=== PATIENT | female | born 1945 | race Caucasian/White ===

== ENCOUNTER 2016-02-21 06:54 | Outpatient (CLI) | payer MEDICARE, MEDICAID ==
[~2016-02-21] VITALS: Ht 170.2 cm; Wt 92.1 kg
--- OUTSIDE RECORDS SUMMARY | 2016-02-21 06:58 | XMS REPORT | Continuity of Care Document ---
Author Author [facility] Organization [facility] Address Unknown Phone Unavailable Care Team Providers Care Solutions Consultant Name Role Phone JANAK OSMAN MD PCP Insurance Providers Payer Name Policy Number Subscriber Name Relationship Wps Medicare [id number] Theodora Victoria 18 Self / Same As Patient [facility] Amerigrp [id number] Theodora Victoria 18 Self / Same As Patient Advance Directives Directive Response Recorded Date/Time Advance Directives Yes 01/17/16 11:01am Health Care Power of Loans Officer Yes 01/17/16 11:01am Organ Donor Yes 01/17/16 11:01am Resuscitation Status Full Code 01/17/16 11:01am Problems Active Problems Medical Problem Onset Date Status CHRONIC RENAL FAILURE Unknown Acute Chest pain Unknown Acute Epigastric abdominal pain Unknown Acute Fever Unknown Acute HYPERTENSION Unknown Acute Hypertensive heart disease Unknown Acute Hypotension due to medication Unknown Acute IDDM Unknown Acute UTI Unknown Acute Medications Current Home Medications Medication Dose Units Route Directions Days/Qty Instructions Start Date Insulin Detemir 100 U/Ml 0-80 Units Sub-Q Three Times A Day Before Meals USES SLIDING SCALE 04/21/11 Pantoprazole Sodium 40 Mg 40 Mg Oral Daily@159906/03/11 Clonidine Hcl 0.2 Mg 1 Each Transderm Q 7 Days change on wednesday Estradiol 1 Mg 1 Mg Oral Daily@159902/29/12 Loratadine 10 Mg 10 Mg Oral Daily@159902/29/12 Acetaminophen/Hydrocodone Bitart 1 Ea 2 Tab Oral Q6hr Prn no more than 8 in 24hr 03/01/12 Nitroglycerin 0.4 Mg 0.4 Mg Sublingual As Needed 10/06/12 Atorvastatin Calcium 10 Mg 10 Mg Oral Bedtime 10/22/12 Aspirin 81 Mg 81 Mg Oral Daily @159903/28/15 Duloxetine Hcl 60 Mg 60 Mg Oral Daily@159903/28/15 Lisinopril 40 Mg 40 Mg Oral Daily@159903/28/15 Spironolactone 25 Mg 25 Mg Oral Daily@159903/28/15 Oxybutynin Chloride 15 Mg 15 Mg Oral Daily@159903/28/15 Metoprolol Succinate 100 Mg 100 Mg Oral Daily@159903/28/15 [id number]/Sod Sul/Nacl/Asb/C/Kcl 1 Each 2 Each Oral As Directed 2 Days 04/01/15 Past Home Medications Medication Directions Ordered Status Clopidogrel Bisulfate 75 Mg Tablet, 75 Mg Oral Daily 04/18/07 Discontinued Loratadine 10 Mg Box, 10 Mg Oral Daily 04/18/07 Discontinued Montelukast Sodium 10 Mg Tablet, 10 Mg Oral Daily 04/18/07 Discontinued Pioglitazone Hcl 30 Mg Tablet, 04/18/07 Discontinued Fluoxetine Hcl 20 Mg Capsule, 04/18/07 Discontinued Metoprolol Tartrate (Lopressor) 50 Mg Tablet, 04/18/07 Discontinued Benazepril Hcl 40 Mg Tablet, 04/18/07 Discontinued Fenofibrate 145 Mg Tablet, 145 Mg Oral Daily 04/18/07 Discontinued Estrogens Conjugated 0.625 Mg Tablet, 0.625 Mg Oral Daily 04/18/07 Discontinued Esomeprazole Magnesium 40 Mg Capsule., 04/18/07 Discontinued Glyburide 5 Mg Tablet, 10 Mg Oral Twice A Day 04/18/07 Discontinued Aspirin 81 Mg Tablet, 81 Mg Oral Daily 04/18/07 Discontinued Potassium Chloride 10 Meq Capcr, 02/26/09 Discontinued Furosemide 40 Mg Tab, 02/26/09 Discontinued Pioglitazone Hcl 45 Mg Tablet, 45 Mg Oral Daily 02/26/09 Discontinued Hydrochlorothiazide 25 Mg Tab, 25 Mg Oral Daily 02/26/09 Discontinued Diltiazem Hcl (Cardizem Cd) 240 Mg Cap.sr.24h, 02/26/09 Discontinued Amlodipine/Benazepril Hcl 1 Each Capsule, 1 Tab Oral Daily 02/26/09 Discontinued Darifenacin 15 Mg Tab.sr.24h, 15 Mg Oral Bedtime 02/26/09 Discontinued Gabapentin 300 Mg Cap, 02/26/09 Discontinued Gabapentin 600 Mg Tablet, 02/26/09 Discontinued Gabapentin (Neurontin) 300 Mg Tablet, 02/26/09 Discontinued Gabapentin 600 Mg Tablet, 02/26/09 Discontinued Folic Acid 1 Mg Tab, 1 Mg Oral Twice A Day 08/23/09 Discontinued [Insulin] , 40 Units Daily 09/28/09 Discontinued Sitagliptin Phosphate 100 Mg Tablet, 100 Mg Oral Daily 09/28/09 Discontinued Diltiazem Hcl 240 Mg Cap.sr.24h, 240 Mg Oral Daily 09/28/09 Discontinued Metoprolol Succinate 100 Mg Tab, 100 Mg Oral Twice A Day 09/28/09 Discontinued Docusate Sodium 100 Mg Tablet, 100 Mg Oral Daily 09/28/09 Discontinued Gabapentin 600 Mg Tab, 600 Mg Oral Qam Et Qafternoon 09/29/09 Discontinued Gabapentin 600 Mg Tab, 1200 Mg Oral Bedtime 09/29/09 Discontinued Famotidine (Pepcid) 20 Mg Tablet, 20 Mg Oral Twice A Day 09/29/09 Discontinued Levofloxacin 250 Mg Tab, 1 Each Oral Daily 09/30/09 Discontinued Fexofenadine Hcl 180 Mg Tablet, 180 Mg Oral Daily 03/07/10 Discontinued Hydrocodone Bit/Acetaminophen 1 Each Tablet, 1.5 Tab Oral Every 4HRS Discontinued Multivitamins 1 Tab Tablet, 1 Tab Oral Daily 03/07/10 Discontinued [Iron And Zinc Supp] , 1 Tab Oral Daily 03/07/10 Discontinued [Procrit] , Subcutaneously Weekly 03/07/10 Discontinued Nitroglycerin 0.4 Mg Subl, 0.4 Mg Sublingual As Needed 03/07/10 Discontinued Oxycodone Hcl/Acetaminophen 1 Each Tablet, 1 - 2 Each Oral Q4-6HRS 03/19/10 Discontinued Cefadroxil Hydrate (Duricef) 500 Mg Capsule, 1 Each Oral Twice A Day Discontinued Furosemide (Lasix) 80 Mg Tablet, 1 Each Oral Every Other Day 04/21/11 Discontinued Oxybutynin Chloride (Ditropan) 5 Mg Tablet, 1 Each Oral Twice A Day 04/21/11 Discontinued Hydrochlorothiazide 25 Mg Tablet, 1 Each Oral Daily 04/21/11 Discontinued Loratadine 10 Mg Tablet, 10 Mg Oral Daily 04/21/11 Discontinued Estradiol 0.5 Mg Tablet, 0.5 Mg Oral Daily 04/21/11 Discontinued Metoprolol Succinate (Toprol Xl) 25 Mg Tab.sr.24h, 1 Each Oral Daily Discontinued Insulin Detemir 100 U/Ml Insuln.pen, 60 Units Sub-Q Bedtime 04/21/11 Discontinued Duloxetine Hcl 30 Mg Capsule.dr, 1 Each Oral Daily 04/24/11 Discontinued Fentanyl 1 Ea Patch, 1 Each Transderm Every 72 Hours 04/24/11 Discontinued Gabapentin 600 Mg Tab, 1200 Mg Oral Bedtime 04/24/11 Discontinued Gabapentin 300 Mg Cap, 600 Mg Oral 0900, 1300 04/24/11 Discontinued Metoprolol Succinate (Toprol Xl) 100 Mg Tab.sr.24h, 1 Each Oral Daily Discontinued Levofloxacin 500 Mg Tab, 1 Each Oral Daily 04/24/11 Discontinued Amoxicillin 500 Mg Capsule, 1 Each Oral Three Times A Day 04/24/11 Discontinued Ondansetron Hcl 4 Mg Tab, 4 Mg Oral Every 4HRS 04/26/11 Discontinued Duloxetine Hcl 60 Mg Capsule.dr, 1 Each Oral Daily 05/26/11 Discontinued Linagliptin 5 Mg Tablet, 5 Mg Oral Daily 05/26/11 Discontinued Loratadine 10 Mg Tablet, 10 Mg Oral Daily 05/26/11 Discontinued Ciprofloxacin 500 Mg Tbmp.24hr, 1 Tab Oral Daily 05/26/11 Discontinued Oxybutynin Chloride (Ditropan) 5 Mg Tablet, 1 Each Oral Twice A Day 05/26/11 Discontinued Famotidine (Pepcid) 20 Mg Tablet, 1 Each Oral Twice A Day 05/26/11 Discontinued [Tri Cor] , 145 Mg Oral Daily 05/26/11 Discontinued Linagliptin 5 Mg Tablet, 5 Mg Oral 05/26/11 Discontinued Hydroxyzine Hcl 25 Mg Tablet, 25 Mg Oral Three Times A Day as needed Discontinued Ciprofloxacin Hcl 250 Mg Tablet, 2 Tab Oral Twice A Day 05/27/11 Discontinued Metoprolol Succinate (Toprol Xl) 25 Mg Tab.sr.24h, 2 Each Oral Daily Discontinued Aspirin 81 Mg Tabec, 81 Mg Oral Daily 05/27/11 Discontinued Calcium Carbonate 500 Mg Tab.chew, 500 Mg Oral As Needed 05/27/11 Discontinued Zinc Oxide 56.7 Gm Oint..gm., 56.7 Gm Topical As Needed 04/18/12 Discontinued [Roxanol] , 0.25 - 0.5 Ml Oral Every 2 Hours as needed 05/28/11 Discontinued Metoprolol Succinate 100 Mg Tab, 50 Mg Oral Daily 06/03/11 Discontinued Potassium Chloride 10 Meq Capsule.sa, 10 Meq Oral Daily 06/03/11 Discontinued Duloxetine Hcl 30 Mg Capsule.dr, 30 Mg Oral Daily 06/03/11 Discontinued Acetaminophen/Hydrocodone Bitart ([place]) 1 Each Tablet, 1 Each Oral Every 4HRS as needed 06/03/11 Discontinued Acetaminophen 325 Mg Tablet, 325 Mg Oral Every 6 Hours as needed 06/03/11 Discontinued Amlodipine Besylate (Norvasc 10 Mg) 10 Mg Tablet, 10 Mg Oral Daily 06/03/11 Discontinued Diltiazem Hcl 120 Mg Tablet, 240 Mg Oral Daily 06/03/11 Discontinued Doxazosin Mesylate 1 Mg Tablet, 1 Mg Oral Bedtime as needed 06/03/11 Discontinued Furosemide (Lasix) 40 Mg Tablet, 20 Mg Oral Daily 06/03/11 Discontinued Cyclobenzaprine Hcl (Flexeril) 10 Mg Tablet, 10 Mg Oral Twice A Day 02/29/12 Discontinued Cimetidine 400 Mg Tablet, 800 Mg Oral Daily 02/29/12 Discontinued Montelukast Sodium 10 Mg Tablet, 1 Tab Oral Daily 02/29/12 Discontinued Loratadine 10 Mg Tablet, 10 Mg Oral Daily 03/01/12 Discontinued Aripiprazole 10 Mg Tab, 5 Mg Oral Daily 03/01/12 Discontinued Levofloxacin 250 Mg Tab, 1 Each Oral Daily 03/01/12 Discontinued Oseltamivir Phosphate 75 Mg Capsule, 1 Cap Oral Twice A Day 03/01/12 Discontinued Iron &Iron Asp Gly/Fa/Mv,Min38 1 Each Tablet, 1 Each Oral Daily 10/06/12 Discontinued Biotin 5 Mg Capsule, 0 Oral As Directed 10/06/12 Discontinued Vitamin B Complex 1 Cap Capsule, 1 Cap Oral Daily 10/06/12 Discontinued Ibuprofen 200 Mg Capsule, 200 Mg Oral 10/06/12 Discontinued Metoprolol Succinate (Toprol Xl) 25 Mg Tab.sr.24h, 25 Mg Oral Daily 10/19/12 Discontinued [Biotin 1000 Mcg] , 1000 Mcg Oral Daily 10/19/12 Discontinued Diphenoxylate/Atropine 1 Ea Tab, 2 Tab Oral Four Times Daily as needed Discontinued Clopidogrel Bisulfate 75 Mg Tablet, 75 Mg Oral Daily 10/22/12 Discontinued Aspirin 325 Mg Tab, 325 Mg Oral Daily 10/22/12 Discontinued Lisinopril 5 Mg Tablet, 5 Mg Oral Daily 10/22/12 Discontinued Duloxetine Hcl 30 Mg Capsule.dr, 60 Mg Oral Daily 12/27/12 Discontinued Lisinopril 5 Mg Tablet, 40 Mg Oral Daily 12/27/12 Discontinued Cefuroxime Axetil (Ceftin) 250 Mg Tablet, 250 Mg Oral Twice A Day 12/29/12 Discontinued Glyburide 2.5 Mg Tablet, 2.5 Mg Oral Daily@1600 03/28/15 Discontinued Social History Social History Problem Response Recorded Date/Time Alcohol Use Denies Use 02/10/2015 11:19pm Recreational Drug Use No 02/10/2015 11:19pm Recent Foreign Travel No 01/17/2016 11:01am Recent Infectious Disease Exposure No 01/17/2016 11:01am Sexually Transmitted Disease No 11/04/2015 3:26pm Do you dip or chew tobacco? No 04/03/2015 7:42am Recent Hopitalizations No 11/04/2015 3:26pm Sexually Transmitted Disease No 11/04/2015 3:26pm Hx Sexually Transmitted Disorders No 05/26/2011 11:01pm Hospital Discharge Instructions No hospital discharge instructions. Plan of Care Discharge Date 01/17/16 11:35am Instructions/Education Provided DR. MEZA-[facility] EPIDURAL INST Prescriptions See Medication Section Functional Status No functional status results. Allergies, Adverse Reactions, Alerts Allergen Type Severity Reaction Status Last Updated Codeine Allergy Unknown Active 02/10/15 simvastatin ([id number]) Allergy Unknown Active 02/10/15 Losartan Allergy Unknown Active 02/10/15 Immunizations No immunization records. Vital Signs Acute Vital Signs Vital Response Date/Time Temperature (Fahrenheit) 96.0 degrees F (97.6 - 99.5) 01/17/2016 11:07am Temperature (Calculated Celsius) 35.27916 degrees C (36.4 - 37.5) 01/17/2016 11:07am Temperature Source Tympanic 01/17/2016 11:07am Pulse Rate (adult) 72 bpm (60 - 90) 01/17/2016 11:33am O2 Sat by Pulse Oximetry 98 % (88 - 100) 01/17/2016 11:33am Blood Pressure 169/91 mm Hg 01/17/2016 11:33am Blood Pressure Mean 85 mm Hg 01/17/2016 11:07am Pain Numeric Pain Scale 10-Worst Possible Pain 01/17/2016 11:33am Height (Feet) 5 feet 01/17/2016 11:01am Height (Inches) 7.00 inches 01/17/2016 11:01am Height (Calculated Centimeters) 170.175014 cm 01/17/2016 11:01am Weight (Pounds) 200 pounds 01/17/2016 11:01am Weight (Ounces) 0.0 oz 01/17/2016 11:01am Weight (Calculated Grams) 37329.48 gm 01/17/2016 11:01am Weight (Calculated Kilograms) 90.158682 kilograms 01/17/2016 11:01am Calculated BMI 31.3 01/17/2016 11:01am Results Laboratory Results Test Name Result Units Flags Reference Collection Date/Time Result Date/ Time Comments White Blood Count 7.5 10^3/uL 4.3-11.0 01/14/2016 1:03pm 01/14/2016 1: 12pm Red Blood Count 3.49 10^6/uL L 4.35-5.85 01/14/2016 1:03pm 01/14/2016 1: 12pm Hemoglobin 11.6 G/DL 11.5-16.0 01/14/2016 1:03pm 01/14/2016 1:12pm Hematocrit 35 % 35-52 01/14/2016 1:03pm 01/14/2016 1:12pm Mean Corpuscular Volume 101 FL H 80-99 01/14/2016 1:03pm 01/14/2016 1: 12pm Mean Corpuscular Hemoglobin 33 PG 25-34 01/14/2016 1:03pm 01/14/2016 1: 12pm Mean Corpuscular Hemoglobin Concent 33 G/DL 32-36 01/14/2016 1:03pm 07/2015 1:12pm Red Cell Distribution Width 16.3 % H 10.0-14.5 01/14/2016 1:03pm 2015 1:12pm Platelet Count 177 10^3/uL 130-400 01/14/2016 1:03pm 01/14/2016 1:12pm Mean Platelet Volume 9.7 FL 7.4-10.4 01/14/2016 1:03pm 01/14/2016 1: 12pm Neutrophils (%) (Auto) 71 % 42-75 01/14/2016 1:03pm 01/14/2016 1:12pm Lymphocytes (%) (Auto) 16 % 12-44 01/14/2016 1:03pm 01/14/2016 1:12pm Monocytes (%) (Auto) 8 % 0-12 01/14/2016 1:03pm 01/14/2016 1:12pm Eosinophils (%) (Auto) 5 % 0-10 01/14/2016 1:03pm 01/14/2016 1:12pm Basophils (%) (Auto) 1 % 0-10 01/14/2016 1:03pm 01/14/2016 1:12pm Neutrophils # (Auto) 5.3 X 10^3 1.8-7.8 01/14/2016 1:03pm 01/14/2016 1: 12pm Lymphocytes # (Auto) 1.2 X 10^3 1.0-4.0 01/14/2016 1:0301/14/2016 1: 12pm Monocytes # (Auto) 0.6 X 10^3 0.0-1.0 01/14/2016 1:03pm 01/14/2016 1: 12pm Eosinophils # (Auto) 0.4 10^3/uL H 0.0-0.3 01/14/2016 1:03pm 01/14/2016 1 :12pm Basophils # (Auto) 0.0 10^3/uL 0.0-0.1 01/14/2016 1:03pm 01/14/2016 1: 12pm Sodium Level 138 MMOL/L 135-145 01/14/2016 1:03pm 01/14/2016 2:27pm Potassium Level 3.7 MMOL/L 3.6-5.0 01/14/2016 1:03pm 01/14/2016 2:27pm Chloride Level 94 MMOL/L L 98-107 01/14/2016 1:03pm 01/14/2016 2:27pm Carbon Dioxide Level 33 MMOL/L H 21-32 01/14/2016 1:03pm 01/14/2016 2: 27pm Anion Gap 11 MMOL/L 5-14 01/14/2016 1:03pm 01/14/2016 2:27pm Blood Urea Nitrogen 23 MG/DL H 7-18 01/14/2016 1:03pm 01/14/2016 2:27pm Creatinine 3.85 MG/DL H 0.60-1.30 01/14/2016 1:03pm 01/14/2016 2:27pm BUN/Creatinine Ratio 6 01/14/2016 1:03pm 01/14/2016 2:27pm Estimat Glomerular Filtration Rate 12 01/14/2016 1:03pm 01/14/2016 2:27pm GFR INTERPRETIVE DATA UNITS FOR ESTIMATED GFR (eGFR): mL/min/1.73 M2 REFERENCE RANGE FOR ESTIMATED GFR (eGFR) eGFR NORMAL eGFR >60 MODERATELY DECREASED eGFR 30-59 SEVERLY DECREASED eGFR 15-29 KIDNEY FAILURE <15 (OR DIALYSIS) Glucose Level 125 MG/DL H 70-105 01/14/2016 1:03pm 01/14/2016 2:27pm Calcium Level 9.6 MG/DL 8.5-10.1 01/14/2016 1:03pm 01/14/2016 2:27pm Total Bilirubin 0.6 MG/DL 0.1-1.0 01/14/2016 1:03pm 01/14/2016 2:27pm Alkaline Phosphatase 268 U/L H 40-136 01/14/2016 1:03pm 01/14/2016 2: 27pm Aspartate Amino Transf (AST/SGOT) 49 U/L H 5-34 01/14/2016 1:03pm 2015 2:27pm Alanine Aminotransferase (ALT/SGPT) 43 U/L 0-55 01/14/2016 1:03pm 01/13 2:27pm Total Protein 7.1 G/DL 6.4-8.2 01/14/2016 1:03pm 01/14/2016 2:27pm Albumin 3.8 G/DL 3.2-4.5 01/14/2016 1:03pm 01/14/2016 2:27pm Thyroid Stimulating Hormone (TSH) 3.59 UIU/ML 0.35-4.94 01/14/2016 1: 03pm 01/14/2016 3:14pm Procedures No known history of procedures. Encounters Encounter Location Arrival/Admit Date Discharge/Depart Date Attending Provider Departed Clinic [facility] 01/17/16 10:49am 01/17/16 11: 35MIHAI Brewer MD Registered Clinic [facility] 01/14/16 2:03pm KHRIS BLANCO Registered Recurring [facility] 01/14/16 12:42pm LILIBETH PUGH
[2016-02-21] MEDS ORDERED: LIDOCAINE 1% INJ 20 ML (XYLOCAINE) VIAL ONE (07:00)
[2016-02-21] MEDS ORDERED: BUPIVACAINE 0.25% 30 ML (SENSORCAINE) VIAL ONE (07:00)
[2016-02-21] MEDS ORDERED: TRIAMCINOLONE ACET (KENALOG-40) 40 MG/ML 1 ML VIAL ONE (07:00)
[2016-02-21 07:10] VITALS: BP 103/74
[2016-02-21 07:48] VITALS: BP 141/79
--- NOTE | 2016-02-21 11:38 | Pain Medicine-Procedure ---
Procedure Pre-Op/Post-Op Diagnosis Diagnosis: Hip osteoarthritis Indications for Operation Hip pain Attending Surgeon Blanca Procedure Date of Service: Feb 21, 2016 PROCEDURE: Left hip injection under flouroscopic guidance PROCEDURE IN DETAIL: After obtaining informed consent from the patient, the patient's chart was reviewed. The patient was brought to the procedure room and placed in the supine position. The left hip was prepped with antiseptic solution. Then, the joint was identified under fluoroscopic guidance. 2 ml's of 1% Lidocaine was used to anesthetize the skin. A 22 gauge 3.5 inch spinal needle was inserted through the skin under fluoroscopic guidance until the needle touched the femur at the neck on the left side. Then, after negative aspiration, 2 ml of Omnipaque 300 dye was injected under fluoroscopic guidance which showed good spread of the dye inside the joint. Then, after negative aspiration, 80 mg of kenalog was injected mixed with 4 ml of 0.25% Marcaine. The needle was then flushed with 1% lidocaine and removed. The patient tolerated the procedure well and a band-Aid was applied and the patient was taken to the recovery room in stable condition. Complications None MIHAI MEZA MD Feb 21, 2016 11:38 am
== END 2016-02-21 07:50 | disposition home or self-care (01) ==
LOC: CARD 06:54
PROVIDERS: ATTEND Pain Medicine Pain Medicine
DX: M16.12 Unilateral primary osteoarthritis, left hip (principal); Z79.899 Other long term (current) drug therapy
CPT/HCPCS: 20610; 76700; 77002

== ENCOUNTER → 2016-02-21 | Outpatient (CLI) | payer MEDICARE, MEDICAID ==
[~2016-02-21] MED LIST: AC325T PO; AMLO10TA82 PO; AMLO1CAP PO; AMOX500C2 PO; ARPZ10T PO; ASP325T PO; ASP81CT PO; ASP81TEC PO; ASPI-586 PO; ATRV10T PO; BIOT5CAP10 PO; BIOTIN 1000 MCG PO; BNZ40T; CEFA-4 PO; CEFU250T11 PO; CIME-48 PO; CIPR-17 PO; CLC500CT PO; CLON1PAT15 TD; CLOP75TA PO; CLPD75T PO; CPR250T PO; CYCL10TA9 PO; DARI15TA4 PO; DILT120T11 PO; DILT240C; DILT240C54 PO; DOCU100T7 PO; DOXA1TAB PO; DULO30CA PO; DULO60CA58 PO; DULO60CA6 PO; EST.625T PO; ESTR0.5T PO; ESTR1TAB24 PO; FAMO20TA5 PO; FENO145T PO; FEXO-104 PO; FLC1T PO; FLX20C; FNT75TD TD; FRSM40T; FURO40TA4 PO; FURO80TA3 PO; GABA300T; GABA600T2; GBPN300C; GBPN300C PO; GBPN600T PO; GLBR5T PO; GLYB2.5T4 PO; HCT25T PO; HYDR-2856 PO; HYDR-2890 PO; HYDR-34; HYDR-34 PO; HYDR-3720 PO; IBUP200C92 PO; INSULIN; IRON1TAB94 PO; KCL10CCR; LEVE1U SQ; LEVO250T7 PO; LEVO500T69 PO; LINA5TAB PO; LISI40TA PO; LISI5TAB PO; LMTL2.5TRX PO; LORA10TA7 PO; LRT10T PO; LSNP20T PO; METO-274 PO; METO100T5 PO; METO25TA PO; MNTL10T PO; MORP100S3 PO; MTP100TCR PO; MTP50T; MULT-608 PO; NF-ESOM40C; NTR.4SL SL; ONDAN4ODT PO; OSLT75C PO; OXYB15TA PO; OXYB5TAB9 PO; OXYC-12 PO; PEG31POW2 PO; PGLT30T; PIOG45TA PO; PNT40TEC PO; POTA10CA43 PO; PROCRIT SC; ROXANOL PO; SITA100T PO; SPIR25TA3 PO; TRI COR PO; VITA1CAP59 PO; VLS80C PO; ZINC56.7 TP; [UNRECOGNIZED DRUG - OTHER] PO
--- OUTSIDE RECORDS SUMMARY | 2016-02-21 08:07 | XMS REPORT | Continuity of Care Document ---
Author Author [facility] Organization [facility] Address Unknown Phone Unavailable Care Team Providers Care Mold Capper Helper Name Role Phone JANAK OSMAN MD PCP Insurance Providers Payer Name Policy Number Subscriber Name Relationship Wps Medicare [id number] Theodora Victoria 19 Self / Same As Patient [facility] Amerigrp [id number] Theodora Victoria 19 Self / Same As Patient Advance Directives Directive Response Recorded Date/Time Advance Directives Yes 01/17/16 11:01am Health Care Power of Perinatal Breastfeeding Assistant Yes 01/17/16 11:01am Organ Donor Yes 01/17/16 [...] Succinate 100 Mg 100 Mg Oral Daily@159903/28/15 Fat9671/Sod Sul/Nacl/Asb/C/Kcl 1 Each 2 Each Oral As [...] Mg Oral Daily 06/03/11 Discontinued Acetaminophen/Hydrocodone Bitart ([place]) 1 Each Tablet, 1 Each Oral Every [...] Updated Codeine Allergy Unknown Active 02/10/15 simvastatin ([id number]) Allergy Unknown Active 02/10/15 Losartan Allergy Unknown Active 02/10/15 Immunizations No immunization records. Vital Signs Acute Vital Signs Vital Response Date/Time Temperature (Fahrenheit) 96.0 degrees F (97.6 - 99.5) 01/17/2016 11:07am Temperature (Calculated Celsius) 35.81398 degrees C (36.4 - 37.5) 01/17/2016 11:07am [...] 7.00 inches 01/17/2016 11:01am Height (Calculated Centimeters) 170.432867 cm 01/17/2016 11:01am Weight (Pounds) 200 pounds 01/17/2016 11:01am Weight (Ounces) 0.0 oz 01/17/2016 11:01am Weight (Calculated Grams) 80415.48 gm 01/17/2016 11:01am Weight (Calculated Kilograms) 90.229373 kilograms 01/17/2016 11:01am Calculated BMI 31.3 01/17/2016 [...] Discharge/Depart Date Attending Provider Departed Clinic [facility] 01/17/16 10:49am 01/17/16 11: 35MIHAI Brewer MD Registered Clinic [facility] 01/14/16 2:03pm KHRIS BLANCO Registered Recurring [facility] 01/14/16 12:42pm LILIBETH PUGH
--- NOTE | 2016-02-21 16:20 | Diagnostic Imaging Report ---
PROCEDURE: US abdomen complete. TECHNIQUE: Multiple real-time grayscale images were obtained over the abdomen in various projections. INDICATION: Right upper quadrant pain. FINDINGS: The pancreas is largely obscured by bowel gas. The liver is fairly homogeneous with no focal lesion seen. The gallbladder has been surgically removed. The portal vein demonstrates hepatopetal flow. The CBD is 1.8 cm in caliber. No intrahepatic biliary dilatation is identified. When correlated with 07/31/2014 CT scan, CBD dilatation was also seen and this appears to be chronic. The spleen is 11.9 cm in length. There is a 2.3 cm simple-appearing cyst in the spleen. The aorta is obscured by bowel gas. The visualized portions of the IVC appear unremarkable. The right kidney is 9.2 cm and the left kidney is 9.3 cm in length. Both kidneys demonstrate cortical atrophy. No hydronephrosis. No fluid collection or ascites seen. IMPRESSION: Chronic dilatation of the CBD without significant intrahepatic biliary dilatation demonstrated. Dictated by: Dictated on workstation # [id number]
== END ==
LOC: RAD 08:03
PROVIDERS: ATTEND Nurse Practitioner Family
DX: R10.827 Generalized rebound abdominal tenderness (principal)
CPT/HCPCS: 76700

== ENCOUNTER → 2016-02-28 | Outpatient (CLI) | payer MEDICARE, MEDICAID ==
--- OUTSIDE RECORDS SUMMARY | 2016-02-28 08:43 | XMS REPORT | Continuity of Care Document ---
Author Author [facility] Organization [facility] Address Unknown Phone Unavailable Care Team Providers Care Card Feeder Name Role Phone JANAK OSMAN MD PCP Insurance Providers Payer Name Policy Number Subscriber Name Relationship Wps Medicare [id number] Theodora Victoria 19 Self / Same As Patient [facility] [id number] Theodora Victoria 19 Self / Same As Patient Advance Directives Directive Response Recorded Date/Time Advance Directives Yes 01/17/16 11:01am Health Care Power of Corporate Relations Manager Yes 01/17/16 11:01am Organ Donor Yes 01/17/16 [...] Succinate 100 Mg 100 Mg Oral Daily@159903/28/15 [id number]/Sod Sul/Nacl/Asb/C/Kcl 1 Each 2 Each Oral As [...] Mg Oral Daily 06/03/11 Discontinued Acetaminophen/Hydrocodone Bitart ([place]) 1 Each Tablet, 1 Each Oral Every [...] Updated Codeine Allergy Unknown Active 02/10/15 simvastatin ([id number]) Allergy Unknown Active 02/10/15 Losartan Allergy Unknown Active 02/10/15 Immunizations No immunization records. Vital Signs Acute Vital Signs Vital Response Date/Time Temperature (Fahrenheit) 96.0 degrees F (97.6 - 99.5) 01/17/2016 11:07am Temperature (Calculated Celsius) 35.56705 degrees C (36.4 - 37.5) 01/17/2016 11:07am [...] 7.00 inches 01/17/2016 11:01am Height (Calculated Centimeters) 170.310671 cm 01/17/2016 11:01am Weight (Pounds) 200 pounds 01/17/2016 11:01am Weight (Ounces) 0.0 oz 01/17/2016 11:01am Weight (Calculated Grams) 52967.48 gm 01/17/2016 11:01am Weight (Calculated Kilograms) 90.765006 kilograms 01/17/2016 11:01am Calculated BMI 31.3 01/17/2016 [...] Discharge/Depart Date Attending Provider Departed Clinic [facility] 01/17/16 10:49am 01/17/16 11: 35MIHAI Brewer MD Registered Clinic [facility] 01/14/16 2:03pm KHRIS BLANCO Registered Recurring [facility] 01/14/16 12:42pm LILIBETH PUGH
--- NOTE | 2016-02-28 12:47 | Diagnostic Imaging Report ---
PROCEDURE: CT head without contrast. TECHNIQUE: Multiple contiguous axial images were obtained through the brain without the use of intravenous contrast. INDICATION: Intermittent confusion. FINDINGS: There is no intracranial hemorrhage, edema or mass effect. There are periventricular and deep white matter hypodensities compatible with chronic microvascular ischemic changes. An 8 mm hypodensity in the left basal ganglia could be related to an old lacunar infarct. No hydrocephalus. No extra-axial fluid collection is seen. The calvarium, the paranasal sinuses and orbits visualized portions appear grossly unremarkable. IMPRESSION: No acute process. Dictated by: Dictated on workstation # [id number]
== END ==
LOC: RAD 08:38
PROVIDERS: ATTEND Nurse Practitioner Family
DX: G47.51 Confusional arousals (principal)
CPT/HCPCS: 70450

== ENCOUNTER 2016-04-08 11:00 | Outpatient (RCR) | payer MEDICARE, MEDICAID ==
[2016-01-14 13:07] LABS: BASOPHILS % (AUTO) 1 % (0-10); EOSINOPHILS # (AUTO) 0.4 10^3/uL (0.0-0.3); EOSINOPHILS % (AUTO) 5 % (0-10); LYMPHOCYTES # (AUTO) 1.2 X 10^3 (1.0-4.0); LYMPHOCYTES % (AUTO) 16 % (12-44); MEAN CORPUSCULAR HEMOGLOBIN 33 PG (25-34); MEAN CORPUSCULAR HGB CONC 33 G/DL (32-36); MEAN CORPUSCULAR VOLUME 101 FL (80-99); MEAN PLATELET VOLUME 9.7 FL (7.4-10.4); MONOCYTES # (AUTO) 0.6 X 10^3 (0.0-1.0); MONOCYTES % (AUTO) 8 % (0-12); NEUTROPHILS # (AUTO) 5.3 X 10^3 (1.8-7.8); NEUTROPHILS % (AUTO) 71 % (42-75); PLATELET COUNT 177 10^3/uL (130-400); RED BLOOD COUNT 3.49 10^6/uL (4.35-5.85); RED CELL DISTRIBUTION WIDTH 16.3 % (10.0-14.5); WHITE BLOOD COUNT 7.5 10^3/uL (4.3-11.0)
[2016-01-14 14:22] LABS: ALBUMIN 3.8 G/DL (3.2-4.5); BILIRUBIN,TOTAL 0.6 MG/DL (0.1-1.0); CALCIUM 9.6 MG/DL (8.5-10.1); CREATININE SERUM 3.85 MG/DL (0.60-1.30); POTASSIUM 3.7 MMOL/L (3.6-5.0); TOTAL PROTEIN 7.1 G/DL (6.4-8.2)
[2016-01-14 15:13] LABS: THYROID STIMULATING HORMONE 3.59 UIU/ML (0.35-4.94)
[2016-04-08 11:29] LABS: BASOPHILS % (AUTO) 1 % (0-10); EOSINOPHILS # (AUTO) 0.4 10^3/uL (0.0-0.3); EOSINOPHILS % (AUTO) 5 % (0-10); LYMPHOCYTES # (AUTO) 1.6 X 10^3 (1.0-4.0); LYMPHOCYTES % (AUTO) 18 % (12-44); MEAN CORPUSCULAR HEMOGLOBIN 32 PG (25-34); MEAN CORPUSCULAR HGB CONC 32 G/DL (32-36); MEAN CORPUSCULAR VOLUME 101 FL (80-99); MEAN PLATELET VOLUME 10.2 FL (7.4-10.4); MONOCYTES # (AUTO) 0.7 X 10^3 (0.0-1.0); MONOCYTES % (AUTO) 8 % (0-12); NEUTROPHILS # (AUTO) 5.8 X 10^3 (1.8-7.8); NEUTROPHILS % (AUTO) 69 % (42-75); PLATELET COUNT 200 10^3/uL (130-400); RED BLOOD COUNT 3.37 10^6/uL (4.35-5.85); RED CELL DISTRIBUTION WIDTH 15.9 % (10.0-14.5); WHITE BLOOD COUNT 8.5 10^3/uL (4.3-11.0)
[2016-04-08 11:53] LABS: ALBUMIN 3.7 G/DL (3.2-4.5); BILIRUBIN,TOTAL 0.4 MG/DL (0.1-1.0); CALCIUM 8.9 MG/DL (8.5-10.1); CREATININE SERUM 1.68 MG/DL (0.60-1.30); POTASSIUM 3.5 MMOL/L (3.6-5.0)
== END 2016-04-13 | disposition home or self-care (01) ==
LOC: ONC 11:00
PROVIDERS: ATTEND Internal Medicine Hematology & Oncology
DX: Z08 Encounter for follow-up examination after completed treatment for malignant neoplasm (principal); Z85.038 Personal history of other malignant neoplasm of large intestine; D63.1 Anemia in chronic kidney disease; N18.4 Chronic kidney disease, stage 4 (severe); E53.8 Deficiency of other specified B group vitamins; Z79.899 Other long term (current) drug therapy
CPT/HCPCS: 36415; 80053; 82378; 84443; 85025; 99213

== ENCOUNTER → 2016-04-14 | Outpatient (CLI) | payer MEDICARE, MEDICAID ==
--- OUTSIDE RECORDS SUMMARY | 2016-04-14 14:35 | XMS REPORT | Continuity of Care Document ---
Author Author [facility] Organization [facility] Address Unknown Phone Unavailable Care Team Providers Care Counter Maker Name Role Phone JANAK OSMAN MD PCP Insurance Providers Payer Name Policy Number Subscriber Name Relationship Wps Medicare [id number] Theodora Victoria 18 Self / Same As Patient [facility] [employer] [id number] Theodora Victoria 18 Self / Same As Patient Advance Directives Directive Response Recorded Date/Time Advance Directives Yes 01/17/16 11:01am Health Care Power of Lens Molder Yes 01/17/16 11:01am Organ Donor Yes 01/17/16 [...] Succinate 100 Mg 100 Mg Oral Daily@159903/28/15 [id number]/Sod Sul/Nacl/Asb/C/Kcl 1 Each 2 Each Oral As [...] Mg Oral Daily 06/03/11 Discontinued Acetaminophen/Hydrocodone Bitart ([place]) 1 Each Tablet, 1 Each Oral Every [...] Updated Codeine Allergy Unknown Active 02/10/15 simvastatin ([id number]) Allergy Unknown Active 02/10/15 Losartan Allergy Unknown Active 02/10/15 Immunizations No immunization records. Vital Signs Acute Vital Signs Vital Response Date/Time Temperature (Fahrenheit) 96.0 degrees F (97.6 - 99.5) 01/17/2016 11:07am Temperature (Calculated Celsius) 35.94590 degrees C (36.4 - 37.5) 01/17/2016 11:07am [...] 7.00 inches 01/17/2016 11:01am Height (Calculated Centimeters) 170.772290 cm 01/17/2016 11:01am Weight (Pounds) 200 pounds 01/17/2016 11:01am Weight (Ounces) 0.0 oz 01/17/2016 11:01am Weight (Calculated Grams) 17215.48 gm 01/17/2016 11:01am Weight (Calculated Kilograms) 90.496503 kilograms 01/17/2016 11:01am Calculated BMI 31.3 01/17/2016 [...] Discharge/Depart Date Attending Provider Departed Clinic [facility] 01/17/16 10:49am 01/17/16 11: 35MIHAI Brewer MD Registered Clinic [facility] 01/14/16 2:03pm KHRIS BLANCO Registered Recurring [facility] 01/14/16 12:42pm LILIBETH PUGH
--- NOTE | 2016-04-14 19:06 | Diagnostic Imaging Report ---
INDICATION: Jaw pain since getting teeth pulled 3 weeks prior. TECHNIQUE: Four views of mandible at 3:18 PM. CORRELATION STUDY: None FINDINGS: Patient is with absence of teeth along the maxilla with bony resorption. There is absence of large number of the particularly molars of the mandibular teeth. There is some lucency of the residual incisors suggestive of underlying dental caries. There is lucency about the body of the mandible on the left. Additionally, there is more focal probable dental caries of a right premolar tooth with some erosion of the bone in and around this region. Generalized bony demineralization. Visualized portions of the temporomandibular joints are relatively unremarkable. IMPRESSION: 1. Probable dental caries of some of the residual mandibular teeth. 2. More focal prominent lucency with likely dental caries about the right mandibular premolar tooth. Periapical infectious process not excluded. 3. Lucencies of the body of the mandible on the left likely owing to recent tooth extraction. Possibility of infectious etiology is not completely excluded. 4. If further imaging assessment desired, CT imaging would be recommended. Dictated by: Dictated on workstation # [id number]
== END ==
LOC: RAD 14:29
DX: M26.622 Arthralgia of left temporomandibular joint (principal)
CPT/HCPCS: 70110

== ENCOUNTER → 2016-04-16 | Outpatient (CLI) | payer MEDICARE, MEDICAID ==
--- OUTSIDE RECORDS SUMMARY | 2016-04-16 15:07 | XMS REPORT | Continuity of Care Document ---
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] Mg Oral Daily 06/03/11 Discontinued Acetaminophen/Hydrocodone Bitart ([place]) 1 Each Tablet, 1 Each Oral Every [...] Updated Codeine Allergy Unknown Active 02/10/15 simvastatin ([id number]) Allergy Unknown Active 02/10/15 Losartan Allergy Unknown Active 02/10/15 Immunizations No immunization records. Vital Signs Acute Vital Signs Vital Response Date/Time Temperature (Fahrenheit) 96.0 degrees F (97.6 - 99.5) 01/17/2016 11:07am Temperature (Calculated Celsius) 35.64278 degrees C (36.4 - 37.5) 01/17/2016 11:07am [...] 7.00 inches 01/17/2016 11:01am Height (Calculated Centimeters) 170.274685 cm 01/17/2016 11:01am Weight (Pounds) 200 pounds 01/17/2016 11:01am Weight (Ounces) 0.0 oz 01/17/2016 11:01am Weight (Calculated Grams) 13527.48 gm 01/17/2016 11:01am Weight (Calculated Kilograms) 90.247405 kilograms 01/17/2016 11:01am Calculated BMI 31.3 01/17/2016 [...]
--- NOTE | 2016-04-16 15:58 | Diagnostic Imaging Report ---
CLINICAL INDICATION: Patient's grandson states patient has been having possible mini strokes which causes episodes of memory loss. EXAM: MRI of the brain performed without IV contrast. Sequences include axial DWI, ADC map, axial T2, axial FLAIR, axial T1, axial gradient echo, and sagittal T1. COMPARISON: Very limited MRI of the brain performed without IV contrast dated 05/28/2011 which only has very grainy and limited diffusion images. Head CT without IV contrast dated 02/28/2016. FINDINGS: There is no evidence of acute cerebral infarct, intracranial hemorrhage, brain herniation, or hydrocephalus. There are patchy, focal, and confluent areas of high T2 signal white matter changes seen throughout both cerebral hemispheres and periventricular regions; likely representing chronic small vessel ischemic disease and leukoaraiosis. There is a small prominent perivascular space versus chronic lacunar infarct involving the posterior left basal ganglia region. The brain parenchymal volume appears appropriate for patient's age. The visualized [place] vascular structures show no gross significant abnormality. Suspected small-caliber intradural left vertebral artery. Empty sella turcica is noted. The extracranial soft tissue, skull, and orbits are unremarkable. There is minimal fluid in the right mastoid air cells. Paranasal sinuses and temporal bone structures are otherwise unremarkable. IMPRESSION: 1: There is no evidence of acute intracranial process. 2: Chronic small vessel ischemic disease and leukoaraiosis. 3: Mildly prominent perivascular space versus chronic lacunar infarct involving the left basal ganglia. Dictated by: Dictated on workstation # [id number]
== END ==
LOC: RAD 15:03
DX: R41.3 Other amnesia (principal)
CPT/HCPCS: 70551

== ENCOUNTER 2016-06-19 15:03 | Emergency (ER) | payer MEDICARE, MEDICAID ==
[~2016-06-19] VITALS: Ht 165.1 cm; Wt 124.7 kg
[2016-06-19 15:56] LABS: BASOPHILS % (AUTO) 0 % (0-10); EOSINOPHILS # (AUTO) 0.3 10^3/uL (0.0-0.3); EOSINOPHILS % (AUTO) 4 % (0-10); LYMPHOCYTES # (AUTO) 0.7 X 10^3 (1.0-4.0); LYMPHOCYTES % (AUTO) 8 % (12-44); MEAN CORPUSCULAR HEMOGLOBIN 32 PG (25-34); MEAN CORPUSCULAR HGB CONC 33 G/DL (32-36); MEAN CORPUSCULAR VOLUME 96 FL (80-99); MEAN PLATELET VOLUME 10.3 FL (7.4-10.4); MONOCYTES # (AUTO) 0.5 X 10^3 (0.0-1.0); MONOCYTES % (AUTO) 5 % (0-12); NEUTROPHILS % (AUTO) 84 % (42-75); PLATELET COUNT 188 10^3/uL (130-400); RED BLOOD COUNT 3.15 10^6/uL (4.35-5.85); WHITE BLOOD COUNT 9.6 10^3/uL (4.3-11.0)
--- NOTE | 2016-06-19 16:08 | ED Back Pain ---
General Chief Complaint: Back Problems Stated Complaint: BACK/ABD PAIN Source of Information: Patient History of Present Illness Time Seen by Provider: 16:02 Initial Comments This 70-year-old white female presents complaining of thoracic back pain that began following the completion of her dialysis today the patient stated the pain is sharp in nature located in the mid thoracic spine and is made worse with palpation or movement. Patient denies associated shortness of breath, diaphoresis, nausea or vomiting. Patient has had previous myocardial infarction but denies similarity to her current pain. The patient's pain is essentially nonradiating over the mid thoracic area. There is no associated paresthesias or weakness. Patient's dialysis apparently was unremarkable. She lost approximately 3 pounds of fluid during her exchange. Allergies and Home Medications Allergies Coded Allergies: codeine (Verified Allergy, Unknown, 02/10/15) losartan (Verified Allergy, Unknown, 02/10/15) simvastatin (Verified Allergy, Unknown, 02/10/15) Home Medications Aspirin 81 Mg Tablet.dr, 81 MG PO DAILY @1600, (Reported) Atorvastatin Calcium 10 Mg Tablet, 10 MG PO HS, (Reported) Clonidine Hcl 0.2 Mg Tdsy, 1 EACH TD Q 7 DAYS, (Reported) change on wednesday Duloxetine HCl 60 Mg Capsule.dr, 60 MG PO DAILY@1600, (Reported) Estradiol 1 Mg Tablet, 1 MG PO DAILY@1600, (Reported) Hydrocodone Bit/Acetaminophen 1 Ea Tab, 2 TAB PO Q6HR PRN, (Reported) no more than 8 in 24hr Insulin Determir 100 U/Ml Insuln.pen, 0-80 UNITS SQ TIDAC, (Reported) USES SLIDING SCALE Lisinopril 40 Mg Tablet, 40 MG PO DAILY@1600, (Reported) Loratadine 10 Mg Tablet, 10 MG PO DAILY@1600, (Reported) Metoprolol Succinate 100 Mg Tab.er.24h, 100 MG PO DAILY@1600, (Reported) Nitroglycerin 0.4 Mg Subl, 0.4 MG SL NEEDED, (Reported) Oxybutynin Chloride 15 Mg Tab.er.24, 15 MG PO DAILY@1600, (Reported) Pantoprazole Sodium 40 Mg Tablet.dr, 40 MG PO DAILY@1600, (Reported) [id number]/Sod Sul/NaCl/Asb/C/KCl 1 Each Powd.pack, 2 EACH PO UD for 2 Days Prescribed by: ELLIOTT WALDRON on 04/01/15 0856 Spironolactone 25 Mg Tablet, 25 MG PO DAILY@1600, (Reported) Constitutional: No chills, No fever EENTM: No blurred vision, No eye pain Respiratory: No cough, No short of breath Cardiovascular: No chest pain Gastrointestinal: No abdominal pain, No diarrhea, No nausea, No vomiting Genitourinary: no symptoms reported : No Musculoskeletal: see HPI, back pain Skin: No change in color, No rash Psychiatric/Neurological: Depressed Past Uodhcul-Uspmip-Elfcnq Hx Patient Social History Former Smoker/When Quit: Dec 09, 1997 Recent Hopitalizations: No Immunizations Up To Date Tetanus Booster (TDap): Unknown PED Vaccines UTD: No Date of Pneumonia Vaccine: Dec 27, 2014 Seasonal Allergies Seasonal Allergies: Yes Surgeries HX Surgeries: Yes (TEETH EXTRACTED;COLON RESECTION/PARTIAL COLECTOMY;HERNIA REPAIR X2;CATHS ) Surgeries: Abdominal, Appendectomy, Arteriovenous Shunt, Bowel Surgery, Cardiac , Dialysis, Gallbladder, Hysterectomy, Oophorectomy, Orthopedic, Vascular Surgery Respiratory Hx Respiratory Disorders: Yes (CHRONIC DYSPNEA, SLEEP APNEA--CPAP AT NIGHT) Respiratory Disorders: Sleep Apnea, COPD Cardiovascular Hx Cardiac Disorders: Yes (CHRONIC CHEST PAIN. RBBB/LAFB. 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 Genitourinary Hx Genitourinary Disorders: Yes (HD MWF) Genitourinary Disorders: Renal Failure Gastrointestinal Hx Gastrointestinal Disorders: Yes (COLON CANCER) Gastrointestinal Disorders: Chronic Constipation Musculoskeletal Hx Musculoskeletal Disorders: Yes (CHRONIC GENERALIZED PAIN -- ELECTRIC WHEELCHAIR-BOUND DUE TO MORBID OBESITY) Musculoskeletal Disorders: Arthritis, Chronic Back Pain Endocrine Hx Endocrine Disorders: Yes (MORBID OBESITY--NON-AMBULATORY, USES ELECTRIC WHEELCHAIR) Endocrine Disorders: Diabetes, Insulin dep, Hypothyroidsim HEENT HX ENT Disorders: Yes (TEETH REMOVED) Cancer Hx Cancer: Yes Cancer: Colon Psychosocial Hx Psychiatric Problems: Yes Behavioral Health Disorders: Anxiety, Depression Integumentary HX Skin/Integumentary Disorder: Yes (MRSA. CHRONIC CELLULITIS OF LEGS) Blood Transfusions Hx Blood Disorders: Yes (ANEMIA) Reviewed Nursing Assessment Reviewed/Agree w Nursing PMH: Yes Family Medical History Significant Family History: No Pertinent Family Hx Family Medial History: Chest pain 03 FATHER, 03 MOTHER, 09 BROTHER, 09 BROTHER, 09 BROTHER, 09 BROTHER Congenital heart disease 03 FATHER, 03 MOTHER, 09 BROTHER Congestive heart failure 03 FATHER, Family history: Arthritis 09 BROTHER, Family history: Asthma 09 BROTHER Family history: Cardiovascular disease 03 FATHER, 03 MOTHER, 09 BROTHER, 09 BROTHER, 09 BROTHER, 09 BROTHER Family history: Diabetes mellitus 03 FATHER, 03 MOTHER, 09 BROTHER, Family history: Hypertension 03 FATHER, 03 MOTHER, 09 BROTHER, 09 BROTHER, 09 BROTHER, Headache 03 FATHER, 03 MOTHER, 09 BROTHER, 09 BROTHER, 09 BROTHER, 09 BROTHER Heart disease 03 FATHER, 03 MOTHER, 09 BROTHER, 09 BROTHER, 09 BROTHER, Hypercholesterolemia 09 BROTHER Myocardial infarction 03 FATHER, 03 MOTHER, 09 BROTHER, 09 BROTHER, 09 BROTHER, No Family History of: Abdominal aortic aneurysm Abhilash's disease Alcoholism Aphasia Cancer Cancer of colon Cataract Cystic fibrosis Dementia Dysphagia Family history: Allergy Family history: Alzheimer's disease Family history: Breast disease Family history: Coronary thrombosis Family history: Gastrointestinal disease Family history: Glaucoma Family history: Osteoporosis Family history: Thyroid disorder Hearing loss Hereditary disease History of - anemia History of - disorder History of - respiratory disease History of drug abuse Human immunodeficiency virus (HIV) seropositivity Infertile Kidney disease Malignant neoplasm of lung Parkinson's disease Prostate cancer Psychotic disorder Seizure disorder Stroke Tuberculosis Visual impairment Physical Exam Vital Signs Vital Sign - Last 12Hours 06/19/16 15:03 Temp 97.5 Pulse 100 Resp 18 B/P (MAP) 102/75 Pulse Ox 95 O2 Delivery Room Air Capillary Refill : General Appearance: Chronically ill, Cachetic Neck: Normal Inspection Cardiovascular: Regular Rate, Rhythm Respiratory: Chest Non Tender, Lungs Clear Gastrointestinal: Normal Bowel Sounds Back: No Vertebral Tenderness (over approximately T6. The patient has marked kyphosis.) Neurologic/Psychiatric: Alert, Oriented x3, No Motor/Sensory Deficits, Normal Mood/Affect, welder experimental II-XII Norm as Tested Skin: Normal Color, Warm/Dry Progress/Results/Core Measures Results/Orders Lab Results Laboratory Tests Test 06/19/16 15:45 Range/Units White Blood Count 9.6 4.3-11.0 10^3/uL Red Blood Count 3.15 L 4.35-5.85 10^6/uL Hemoglobin 10.0 L 11.5-16.0 G/DL Hematocrit 30 L 35-52 % Mean Corpuscular Volume 96 80-99 FL Mean Corpuscular Hemoglobin 32 25-34 PG Mean Corpuscular Hemoglobin Concent 33 32-36 G/DL Red Cell Distribution Width 15.0 H 10.0-14.5 % Platelet Count 188 130-400 10^3/uL Mean Platelet Volume 10.3 7.4-10.4 FL Neutrophils (%) (Auto) 84 H 42-75 % Lymphocytes (%) (Auto) 8 L 12-44 % Monocytes (%) (Auto) 5 0-12 % Eosinophils (%) (Auto) 4 0-10 % Basophils (%) (Auto) 0 0-10 % Neutrophils # (Auto) 8.0 H 1.8-7.8 X 10^3 Lymphocytes # (Auto) 0.7 L 1.0-4.0 X 10^3 Monocytes # (Auto) 0.5 0.0-1.0 X 10^3 Eosinophils # (Auto) 0.3 0.0-0.3 10^3/uL Basophils # (Auto) 0.0 0.0-0.1 10^3/uL Neutrophils % (Manual) 79 % Lymphocytes % (Manual) 9 % Monocytes % (Manual) 2 % Eosinophils % (Manual) 1 % Basophils % (Manual) 0 % Band Neutrophils 9 % Blood Morphology Comment NORMAL Sodium Level 136 135-145 MMOL/L Potassium Level 3.5 L 3.6-5.0 MMOL/L Chloride Level 91 L 98-107 MMOL/L Carbon Dioxide Level 30 21-32 MMOL/L Anion Gap 15 H 5-14 MMOL/L Blood Urea Nitrogen 18 7-18 MG/DL Creatinine 2.39 H 0.60-1.30 MG/DL Estimat Glomerular Filtration Rate 20 BUN/Creatinine Ratio 8 Glucose Level 180 H 70-105 MG/DL Calcium Level 9.3 8.5-10.1 MG/DL Total Bilirubin 0.6 0.1-1.0 MG/DL Aspartate Amino Transf (AST/SGOT) 12 5-34 U/L Alanine Aminotransferase (ALT/SGPT) 7 0-55 U/L Alkaline Phosphatase 126 40-136 U/L Troponin I < 0.30 <0.30 NG/ML Total Protein 8.3 H 6.4-8.2 G/DL Albumin 4.0 3.2-4.5 G/DL My Orders Orders - LILIANA ISAACS MD Troponin I (06/19/16 15:41) Ekg Tracing (06/19/16 15:41) Cbc With Automated Diff (06/19/16 15:41) Comprehensive Metabolic Panel (06/19/16 15:41) Ua Culture If Indicated (06/19/16 15:41) Manual Differential (06/19/16 15:45) Ct Chest Wo (06/19/16 16:00) Fentanyl Injection (Sublimaze Injection (06/19/16 16:15) Medications Given in ED Current Medications Medications Dose Ordered Sig/Wade Route Start Time Stop Time Status Last Admin Dose Admin Fentanyl Citrate 50 mcg ONCE ONCE IVP 06/19/16 16:15 06/19/16 16:16 DC 06/19/16 16:35 50 MCG Vital Signs/I&O Vital Sign - Last 12Hours 06/19/16 06/19/16 15:03 16:35 Temp 97.5 97.5 Pulse 100 Resp 18 B/P (MAP) 102/75 Pulse Ox 95 O2 Delivery Room Air Progress Note : Time: 16:54 Progress Note The patient's pain was markedly improved with 50 g fentanyl. The patient's CT of the chest failed to demonstrate any evidence of acute pathology. Patient's troponin and EKG were within normal limits and demonstrated a sinus rhythm with a rate of approximately 100. No acute current of injury was noted. There was no change from the patient's previous EKG. Discussed findings with patient and family. Patient will employ hydrocodone which she hasn't home for her discomfort. She promises to return the emergency Department she had any further problems or questions. Departure Impression Impression: Primary Impression: Back pain Qualified Codes: M54.6 - Pain in thoracic spine Disposition: 01 HOME, SELF-CARE Condition: Improved Departure-Patient Inst. Decision time for Depature: 16:58 Referrals: JANAK OSMAN MD (PCP/Family) Primary Care Physician Patient Instructions: Upper Back Pain (DC) Add. Discharge Instructions: Rest at home this weekend. Hydrocodone for pain as needed. Return if any problems. All discharge instructions reviewed with patient and/or family. Voiced understanding. LILIANA ISAACS MD June 19, 2016 16:08
[2016-06-19 16:12] LABS: BAND NEUTROPHILS 9 %; BASOPHILS % (MANUAL) 0 %; EOSINOPHILS % (MANUAL) 1 %; LYMPHOCYTES % (MANUAL) 9 %; NEUTROPHILS % (MANUAL) 79 %
[2016-06-19] MEDS ORDERED: fentaNYL INJECTION 100 MCG/2 ML AMP IVP ONE (16:15)
[2016-06-19 16:17] LABS: ALANINE AMINOTRANSFERASE 7 U/L (0-55); ANION GAP 15 MMOL/L (5-14); ASPARTATE AMINO TRANSFERASE 12 U/L (5-34); BILIRUBIN,TOTAL 0.6 MG/DL (0.1-1.0); BLOOD UREA NITROGEN 18 MG/DL (7-18); BUN/CREATININE RATIO 8; CALCIUM 9.3 MG/DL (8.5-10.1); CARBON DIOXIDE 30 MMOL/L (21-32); CHLORIDE 91 MMOL/L (98-107); CREATININE SERUM 2.39 MG/DL (0.60-1.30); GFR ESTIMATED 20; GLUCOSE 180 MG/DL (70-105); POTASSIUM 3.5 MMOL/L (3.6-5.0); SODIUM 136 MMOL/L (135-145); TOTAL PROTEIN 8.3 G/DL (6.4-8.2)
[2016-06-19 16:23] LABS: TROPONIN I < 0.30 NG/ML (<0.30)
--- NOTE | 2016-06-19 16:43 | Diagnostic Imaging Report ---
PROCEDURE: CT chest without contrast. TECHNIQUE: Multiple contiguous axial images were obtained through the chest without the use of intravenous contrast. INDICATION: Left arm and back pain. FINDINGS: The lungs are clear. There are no effusions or pneumothoraces. There is no hilar or mediastinal lymphadenopathy. There is coronary atherosclerosis. There is aortic atherosclerosis but no aneurysm. IMPRESSION: Atherosclerosis. CT chest is otherwise unremarkable. Dictated by: Dictated on workstation # [id number]
[2016-06-19 17:11] VITALS: BP 118/70
== END 2016-06-19 17:11 | disposition home or self-care (01) ==
LOC: EDUNIT# 15:03 → ER 15:04
DX: M54.6 Pain in thoracic spine (principal); I12.0 Hypertensive chronic kidney disease with stage 5 chronic kidney disease or end stage renal disease; Z99.2 Dependence on renal dialysis; I25.10 Atherosclerotic heart disease of native coronary artery without angina pectoris; E11.9 Type 2 diabetes mellitus without complications; J44.9 Chronic obstructive pulmonary disease, unspecified; E66.01 Morbid (severe) obesity due to excess calories; I25.2 Old myocardial infarction; I70.91 Generalized atherosclerosis; Z79.82 Long term (current) use of aspirin; Z79.4 Long term (current) use of insulin; Z79.899 Other long term (current) drug therapy
CPT/HCPCS: 36415; 71250; 80053; 84484; 85007; 85025; 85027; 93005

== ENCOUNTER → 2016-12-25 | Outpatient (CLI) | payer MEDICARE, MEDICAID ==
[~2016-12-25] MED LIST changes: -METO-274 PO; +METO-395 PO
[2016-12-25 09:30] LABS: BASOPHILS # (AUTO) 0.1 10^3/uL (0.0-0.1); BASOPHILS % (AUTO) 0 % (0-10); EOSINOPHILS # (AUTO) 0.1 10^3/uL (0.0-0.3); EOSINOPHILS % (AUTO) 1 % (0-10); LYMPHOCYTES # (AUTO) 2.1 X 10^3 (1.0-4.0); LYMPHOCYTES % (AUTO) 18 % (12-44); MEAN CORPUSCULAR HEMOGLOBIN 33 PG (25-34); MEAN CORPUSCULAR HGB CONC 33 G/DL (32-36); MEAN CORPUSCULAR VOLUME 102 FL (80-99); MEAN PLATELET VOLUME 9.6 FL (7.4-10.4); MONOCYTES # (AUTO) 0.7 X 10^3 (0.0-1.0); MONOCYTES % (AUTO) 6 % (0-12); NEUTROPHILS % (AUTO) 75 % (42-75); PLATELET COUNT 244 10^3/uL (130-400); RED BLOOD COUNT 2.73 10^6/uL (4.35-5.85); RED CELL DISTRIBUTION WIDTH 13.8 % (10.0-14.5); WHITE BLOOD COUNT 11.9 10^3/uL (4.3-11.0)
[2016-12-25 09:54] LABS: ALBUMIN 3.2 GM/DL (3.2-4.5); BILIRUBIN,TOTAL 0.4 MG/DL (0.1-1.0); CALCIUM 9.7 MG/DL (8.5-10.1); CREATININE SERUM 4.31 MG/DL (0.60-1.30); POTASSIUM 3.5 MMOL/L (3.6-5.0); TOTAL PROTEIN 6.8 GM/DL (6.4-8.2); URIC ACID 6.1 MG/DL (2.6-7.2)
== END ==
LOC: LAB 09:10
DX: R53.83 Other fatigue (principal); D64.9 Anemia, unspecified; N18.9 Chronic kidney disease, unspecified; M79.643 Pain in unspecified hand; M79.89 Other specified soft tissue disorders
CPT/HCPCS: 36415; 80053; 84550; 85025

== ENCOUNTER → 2017-02-04 | Outpatient (CLI) | payer MEDICARE, MEDICAID ==
--- NOTE | 2017-02-04 17:12 | Diagnostic Imaging Report ---
INDICATION: Left knee pain, swelling. COMPARISON: None. FINDINGS: Three views of the left knee demonstrate moderate tricompartment degenerative joint disease. There is no fracture or dislocation. Atherosclerosis is present. There is a mild to moderate-sized suprapatellar joint effusion. IMPRESSION: Degenerative joint disease with joint effusion. No fracture. Dictated by: Dictated on workstation # [id number]
--- NOTE | 2017-02-04 17:15 | Diagnostic Imaging Report ---
INDICATION: Left hand pain, redness, and swelling. COMPARISON: None. FINDINGS: Three views of the left hand demonstrate diffuse osteopenia. Degenerative joint disease is present most pronounced involving the first carpal metacarpophalangeal joint, third and fifth DIPs. There is no fracture, dislocation, foreign body, or osteomyelitis. There is no soft tissue gas. IMPRESSION: Degenerative joint disease without underlying fracture, dislocation, or osteomyelitis. Dictated by: Dictated on workstation # [id number]
== END ==
LOC: RAD 16:39
PROVIDERS: ATTEND Nurse Practitioner Family
DX: M17.12 Unilateral primary osteoarthritis, left knee (principal); M19.042 Primary osteoarthritis, left hand
CPT/HCPCS: 73130; 73562

== ENCOUNTER 2017-03-16 18:22 | Emergency (ER) | payer MEDICARE, MEDICAID ==
[~2017-03-16] VITALS: Ht 162.6 cm; Wt 108.9 kg
[2017-03-16] VITALS (7 sets, daily range): BP systolic 114–149; BP diastolic 55–81
[2017-03-16] MEDS ORDERED: fentaNYL INJECTION 100 MCG/2 ML AMP INJ ONE (18:25)
[2017-03-16] MEDS ORDERED: ETOMIDATE IV SOLN 20 MG/10 ML VIAL IV ONE (18:25)
[2017-03-16] MEDS ORDERED: MIDAZOLAM 5 MG/5 ML (VERSED) VIAL INJ ONE (18:25)
[2017-03-16] MEDS ORDERED: ROCURONIUM 50 MG/5 ML (ZEMURON) VIAL IV ONE (18:25)
[2017-03-16] MEDS ORDERED: DEXTROSE 50% 50 ML (IMS) SYR ONE (18:28)
[2017-03-16] MEDS ORDERED: PIPERACILLIN SODIUM IV ONE (18:45)
[2017-03-16] MEDS ORDERED: TAZOBACTAM IV ONE (18:45)
[2017-03-16] MEDS ORDERED: D5W IV ONE (18:45)
--- NOTE | 2017-03-16 19:09 | ED General ---
General Chief Complaint: Unresponsive Stated Complaint: SOA Nursing Triage Note: BROUGHT IN BY EMS. FAMILY FOUND PT UNRESPONSIVE ET UNKNOWN LAST WELL TIME. PT HAS NOT HAD DIALYISIS IN 2 WEEKS. EMS REPORTS THEY GAVE NARCAN 2MG AND D50 X2 AMPS AND REPORT BLOOD SUGAR SITLL IN THE 50'S. Nursing Sepsis Screen: No Definite Risk Source of Information: EMS Exam Limitations: Physical Impairments History of Present Illness Date Seen by Provider: Mar 16, 2017 Time Seen by Provider: 18:22 Initial Comments Here by EMS after apparently being found by family unresponsive. Last known well time at 1030 this morning She is reportedly on dialysis and has not had dialysis for the last 2 scheduled dialysis last Wednesday and this Wednesday. Initial blood sugar was low and they did give D50 2 A which did increase her blood sugar. The 50s. Pupils were blown bilaterally per EMS. They did give Narcan and she seemed to move a little bit after the Narcan sugar but was otherwise unresponsive. At no time has she answered questions or responded meaningfully. Does appear to occasionally twitch both feet. Timing/Duration: Other (less than well time at 1030 this morning.) Severity: Severe Associated Systoms: Shortness of Air, Weakness Allergies and Home Medications Allergies Coded Allergies: codeine (Verified Allergy, Unknown, 02/10/15) losartan (Verified Allergy, Unknown, 02/10/15) simvastatin (Verified Allergy, Unknown, 02/10/15) Home Medications Aspirin 81 Mg Tablet.dr, 81 MG PO DAILY @1600, (Reported) Atorvastatin Calcium 10 Mg Tablet, 10 MG PO HS, (Reported) Clonidine Hcl 0.2 Mg Tdsy, 1 EACH TD Q 7 DAYS, (Reported) change on wednesday Duloxetine HCl 60 Mg Capsule.dr, 60 MG PO DAILY@1600, (Reported) Estradiol 1 Mg Tablet, 1 MG PO DAILY@1600, (Reported) Hydrocodone Bit/Acetaminophen 1 Ea Tab, 2 TAB PO Q6HR PRN, (Reported) no more than 8 in 24hr Insulin Determir 100 U/Ml Insuln.pen, 0-80 UNITS SQ TIDAC, (Reported) USES SLIDING SCALE Lisinopril 40 Mg Tablet, 40 MG PO DAILY@1600, (Reported) Loratadine 10 Mg Tablet, 10 MG PO DAILY@1600, (Reported) Metoprolol Succinate 100 Mg Tab.er.24h, 100 MG PO DAILY@1600, (Reported) Nitroglycerin 0.4 Mg Subl, 0.4 MG SL NEEDED, (Reported) Oxybutynin Chloride 15 Mg Tab.er.24, 15 MG PO DAILY@1600, (Reported) Pantoprazole Sodium 40 Mg Tablet.dr, 40 MG PO DAILY@1600, (Reported) [id number]/Sod Sul/NaCl/Asb/C/KCl 1 Each Powd.pack, 2 EACH PO UD for 2 Days Prescribed by: ELLIOTT WALDRON on 04/01/15 0856 Spironolactone 25 Mg Tablet, 25 MG PO DAILY@1600, (Reported) Constitutional: see HPI Other Unable to complete review of systems due to altered mental status and unresponsiveness. Past [id number]-[id number] Hx Patient Social History Alcohol Use: Denies Use Recreational Drug Use: No (UNKNOWN) Smoking Status: Unknown if Ever Smoked Recent Foreign Travel: No Contact w/Someone Who Travel: No Recent Infectious Disease Expo: No Recent Hopitalizations: No Immunizations Up To Date Tetanus Booster (TDap): Unknown PED Vaccines UTD: No Date of Pneumonia Vaccine: Dec 27, 2014 Date of Influenza Vaccine: Dec 10, 2014 Seasonal Allergies Seasonal Allergies: Yes Surgeries History of Surgeries: Yes (TEETH EXTRACTED;COLON RESECTION/PARTIAL COLECTOMY; HERNIA REPAIR X2;CATHS ) Surgeries: Abdominal, Appendectomy, Arteriovenous Shunt, Bowel Surgery, Cardiac , Dialysis, Gallbladder, Hysterectomy, Oophorectomy, Orthopedic, Vascular Surgery Respiratory History of Respiratory Disorde: Yes (CHRONIC DYSPNEA, SLEEP APNEA--CPAP AT NIGHT) Respiratory Disorders: Sleep Apnea, COPD Cardiovascular History of Cardiac Disorders: Yes (CHRONIC CHEST PAIN. RBBB/LAFB. 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 Genitourinary Genitourinary Disorders: Renal Failure Gastrointestinal History of Gastrointestinal Di: Yes (COLON CANCER) Gastrointestinal Disorders: Chronic Constipation Musculoskeletal History of Musculoskeletal Dis: Yes (CHRONIC GENERALIZED PAIN -- ELECTRIC WHEELCHAIR-BOUND DUE TO MORBID OBESITY) Musculoskeletal Disorders: Arthritis, Chronic Back Pain Endocrine History of Endocrine Disorders: Yes (MORBID OBESITY--NON-AMBULATORY, USES ELECTRIC WHEELCHAIR) Endocrine Disorders: Diabetes, Insulin dep, Hypothyroidsim Cancer History of Cancer: Yes Cancer: Colon Psychosocial History of Psychiatric Problem: Yes Behavioral Health Disorders: Anxiety, Depression Integumentary History of Skin or Integumenta: Yes (MRSA. CHRONIC CELLULITIS OF LEGS) Blood Transfusions History of Blood Disorders: Yes (ANEMIA) Family Medical History Significant Family History: No Pertinent Family Hx Other History per records as patient unable to answer questions due to unresponsiveness Family Medial History: Chest pain 03 FATHER, 03 MOTHER, 09 BROTHER, 09 BROTHER, 09 BROTHER, 09 BROTHER Congenital heart disease 03 FATHER, 03 MOTHER, 09 BROTHER Congestive heart failure 03 FATHER, Family history: Arthritis 09 BROTHER, Family history: Asthma 09 BROTHER Family history: Cardiovascular disease 03 FATHER, 03 MOTHER, 09 BROTHER, 09 BROTHER, 09 BROTHER, 09 BROTHER Family history: Diabetes mellitus 03 FATHER, 03 MOTHER, 09 BROTHER, Family history: Hypertension 03 FATHER, 03 MOTHER, 09 BROTHER, 09 BROTHER, 09 BROTHER, Headache 03 FATHER, 03 MOTHER, 09 BROTHER, 09 BROTHER, 09 BROTHER, 09 BROTHER Heart disease 03 FATHER, 03 MOTHER, 09 BROTHER, 09 BROTHER, 09 BROTHER, Hypercholesterolemia 09 BROTHER Myocardial infarction 03 FATHER, 03 MOTHER, 09 BROTHER, 09 BROTHER, 09 BROTHER, Physical Exam-Suspected Sepsis Physical Exam Vital Signs Vital Signs - First Documented 03/16/17 03/16/17 18:22 20:02 Temp 98.6 Pulse 91 Resp 14 B/P (MAP) 150/79 (102) O2 Delivery Ambu-Bag Capillary Refill : Greater Than 3 Seconds Blood Pressure Mean: 102 General Appearance: Obese, Severe Distress (respiratory) HEENT: PERRL/EOMI, Pharynx Normal, Other (pupils 8 mm bilaterally and sluggish but responsive) Neck: Non Tender, Supple Respiratory: Decreased Breath Sounds, No Wheezing (with bagging) Cardiovascular: Regular Rate, Rhythm, No Murmur Back: Normal Inspection Extremity: Pedal Edema (1+ edema to the knees bilateral), Pelvis Stable, Other ( occasionally moves both feet) Neurologic/Psychiatric: Other (unresponsive but appears to withdraw from painful stimuli) Skin: warm/dry, other (has used infection at the pannus bilateral.) Focused Exam Evaluation Lactate Level Laboratory Tests 03/16/17 18:45: Lactic Acid Level 1.44 Lactic Acid Level Lumen: triple Position: internal jugular (R) Complications: none Post Position: sutured, good blood return, position confirmed w/ CXR Progress Please via ultrasound guidance 1 stick without complications. Covered with dressing. Date of ETT Placement: Mar 16, 2017 Time of ETT Placement: 1831 Tube Size: 7.50 Medications: Etomidate, Rocuronium Positive End Tide CO2: Yes Breath Sounds after Intubation: bilateral-equal Intubation Complications: no complications Post Intubation Xray: Yes Progress/Xray Impression: tube in good position. Progress/Results/Core Measures Suspected Sepsis Recent Fever Within 48 Hours: No Infection Criteria Present: Suspected New Infection New/Unexplained Altered Menta: Yes Sepsis Screen: No Definite Risk Sepsis Diagnosis: SIRS Temperature: Pulse: 91 Respiratory Rate: 14 Laboratory Tests 03/16/17 19:06: White Blood Count 10.0 Blood Pressure 150 /79 Mean: 102 Laboratory Tests 03/16/17 18:45: Lactic Acid Level 1.44 Laboratory Tests 03/16/17 19:06: Creatinine 3.60H, INR Comment 1.2, Platelet Count 311, Total Bilirubin 0.5 Results/Orders Lab Results Laboratory Tests Test 03/16/17 18:31 03/16/17 18:45 03/16/17 19:04 03/16/17 19:06 Range/Units Glucometer 66 L 100 70-110 MG/DL Lactic Acid Level 1.44 0.50-2.00 MMOL/L White Blood Count 10.0 4.3-11.0 10^3/uL Red Blood Count 2.01 L 4.35-5.85 10^6/uL Hemoglobin 6.0 *L 11.5-16.0 G/DL Hematocrit 19 *L 35-52 % Mean Corpuscular Volume 96 80-99 FL Mean Corpuscular Hemoglobin 30 25-34 PG Mean Corpuscular Hemoglobin Concent 31 L 32-36 G/DL Red Cell Distribution Width 15.0 H 10.0-14.5 % Platelet Count 311 130-400 10^3/uL Mean Platelet Volume 10.2 7.4-10.4 FL Neutrophils (%) (Auto) 92 H 42-75 % Lymphocytes (%) (Auto) 5 L 12-44 % Monocytes (%) (Auto) 3 0-12 % Eosinophils (%) (Auto) 0 0-10 % Basophils (%) (Auto) 0 0-10 % Neutrophils # (Auto) 9.2 H 1.8-7.8 X 10^3 Lymphocytes # (Auto) 0.5 L 1.0-4.0 X 10^3 Monocytes # (Auto) 0.3 0.0-1.0 X 10^3 Eosinophils # (Auto) 0.0 0.0-0.3 10^3/uL Basophils # (Auto) 0.0 0.0-0.1 10^3/uL Neutrophils % (Manual) 93 % Lymphocytes % (Manual) 4 % Monocytes % (Manual) 3 % Eosinophils % (Manual) 0 % Basophils % (Manual) 0 % Band Neutrophils 0 % Anisocytosis MODERATE Spherocytes MODERATE Prothrombin Time 15.0 H 12.2-14.7 SEC INR Comment 1.2 0.8-1.4 Activated Partial Thromboplast Time 44 H 24-35 SEC Sodium Level 132 L 135-145 MMOL/L Potassium Level 4.6 3.6-5.0 MMOL/L Chloride Level 103 98-107 MMOL/L Carbon Dioxide Level 19 L 21-32 MMOL/L Anion Gap 10 5-14 MMOL/L Blood Urea Nitrogen 40 H 7-18 MG/DL Creatinine 3.60 H 0.60-1.30 MG/DL Estimat Glomerular Filtration Rate 13 BUN/Creatinine Ratio 11 Glucose Level 280 H 70-105 MG/DL Calcium Level 9.0 8.5-10.1 MG/DL Magnesium Level 1.4 L 1.8-2.4 MG/DL Total Bilirubin 0.5 0.1-1.0 MG/DL Aspartate Amino Transf (AST/SGOT) 17 5-34 U/L Alanine Aminotransferase (ALT/SGPT) 8 0-55 U/L Alkaline Phosphatase 94 40-136 U/L Troponin I < 0.30 <0.30 NG/ML Total Protein 6.5 6.4-8.2 GM/DL Albumin 2.8 L 3.2-4.5 GM/DL TSH [place] Testing 1.00 0.35-4.94 UIU/ML Salicylates Level < 5.0 L 5.0-20.0 MG/DL Acetaminophen Level < 10 L 10-30 UG/ML Serum Alcohol < 10 <10 MG/DL Test 03/16/17 19:17 03/16/17 21:00 Range/Units Urine Color YELLOW Urine Clarity CLEAR Urine pH 8 5-9 Urine Specific [place] 1.010 L 1.016-1.022 Urine Protein 3+ H NEGATIVE Urine Glucose (UA) NEGATIVE NEGATIVE Urine Ketones NEGATIVE NEGATIVE Urine Nitrite NEGATIVE NEGATIVE Urine Bilirubin NEGATIVE NEGATIVE Urine Urobilinogen NORMAL NORMAL MG/DL Urine Leukocyte Esterase NEGATIVE NEGATIVE Urine RBC (Auto) NEGATIVE NEGATIVE Urine RBC NONE /HPF Urine WBC NONE /HPF Urine Squamous Epithelial Cells 0-2 /HPF Urine Crystals NONE /LPF Urine Bacteria NONE /HPF Urine Casts NONE /LPF Urine Mucus NEGATIVE /LPF Urine Culture Indicated NO Urine Opiates Screen NEGATIVE NEGATIVE Urine Oxycodone Screen POSITIVE H NEGATIVE Urine Methadone Screen NEGATIVE NEGATIVE Urine Propoxyphene Screen NEGATIVE NEGATIVE Urine Barbiturates Screen NEGATIVE NEGATIVE Ur Tricyclic Antidepressants Screen NEGATIVE NEGATIVE Urine Phencyclidine Screen NEGATIVE NEGATIVE Urine Amphetamines Screen NEGATIVE NEGATIVE Urine Methamphetamines Screen NEGATIVE NEGATIVE Urine Benzodiazepines Screen NEGATIVE NEGATIVE Urine Cocaine Screen NEGATIVE NEGATIVE Urine Cannabinoids Screen NEGATIVE NEGATIVE Blood Gas Puncture Site LEFT BRACHIAL Blood Gas Patient Temperature 97.6 Arterial Blood pH 7.43 7.37-7.43 Arterial Blood Partial Pressure CO2 33 L 35-45 MMHG Arterial Blood Partial Pressure O2 397 H 79-93 MMHG Arterial Blood HCO3 22 L 23-27 MMOL/L Arterial Blood Total CO2 22.9 21.0-31.0 MMOL/L Arterial Blood Oxygen Saturation 100 94-100 % Arterial Blood Base Excess -1.9 -2.5-2.5 MMOL/L Arnoldo Test NA Blood Gas Ventilator Setting YES Blood Gas Inspired Oxygen UNKNOWN Micro Results Microbiology 03/16/17 Influenza Types A,B Antigen (SAE) - Final, Complete My Orders Orders - KALLIE HERRERA MD D50w (Emergency) Syringe (Dextrose 50% 5 (03/16/17 18:28) Ct Head Wo (03/16/17 19:02) Midazolam Injection (Versed Injection) (03/16/17 19:30) Fentanyl Injection (Sublimaze Injection (03/16/17 19:27) Midazolam Injection (Versed Injection) (03/16/17 19:26) Fentanyl Injection (Sublimaze Injection (03/16/17 19:27) Propofol Drip (Icu) (Diprivan Drip (Icu) (03/16/17 20:00) Propofol Drip (Icu) (Diprivan Drip (Icu) (03/16/17 19:50) Red Cells Leukocytes Reduced (03/16/17 20:17) Type And Screen (03/16/17 20:17) Acetaminophen (03/16/17 20:37) Arterial Blood Gas (03/16/17 20:37) Salicylate (03/16/17 20:37) Ns Iv 500 Ml (Sodium Chloride 0.9%) (03/16/17 21:17) Medications Given in ED Current Medications Medications Dose Ordered Sig/Wade Route Start Time Stop Time Status Last Admin Dose Admin Dextrose 50 ml STK-MED ONCE .ROUTE 03/16/17 18:28 03/16/17 18:31 DC 03/16/17 18:30 50 ML Midazolam HCl 5 mg ONCE ONCE IVP 03/16/17 19:30 03/16/17 19:31 DC 03/16/17 19:30 5 MG Piperacillin Sod/ Tazobactam Sod 2.25 gm/Dextrose 100 ml @ 200 mls/hr ONCE ONCE IV 03/16/17 18:45 03/16/17 19:14 DC 03/16/17 19:47 200 MLS/HR Sodium Chloride 500 ml @ ud STK-MED ONCE .ROUTE 03/16/17 21:17 03/16/17 21:20 DC 03/16/17 21:20 100 MLS/HR Vital Signs/I&O Vital Sign - Last 12Hours 03/16/17 03/16/17 03/16/17 03/16/17 18:22 19:00 19:00 19:42 Pulse 91 64 61 Resp 14 19 27 B/P (MAP) 150/79 (102) Pulse Ox 100 O2 Delivery Ambu-Bag Mechanical Ventilator FiO2 100 100 100 03/16/17 03/16/17 03/16/17 03/16/17 20:02 21:15 21:33 22:14 Temp 98.6 97.6 97.9 Pulse 91 53 91 83 Resp 20 12 20 20 B/P (MAP) 117/88 149/71 148/69 Pulse Ox 100 100 100 FiO2 90 03/16/17 22:38 Temp 97.9 Pulse 83 Resp 20 Pulse Ox 100 O2 Delivery Mechanical Ventilator Intake and Output 03/17/17 00:00 Intake Total 920 ml Balance 920 ml Capillary Refill : Greater Than 3 Seconds Blood Pressure Mean: 102 Point of Care Testing Finger Stick Blood Glucose: 66 Blood Glucose Action Taken: ORDER FOR D50 GIVEN. Progress Note : Progress Note Seen and evaluated on arrival by EMS. Patient has 4 mg IV in the right foot. Patient is still in extremis and is being bagged. No improvement of significance after Narcan or sugar. Patient will require intubation for airway support given her current status. This was done by me. Patient has poor IV access and central line placed. Septic workup worse ordered as well as CT of the head. Given patient's condition and concerns we will initiate antibiotics after blood cultures with renal dose adjusted Zosyn at 2.25 mg IV. NG and Jeffery catheter ordered and placed. I did have a long discussion with the family regarding patient's current condition. She currently is full code per family understands that this will need to be readdressed potentially patient's condition does not improve. Due to patient's history of dialysis she will require transfer to dialysis center. She has missed her last 2 episodes of dialysis (last Wednesday and last Wednesday) not 2 weeks of dialysis. Family does report that she has increasing level of dementia over the last 6 months but also has some periods of being relatively clear. Last known well time was 1030 a.m. this morning per the daughter. 2024: I have discussed the case with Dr. Adams at [facility] in [place], [place]. He has graciously accepted the patient in transfer to their ICU. Patient does have hemoglobin of 6 and we have typed and crossed her for one unit and will initiate that prior to transfer. We did add propofol drip for sedation and patient tolerating well. Current heart rate 62 with O2 sat 100 percent on vent with blood pressure 128/ 66. Vent settings currently are rate of 12, tidal volume of 550 and PEEP of 5 with FiO2 of 50 percent. Family informed of transfer and agree. ECG Initial ECG Impression Date: Mar 16, 2017 Initial ECG Impression Time: 19:45 Initial ECG Rate: 64 Initial ECG Rhythm: Normal Sinus Comment Sinus rhythm with left axis deviation. Right bundle branch block and left anterior fascicular block. Left ventricular hypertrophy noted. No evidence of ST elevation DE. Unchanged compared to 19 Jun 2016. Interpreted by me. Diagnostic Imaging Diagonstic Imaging: CT Plain Films/CT/US/NM/MRI: head Comments VIA [facility]. [place], [place] NAME: [facility] REC#: [id number] PT STATUS: REG ER : 1945 PHYSICIAN: KALLIE HERRERA MD ADMIT DATE: 03/16/17/ER Draft Date of Exam:03/16/17 CT HEAD WO PROCEDURE: CT head without contrast. TECHNIQUE: Multiple contiguous axial images were obtained through the brain without the use of intravenous contrast. INDICATION: Found down with hypotension. FINDINGS: Ventricles and sulci are diffusely prominent. No hemorrhage is identified. There is no abnormal mass effect or shift of midline structures. Calvarium is intact and the visualized paranasal sinuses are clear. IMPRESSION: Senescent findings in the brain without CT evidence of acute intracranial abnormality. Dictated on workstation # [id number] Dict: 03/16/171942 Trans: 03/16/171945 [id number] Interpreted by: MATEUSZ DOVE MD Electronically signed by: Diagonstic Imaging: Xray Plain Films/CT/US/NM/MRI: chest Comments VIA [facility]. [place] [place] NAME: [facility] REC#: [id number] PT STATUS: REG ER : 1945 PHYSICIAN: AMY LYON DO ADMIT DATE: 03/16/17/ER Draft Date of Exam:03/16/17 CHEST 1 VIEW, AP/PA ONLY INDICATION: Hypotension, found down. 1859 hours FINDINGS: There is mild cardiomegaly. Pulmonary vascularity is within normal limits. There is air trapping bilaterally with prominent interstitial markings in both lungs. There is also fullness of the right hilum which could be due to adenopathy. Endotracheal tube is in place with tip just below the thoracic inlet. Right jugular central venous catheter reaches the mid superior vena cava. There is no pneumothorax or definite pleural fluid. Left coronary artery stent is noted. IMPRESSION: Findings are compatible with emphysema. There is enlargement of the right hilum which could be due to adenopathy. Clinical correlation is recommended. If indicated, consideration could be given to CT imaging of the chest. Dictated on workstation # [id number] Dict: 03/16/171932 Trans: 03/16/171939 [facility] [id number] Interpreted by: MATEUSZ DOVE MD Electronically signed by: Departure Impression Impression: Primary Impression: Respiratory failure Qualified Codes: J96.01 - Acute respiratory failure with hypoxia Additional Impression: End stage renal disease on dialysis Disposition: XFER SHT-TRM HOSP Condition: Stable Transfer Time Spoke to Accepting Phy: 20:25 Transfer Time: 20:25 Transfer Facility: [place], [place], Dr. Adams accepting Method of Transfer: EMS Departure-Patient Inst. Referrals: JANAK OSMAN MD (PCP) Primary Care Physician SANJU SALCEDO APRN (Family) Primary Care Physician KALLIE HERRERA MD Mar 16, 2017 19:09
[2017-03-16] MEDS ORDERED: MIDAZOLAM 5 MG/5 ML (VERSED) VIAL ONE (19:26)
[2017-03-16] MEDS ORDERED: fentaNYL INJECTION 100 MCG/2 ML AMP IVP STA (19:27)
[2017-03-16] MEDS ORDERED: fentaNYL INJECTION 100 MCG/2 ML AMP ONE (19:27)
[2017-03-16 19:29] LABS: BASOPHILS % (AUTO) 0 % (0-10); EOSINOPHILS % (AUTO) 0 % (0-10); LYMPHOCYTES # (AUTO) 0.5 X 10^3 (1.0-4.0); LYMPHOCYTES % (AUTO) 5 % (12-44); MEAN CORPUSCULAR HEMOGLOBIN 30 PG (25-34); MEAN CORPUSCULAR HGB CONC 31 G/DL (32-36); MEAN CORPUSCULAR VOLUME 96 FL (80-99); MEAN PLATELET VOLUME 10.2 FL (7.4-10.4); MONOCYTES # (AUTO) 0.3 X 10^3 (0.0-1.0); MONOCYTES % (AUTO) 3 % (0-12); NEUTROPHILS # (AUTO) 9.2 X 10^3 (1.8-7.8); NEUTROPHILS % (AUTO) 92 % (42-75); PLATELET COUNT 311 10^3/uL (130-400); RED BLOOD COUNT 2.01 10^6/uL (4.35-5.85)
[2017-03-16] MEDS ORDERED: MIDAZOLAM 5 MG/5 ML (VERSED) VIAL IVP ONE (19:30)
[2017-03-16 19:31] LABS: BILIRUBIN,URINE NEGATIVE (NEGATIVE); CLARITY,URINE CLEAR; COLOR,URINE YELLOW; GLUCOSE, URINE (UA) NEGATIVE (NEGATIVE); KETONES,URINE NEGATIVE (NEGATIVE); LEUKOCYTE ESTERASE ,URINE NEGATIVE (NEGATIVE); NITRITE,URINE NEGATIVE (NEGATIVE); PH,URINE 8 (5-9); PROTEIN,URINE 3+ (NEGATIVE); UROBILINOGEN,URINE NORMAL (NORMAL)
[2017-03-16 19:32] LABS: HEMATOCRIT 19 % (35-52)
[2017-03-16 19:37] LABS: SQUAMOUS EPITHELIAL CELL,UR 0-2 /HPF
[2017-03-16 19:41] LABS: INR 1.2 (0.8-1.4)
--- NOTE | 2017-03-16 19:41 | Diagnostic Imaging Report ---
INDICATION: Hypotension, found down. 1859 hours FINDINGS: There is mild cardiomegaly. Pulmonary vascularity is within normal limits. There is air trapping bilaterally with prominent interstitial markings in both lungs. There is also fullness of the right hilum which could be due to adenopathy. Endotracheal tube is in place with tip just below the thoracic inlet. Right jugular central venous catheter reaches the mid superior vena cava. There is no pneumothorax or definite pleural fluid. Left coronary artery stent is noted. IMPRESSION: Findings are compatible with emphysema. There is enlargement of the right hilum which could be due to adenopathy. Clinical correlation is recommended. If indicated, consideration could be given to CT imaging of the chest. Dictated by: Dictated on workstation # [id number]
[2017-03-16 19:43] LABS: AMPHETAMINE SCREEN, URINE NEGATIVE (NEGATIVE); BARBITURATE SCREEN URINE NEGATIVE (NEGATIVE); BENZODIAZEPINES SCREEN URINE NEGATIVE (NEGATIVE); CANNABINOID SCREEN, URINE NEGATIVE (NEGATIVE); COCAINE SCREEN URINE NEGATIVE (NEGATIVE); METHADONE STAT NEGATIVE (NEGATIVE); METHAMPHETAMINE SCREEN URINE S NEGATIVE (NEGATIVE); OPIATE SCREEN URINE NEGATIVE (NEGATIVE); OXYCODONE STAT POSITIVE (NEGATIVE); PROPOXYPHENE STAT NEGATIVE (NEGATIVE); TRICYCLIC ANTIDEPRESSANTS SCRE NEGATIVE (NEGATIVE)
--- NOTE | 2017-03-16 19:46 | Diagnostic Imaging Report ---
PROCEDURE: CT head without contrast. TECHNIQUE: Multiple contiguous axial images were obtained through the brain without the use of intravenous contrast. INDICATION: Found down with hypotension. FINDINGS: Ventricles and sulci are diffusely prominent. No hemorrhage is identified. There is no abnormal mass effect or shift of midline structures. Calvarium is intact and the visualized paranasal sinuses are clear. IMPRESSION: Senescent findings in the brain without CT evidence of acute intracranial abnormality. Dictated by: Dictated on workstation # [id number]
[2017-03-16 19:50] LABS: ALANINE AMINOTRANSFERASE 8 U/L (0-55); ALBUMIN 2.8 GM/DL (3.2-4.5); ALKALINE PHOSPHATASE 94 U/L (40-136); BILIRUBIN,TOTAL 0.5 MG/DL (0.1-1.0); BUN/CREATININE RATIO 11; CARBON DIOXIDE 19 MMOL/L (21-32); CHLORIDE 103 MMOL/L (98-107); GFR ESTIMATED 13; GLUCOSE 280 MG/DL (70-105); MAGNESIUM 1.4 MG/DL (1.8-2.4); POTASSIUM 4.6 MMOL/L (3.6-5.0); SODIUM 132 MMOL/L (135-145); TOTAL PROTEIN 6.5 GM/DL (6.4-8.2)
[2017-03-16] MEDS ORDERED: PROPOFOL DRIP (ICU) 100 ML IV ONE (19:50)
[2017-03-16] MEDS ORDERED: PROPOFOL DRIP (ICU) 100 ML IV SCH (20:00)
[2017-03-16 20:40] LABS: ANISOCYTOSIS MODERATE; BAND NEUTROPHILS 0 %; BASOPHILS % (MANUAL) 0 %; EOSINOPHILS % (MANUAL) 0 %; LYMPHOCYTES % (MANUAL) 4 %; MONOCYTES % (MANUAL) 3 %; NEUTROPHILS % (MANUAL) 93 %; SPHEROCYTES MODERATE
[2017-03-16 20:57] LABS: SALICYLATE < 5.0 MG/DL (5.0-20.0)
[2017-03-16 20:59] LABS: ACETAMINOPHEN < 10 UG/ML (10-30)
[2017-03-16] MEDS ORDERED: NS IV 500 ML 500 ML ONE (21:17)
[2017-03-16 21:28] LABS: ABG BASE EXCESS -1.9 MMOL/L (-2.5-2.5); ABG PCO2 33 MMHG (35-45); ABG PH 7.43 (7.37-7.43); ABG PO2 397 MMHG (79-93); ABG TCO2 22.9 MMOL/L (21.0-31.0)
[2017-03-16 21:30] LABS: ABG OXYGEN SATURATION 100 % (94-100)
[2017-03-16 21:31] LABS: PATIENT TEMP 97.6; VENTILATOR YES
--- OUTSIDE RECORDS SUMMARY | 2017-03-17 09:49 | XMS REPORT | Continuity of Care Document ---
Author Author [facility] Organization [facility] Address Unknown Phone Unavailable Allergies Active Description Code Type Severity Reaction Onset Reported/Identified Relationship to Patient Clinical Status Yes codeine [id number] Drug Allergy Unknown N/A 02/10/2015 Yes Losartan [id number] Drug Allergy Unknown N/A 02/10/2015 Yes simvastatin [id number] Drug Allergy Unknown N/A 02/10/2015 Medications There is no data. Problems Date Dx Coded Attending Type Code Diagnosis Diagnosed By 01/07/1325 LILIBETH PUGH Ot D63.1 ANEMIA IN CHRONIC KIDNEY DISEASE 01/07/1325 LILIBETH PUGH Ot E53.8 DEFICIENCY OF OTHER SPECIFIED B GROUP 01/07/1325 LILIBETH PUGH Ot N18.4 CHRONIC KIDNEY DISEASE, STAGE 4 (SEVERE) 01/07/1325 LILIBETH PUGH Ot Z08 ENCNTR FOR FOLLOW-UP EXAM AFTER TRTMT FO 01/07/1325 LILIBETH PUGH Ot Z79.899 OTHER RESEARCH AND DEVELOPMENT DIRECTOR (CURRENT) DRUG THERAPY 01/07/1325 LILIBETH PUGH Ot Z85.038 PERSONAL HISTORY OF MALIGNANT NEOPLASM O 11/07/2008 Ot 250.00 11/07/2008 Ot 284.1 11/07/2008 Ot 285.9 11/07/2008 Ot 585.4 11/07/2008 Ot 791.0 11/07/2008 Ot V10.05 02/06/2009 Ot 250.00 02/06/2009 Ot 272.0 02/06/2009 Ot 284.1 02/06/2009 Ot 285.9 02/06/2009 Ot 414.00 02/06/2009 Ot 585.4 02/06/2009 Ot 715.90 02/06/2009 Ot V10.05 02/06/2009 Ot V45.82 02/06/2009 Ot V58.63 02/06/2009 Ot V58.69 04/19/2009 Ot 724.4 05/08/2009 Ot 250.00 05/08/2009 Ot 285.9 05/08/2009 Ot 414.00 05/08/2009 Ot 585.4 05/08/2009 Ot 715.90 05/08/2009 Ot V10.05 05/08/2009 Ot V45.82 05/08/2009 Ot V58.69 08/07/2009 Ot 266.2 08/07/2009 Ot 285.21 08/07/2009 Ot 585.4 08/07/2009 Ot V58.69 08/28/2009 Ot 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 08/28/2009 Ot 250.00 DIAB JILLIAN WO COMPL, TYPE II OR UNSPEC TY 08/28/2009 Ot 285.9 ANEMIA NOS 08/28/2009 Ot 564.09 OTHER CONSTIPATION 08/28/2009 Ot 585.9 CHRONIC KIDNEY DISEASE, UNSPECIFIED 08/28/2009 Ot E937.9 ADV EFF SEDAT/HYPNOT NOS 08/28/2009 Ot V45.3 INTESTINAL BYPASS STATUS 08/28/2009 Ot V45.72 ACQRD ABSENCE INTESTINE - LARGE/SMALL 08/28/2009 Ot V58.69 OTH MED,LT, CURRENT USE 08/28/2009 Ot V64.3 NO PROC FOR REASONS NEC 09/30/2009 Ot 041.4 09/30/2009 Ot 250.00 09/30/2009 Ot 278.00 09/30/2009 Ot 285.9 09/30/2009 Ot 585.4 09/30/2009 Ot 599.0 09/30/2009 Ot 790.7 09/30/2009 Ot V10.05 09/30/2009 Ot V85.4 11/06/2009 Ot 266.2 11/06/2009 Ot 285.21 11/06/2009 Ot 414.00 11/06/2009 Ot 585.4 11/06/2009 Ot V10.05 11/06/2009 Ot V45.82 11/06/2009 Ot V58.69 02/05/2010 Ot 266.2 02/05/2010 Ot 285.21 02/05/2010 Ot 414.00 02/05/2010 Ot 585.4 02/05/2010 Ot V10.05 02/05/2010 Ot V45.82 02/05/2010 Ot V58.69 03/19/2010 Ot 250.00 03/19/2010 Ot 726.10 03/19/2010 Ot 727.61 03/19/2010 Ot V58.69 05/06/2010 Ot 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 05/06/2010 Ot 285.21 ANEMIA IN CHRONIC KIDNEY DISEASE 05/06/2010 Ot 414.00 CORON ATHEROSCLER NOS TYPE VESSEL, NATIV 05/06/2010 Ot 585.4 CHRONIC KIDNEY DISEASE, STAGE IV (SEVERE 05/06/2010 Ot V10.05 HX OF COLONIC MALIGNANCY 05/06/2010 Ot V45.82 PERCUTANEOUS TRANSLUM CORON ANGIOPLASTY 05/06/2010 Ot V58.69 OTH MED,LT, CURRENT USE 06/18/2010 Ot 244.9 HYPOTHYROIDISM NOS 06/18/2010 Ot 250.00 DIAB JILLIAN WO COMPL, TYPE II OR UNSPEC TY 06/18/2010 Ot 311 DEPRESSIVE DISORDER NEC 06/18/2010 Ot 401.9 HYPERTENSION NOS 06/18/2010 Ot 714.0 RHEUMATOID ARTHRITIS 06/18/2010 Ot 719.41 JOINT PAIN- SHLDER 06/18/2010 Ot 733.00 OSTEOPOROSIS NOS 06/18/2010 Ot V57.1 PHYSICAL THERAPY NEC 06/18/2010 Ot V58.49 OTHER SPECIFIED AFTERCARE FOLLOWING SURG 08/06/2010 Ot 250.00 DIAB JILLIAN WO COMPL, TYPE II OR UNSPEC TY 08/06/2010 Ot 272.0 PURE HYPERCHOLESTEROLEM 08/06/2010 Ot 285.21 ANEMIA IN CHRONIC KIDNEY DISEASE 08/06/2010 Ot 414.00 CORON ATHEROSCLER NOS TYPE VESSEL, NATIV 08/06/2010 Ot 585.4 CHRONIC KIDNEY DISEASE, STAGE IV (SEVERE 08/06/2010 Ot V58.69 OTH MED,LT, CURRENT USE 08/26/2010 Ot 250.00 DIAB JILLIAN WO COMPL, TYPE II OR UNSPEC TY 08/26/2010 Ot 278.01 MORBID OBESITY 08/26/2010 Ot 285.29 ANEMIA OF OTHER CHRONIC DISEASE 08/26/2010 Ot 403.90 HYPTNSV CHR KID DIS, UNSPEC, W CHR KD ST 08/26/2010 Ot 414.00 CORON ATHEROSCLER NOS TYPE VESSEL, NATIV 08/26/2010 Ot 426.53 BILAT BB BLOCK NEC 08/26/2010 Ot 585.9 CHRONIC KIDNEY DISEASE, UNSPECIFIED 08/26/2010 Ot 780.57 UNSPECIFIED SLEEP APNEA 08/26/2010 Ot 786.59 CHEST PAIN NEC 08/26/2010 Ot 791.9 ABN URINE FINDINGS NEC 08/26/2010 Ot V58.66 LONG-TERM ( CURRENT) USE OF ASPIRIN 08/26/2010 Ot V58.69 OTH MED,LT, CURRENT USE 08/26/2010 Ot V85.42 BODY MASS INDEX 45.0-49.9, ADULT 11/04/2010 Ot 285.21 ANEMIA IN CHRONIC KIDNEY DISEASE 11/04/2010 Ot 585.4 CHRONIC KIDNEY DISEASE, STAGE IV (SEVERE 11/04/2010 Ot V58.69 OTH MED,LT, CURRENT USE 02/03/2011 Ot 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 02/03/2011 Ot 285.21 ANEMIA IN CHRONIC KIDNEY DISEASE 02/03/2011 Ot 414.00 CORON ATHEROSCLER NOS TYPE VESSEL, NATIV 02/03/2011 Ot 585.4 CHRONIC KIDNEY DISEASE, STAGE IV (SEVERE 02/03/2011 Ot 881.10 OPEN WOUND FOREARM-COMPL 02/03/2011 Ot E000.8 OTHER EXTERNAL CAUSE STATUS 02/03/2011 Ot E906.8 INJ NEC CAUSED BY ANIMAL 02/03/2011 Ot V10.05 HX OF COLONIC MALIGNANCY 02/03/2011 Ot V45.82 PERCUTANEOUS TRANSLUM CORON ANGIOPLASTY 02/03/2011 Ot V58.69 OTH MED,LT, CURRENT USE 02/09/2011 Ot 787.91 DIARRHEA 04/24/2011 Ot 244.9 HYPOTHYROIDISM NOS 04/24/2011 Ot 250.00 DIAB JILLIAN WO COMPL, TYPE II OR UNSPEC TY 04/24/2011 Ot 278.01 MORBID OBESITY 04/24/2011 Ot 403.90 HYPTNSV CHR KID DIS, UNSPEC, W CHR KD ST 04/24/2011 Ot 428.0 CONGESTIVE HEART FAILURE NOS 04/24/2011 Ot 585.9 CHRONIC KIDNEY DISEASE, UNSPECIFIED 04/24/2011 Ot 682.6 CELLULITIS OF LEG 04/24/2011 Ot 715.35 LOC OSTEOARTH NOS-PELVIS 04/24/2011 Ot 715.36 LOC OSTEOARTH NOS-L/LEG 04/24/2011 Ot 721.3 LUMBOSACRAL SPONDYLOSIS 04/24/2011 Ot V15.82 HISTORY OF TOBACCO USE 04/24/2011 Ot V58.67 LONG-TERM ( CURRENT) USE OF INSULIN 04/26/2011 Ot 300.00 ANXIETY STATE NOS 04/26/2011 Ot 558.9 NONINF GASTROENTERIT NEC 04/26/2011 Ot 787.91 DIARRHEA 05/04/2011 Ot 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 05/04/2011 Ot 285.21 ANEMIA IN CHRONIC KIDNEY DISEASE 05/04/2011 Ot 414.00 CORON ATHEROSCLER NOS TYPE VESSEL, NATIV 05/04/2011 Ot 585.4 CHRONIC KIDNEY DISEASE, STAGE IV (SEVERE 05/04/2011 Ot 789.09 ABDOMINAL PAIN, OTHER SPECIFIED SITE 05/04/2011 Ot V10.05 HX OF COLONIC MALIGNANCY 05/04/2011 Ot V45.82 PERCUTANEOUS TRANSLUM CORON ANGIOPLASTY 05/04/2011 Ot V58.69 OTH MED,LT, CURRENT USE 06/03/2011 Ot 041.12 METHICILLIN RESISTANT STAPHYLOCOCCUS AUR 06/03/2011 Ot 244.9 HYPOTHYROIDISM NOS 06/03/2011 Ot 250.40 DIAB W RENAL MANIFEST, TYPE II OR UNSPEC 06/03/2011 Ot 272.4 HYPERLIPIDEMIA NEC/NOS 06/03/2011 Ot 276.8 HYPOPOTASSEMIA 06/03/2011 Ot 278.00 OBESITY, NOS 06/03/2011 Ot 278.03 OBESITY HYPOVENTILATION SYNDROME 06/03/2011 Ot 285.21 ANEMIA IN CHRONIC KIDNEY DISEASE 06/03/2011 Ot 333.5 CHOREA NEC 06/03/2011 Ot 403.90 HYPTNSV CHR KID DIS, UNSPEC, W CHR KD ST 06/03/2011 Ot 414.00 CORON ATHEROSCLER NOS TYPE VESSEL, NATIV 06/03/2011 Ot 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 06/03/2011 Ot 496 CHR AIRWAY OBSTRUCT NEC 06/03/2011 Ot 530.81 ESOPHAGEAL REFLUX 06/03/2011 Ot 583.81 NEPHRITIS NOS IN OTH DIS 06/03/2011 Ot 584.9 ACUTE RENAL FAILURE, UNSPECIFIED 06/03/2011 Ot 585.9 CHRONIC KIDNEY DISEASE, UNSPECIFIED 06/03/2011 Ot 780.57 UNSPECIFIED SLEEP APNEA 06/03/2011 Ot 784.3 APHASIA 06/03/2011 Ot V10.05 HX OF COLONIC MALIGNANCY 06/03/2011 Ot V58.67 LONG-TERM ( CURRENT) USE OF INSULIN 06/03/2011 Ot V85.42 BODY MASS INDEX 45.0-49.9, ADULT 07/01/2011 Ot 787.91 DIARRHEA 08/05/2011 Ot 281.1 B12 DEFIC ANEMIA NEC 08/05/2011 Ot 285.21 ANEMIA IN CHRONIC KIDNEY DISEASE 08/05/2011 Ot 403.90 HYPTNSV CHR KID DIS, UNSPEC, W CHR KD ST 08/05/2011 Ot 414.00 CORON ATHEROSCLER NOS TYPE VESSEL, NATIV 08/05/2011 Ot 585.4 CHRONIC KIDNEY DISEASE, STAGE IV (SEVERE 08/05/2011 Ot V10.05 HX OF COLONIC MALIGNANCY 08/05/2011 Ot V45.82 PERCUTANEOUS TRANSLUM CORON ANGIOPLASTY 08/05/2011 Ot V58.69 OTH MED,LT, CURRENT USE 11/04/2011 Ot 285.21 ANEMIA IN CHRONIC KIDNEY DISEASE 11/04/2011 Ot 585.4 CHRONIC KIDNEY DISEASE, STAGE IV (SEVERE 11/04/2011 Ot V58.69 OTH MED,LT, CURRENT USE 02/03/2012 Ot 281.1 B12 DEFIC ANEMIA NEC 02/03/2012 Ot 285.21 ANEMIA IN CHRONIC KIDNEY DISEASE 02/03/2012 Ot 403.90 HYPTNSV CHR KID DIS, UNSPEC, W CHR KD ST 02/03/2012 Ot 414.00 CORON ATHEROSCLER NOS TYPE VESSEL, NATIV 02/03/2012 Ot 585.4 CHRONIC KIDNEY DISEASE, STAGE IV (SEVERE 02/03/2012 Ot V03.82 PROPHYLACTIC VACC AGAINST STREPTOCOCCUS 02/03/2012 Ot V10.05 HX OF COLONIC MALIGNANCY 02/03/2012 Ot V45.82 PERCUTANEOUS TRANSLUM CORON ANGIOPLASTY 02/03/2012 Ot V58.69 OTH MED,LT, CURRENT USE 02/10/2012 Ot 281.1 B12 DEFIC ANEMIA NEC 02/10/2012 Ot 285.21 ANEMIA IN CHRONIC KIDNEY DISEASE 02/10/2012 Ot 403.90 HYPTNSV CHR KID DIS, UNSPEC, W CHR KD ST 02/10/2012 Ot 414.00 CORON ATHEROSCLER NOS TYPE VESSEL, NATIV 02/10/2012 Ot 585.4 CHRONIC KIDNEY DISEASE, STAGE IV (SEVERE 02/10/2012 Ot V03.82 PROPHYLACTIC VACC AGAINST STREPTOCOCCUS 02/10/2012 Ot V10.05 HX OF COLONIC MALIGNANCY 02/10/2012 Ot V45.82 PERCUTANEOUS TRANSLUM CORON ANGIOPLASTY 02/10/2012 Ot V58.69 OTH MED,LT, CURRENT USE 03/01/2012 Ot 250.00 DIAB JILLIAN WO COMPL, TYPE II OR UNSPEC TY 03/01/2012 Ot 300.00 ANXIETY STATE NOS 03/01/2012 Ot 311 DEPRESSIVE DISORDER NEC 03/01/2012 Ot 414.00 CORON ATHEROSCLER NOS TYPE VESSEL, NATIV 03/01/2012 Ot 487.1 FLU W RESP MANIFEST NEC 03/01/2012 Ot 496 CHR AIRWAY OBSTRUCT NEC 03/01/2012 Ot 530.81 ESOPHAGEAL REFLUX 03/01/2012 Ot 627.2 SYMPT MENOPAUSE OR FEMALE CLIMACTERIC ST 03/01/2012 Ot 682.4 CELLULITIS OF HAND 05/11/2012 Ot 281.1 B12 DEFIC ANEMIA NEC 05/11/2012 Ot 285.21 ANEMIA IN CHRONIC KIDNEY DISEASE 05/11/2012 Ot 403.90 HYPTNSV CHR KID DIS, UNSPEC, W CHR KD ST 05/11/2012 Ot 414.00 CORON ATHEROSCLER NOS TYPE VESSEL, NATIV 05/11/2012 Ot 585.4 CHRONIC KIDNEY DISEASE, STAGE IV (SEVERE 05/11/2012 Ot V10.05 HX OF COLONIC MALIGNANCY 05/11/2012 Ot V45.82 PERCUTANEOUS TRANSLUM CORON ANGIOPLASTY 05/11/2012 Ot V58.69 OTH MED,LT, CURRENT USE 2012 KEATONLILIBETH COX N Ot 281.1 B12 DEFIC ANEMIA NEC 2012 KEATONLILIBETH N Ot 285.21 ANEMIA IN CHRONIC KIDNEY DISEASE 2012 KEATONLILIBETH N Ot 403.90 HYPTNSV CHR KID DIS, UNSPEC, W CHR KD ST 2012 KEATONLILIBETH N Ot 414.00 CORON ATHEROSCLER NOS TYPE VESSEL, NATIV 2012 KEATONLILIBETH N Ot 585.4 CHRONIC KIDNEY DISEASE, STAGE IV (SEVERE 2012 KEATONLILIBETH N Ot V10.05 HX OF COLONIC MALIGNANCY 2012 KEATONLILIBETH COX N Ot V45.82 PERCUTANEOUS TRANSLUM CORON ANGIOPLASTY 2012 KEATONRAJANAN N Ot V58.69 OTH MED,LT,CURRENT USE 10/22/2012 SHEILA PASTRANA MD Ot 250.40 DIAB W RENAL MANIFEST, TYPE II OR UNSPEC 10/22/2012 SHEILA PASTRANA MD Ot 250.60 DIAB W NEURO MANIFEST, TYPE II OR UNSPEC 10/22/2012 SHEILA PASTRANA MD Ot 272.4 HYPERLIPIDEMIA NEC/NOS 10/22/2012 SHEILA PASTRANA MD Ot 278.01 MORBID OBESITY 10/22/2012 SHEILA PASTRANA MD Ot 285.29 ANEMIA OF OTHER CHRONIC DISEASE 10/22/2012 SHEILA PASTRANA MD Ot 300.00 ANXIETY STATE NOS 10/22/2012 SHEILA PASTRANA MD Ot 311 DEPRESSIVE DISORDER NEC 10/22/2012 SHEILA PASTRANA MD Ot 327.23 OBSTRUCTIVE SLEEP APNEA (ADULT) (PEDIATR 10/22/2012 SHEILA PASTRANA MD Ot 357.2 NEUROPATHY IN DIABETES 10/22/2012 SHEILA PASTRANA MD Ot 403.90 HYPTNSV CHR KID DIS, UNSPEC, W CHR KD ST 10/22/2012 SHEILA PASTRANA MD Ot 413.9 ANGINA PECTORIS NEC/NOS 10/22/2012 SHEILA PASTRANA MD Ot 414.01 CORONARY ATHEROSCLEROSIS OF [place] CORON 10/22/2012 SHEILA PASTRANA MD Ot 426.2 LEFT BB HEMIBLOCK 10/22/2012 SHEILA PASTRANA MD Ot 444.21 UPPER EXTREMITY EMBOLISM 10/22/2012 SHEILA PASTRANA MD Ot 496 CHR AIRWAY OBSTRUCT NEC 10/22/2012 SHEILA PASTRANA MD Ot 530.81 ESOPHAGEAL REFLUX 10/22/2012 SHEILA PASTRANA MD Ot 583.81 NEPHRITIS NOS IN OTH DIS 10/22/2012 SHEILA PASTRANA MD Ot 585.9 CHRONIC KIDNEY DISEASE, UNSPECIFIED 10/22/2012 SHEILA PASTRANA MD Ot 593.9 RENAL URETERAL DIS NOS 10/22/2012 SHEILA PASTRANA MD Ot V15.82 HISTORY OF TOBACCO USE 10/22/2012 SHEILA PASTRANA MD Ot V46.3 WHEELCHAIR DEPENDENCE 10/22/2012 SHEILA PASTRANA MD Ot V58.66 LONG-TERM (CURRENT) USE OF ASPIRIN 10/22/2012 SHEILA PASTRANA MD Ot V58.69 OT MED,LT,CURRENT USE 10/22/2012 SHEILA PASTRANA MD Ot V85.41 BODY MASS INDEX 40.0-44.9, ADULT 11/16/2012 LILIBETH PUGH Ot 281.1 B12 DEFIC ANEMIA NEC 11/16/2012 LILIBETH PUGH Ot 285.21 ANEMIA IN CHRONIC KIDNEY DISEASE 11/16/2012 LILIBETH PUGH Ot 403.90 HYPTNSV CHR KID DIS, UNSPEC, W CHR KD ST 11/16/2012 LILIBETH PUGH Ot 414.00 CORON ATHEROSCLER NOS TYPE VESSEL, NATIV 11/16/2012 LILIBETH PUGH Ot 585.4 CHRONIC KIDNEY DISEASE, STAGE IV (SEVERE 11/16/2012 LILIBETH PUGH Maria Dolores Ot V10.05 HX OF COLONIC MALIGNANCY 11/16/2012 LILIBETH PUGH Ot V45.82 PERCUTANEOUS TRANSLUM CORON ANGIOPLASTY 11/16/2012 LILIBETH PUGH Ot V58.69 OTH MED,LT,CURRENT USE 12/29/2012 JANAK OSMAN MD Ot 041.49 OTHER AND UNSPECIFIED ESCHERICHIA COLI [ 12/29/2012 JANAK OSMAN MD Ot 244.9 HYPOTHYROIDISM NOS 12/29/2012 JANAK OSMAN MD Ot 250.60 DIAB W NEURO MANIFEST, TYPE II OR UNSPEC 12/29/2012 JANAK OSMAN MD Ot 272.4 HYPERLIPIDEMIA NEC/NOS 12/29/2012 JANAK OSMAN MD Ot 278.01 MORBID OBESITY 12/29/2012 JANAK OSMAN MD Ot 300.00 ANXIETY STATE NOS 12/29/2012 JANAK OSMAN MD Ot 311 DEPRESSIVE DISORDER NEC 12/29/2012 JANAK OSMAN MD Ot 327.23 OBSTRUCTIVE SLEEP APNEA (ADULT) (PEDIATR 12/29/2012 JANAK OSMAN MD Ot 357.2 NEUROPATHY IN DIABETES 12/29/2012 JANAK OSMAN MD Ot 403.90 HYPTNSV CHR KID DIS, UNSPEC, W CHR KD ST 12/29/2012 JANAK OSMAN MD Ot 411.1 INTERMED CORONARY SYND 12/29/2012 JANAK OSMAN MD Ot 414.01 CORONARY ATHEROSCLEROSIS OF [place] CORON 12/29/2012 JANAK OSMAN MD Ot 426.2 LEFT BB HEMIBLOCK 12/29/2012 JANAK OSMAN MD Ot 426.4 RT BUNDLE BRANCH BLOCK 12/29/2012 JANAK OSMAN MD Ot 427.89 CARDIAC DYSRHYTHMIAS NEC 12/29/2012 JANAK OSMAN MD Ot 428.0 CONGESTIVE HEART FAILURE NOS 12/29/2012 JANAK OSMAN MD Ot 496 CHR AIRWAY OBSTRUCT NEC 12/29/2012 JANAK OSMAN MD Ot 530.81 ESOPHAGEAL REFLUX 12/29/2012 JANAK OSMAN MD Ot 564.1 IRRITABLE BOWEL SYNDROME 12/29/2012 JANAK OSMAN MD Ot 585.9 CHRONIC KIDNEY DISEASE, UNSPECIFIED 12/29/2012 JANAK OSMAN MD Ot 593.9 RENAL URETERAL DIS NOS 12/29/2012 JANAK OSMAN MD Ot 599.0 URIN TRACT INFECTION NOS 12/29/2012 JANAK OSMAN MD Ot 790.99 BLOOD EXAM - OT NONSPECIFIC FINDINGS 12/29/2012 JANAK OSMAN MD Ot V10.05 HX OF COLONIC MALIGNANCY 12/29/2012 JANAK OSMAN MD Ot V12.54 PERSONAL HX OF TIA, CEREBRAL INFARCTION 12/29/2012 JANAK OSMAN MD Ot V15.82 HISTORY OF TOBACCO USE 12/29/2012 JANAK OSMAN MD Ot V45.82 PERCUTANEOUS TRANSLUM CORON ANGIOPLASTY 12/29/2012 JANAK OSMAN MD Ot V58.67 LONG-TERM (CURRENT) USE OF INSULIN 12/29/2012 JANAK OSMAN MD Ot V85.42 BODY MASS INDEX 45.0-49.9, ADULT 01/12/2013 SHELBI MACARIO MD Ot 401.9 HYPERTENSION NOS 01/12/2013 SHELBI MACARIO MD Ot 402.90 HYPERTENSIVE HRT DIS W/O HRT FAILURE NOS 01/12/2013 SHELBI MACARIO MD Ot V58.69 OTH MED,LT,CURRENT USE 02/15/2013 LILIBETH PUGH Ot 285.21 ANEMIA IN CHRONIC KIDNEY DISEASE 02/15/2013 LILIBETH PUGH Ot 585.4 CHRONIC KIDNEY DISEASE, STAGE IV (SEVERE 02/15/2013 LILIBETH PUGH Ot V58.69 OTH MED,LT,CURRENT USE 05/18/2013 LILIBETH PUGH Ot 285.21 ANEMIA IN CHRONIC KIDNEY DISEASE 05/18/2013 LILIBETH PUGH Ot 585.4 CHRONIC KIDNEY DISEASE, STAGE IV (SEVERE 05/18/2013 LILIBETH PUGH Ot V58.69 OTH MED,LT,CURRENT USE 07/14/2013 JANAK OSMAN MD Ot 250.00 DIAB JILLIAN WO COMPL, TYPE II OR UNSPEC TY 07/14/2013 JANAK OSMAN MD Ot 327.23 OBSTRUCTIVE SLEEP APNEA (ADULT) (PEDIATR 07/14/2013 JANAK OSMAN MD Ot 401.9 HYPERTENSION NOS 07/14/2013 DAWSON BLISS, JANAK Roman Ot 414.01 CORONARY ATHEROSCLEROSIS OF [place] CORON 07/14/2013 DAWSON BLISS, JANAK Roman Ot V12.54 PERSONAL HX OF TIA, CEREBRAL INFARCTION 08/23/2013 KEATON, BOBAN N Ot 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 08/23/2013 KEATON, BOBAN N Ot 285.21 ANEMIA IN CHRONIC KIDNEY DISEASE 08/23/2013 KEATON, BOBAN N Ot 585.4 CHRONIC KIDNEY DISEASE, STAGE IV (SEVERE 08/23/2013 KEATON, BOBAN N Ot V58.69 OTH MED,LT,CURRENT USE 11/22/2013 KEATON, BOBAN N Ot 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 11/22/2013 KEATON, BOBAN N Ot 285.21 ANEMIA IN CHRONIC KIDNEY DISEASE 11/22/2013 KEATON, BOBAN N Ot 585.4 CHRONIC KIDNEY DISEASE, STAGE IV (SEVERE 11/22/2013 KEATON, BOBAN N Ot V58.69 OTH MED,LT,CURRENT USE 12/21/2013 KEATON, BOBAN N Ot 266.2 12/21/2013 KEATON, BOBAN N Ot 285.21 12/21/2013 KEATON, BOBAN N Ot 585.4 12/21/2013 KEATON, BOBAN N Ot V58.69 01/16/2014 SANJU SALCEDO N REGULATORY AFFAIRS DIRECTOR Ot 250.00 01/16/2014 SANJU SALCEDO REGULATORY AFFAIRS DIRECTOR Ot 272.4 01/16/2014 SANJU SALCEDO N REGULATORY AFFAIRS DIRECTOR Ot 780.79 01/30/2014 KEATON, BOBAN N Ot 266.2 01/30/2014 KEATON, BOBAN N Ot 285.21 01/30/2014 KEATON, BOBAN N Ot 585.4 01/30/2014 KEATON, BOBAN N Ot V58.69 02/20/2014 KEATON, BOBAN N Ot 266.2 02/20/2014 KEATON, BOBAN N Ot 285.21 02/20/2014 KEATON, BOBAN N Ot 585.4 02/20/2014 KEATON, BOBAN N Ot V58.69 02/21/2014 KEATON, BOBAN N Ot 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 02/21/2014 KEATON, BOBAN N Ot 285.21 ANEMIA IN CHRONIC KIDNEY DISEASE 02/21/2014 LILIBETH PUGH N Ot 585.4 CHRONIC KIDNEY DISEASE, STAGE IV (SEVERE 02/21/2014 LILIBETH PUGH Ot V58.69 OTH MED,LT,CURRENT USE 02/22/2014 LILIBETH PUGH N Ot 266.2 02/22/2014 LILIBETH PUGH N Ot 285.21 02/22/2014 LILIBETH UPGH N Ot 585.4 02/22/2014 LILIBETH PUGH N Ot V58.69 02/22/2014 LILIBETH PUGH N Ot 266.2 02/22/2014 LILIBETH PUGH N Ot 285.21 02/22/2014 LILIBETH PUGH N Ot 585.4 02/22/2014 LILIBETH PUGH Ot V58.69 02/23/2014 LILIBETH PUGH N Ot 266.2 02/23/2014 LILIBETH PUGH Ot 285.21 02/23/2014 LILIBETH PUGH Ot 585.4 02/23/2014 LILIBETH PUGH Ot V58.69 02/23/2014 Ot 414.01 02/23/2014 Ot 429.3 02/23/2014 Ot 250.40 02/23/2014 Ot 401.9 02/23/2014 Ot 413.9 02/23/2014 Ot 414.01 02/23/2014 Ot 583.81 02/23/2014 Ot 593.9 02/23/2014 Ot 786.05 02/23/2014 Ot V58.63 02/23/2014 Ot V58.66 02/23/2014 Ot V58.69 02/23/2014 Ot V72.63 02/23/2014 Ot V74.8 02/23/2014 Ot 719.42 02/23/2014 Ot 153.9 02/23/2014 Ot 250.00 02/23/2014 Ot 250.00 02/23/2014 Ot 272.0 02/23/2014 Ot 785.6 02/23/2014 Ot 038.9 02/23/2014 Ot 041.4 02/23/2014 Ot 995.91 02/23/2014 Ot 719.41 02/23/2014 Ot 429.3 02/23/2014 Ot 786.50 02/23/2014 Ot 727.61 02/23/2014 Ot V72.81 02/23/2014 Ot V74.8 02/23/2014 Ot V76.12 02/23/2014 Ot 250.00 02/23/2014 Ot 272.0 02/23/2014 Ot 414.00 02/23/2014 Ot 719.41 02/23/2014 Ot 250.00 02/23/2014 Ot 414.01 02/23/2014 Ot 783.1 02/23/2014 Ot 244.9 02/23/2014 Ot 250.01 02/23/2014 Ot 250.40 02/23/2014 Ot 272.4 02/23/2014 Ot 585.4 02/23/2014 Ot 789.00 02/23/2014 Ot 729.5 02/23/2014 Ot 782.3 02/23/2014 Ot 250.40 02/23/2014 Ot 272.4 02/23/2014 Ot 585.4 02/23/2014 Ot 610.4 02/23/2014 Ot 719.43 02/23/2014 Ot 250.40 02/23/2014 Ot 585.4 02/23/2014 DAWSON BLISS, JANAK D Ot 729.81 02/23/2014 DAWSON BLISS, JANAK D Ot 250.00 02/23/2014 DAWSON BLISS, JANAK D Ot 272.4 02/23/2014 DWASON BLISS, JANAK D Ot 780.79 02/23/2014 KHRIS BLANCO VIDEO PRODUCTION SPECIALIST Ot 266.2 02/23/2014 KHRIS BLANCO VIDEO PRODUCTION SPECIALIST Ot 278.01 02/23/2014 KHRIS BLANCO VIDEO PRODUCTION SPECIALIST Ot 285.21 02/23/2014 KHRIS BLANCO VIDEO PRODUCTION SPECIALIST Ot 403.90 02/23/2014 KHRIS BLANCO VIDEO PRODUCTION SPECIALIST Ot 414.00 02/23/2014 KHRIS BLANCO VIDEO PRODUCTION SPECIALIST Ot 585.4 02/23/2014 KHRIS BLANCO VIDEO PRODUCTION SPECIALIST Ot 715.90 02/23/2014 KHRIS BLANCO VIDEO PRODUCTION SPECIALIST Ot V10.05 02/23/2014 KHRIS BLANCO VIDEO PRODUCTION SPECIALIST Ot V45.72 02/23/2014 KHRIS BLANCO VIDEO PRODUCTION SPECIALIST Ot V45.82 02/23/2014 KHRIS BLANCO VIDEO PRODUCTION SPECIALIST Ot V58.66 02/23/2014 BLANCO, HILAH S VIDEO PRODUCTION SPECIALIST Ot V58.69 02/23/2014 FABIENNE BLISS, VERONICAMED S Ot 250.40 02/23/2014 FABIENNE BLISS, VERONICAMED S Ot 278.02 02/23/2014 FABIENNE BLISS, VERONICAMED S Ot 585.3 02/23/2014 KHRIS BLANCO S VIDEO PRODUCTION SPECIALIST Ot 270.4 02/23/2014 KHRIS BLANCO S VIDEO PRODUCTION SPECIALIST Ot 278.01 02/23/2014 KHRIS BLANCO S VIDEO PRODUCTION SPECIALIST Ot 281.1 02/23/2014 KHRIS BLANCO S VIDEO PRODUCTION SPECIALIST Ot 285.21 02/23/2014 KHRIS BLANCO S VIDEO PRODUCTION SPECIALIST Ot 403.90 02/23/2014 KHRIS BLANCO S VIDEO PRODUCTION SPECIALIST Ot 414.00 02/23/2014 KHRIS BLANCO S VIDEO PRODUCTION SPECIALIST Ot 585.4 02/23/2014 KHRIS BLANCO S VIDEO PRODUCTION SPECIALIST Ot 715.90 02/23/2014 BLANCOKHRIS Berry S VIDEO PRODUCTION SPECIALIST Ot V10.05 02/23/2014 KHRIS BLANCO S VIDEO PRODUCTION SPECIALIST Ot V45.72 02/23/2014 KHRIS BLANCO S VIDEO PRODUCTION SPECIALIST Ot V45.82 02/23/2014 KHRIS BLANCO S VIDEO PRODUCTION SPECIALIST Ot V58.66 02/23/2014 KHRIS BLANCO S VIDEO PRODUCTION SPECIALIST Ot V58.69 02/23/2014 ZEINA BLISS, SHEILA [place] Ot 414.00 02/23/2014 ZEINA BLISS, SHEILA [facility] Ot 786.50 02/23/2014 ZEINA BLISS, SHEILA [facility] Ot 397.0 02/23/2014 ZEINA BLISS, SHEILA [facility] Ot 414.00 02/23/2014 ZEINA BLISS, SHEILA [facility] Ot 424.0 02/23/2014 ZEINA BLISS, SHEILA [facility] Ot 429.3 02/23/2014 ZEINA BLISS, SHEILA [facility] Ot 786.50 02/23/2014 ZEINA BLISS, SHEILA [facility] Ot 272.4 02/23/2014 ZEINA BLISS, SHEILA [facility] Ot 414.01 02/23/2014 BLANCOKHRIS Berry S VIDEO PRODUCTION SPECIALIST Ot 284.19 02/23/2014 LBANCOKHRIS Berry S VIDEO PRODUCTION SPECIALIST Ot 285.9 02/23/2014 FRANCIS KHRIS S VIDEO PRODUCTION SPECIALIST Ot V10.05 02/23/2014 FRANCIS KHRIS S VIDEO PRODUCTION SPECIALIST Ot 266.2 02/23/2014 KHRIS BLANCO S VIDEO PRODUCTION SPECIALIST Ot 270.4 02/23/2014 BLANCOKHRIS Berry S VIDEO PRODUCTION SPECIALIST Ot 278.01 02/23/2014 BLANCO [facility] S VIDEO PRODUCTION SPECIALIST Ot 285.21 02/23/2014 FRANCIS [facility] S VIDEO PRODUCTION SPECIALIST Ot 403.90 02/23/2014 BLANCO, [facility] S VIDEO PRODUCTION SPECIALIST Ot 414.00 02/23/2014 BLANCO [facility] S VIDEO PRODUCTION SPECIALIST Ot 585.4 02/23/2014 BLANCO [facility] S VIDEO PRODUCTION SPECIALIST Ot 715.90 02/23/2014 BLANCO, [facility] S VIDEO PRODUCTION SPECIALIST Ot V10.05 02/23/2014 FRANCIS [facility] S VIDEO PRODUCTION SPECIALIST Ot V58.69 02/23/2014 BLANCO, [facility] S VIDEO PRODUCTION SPECIALIST Ot V85.42 02/23/2014 BLANCO, [facility] S VIDEO PRODUCTION SPECIALIST Ot 266.2 02/23/2014 BLANCO, [facility] S VIDEO PRODUCTION SPECIALIST Ot 270.4 02/23/2014 BLANCO, [facility] S VIDEO PRODUCTION SPECIALIST Ot 278.01 02/23/2014 BLANCO, [facility] S VIDEO PRODUCTION SPECIALIST Ot 285.21 02/23/2014 BLANCO, [facility] S VIDEO PRODUCTION SPECIALIST Ot 403.90 02/23/2014 BLANCO, [facility] S VIDEO PRODUCTION SPECIALIST Ot 414.00 02/23/2014 BLANCO, [facility] S VIDEO PRODUCTION SPECIALIST Ot 585.4 02/23/2014 BLANCO, [facility] S VIDEO PRODUCTION SPECIALIST Ot 715.90 02/23/2014 BLANCO, [facility] S VIDEO PRODUCTION SPECIALIST Ot V10.05 02/23/2014 BLANCO, [facility] S VIDEO PRODUCTION SPECIALIST Ot V58.69 02/23/2014 BLANCO, [facility] S VIDEO PRODUCTION SPECIALIST Ot V85.42 02/23/2014 BLANCO, [facility] S VIDEO PRODUCTION SPECIALIST Ot V76.12 02/23/2014 BLANCO, [facility] S VIDEO PRODUCTION SPECIALIST Ot 266.2 02/23/2014 BLANCO [facility] S VIDEO PRODUCTION SPECIALIST Ot 270.4 02/23/2014 BLANCO [facility] S VIDEO PRODUCTION SPECIALIST Ot 278.01 02/23/2014 BLANCO [facility] S VIDEO PRODUCTION SPECIALIST Ot 285.21 02/23/2014 BLANCO [facility] S VIDEO PRODUCTION SPECIALIST Ot 403.90 02/23/2014 BLANCO [facility] S VIDEO PRODUCTION SPECIALIST Ot 414.00 02/23/2014 BLANCOKHRIS Berry S VIDEO PRODUCTION SPECIALIST Ot 585.4 02/23/2014 KHRIS BLANCO S VIDEO PRODUCTION SPECIALIST Ot 715.90 02/23/2014 KHRIS BLANCO S VIDEO PRODUCTION SPECIALIST Ot V10.05 02/23/2014 KHRIS BLANCO S VIDEO PRODUCTION SPECIALIST Ot V58.69 02/23/2014 KHRIS BLANCO S VIDEO PRODUCTION SPECIALIST Ot V85.42 02/23/2014 DAWSON BLISS, JANAK Roman Ot 782.3 02/23/2014 KHRIS BLANCO S VIDEO PRODUCTION SPECIALIST Ot 266.2 02/23/2014 KHRIS BLANCO S VIDEO PRODUCTION SPECIALIST Ot 270.4 02/23/2014 BLANCOKHRIS Berry S VIDEO PRODUCTION SPECIALIST Ot 278.01 02/23/2014 KHRIS BLANCO S VIDEO PRODUCTION SPECIALIST Ot 285.21 02/23/2014 KHRIS BLANCO S VIDEO PRODUCTION SPECIALIST Ot 403.90 02/23/2014 KHRIS BLANCO S VIDEO PRODUCTION SPECIALIST Ot 414.00 02/23/2014 KHRIS BLANCO S VIDEO PRODUCTION SPECIALIST Ot 585.4 02/23/2014 KHRIS BLANCO S VIDEO PRODUCTION SPECIALIST Ot 715.90 02/23/2014 KHRIS BLANCO S VIDEO PRODUCTION SPECIALIST Ot V10.05 02/23/2014 KHRIS BLANCO S VIDEO PRODUCTION SPECIALIST Ot V58.69 02/23/2014 KHRIS BLANCO S VIDEO PRODUCTION SPECIALIST Ot V85.42 02/23/2014 KHRIS BLANCO S VIDEO PRODUCTION SPECIALIST Ot 266.2 02/23/2014 KHRIS BLANCO S VIDEO PRODUCTION SPECIALIST Ot 285.21 02/23/2014 KHRIS BLANCO S VIDEO PRODUCTION SPECIALIST Ot 585.4 02/23/2014 KHRIS BLANCO S VIDEO PRODUCTION SPECIALIST Ot V58.69 02/23/2014 DAWSON BLISS, JANAK Roman Ot 250.00 02/23/2014 DAWSON BLISS, JANAK Roman Ot 272.4 02/23/2014 BLANCOKHRIS Berry S VIDEO PRODUCTION SPECIALIST Ot 266.2 02/23/2014 BLANCOKHRIS Berry S VIDEO PRODUCTION SPECIALIST Ot 285.21 02/23/2014 BLANCOKHRIS Berry S VIDEO PRODUCTION SPECIALIST Ot 585.4 02/23/2014 BLANCOKHRIS Berry S VIDEO PRODUCTION SPECIALIST Ot V58.69 02/23/2014 ZEINA BLISS, SHEILA Parish Ot 272.4 02/23/2014 ZEINA BLISS, SHEILA Parish Ot 285.9 02/23/2014 ZEINA BLISS, SHEILA Parish Ot 403.90 02/23/2014 ZEINA BLISS, SHEILA Parish Ot 414.00 02/23/2014 ZEINA BLISS, SHEILA Parish Ot 585.4 02/23/2014 ZEINA BLISS, SHEILA Parish Ot 272.4 02/23/2014 ZEINA BLISS, SHEILA Parish Ot 285.9 02/23/2014 ZEINA BLISS, SHEILA Parish Ot 403.90 02/23/2014 ZEINA BLISS, SHEILA Parish Ot 414.00 02/23/2014 ZEINA LBISS, SHEILA Parish Ot 585.9 02/23/2014 SANJU SALCEDO REGULATORY AFFAIRS DIRECTOR Ot 250.00 02/23/2014 SANJU SALCEDO REGULATORY AFFAIRS DIRECTOR Ot 272.4 02/23/2014 SANJU SALCEDO REGULATORY AFFAIRS DIRECTOR Ot 780.79 02/23/2014 KHRIS BLANCO VIDEO PRODUCTION SPECIALIST Ot 266.2 02/23/2014 KHRIS BLANCO VIDEO PRODUCTION SPECIALIST Ot 278.00 02/23/2014 KHRIS BLANCO VIDEO PRODUCTION SPECIALIST Ot 285.21 02/23/2014 KHRIS BLANCO VIDEO PRODUCTION SPECIALIST Ot 564.00 02/23/2014 KHRIS BLANCO VIDEO PRODUCTION SPECIALIST Ot 585.4 02/23/2014 KHRIS BLANCO VIDEO PRODUCTION SPECIALIST Ot V58.69 02/23/2014 LILIBETH PUGH Ot 266.2 02/23/2014 LILIBETH PUGH Ot 285.21 02/23/2014 KEATONLILIBETH Ot 585.4 02/23/2014 KEATONLILIBETH Ot V58.69 02/26/2014 Ot 414.01 02/26/2014 Ot 429.3 02/26/2014 Ot 250.40 02/26/2014 Ot 401.9 02/26/2014 Ot 413.9 02/26/2014 Ot 414.01 02/26/2014 Ot 583.81 02/26/2014 Ot 593.9 02/26/2014 Ot 786.05 02/26/2014 Ot V58.63 02/26/2014 Ot V58.66 02/26/2014 Ot V58.69 02/26/2014 Ot V72.63 02/26/2014 Ot V74.8 02/26/2014 Ot 719.42 02/26/2014 Ot 153.9 02/26/2014 Ot 250.00 02/26/2014 Ot 250.00 02/26/2014 Ot 272.0 02/26/2014 Ot 785.6 02/26/2014 Ot 038.9 02/26/2014 Ot 041.4 02/26/2014 Ot 995.91 02/26/2014 Ot 719.41 02/26/2014 Ot 429.3 02/26/2014 Ot 786.50 02/26/2014 Ot 727.61 02/26/2014 Ot V72.81 02/26/2014 Ot V74.8 02/26/2014 Ot V76.12 02/26/2014 Ot 250.00 02/26/2014 Ot 272.0 02/26/2014 Ot 414.00 02/26/2014 Ot 719.41 02/26/2014 Ot 250.00 02/26/2014 Ot 414.01 02/26/2014 Ot 783.1 02/26/2014 Ot 244.9 02/26/2014 Ot 250.01 02/26/2014 Ot 250.40 02/26/2014 Ot 272.4 02/26/2014 Ot 585.4 02/26/2014 Ot 789.00 02/26/2014 Ot 729.5 02/26/2014 Ot 782.3 02/26/2014 Ot 250.40 02/26/2014 Ot 272.4 02/26/2014 Ot 585.4 02/26/2014 Ot 610.4 02/26/2014 Ot 719.43 02/26/2014 Ot 250.40 02/26/2014 Ot 585.4 02/26/2014 DAWSON BLISS, JANAK D Ot 729.81 02/26/2014 DAWSON BLISS, JANAK D Ot 250.00 02/26/2014 DAWSON BLISS, JANAK D Ot 272.4 02/26/2014 DAWSON BLISS, JANAK D Ot 780.79 02/26/2014 KHRIS BLANCO VIDEO PRODUCTION SPECIALIST Ot 266.2 02/26/2014 KHRIS BLANCO VIDEO PRODUCTION SPECIALIST Ot 278.01 02/26/2014 KHRIS BLANCO VIDEO PRODUCTION SPECIALIST Ot 285.21 02/26/2014 KHRIS BLANCO VIDEO PRODUCTION SPECIALIST Ot 403.90 02/26/2014 KHRIS BLANCO VIDEO PRODUCTION SPECIALIST Ot 414.00 02/26/2014 KHRIS BLANCO VIDEO PRODUCTION SPECIALIST Ot 585.4 02/26/2014 KHRIS BLANCO VIDEO PRODUCTION SPECIALIST Ot 715.90 02/26/2014 KHRIS BLANCO S VIDEO PRODUCTION SPECIALIST Ot V10.05 02/26/2014 KHRIS BLANCO S VIDEO PRODUCTION SPECIALIST Ot V45.72 02/26/2014 KHRIS BLANCO S VIDEO PRODUCTION SPECIALIST Ot V45.82 02/26/2014 KHRIS BLANCO S VIDEO PRODUCTION SPECIALIST Ot V58.66 02/26/2014 KHRIS BLANCO S VIDEO PRODUCTION SPECIALIST Ot V58.69 02/26/2014 FABIENNE BLISS, MED S Ot 250.40 02/26/2014 FABIENNE BLISS, AHMED S Ot 278.02 02/26/2014 FABIENNE BLISS, HESHAM S Ot 585.3 02/26/2014 KHRIS BLANCO S VIDEO PRODUCTION SPECIALIST Ot 270.4 02/26/2014 KHRIS BLANCO S VIDEO PRODUCTION SPECIALIST Ot 278.01 02/26/2014 KHRIS BLANCO S VIDEO PRODUCTION SPECIALIST Ot 281.1 02/26/2014 KHRIS BLANCO S VIDEO PRODUCTION SPECIALIST Ot 285.21 02/26/2014 KHRIS BLANCO S VIDEO PRODUCTION SPECIALIST Ot 403.90 02/26/2014 KHRIS BLANCO S VIDEO PRODUCTION SPECIALIST Ot 414.00 02/26/2014 KHRIS BLANCO S VIDEO PRODUCTION SPECIALIST Ot 585.4 02/26/2014 KHRIS BLANCO S VIDEO PRODUCTION SPECIALIST Ot 715.90 02/26/2014 KHRIS BLANCO S VIDEO PRODUCTION SPECIALIST Ot V10.05 02/26/2014 KHRIS BLANCO S VIDEO PRODUCTION SPECIALIST Ot V45.72 02/26/2014 KHRIS BLANCO S VIDEO PRODUCTION SPECIALIST Ot V45.82 02/26/2014 KHRIS BLANCO S VIDEO PRODUCTION SPECIALIST Ot V58.66 02/26/2014 KHRIS BLANCO S VIDEO PRODUCTION SPECIALIST Ot V58.69 02/26/2014 ZEINA BLISS, SHEILA Parish Ot 414.00 02/26/2014 ZEINA BLISS, SHEILA Parish Ot 786.50 02/26/2014 ZEINA BLISS, SHEILA Parish Ot 397.0 02/26/2014 ZEINA BLISS, SHEILA Parish Ot 414.00 02/26/2014 ZEINA BLISS, SHEILA Parish Ot 424.0 02/26/2014 ZEINA BLISS, SHEILA Parish Ot 429.3 02/26/2014 ZEINA BLISS, BASHAR J Ot 786.50 02/26/2014 ZEINA BLISS, SHEILA J Ot 272.4 02/26/2014 ZEINA BLISS, SHEILA Parish Ot 414.01 02/26/2014 BLANCOKHRIS Berry S VIDEO PRODUCTION SPECIALIST Ot 284.19 02/26/2014 KHRIS BLANCO S VIDEO PRODUCTION SPECIALIST Ot 285.9 02/26/2014 BLANCOKHRIS Berry S VIDEO PRODUCTION SPECIALIST Ot V10.05 02/26/2014 FRANCIS KHRIS S VIDEO PRODUCTION SPECIALIST Ot 266.2 02/26/2014 BLANCOKHRIS Berry S VIDEO PRODUCTION SPECIALIST Ot 270.4 02/26/2014 BLANCOKHRIS Berry S VIDEO PRODUCTION SPECIALIST Ot 278.01 02/26/2014 BLANCOKHRIS S VIDEO PRODUCTION SPECIALIST Ot 285.21 02/26/2014 FRANCIS KHRIS S VIDEO PRODUCTION SPECIALIST Ot 403.90 02/26/2014 BLANCOKHRIS Berry S VIDEO PRODUCTION SPECIALIST Ot 414.00 02/26/2014 FRANCIS KHRIS S VIDEO PRODUCTION SPECIALIST Ot 585.4 02/26/2014 FRANCIS KHRIS S VIDEO PRODUCTION SPECIALIST Ot 715.90 02/26/2014 FRANCIS KHRIS S VIDEO PRODUCTION SPECIALIST Ot V10.05 02/26/2014 FRANCIS KHRIS S VIDEO PRODUCTION SPECIALIST Ot V58.69 02/26/2014 FRANCIS KHRIS S VIDEO PRODUCTION SPECIALIST Ot V85.42 02/26/2014 FRANCIS KHRIS S VIDEO PRODUCTION SPECIALIST Ot 266.2 02/26/2014 BLANCOKHRIS Berry S VIDEO PRODUCTION SPECIALIST Ot 270.4 02/26/2014 BLANCO KHRIS S VIDEO PRODUCTION SPECIALIST Ot 278.01 02/26/2014 FRANCIS KHRIS S VIDEO PRODUCTION SPECIALIST Ot 285.21 02/26/2014 FRANCIS KHRIS S VIDEO PRODUCTION SPECIALIST Ot 403.90 02/26/2014 BLANCOKHRIS Berry S VIDEO PRODUCTION SPECIALIST Ot 414.00 02/26/2014 FRANCIS KHRIS S VIDEO PRODUCTION SPECIALIST Ot 585.4 02/26/2014 FRANCIS KHRIS S VIDEO PRODUCTION SPECIALIST Ot 715.90 02/26/2014 FRANCIS KHRIS S VIDEO PRODUCTION SPECIALIST Ot V10.05 02/26/2014 BLANCOKHRIS S VIDEO PRODUCTION SPECIALIST Ot V58.69 02/26/2014 FRANCIS KHRIS S VIDEO PRODUCTION SPECIALIST Ot V85.42 02/26/2014 FRANCIS KHRIS S VIDEO PRODUCTION SPECIALIST Ot V76.12 02/26/2014 BLANCOKHRIS Berry S VIDEO PRODUCTION SPECIALIST Ot 266.2 02/26/2014 KHRIS BLANCO S VIDEO PRODUCTION SPECIALIST Ot 270.4 02/26/2014 KHRIS BLANCO S VIDEO PRODUCTION SPECIALIST Ot 278.01 02/26/2014 KHRIS BLANCO S VIDEO PRODUCTION SPECIALIST Ot 285.21 02/26/2014 KHRIS BLANCO S VIDEO PRODUCTION SPECIALIST Ot 403.90 02/26/2014 KHRIS BLANCO S VIDEO PRODUCTION SPECIALIST Ot 414.00 02/26/2014 KHRIS BLANCO S VIDEO PRODUCTION SPECIALIST Ot 585.4 02/26/2014 KHRIS BLANCO S VIDEO PRODUCTION SPECIALIST Ot 715.90 02/26/2014 KHRIS BLANCO S VIDEO PRODUCTION SPECIALIST Ot V10.05 02/26/2014 KHRIS BLANCO S VIDEO PRODUCTION SPECIALIST Ot V58.69 02/26/2014 KHRIS BLANCO S VIDEO PRODUCTION SPECIALIST Ot V85.42 02/26/2014 DAWSON BLISS, JANAK Roman Ot 782.3 02/26/2014 KHRIS BLANCO S VIDEO PRODUCTION SPECIALIST Ot 266.2 02/26/2014 KHRIS BLANCO S VIDEO PRODUCTION SPECIALIST Ot 270.4 02/26/2014 KHRIS BLANCO S VIDEO PRODUCTION SPECIALIST Ot 278.01 02/26/2014 KHRIS BLANCO S VIDEO PRODUCTION SPECIALIST Ot 285.21 02/26/2014 KHRIS BLANCO S VIDEO PRODUCTION SPECIALIST Ot 403.90 02/26/2014 KHRIS BLANCO S VIDEO PRODUCTION SPECIALIST Ot 414.00 02/26/2014 KHRIS BLANCO S VIDEO PRODUCTION SPECIALIST Ot 585.4 02/26/2014 KHRIS BLANCO S VIDEO PRODUCTION SPECIALIST Ot 715.90 02/26/2014 KHRIS BLANCO S VIDEO PRODUCTION SPECIALIST Ot V10.05 02/26/2014 BLANCOKHRIS Berry S VIDEO PRODUCTION SPECIALIST Ot V58.69 02/26/2014 BLANCOKHRIS Berry S VIDEO PRODUCTION SPECIALIST Ot V85.42 02/26/2014 BLANCOKHRIS Berry S VIDEO PRODUCTION SPECIALIST Ot 266.2 02/26/2014 BLANCOKHRIS Berry S VIDEO PRODUCTION SPECIALIST Ot 285.21 02/26/2014 BLANCOKHRIS Berry S VIDEO PRODUCTION SPECIALIST Ot 585.4 02/26/2014 BLANCOKHRIS Berry S VIDEO PRODUCTION SPECIALIST Ot V58.69 02/26/2014 DAWSON BLISS, JANAK Roman Ot 250.00 02/26/2014 DAWSON BLISS, JANAK Roman Ot 272.4 02/26/2014 BLANCOKHRIS S VIDEO PRODUCTION SPECIALIST Ot 266.2 02/26/2014 BLANCO KHRIS S VIDEO PRODUCTION SPECIALIST Ot 285.21 02/26/2014 BLANCO KHRIS S VIDEO PRODUCTION SPECIALIST Ot 585.4 02/26/2014 FRANCIS KHRIS S VIDEO PRODUCTION SPECIALIST Ot V58.69 02/26/2014 ZEINA BLISS, SHEILA J Ot 272.4 02/26/2014 ZEINA BLISS, SHEILA J Ot 285.9 02/26/2014 ZEINA BLISS, BASHAR J Ot 403.90 02/26/2014 ZEINA BLISS, BASHAR J Ot 414.00 02/26/2014 ZEINA BLISS, SHEILA J Ot 585.4 02/26/2014 ZEINA BLISS, SHEILA J Ot 272.4 02/26/2014 ZEINA BLISS, SHEILA J Ot 285.9 02/26/2014 ZEINA BLISS, SHEILA J Ot 403.90 02/26/2014 ZEINA BLISS, SHEILA J Ot 414.00 02/26/2014 ZEINA BLISS, SHEILA Parish Ot 585.9 02/26/2014 SANJU SALCEDO REGULATORY AFFAIRS DIRECTOR Ot 250.00 02/26/2014 SANJU SALCEDO REGULATORY AFFAIRS DIRECTOR Ot 272.4 02/26/2014 SANJU SALCEDO REGULATORY AFFAIRS DIRECTOR Ot 780.79 02/26/2014 PEDRO LUIS BLANCOVERONICA Jamal VIDEO PRODUCTION SPECIALIST Ot 266.2 02/26/2014 PEDRO LUIS BLANCOVERONICA Jamal VIDEO PRODUCTION SPECIALIST Ot 278.00 02/26/2014 FRANCIS KHRIS S VIDEO PRODUCTION SPECIALIST Ot 285.21 02/26/2014 PEDRO LUIS BLANCOVERONICA S VIDEO PRODUCTION SPECIALIST Ot 564.00 02/26/2014 FRANCIS KHRIS S VIDEO PRODUCTION SPECIALIST Ot 585.4 02/26/2014 FRANCIS KHRIS S VIDEO PRODUCTION SPECIALIST Ot V58.69 02/26/2014 RAJAN PUGHAN N Ot 266.2 02/26/2014 KEATON BOBAN N Ot 285.21 02/26/2014 KEATON BOBAN N Ot 585.4 02/26/2014 KEATON BOBAN N Ot V58.69 03/09/2014 ZEINA BLISS, SHEILA J Ot 272.4 03/09/2014 ZEINA BLISS, SHEILA J Ot 285.9 03/09/2014 ZEINA BLISS, SHEILA J Ot 403.90 03/09/2014 ZEINA BLISS, BASHAR J Ot 414.00 03/09/2014 ZEINA BLISS, SHEILA Parish Ot 585.4 03/09/2014 ZEINA BLISS, SHEILA Parish Ot 272.4 03/09/2014 ZEINA BLISS, SHEILA Parish Ot 285.9 03/09/2014 ZEINA BLISS, SHEILA Parish Ot 403.90 03/09/2014 ZEINA BLISS, SHEILA Parish Ot 414.00 03/09/2014 ZEINA BLISS, SHEILA Parish Ot 585.9 03/19/2014 KHRIS BLANCO VIDEO PRODUCTION SPECIALIST Ot 266.2 03/19/2014 KHRIS BLANCO S VIDEO PRODUCTION SPECIALIST Ot 278.00 03/19/2014 FRANCIS KHRIS S VIDEO PRODUCTION SPECIALIST Ot 285.21 03/19/2014 KHRIS BLANCO S VIDEO PRODUCTION SPECIALIST Ot 564.00 03/19/2014 KHRIS BLANCO S VIDEO PRODUCTION SPECIALIST Ot 585.4 03/19/2014 KHRIS BLANCO S VIDEO PRODUCTION SPECIALIST Ot V58.69 03/20/2014 CASIMIRO VALENZUELA DO Ot 327.23 03/20/2014 CASIMIRO VALENZUELA DO Ot 496 03/20/2014 CASIMIRO VALENZUELA DO Ot 786.09 03/21/2014 KHRIS BLANCO S VIDEO PRODUCTION SPECIALIST Ot 266.2 03/21/2014 KHRIS BLANCO S VIDEO PRODUCTION SPECIALIST Ot 278.00 03/21/2014 KHRIS BLANCO S VIDEO PRODUCTION SPECIALIST Ot 285.21 03/21/2014 FRANCIS PEDRO LUISVERONICA S VIDEO PRODUCTION SPECIALIST Ot 564.00 03/21/2014 FRANCIS KHRIS S VIDEO PRODUCTION SPECIALIST Ot 585.4 03/21/2014 KHRIS BLANCO S VIDEO PRODUCTION SPECIALIST Ot V58.69 04/03/2014 DAWSON BLISS, JANAK Roman Ot 250.00 04/03/2014 DAWSON BLISS, JANAK Roman Ot 272.0 04/03/2014 DAWSON BLISS, JANAK Roman Ot 403.90 04/03/2014 DAWSON BLISS, JANAK Roman Ot 585.9 05/07/2014 Ot 250.00 05/07/2014 Ot 272.0 05/07/2014 Ot 250.00 05/07/2014 Ot 272.0 05/08/2014 Ot 250.00 05/08/2014 Ot 272.0 05/10/2014 Ot 266.2 05/10/2014 Ot 278.00 05/10/2014 Ot 285.21 05/10/2014 Ot 585.4 05/10/2014 Ot V10.05 05/10/2014 Ot V58.69 05/17/2014 Ot 266.2 05/17/2014 Ot 278.00 05/17/2014 Ot 285.21 05/17/2014 Ot 585.4 05/17/2014 Ot V10.05 05/17/2014 Ot V58.69 05/23/2014 KEATON, RAJANAN N Ot 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 05/23/2014 KEATON, BOBAN N Ot 285.21 ANEMIA IN CHRONIC KIDNEY DISEASE 05/23/2014 KEATON, BOBAN N Ot 585.4 CHRONIC KIDNEY DISEASE, STAGE IV (SEVERE 05/23/2014 KEATON, RAJANAN N Ot V58.69 OTH MED,LT,CURRENT USE 05/24/2014 KEATON, BOBAN N Ot 266.2 05/24/2014 KEATON, BOBAN N Ot 285.21 05/24/2014 KEATON, BOBAN N Ot 585.4 05/24/2014 KEATON, BOBAN N Ot V58.69 05/24/2014 KAETON, BOBAN N Ot 266.2 05/24/2014 KEATON, BOBAN N Ot 285.21 05/24/2014 KEATON, BOBAN N Ot 585.4 05/24/2014 KEATON, BOBAN N Ot V58.69 05/24/2014 KEATON, BOBAN N Ot 266.2 05/24/2014 KEATON, BOBAN N Ot 285.21 05/24/2014 KEATON, BOBAN N Ot 585.4 05/24/2014 KEATON, BOBAN N Ot V58.69 05/24/2014 KEATON, BOBAN N Ot 266.2 05/24/2014 KEATON, BOBAN N Ot 285.21 05/24/2014 KEATON, BOBAN N Ot 585.4 05/24/2014 KEATON, BOBAN N Ot V58.69 05/25/2014 KEATON, BOBAN N Ot 266.2 05/25/2014 KEATON, BOBAN N Ot 285.21 05/25/2014 KEATON, BOBAN N Ot 585.4 05/25/2014 KEATON, BOBAN N Ot V58.69 06/21/2014 Ot 250.40 06/21/2014 Ot 401.9 06/21/2014 Ot 413.9 06/21/2014 Ot 414.01 06/21/2014 Ot 583.81 06/21/2014 Ot 593.9 06/21/2014 Ot 786.05 06/21/2014 Ot V58.63 06/21/2014 Ot V58.66 06/21/2014 Ot V58.69 06/21/2014 Ot V72.63 06/21/2014 Ot V74.8 06/21/2014 Ot 719.42 06/21/2014 Ot 153.9 06/21/2014 Ot 250.00 06/21/2014 Ot 250.00 06/21/2014 Ot 272.0 06/21/2014 Ot 785.6 06/21/2014 Ot 038.9 06/21/2014 Ot 041.4 06/21/2014 Ot 995.91 06/21/2014 Ot 719.41 06/21/2014 Ot 429.3 06/21/2014 Ot 786.50 06/21/2014 Ot 727.61 06/21/2014 Ot V72.81 06/21/2014 Ot V74.8 06/21/2014 Ot V76.12 06/21/2014 Ot 250.00 06/21/2014 Ot 272.0 06/21/2014 Ot 414.00 06/21/2014 Ot 719.41 06/21/2014 Ot 250.00 06/21/2014 Ot 414.01 06/21/2014 Ot 783.1 06/21/2014 Ot 244.9 06/21/2014 Ot 250.01 06/21/2014 Ot 250.40 06/21/2014 Ot 272.4 06/21/2014 Ot 585.4 06/21/2014 Ot 789.00 06/21/2014 Ot 729.5 06/21/2014 Ot 782.3 06/21/2014 Ot 250.40 06/21/2014 Ot 272.4 06/21/2014 Ot 585.4 06/21/2014 Ot 610.4 06/21/2014 Ot 719.43 06/21/2014 Ot 250.40 06/21/2014 Ot 585.4 06/21/2014 DAWSON BLISS, JANAK Roman Ot 729.81 06/21/2014 DAWSON BLISS, JANAK Roman Ot 250.00 06/21/2014 DAWSON BLISS, JANAK D Ot 272.4 06/21/2014 DAWSON BLISS, JANAK D Ot 780.79 06/21/2014 BLANCOKHRIS Berry S VIDEO PRODUCTION SPECIALIST Ot 266.2 06/21/2014 BLANCOKHRIS Berry S VIDEO PRODUCTION SPECIALIST Ot 278.01 06/21/2014 BLANCOKHRIS Berry S VIDEO PRODUCTION SPECIALIST Ot 285.21 06/21/2014 BLANCOKHRIS S VIDEO PRODUCTION SPECIALIST Ot 403.90 06/21/2014 BLANCOKHRIS S VIDEO PRODUCTION SPECIALIST Ot 414.00 06/21/2014 BLANCOKHRIS S VIDEO PRODUCTION SPECIALIST Ot 585.4 06/21/2014 BLANCOKHRIS S VIDEO PRODUCTION SPECIALIST Ot 715.90 06/21/2014 BLANCOKHRIS S VIDEO PRODUCTION SPECIALIST Ot V10.05 06/21/2014 BLANCOKHRIS S VIDEO PRODUCTION SPECIALIST Ot V45.72 06/21/2014 BLANCOKHRIS S VIDEO PRODUCTION SPECIALIST Ot V45.82 06/21/2014 BLANCOKHRIS Berry S VIDEO PRODUCTION SPECIALIST Ot V58.66 06/21/2014 BLANCOKHRIS Berry S VIDEO PRODUCTION SPECIALIST Ot V58.69 06/21/2014 FABIENNE BLISS, MED S Ot 250.40 06/21/2014 FABIENNE BLISS, AHMED S Ot 278.02 06/21/2014 FABIENNE BLISS, AHMED S Ot 585.3 06/21/2014 BLANCOKHRIS Berry S VIDEO PRODUCTION SPECIALIST Ot 270.4 06/21/2014 BLANCOKHRIS Berry S VIDEO PRODUCTION SPECIALIST Ot 278.01 06/21/2014 BLANCOKHRIS Berry S VIDEO PRODUCTION SPECIALIST Ot 281.1 06/21/2014 BLANCOKHRIS Berry S VIDEO PRODUCTION SPECIALIST Ot 285.21 06/21/2014 BLANOCKHRIS S VIDEO PRODUCTION SPECIALIST Ot 403.90 06/21/2014 BLANCOKHRIS S VIDEO PRODUCTION SPECIALIST Ot 414.00 06/21/2014 BLANCOKHRIS S VIDEO PRODUCTION SPECIALIST Ot 585.4 06/21/2014 BLANCOKHRIS S VIDEO PRODUCTION SPECIALIST Ot 715.90 06/21/2014 BLANCOKHRIS S VIDEO PRODUCTION SPECIALIST Ot V10.05 06/21/2014 BLANCO KHRIS S VIDEO PRODUCTION SPECIALIST Ot V45.72 06/21/2014 BLANCO KHRIS S VIDEO PRODUCTION SPECIALIST Ot V45.82 06/21/2014 BLANCOKHRIS Berry S VIDEO PRODUCTION SPECIALIST Ot V58.66 06/21/2014 KHRIS BLANCO S VIDEO PRODUCTION SPECIALIST Ot V58.69 06/21/2014 ZEINA BLISS, SHEILA Parish Ot 414.00 06/21/2014 ZEINA BLISS, SHEILA Parish Ot 786.50 06/21/2014 ZEINA BLISS, SHEILA J Ot 397.0 06/21/2014 ZEINA BLISS, SHEILA Parish Ot 414.00 06/21/2014 ZEINA BLISS, SHEILA Parish Ot 424.0 06/21/2014 ZEINA BLISS, SHEILA Parish Ot 429.3 06/21/2014 ZEINA BLISS, SHEILA Parish Ot 786.50 06/21/2014 ZEINA BLISS, SHEILA Parish Ot 272.4 06/21/2014 ZEINA BLISS, SHEILA Parish Ot 414.01 06/21/2014 BLANCOKHRIS Berry S VIDEO PRODUCTION SPECIALIST Ot 284.19 06/21/2014 BLANCOKHRIS Berry S VIDEO PRODUCTION SPECIALIST Ot 285.9 06/21/2014 BLANCOKHRIS Berry S VIDEO PRODUCTION SPECIALIST Ot V10.05 06/21/2014 BLANCOKHRIS Berry S VIDEO PRODUCTION SPECIALIST Ot 266.2 06/21/2014 BLANCOKHRIS Berry S VIDEO PRODUCTION SPECIALIST Ot 270.4 06/21/2014 BLANCOKHRIS Berry S VIDEO PRODUCTION SPECIALIST Ot 278.01 06/21/2014 BLANCOKHRIS Berry S VIDEO PRODUCTION SPECIALIST Ot 285.21 06/21/2014 BLANCOKHRIS Berry S VIDEO PRODUCTION SPECIALIST Ot 403.90 06/21/2014 BLANCOKHRIS Berry S VIDEO PRODUCTION SPECIALIST Ot 414.00 06/21/2014 BLANCOKHRIS Berry S VIDEO PRODUCTION SPECIALIST Ot 585.4 06/21/2014 BLANCOKHRIS Berry S VIDEO PRODUCTION SPECIALIST Ot 715.90 06/21/2014 BLANCOKHRIS Berry S VIDEO PRODUCTION SPECIALIST Ot V10.05 06/21/2014 BLANCOKHRIS Berry S VIDEO PRODUCTION SPECIALIST Ot V58.69 06/21/2014 BLANCOKHRIS Berry S VIDEO PRODUCTION SPECIALIST Ot V85.42 06/21/2014 BLANCOKHRIS Berry S VIDEO PRODUCTION SPECIALIST Ot 266.2 06/21/2014 BLANCOKHRIS Berry S VIDEO PRODUCTION SPECIALIST Ot 270.4 06/21/2014 BLANCOKHRIS Berry S VIDEO PRODUCTION SPECIALIST Ot 278.01 06/21/2014 BLANCO, KHRIS S VIDEO PRODUCTION SPECIALIST Ot 285.21 06/21/2014 FRANCIS KHRIS S VIDEO PRODUCTION SPECIALIST Ot 403.90 06/21/2014 BLANCOKHRIS Berry S VIDEO PRODUCTION SPECIALIST Ot 414.00 06/21/2014 BLANCOKHRIS S VIDEO PRODUCTION SPECIALIST Ot 585.4 06/21/2014 BLANCOKHRIS S VIDEO PRODUCTION SPECIALIST Ot 715.90 06/21/2014 BLANCOKHRIS Berry S VIDEO PRODUCTION SPECIALIST Ot V10.05 06/21/2014 BLANCOKHRIS S VIDEO PRODUCTION SPECIALIST Ot V58.69 06/21/2014 BLANCOKHRIS S VIDEO PRODUCTION SPECIALIST Ot V85.42 06/21/2014 BLANCOKHRIS S VIDEO PRODUCTION SPECIALIST Ot V76.12 06/21/2014 BLANCOKHRIS S VIDEO PRODUCTION SPECIALIST Ot 266.2 06/21/2014 BLANCOKHRIS S VIDEO PRODUCTION SPECIALIST Ot 270.4 06/21/2014 BLANCOKHRIS S VIDEO PRODUCTION SPECIALIST Ot 278.01 06/21/2014 BLANCOKHRIS S VIDEO PRODUCTION SPECIALIST Ot 285.21 06/21/2014 BLANCOKHRIS S VIDEO PRODUCTION SPECIALIST Ot 403.90 06/21/2014 BLANCOKHRIS Berry S VIDEO PRODUCTION SPECIALIST Ot 414.00 06/21/2014 BLANCOKHRIS Berry S VIDEO PRODUCTION SPECIALIST Ot 585.4 06/21/2014 BLANCOKHRIS Berry S VIDEO PRODUCTION SPECIALIST Ot 715.90 06/21/2014 BLANCOKHRIS Berry S VIDEO PRODUCTION SPECIALIST Ot V10.05 06/21/2014 BLANCOKHRIS Berry S VIDEO PRODUCTION SPECIALIST Ot V58.69 06/21/2014 BLANCOKHRIS Berry S VIDEO PRODUCTION SPECIALIST Ot V85.42 06/21/2014 DAWSON BLISS, JANAK D Ot 782.3 06/21/2014 BLANCOKHRIS Berry S VIDEO PRODUCTION SPECIALIST Ot 266.2 06/21/2014 BLANCOKHRIS S VIDEO PRODUCTION SPECIALIST Ot 270.4 06/21/2014 BLANCOKHRIS S VIDEO PRODUCTION SPECIALIST Ot 278.01 06/21/2014 BLANCOKHRIS S VIDEO PRODUCTION SPECIALIST Ot 285.21 06/21/2014 BLANCOKHRIS S VIDEO PRODUCTION SPECIALIST Ot 403.90 06/21/2014 BLANCOKHRIS S VIDEO PRODUCTION SPECIALIST Ot 414.00 06/21/2014 BLANCOKHRIS S VIDEO PRODUCTION SPECIALIST Ot 585.4 06/21/2014 BLANCOKHRIS S VIDEO PRODUCTION SPECIALIST Ot 715.90 06/21/2014 BLANCOKHRIS S VIDEO PRODUCTION SPECIALIST Ot V10.05 06/21/2014 BLANCOKHRIS S VIDEO PRODUCTION SPECIALIST Ot V58.69 06/21/2014 KHRIS BLANCO S VIDEO PRODUCTION SPECIALIST Ot V85.42 06/21/2014 KHRIS BLANCO S VIDEO PRODUCTION SPECIALIST Ot 266.2 06/21/2014 BLANCOKHRIS Berry S VIDEO PRODUCTION SPECIALIST Ot 285.21 06/21/2014 KHRIS BLANCO S VIDEO PRODUCTION SPECIALIST Ot 585.4 06/21/2014 BLANCOKHRIS Berry S VIDEO PRODUCTION SPECIALIST Ot V58.69 06/21/2014 DAWSON BLISS, JANAK Roman Ot 250.00 06/21/2014 DAWSON BLISS, JANAK Roman Ot 272.4 06/21/2014 KHRIS BLANCO S VIDEO PRODUCTION SPECIALIST Ot 266.2 06/21/2014 KHRIS BLANCO S VIDEO PRODUCTION SPECIALIST Ot 285.21 06/21/2014 KHRIS BLANCO S VIDEO PRODUCTION SPECIALIST Ot 585.4 06/21/2014 KHRIS BLANCO S VIDEO PRODUCTION SPECIALIST Ot V58.69 06/21/2014 ZEINA BLISS, SHEILA Parish Ot 272.4 06/21/2014 ZEINA BLISS, SHEILA J Ot 285.9 06/21/2014 ZEINA BLISS, SHEILA J Ot 403.90 06/21/2014 ZEINA BLISS, SHEILA J Ot 414.00 06/21/2014 ZEINA BLISS, LEXIHAR J Ot 585.4 06/21/2014 ZEINA BLISS, SHEILA J Ot 272.4 06/21/2014 ZEINA BLISS, BASBARBARA J Ot 285.9 06/21/2014 ZEINA BLISS, SHEILA J Ot 403.90 06/21/2014 ZEINA BLISS, BASHAR J Ot 414.00 06/21/2014 ZEINA BLISS, BASHAR J Ot 585.9 06/21/2014 SANJU SALCEDO REGULATORY AFFAIRS DIRECTOR Ot 250.00 06/21/2014 SANJU SALCEDO REGULATORY AFFAIRS DIRECTOR Ot 272.4 06/21/2014 SANJU SALCEDO N REGULATORY AFFAIRS DIRECTOR Ot 780.79 06/21/2014 BLANCO KHRIS S VIDEO PRODUCTION SPECIALIST Ot 266.2 06/21/2014 BLANCO KHRIS S VIDEO PRODUCTION SPECIALIST Ot 278.00 06/21/2014 BLANCO KHRIS S VIDEO PRODUCTION SPECIALIST Ot 285.21 06/21/2014 BLANCO KHRIS S VIDEO PRODUCTION SPECIALIST Ot 564.00 06/21/2014 FRANCIS KHRIS S VIDEO PRODUCTION SPECIALIST Ot 585.4 06/21/2014 FRANCIS KHRIS S VIDEO PRODUCTION SPECIALIST Ot V58.69 06/21/2014 CASIMIRO VALENZUELA DO Ot 327.23 06/21/2014 CASIMIRO VALENZUELA DO Ot 496 06/21/2014 BIANCACASIMIRO SOLIZ DO Ot 786.09 06/21/2014 DAWSON BLISS, JANAK D Ot 250.00 06/21/2014 DAWSON BLISS, JANAK D Ot 272.0 06/21/2014 DAWSON BLISS, JANAK D Ot 403.90 06/21/2014 DAWSON BLISS, JANAK D Ot 585.9 06/21/2014 Ot 266.2 06/21/2014 Ot 278.00 06/21/2014 Ot 285.21 06/21/2014 Ot 585.4 06/21/2014 Ot V10.05 06/21/2014 Ot V58.69 06/21/2014 Ot 250.00 06/21/2014 Ot 272.0 06/21/2014 LILIBETH PUGH Ot 266.2 06/21/2014 LILBIETH PUGH Ot 285.21 06/21/2014 LILIBETH PUGH Ot 585.4 06/21/2014 LILIBETH PUGH Ot V58.69 07/20/2014 BLANCOKHRIS S VIDEO PRODUCTION SPECIALIST Ot 266.2 07/20/2014 BLANCO HILAH S VIDEO PRODUCTION SPECIALIST Ot 285.21 07/20/2014 BLANCO HILAH S VIDEO PRODUCTION SPECIALIST Ot 528.9 07/20/2014 BLANCO PEDRO LUISAH S VIDEO PRODUCTION SPECIALIST Ot 585.4 07/20/2014 BLANCOPEDRO LUISAH S VIDEO PRODUCTION SPECIALIST Ot V10.05 07/20/2014 BLANCO HILAH S VIDEO PRODUCTION SPECIALIST Ot V58.69 07/23/2014 BLANCO, HILAH S VIDEO PRODUCTION SPECIALIST Ot 266.2 07/23/2014 BLANCO, HILAH S VIDEO PRODUCTION SPECIALIST Ot 285.21 07/23/2014 BLANCO, HILAH S VIDEO PRODUCTION SPECIALIST Ot 528.9 07/23/2014 BLANCO HILAH S VIDEO PRODUCTION SPECIALIST Ot 585.4 07/23/2014 BLANCO, HILAH S VIDEO PRODUCTION SPECIALIST Ot V10.05 07/23/2014 BLANCO HILAH S VIDEO PRODUCTION SPECIALIST Ot V58.69 08/22/2014 LILIBETH PUGH Ot 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 08/22/2014 KEATON, BOBAN N Ot 285.21 ANEMIA IN CHRONIC KIDNEY DISEASE 08/22/2014 LILIBETH PUGH N Ot 585.4 CHRONIC KIDNEY DISEASE, STAGE IV (SEVERE 08/22/2014 LILIBETH PUGH Ot V58.69 OTH MED,LT,CURRENT USE 08/23/2014 SANJU SALCEDO REGULATORY AFFAIRS DIRECTOR Ot 789.00 08/23/2014 SANJU SALCEDO REGULATORY AFFAIRS DIRECTOR Ot 789.09 08/23/2014 KEATONLILIBETH COX N Ot 266.2 08/23/2014 KEATONLILIBETH COX N Ot 285.21 08/23/2014 KEATONLILIBETH COX N Ot 585.4 08/23/2014 KEATONLILIBETH COX N Ot V58.69 08/24/2014 KEATONLILIBETH COX N Ot 266.2 08/24/2014 KEATONLILIBETH COX N Ot 285.21 08/24/2014 KEATONLILIBETH COX N Ot 585.4 08/24/2014 KEATONLILIBETH COX N Ot V58.69 08/24/2014 KEATONLILIBETH COX N Ot 266.2 08/24/2014 KEATONLILIBETH COX N Ot 285.21 08/24/2014 KEATONLILIBETH COX N Ot 585.4 08/24/2014 LILIBETH PUGH N Ot V58.69 08/29/2014 SANJU SALCEDO Maria Dolores REGULATORY AFFAIRS DIRECTOR Ot 789.00 08/29/2014 SANJU SALCEDO REGULATORY AFFAIRS DIRECTOR Ot 789.09 09/07/2014 Ot 719.42 09/07/2014 Ot 153.9 09/07/2014 Ot 250.00 09/07/2014 Ot 250.00 09/07/2014 Ot 272.0 09/07/2014 Ot 785.6 09/07/2014 Ot 038.9 09/07/2014 Ot 041.4 09/07/2014 Ot 995.91 09/07/2014 Ot 719.41 09/07/2014 Ot 429.3 09/07/2014 Ot 786.50 09/07/2014 Ot 727.61 09/07/2014 Ot V72.81 09/07/2014 Ot V74.8 09/07/2014 Ot V76.12 09/07/2014 Ot 250.00 09/07/2014 Ot 272.0 09/07/2014 Ot 414.00 09/07/2014 Ot 719.41 09/07/2014 Ot 250.00 09/07/2014 Ot 414.01 09/07/2014 Ot 783.1 09/07/2014 Ot 244.9 09/07/2014 Ot 250.01 09/07/2014 Ot 250.40 09/07/2014 Ot 272.4 09/07/2014 Ot 585.4 09/07/2014 Ot 789.00 09/07/2014 Ot 729.5 09/07/2014 Ot 782.3 09/07/2014 Ot 250.40 09/07/2014 Ot 272.4 09/07/2014 Ot 585.4 09/07/2014 Ot 610.4 09/07/2014 Ot 719.43 09/07/2014 Ot 250.40 09/07/2014 Ot 585.4 09/07/2014 DAWSON BLISS, JANAK D Ot 729.81 09/07/2014 DAWSON BLISS, JANAK D Ot 250.00 09/07/2014 DAWSON BLISS, JANAK D Ot 272.4 09/07/2014 DAWSON BLISS, JANAK D Ot 780.79 09/07/2014 KHRIS BLANCO VIDEO PRODUCTION SPECIALIST Ot 266.2 09/07/2014 KHRIS BLANCO VIDEO PRODUCTION SPECIALIST Ot 278.01 09/07/2014 KHRIS BLANCO VIDEO PRODUCTION SPECIALIST Ot 285.21 09/07/2014 PEDRO LUIS BLANCOVERONICA Jamal VIDEO PRODUCTION SPECIALIST Ot 403.90 09/07/2014 PEDRO LUIS BLANCOVERONICA S VIDEO PRODUCTION SPECIALIST Ot 414.00 09/07/2014 PEDRO LUIS BLANCOVERONICA S VIDEO PRODUCTION SPECIALIST Ot 585.4 09/07/2014 PEDRO LUIS BLANCOVERONICA S VIDEO PRODUCTION SPECIALIST Ot 715.90 09/07/2014 PEDRO LUIS BLANCOVERONICA S VIDEO PRODUCTION SPECIALIST Ot V10.05 09/07/2014 PEDRO LUIS BLANCOVERONICA S VIDEO PRODUCTION SPECIALIST Ot V45.72 09/07/2014 KHRIS BLANCO S VIDEO PRODUCTION SPECIALIST Ot V45.82 09/07/2014 PEDRO LUIS BLANCOVERONICA S VIDEO PRODUCTION SPECIALIST Ot V58.66 09/07/2014 PEDRO LUIS BLANCOVERONICA S VIDEO PRODUCTION SPECIALIST Ot V58.69 09/07/2014 FABIENNE BLISS, HESHAM Berry Ot 250.40 09/07/2014 FABIENNE BLISS, HESHAM Berry Ot 278.02 09/07/2014 FABIENNE BLISS, AHMED S Ot 585.3 09/07/2014 KHRIS BLANCO S VIDEO PRODUCTION SPECIALIST Ot 270.4 09/07/2014 KHRIS BLANCO S VIDEO PRODUCTION SPECIALIST Ot 278.01 09/07/2014 KHRIS BLANCO S VIDEO PRODUCTION SPECIALIST Ot 281.1 09/07/2014 KHRIS BLANCO S VIDEO PRODUCTION SPECIALIST Ot 285.21 09/07/2014 KHRIS BLANCO S VIDEO PRODUCTION SPECIALIST Ot 403.90 09/07/2014 KHRIS BLANCO S VIDEO PRODUCTION SPECIALIST Ot 414.00 09/07/2014 KHRIS BLANCO S VIDEO PRODUCTION SPECIALIST Ot 585.4 09/07/2014 KHRIS BLANCO S VIDEO PRODUCTION SPECIALIST Ot 715.90 09/07/2014 KHRIS BLANCO S VIDEO PRODUCTION SPECIALIST Ot V10.05 09/07/2014 KHRIS BLANCO S VIDEO PRODUCTION SPECIALIST Ot V45.72 09/07/2014 KHRIS BLANCO S VIDEO PRODUCTION SPECIALIST Ot V45.82 09/07/2014 KHRIS BLANCO S VIDEO PRODUCTION SPECIALIST Ot V58.66 09/07/2014 KHRIS BLANCO S VIDEO PRODUCTION SPECIALIST Ot V58.69 09/07/2014 ZEINA BLISS, SHEILA Parish Ot 414.00 09/07/2014 ZEINA BLISS, SHEILA Parish Ot 786.50 09/07/2014 ZEINA BLISS, SHEILA Parish Ot 397.0 09/07/2014 ZEINA BLISS, SHEILA Parish Ot 414.00 09/07/2014 ZEINA BLISS, SHEILA Parish Ot 424.0 09/07/2014 ZEINA BLISS, SHEILA Parish Ot 429.3 09/07/2014 ZEINA BLISS, SHEILA Parish Ot 786.50 09/07/2014 ZEINA BLISS, SHEILA J Ot 272.4 09/07/2014 ZEINA BLISS, SHEILA J Ot 414.01 09/07/2014 BLANCOKHRIS Berry S VIDEO PRODUCTION SPECIALIST Ot 284.19 09/07/2014 BLANCOKHRIS Berry S VIDEO PRODUCTION SPECIALIST Ot 285.9 09/07/2014 BLANCOKHRIS Berry S VIDEO PRODUCTION SPECIALIST Ot V10.05 09/07/2014 BLANCOKHRIS Berry S VIDEO PRODUCTION SPECIALIST Ot 266.2 09/07/2014 BLANCOKHRIS Berry S VIDEO PRODUCTION SPECIALIST Ot 270.4 09/07/2014 BLANCOKHRIS Berry S VIDEO PRODUCTION SPECIALIST Ot 278.01 09/07/2014 BLANCOKHRIS Berry S VIDEO PRODUCTION SPECIALIST Ot 285.21 09/07/2014 BLANCOKHRIS Berry S VIDEO PRODUCTION SPECIALIST Ot 403.90 09/07/2014 BLANCOKHRIS S VIDEO PRODUCTION SPECIALIST Ot 414.00 09/07/2014 BLANCOKHRIS S VIDEO PRODUCTION SPECIALIST Ot 585.4 09/07/2014 BLANCOKHRIS S VIDEO PRODUCTION SPECIALIST Ot 715.90 09/07/2014 BLANCOKHRIS S VIDEO PRODUCTION SPECIALIST Ot V10.05 09/07/2014 FRANCISKHRIS S VIDEO PRODUCTION SPECIALIST Ot V58.69 09/07/2014 BLANCOKHRIS S VIDEO PRODUCTION SPECIALIST Ot V85.42 09/07/2014 BLANCOKHRIS S VIDEO PRODUCTION SPECIALIST Ot 266.2 09/07/2014 BLANCOPEDRO LUIS S VIDEO PRODUCTION SPECIALIST Ot 270.4 09/07/2014 BLANCOKHRIS S VIDEO PRODUCTION SPECIALIST Ot 278.01 09/07/2014 BLANCOKHRIS S VIDEO PRODUCTION SPECIALIST Ot 285.21 09/07/2014 FRANCISKHRIS S VIDEO PRODUCTION SPECIALIST Ot 403.90 09/07/2014 FRANCISKHRIS S VIDEO PRODUCTION SPECIALIST Ot 414.00 09/07/2014 BLANCOKHRIS Berry S VIDEO PRODUCTION SPECIALIST Ot 585.4 09/07/2014 BLANCOKHRIS Berry S VIDEO PRODUCTION SPECIALIST Ot 715.90 09/07/2014 BLANCOKHRIS Berry S VIDEO PRODUCTION SPECIALIST Ot V10.05 09/07/2014 FRANCISKHRIS S VIDEO PRODUCTION SPECIALIST Ot V58.69 09/07/2014 BLANCOKHRIS S VIDEO PRODUCTION SPECIALIST Ot V85.42 09/07/2014 BLANCOKHRIS Berry S VIDEO PRODUCTION SPECIALIST Ot V76.12 09/07/2014 FRANCISKHRIS S VIDEO PRODUCTION SPECIALIST Ot 266.2 09/07/2014 BLANCOKHRIS S VIDEO PRODUCTION SPECIALIST Ot 270.4 09/07/2014 BLANCOKHRIS S VIDEO PRODUCTION SPECIALIST Ot 278.01 09/07/2014 BLANCOPEDRO LUIS S VIDEO PRODUCTION SPECIALIST Ot 285.21 09/07/2014 BLANCOKHRIS S VIDEO PRODUCTION SPECIALIST Ot 403.90 09/07/2014 BLANCOKHRIS S VIDEO PRODUCTION SPECIALIST Ot 414.00 09/07/2014 BLANCOKHRIS S VIDEO PRODUCTION SPECIALIST Ot 585.4 09/07/2014 FRANCIS KHRIS S VIDEO PRODUCTION SPECIALIST Ot 715.90 09/07/2014 FRANCIS KHRIS S VIDEO PRODUCTION SPECIALIST Ot V10.05 09/07/2014 BLANCOKHRIS Berry S VIDEO PRODUCTION SPECIALIST Ot V58.69 09/07/2014 KHRIS BLANCO S VIDEO PRODUCTION SPECIALIST Ot V85.42 09/07/2014 DAWSON BLISS, JANAK Roman Ot 782.3 09/07/2014 KHRIS BLANCO S VIDEO PRODUCTION SPECIALIST Ot 266.2 09/07/2014 KHRIS BLANCO S VIDEO PRODUCTION SPECIALIST Ot 270.4 09/07/2014 KHRIS BLANCO S VIDEO PRODUCTION SPECIALIST Ot 278.01 09/07/2014 KHRIS BLANCO S VIDEO PRODUCTION SPECIALIST Ot 285.21 09/07/2014 KHRIS BLANCO S VIDEO PRODUCTION SPECIALIST Ot 403.90 09/07/2014 KHRIS BLANCO S VIDEO PRODUCTION SPECIALIST Ot 414.00 09/07/2014 KHRIS BLANCO S VIDEO PRODUCTION SPECIALIST Ot 585.4 09/07/2014 KHRIS BLANCO S VIDEO PRODUCTION SPECIALIST Ot 715.90 09/07/2014 KHRIS BLANCO S VIDEO PRODUCTION SPECIALIST Ot V10.05 09/07/2014 KHRIS BLANCO S VIDEO PRODUCTION SPECIALIST Ot V58.69 09/07/2014 KHRIS BLANCO S VIDEO PRODUCTION SPECIALIST Ot V85.42 09/07/2014 KHRIS BLANCO S VIDEO PRODUCTION SPECIALIST Ot 266.2 09/07/2014 KHRIS BLANCO S VIDEO PRODUCTION SPECIALIST Ot 285.21 09/07/2014 KHRIS BLANCO S VIDEO PRODUCTION SPECIALIST Ot 585.4 09/07/2014 KHRIS BLANCO S VIDEO PRODUCTION SPECIALIST Ot V58.69 09/07/2014 DAWSON BLISS, JANAK Roman Ot 250.00 09/07/2014 DAWSON BLISS, JANAK Roman Ot 272.4 09/07/2014 KHRIS BLANCO S VIDEO PRODUCTION SPECIALIST Ot 266.2 09/07/2014 KHRIS BLANCO S VIDEO PRODUCTION SPECIALIST Ot 285.21 09/07/2014 KHRIS BLANCO S VIDEO PRODUCTION SPECIALIST Ot 585.4 09/07/2014 BLANCOKHRIS Berry S VIDEO PRODUCTION SPECIALIST Ot V58.69 09/07/2014 ZEINA BLISS, SHEILA Parish Ot 272.4 09/07/2014 ZEINA BLISS, SHEILA Parish Ot 285.9 09/07/2014 ZEINA BLISS, SHEILA Parish Ot 403.90 09/07/2014 ZEINA BLISS, SHEILA Parish Ot 414.00 09/07/2014 ZEINA BLISS, SHEILA Parish Ot 585.4 09/07/2014 ZEINA BLISS, BASHAR J Ot 272.4 09/07/2014 ZEINA BLISS, SHEILA J Ot 285.9 09/07/2014 ZEINA BLISS, SHEILA J Ot 403.90 09/07/2014 ZEINA BLISS, SHEILA J Ot 414.00 09/07/2014 ZEINA BLISS, SHEILA J Ot 585.9 09/07/2014 SANJU SALCEDO N REGULATORY AFFAIRS DIRECTOR Ot 250.00 09/07/2014 VARGHESE SALCEDOESSENCE N REGULATORY AFFAIRS DIRECTOR Ot 272.4 09/07/2014 VARGHESE SALCEDOESSENCE N REGULATORY AFFAIRS DIRECTOR Ot 780.79 09/07/2014 KHRIS BLANCO VIDEO PRODUCTION SPECIALIST Ot 266.2 09/07/2014 KHRIS BLANCO S VIDEO PRODUCTION SPECIALIST Ot 278.00 09/07/2014 KHRIS BLANCO S VIDEO PRODUCTION SPECIALIST Ot 285.21 09/07/2014 KHRIS BLANCO S VIDEO PRODUCTION SPECIALIST Ot 564.00 09/07/2014 KHRIS BLANCO S VIDEO PRODUCTION SPECIALIST Ot 585.4 09/07/2014 KHRIS BLANCO S VIDEO PRODUCTION SPECIALIST Ot V58.69 09/07/2014 CASIMIRO VALENZUELA DO Ot 327.23 09/07/2014 CASIMIRO VALENZUELA DO Ot 496 09/07/2014 CASIMIRO VALENZUELA DO Ot 786.09 09/07/2014 DAWSON BLISS, JANAK Roman Ot 250.00 09/07/2014 DAWSON BLISS, JANAK D Ot 272.0 09/07/2014 DAWSON BLISS, JANAK D Ot 403.90 09/07/2014 DAWSON BLISS, JANAK D Ot 585.9 09/07/2014 Ot 266.2 09/07/2014 Ot 278.00 09/07/2014 Ot 285.21 09/07/2014 Ot 585.4 09/07/2014 Ot V10.05 09/07/2014 Ot V58.69 09/07/2014 Ot 250.00 09/07/2014 Ot 272.0 09/07/2014 KHRIS BLANCO S VIDEO PRODUCTION SPECIALIST Ot 266.2 09/07/2014 KHRIS BLANCO S VIDEO PRODUCTION SPECIALIST Ot 285.21 09/07/2014 KHRIS BLANCO S VIDEO PRODUCTION SPECIALIST Ot 528.9 09/07/2014 KHRIS BLANCO S VIDEO PRODUCTION SPECIALIST Ot 585.4 09/07/2014 KHRIS BLANCO S VIDEO PRODUCTION SPECIALIST Ot V10.05 09/07/2014 KHRIS BLANCO Ot V58.69 09/07/2014 SANJU SALCEDO N REGULATORY AFFAIRS DIRECTOR Ot 789.00 09/07/2014 MATIAS VARGHESEESSENCE Whitten REGULATORY AFFAIRS DIRECTOR Ot 789.09 09/07/2014 LILIBETH PUGH Ot 266.2 09/07/2014 LILIBETH PUGH Ot 285.21 09/07/2014 LILIBETH PUGH Ot 585.4 09/07/2014 LILIBETH PUGH Ot V58.69 09/07/2014 DAWSON BLISS, JANAK Roman Ot 586 09/07/2014 FABIENNE BLISS, HESHAM S Ot 585.6 09/07/2014 FABIENNE BLISS, HESHAM S Ot V72.85 09/07/2014 RENALDO BLISS, SHELBI Mack Ot 244.9 HYPOTHYROIDISM NOS 09/07/2014 RENALDO BLISS, SHELBI Mack Ot 250.00 DIAB JILLIAN WO COMPL, TYPE II OR UNSPEC TY 09/07/2014 SHELBI MACARIO MD Ot 496 CHR AIRWAY OBSTRUCT NEC 09/07/2014 SHELBI MACARIO MD Ot 530.81 ESOPHAGEAL REFLUX 09/07/2014 SHELBI MACARIO MD Ot 585.9 CHRONIC KIDNEY DISEASE, UNSPECIFIED 09/07/2014 SHELBI MACARIO MD Ot 780.60 FEVER, UNSPECIFIED 09/07/2014 SHELBI MACARIO MD Ot V45.11 RENAL DIALYSIS STATUS 09/07/2014 SHELBI MACARIO MD Ot V58.67 LONG-TERM (CURRENT) USE OF INSULIN 09/21/2014 DAWSON BLISS, JANAK Roman Ot 586 09/26/2014 FABIENNE BLISS, HESHAM S Ot 585.6 09/26/2014 FABIENNE BLISS, HESHAM S Ot V72.85 11/07/2014 LILIBETH PUGH Ot 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 11/07/2014 LILIBETH PUGH Ot 285.21 ANEMIA IN CHRONIC KIDNEY DISEASE 11/07/2014 LILIBETH PUGH Ot 585.4 CHRONIC KIDNEY DISEASE, STAGE IV (SEVERE 11/07/2014 LILIBETH PUGH Ot V58.69 OTH MED,LT,CURRENT USE 02/10/2015 Ot 785.6 02/10/2015 Ot 038.9 02/10/2015 Ot 041.4 02/10/2015 Ot 995.91 02/10/2015 Ot 719.41 02/10/2015 Ot 429.3 02/10/2015 Ot 786.50 02/10/2015 Ot 727.61 02/10/2015 Ot V72.81 02/10/2015 Ot V74.8 02/10/2015 Ot V76.12 02/10/2015 Ot 250.00 02/10/2015 Ot 272.0 02/10/2015 Ot 414.00 02/10/2015 Ot 719.41 02/10/2015 Ot 250.00 02/10/2015 Ot 414.01 02/10/2015 Ot 783.1 02/10/2015 Ot 244.9 02/10/2015 Ot 250.01 02/10/2015 Ot 250.40 02/10/2015 Ot 272.4 02/10/2015 Ot 585.4 02/10/2015 Ot 789.00 02/10/2015 Ot 729.5 02/10/2015 Ot 782.3 02/10/2015 Ot 250.40 02/10/2015 Ot 272.4 02/10/2015 Ot 585.4 02/10/2015 Ot 610.4 02/10/2015 Ot 719.43 02/10/2015 Ot 250.40 02/10/2015 Ot 585.4 02/10/2015 DAWSON BLISS, JANAK D Ot 729.81 02/10/2015 DAWSON BLISS, JANAK D Ot 250.00 02/10/2015 DAWSON BLISS, JANAK D Ot 272.4 02/10/2015 DAWSON BLISS, JANAK D Ot 780.79 02/10/2015 KHRIS BLANCO VIDEO PRODUCTION SPECIALIST Ot 266.2 02/10/2015 KHRIS BLANCO VIDEO PRODUCTION SPECIALIST Ot 278.01 02/10/2015 KHRIS BLANCO VIDEO PRODUCTION SPECIALIST Ot 285.21 02/10/2015 KHRIS BLANCO VIDEO PRODUCTION SPECIALIST Ot 403.90 02/10/2015 KHRIS BLANCO VIDEO PRODUCTION SPECIALIST Ot 414.00 02/10/2015 KHRIS BLANCO VIDEO PRODUCTION SPECIALIST Ot 585.4 02/10/2015 KHRIS BLANCO VIDEO PRODUCTION SPECIALIST Ot 715.90 02/10/2015 KHRIS BLANCO VIDEO PRODUCTION SPECIALIST Ot V10.05 02/10/2015 KHRIS BLANCO S VIDEO PRODUCTION SPECIALIST Ot V45.72 02/10/2015 KHRIS BLANCO S VIDEO PRODUCTION SPECIALIST Ot V45.82 02/10/2015 KHRIS BLANCO S VIDEO PRODUCTION SPECIALIST Ot V58.66 02/10/2015 KHRIS BLANCO S VIDEO PRODUCTION SPECIALIST Ot V58.69 02/10/2015 FABIENNE BLISS, MED S Ot 250.40 02/10/2015 FABIENNE BLISS, AHMED S Ot 278.02 02/10/2015 FABIENNE BLISS, AHMED S Ot 585.3 02/10/2015 KHRIS BLANCO S VIDEO PRODUCTION SPECIALIST Ot 270.4 02/10/2015 KHRIS BLANCO S VIDEO PRODUCTION SPECIALIST Ot 278.01 02/10/2015 KHRIS BLANCO S VIDEO PRODUCTION SPECIALIST Ot 281.1 02/10/2015 KHRIS BLANCO S VIDEO PRODUCTION SPECIALIST Ot 285.21 02/10/2015 KHRIS BLANCO S VIDEO PRODUCTION SPECIALIST Ot 403.90 02/10/2015 KHRIS BLANCO S VIDEO PRODUCTION SPECIALIST Ot 414.00 02/10/2015 KHRIS BLANCO S VIDEO PRODUCTION SPECIALIST Ot 585.4 02/10/2015 KHRIS BLANCO S VIDEO PRODUCTION SPECIALIST Ot 715.90 02/10/2015 KHRIS BLANCO S VIDEO PRODUCTION SPECIALIST Ot V10.05 02/10/2015 KHRIS BLANCO S VIDEO PRODUCTION SPECIALIST Ot V45.72 02/10/2015 KHRIS BLANCO S VIDEO PRODUCTION SPECIALIST Ot V45.82 02/10/2015 KHRIS BLANCO S VIDEO PRODUCTION SPECIALIST Ot V58.66 02/10/2015 KHRIS BLANCO S VIDEO PRODUCTION SPECIALIST Ot V58.69 02/10/2015 ZEINA BLISS, SHEILA Parish Ot 414.00 02/10/2015 ZEINA BLISS, SHEILA Parish Ot 786.50 02/10/2015 ZEINA BLISS, SHEILA Parish Ot 397.0 02/10/2015 ZEINA BLISS, SHEILA Parish Ot 414.00 02/10/2015 ZEINA BLISS, SHEILA Parish Ot 424.0 02/10/2015 ZEINA BLISS, SHEILA Parish Ot 429.3 02/10/2015 ZEINA BLISS, SHEILA Parish Ot 786.50 02/10/2015 ZEINA BLISS, SHEILA Parish Ot 272.4 02/10/2015 ZEINA BLISS, SHEILA Parish Ot 414.01 02/10/2015 FRANCIS, [facility] S VIDEO PRODUCTION SPECIALIST Ot 284.19 02/10/2015 BLANCO, [facility] S VIDEO PRODUCTION SPECIALIST Ot 285.9 02/10/2015 BLANCO, [facility] S VIDEO PRODUCTION SPECIALIST Ot V10.05 02/10/2015 BLANCO [facility] S VIDEO PRODUCTION SPECIALIST Ot 266.2 02/10/2015 BLANCO, [facility] S VIDEO PRODUCTION SPECIALIST Ot 270.4 02/10/2015 BLANCO, [facility] S VIDEO PRODUCTION SPECIALIST Ot 278.01 02/10/2015 BLANCO, [facility] S VIDEO PRODUCTION SPECIALIST Ot 285.21 02/10/2015 BLANCO [facility] S VIDEO PRODUCTION SPECIALIST Ot 403.90 02/10/2015 BLANCO, [facility] S VIDEO PRODUCTION SPECIALIST Ot 414.00 02/10/2015 BLANCO [facility] S VIDEO PRODUCTION SPECIALIST Ot 585.4 02/10/2015 BLANCO [facility] S VIDEO PRODUCTION SPECIALIST Ot 715.90 02/10/2015 BLANCO, [facility] S VIDEO PRODUCTION SPECIALIST Ot V10.05 02/10/2015 BLANCO [facility] S VIDEO PRODUCTION SPECIALIST Ot V58.69 02/10/2015 BLANCO, [facility] S VIDEO PRODUCTION SPECIALIST Ot V85.42 02/10/2015 BLANCO, [facility] S VIDEO PRODUCTION SPECIALIST Ot 266.2 02/10/2015 BLANCO, [facility] S VIDEO PRODUCTION SPECIALIST Ot 270.4 02/10/2015 BLANCO, [facility] S VIDEO PRODUCTION SPECIALIST Ot 278.01 02/10/2015 BLANCO, [facility] S VIDEO PRODUCTION SPECIALIST Ot 285.21 02/10/2015 BLANCO, [facility] S VIDEO PRODUCTION SPECIALIST Ot 403.90 02/10/2015 BLANCO, [facility] S VIDEO PRODUCTION SPECIALIST Ot 414.00 02/10/2015 BLANCO [facility] S VIDEO PRODUCTION SPECIALIST Ot 585.4 02/10/2015 BLANCO [facility] S VIDEO PRODUCTION SPECIALIST Ot 715.90 02/10/2015 BLANCO [facility] S VIDEO PRODUCTION SPECIALIST Ot V10.05 02/10/2015 BLANCO, [facility] S VIDEO PRODUCTION SPECIALIST Ot V58.69 02/10/2015 BLANCO [facility] S VIDEO PRODUCTION SPECIALIST Ot V85.42 02/10/2015 BLANCO [facility] S VIDEO PRODUCTION SPECIALIST Ot V76.12 02/10/2015 BLANCO, [facility] S VIDEO PRODUCTION SPECIALIST Ot 266.2 02/10/2015 BLANCO, [facility] S VIDEO PRODUCTION SPECIALIST Ot 270.4 02/10/2015 BLANCO, [facility] S VIDEO PRODUCTION SPECIALIST Ot 278.01 02/10/2015 BLANCOKHRIS Berry S VIDEO PRODUCTION SPECIALIST Ot 285.21 02/10/2015 BLANCOKHRIS Berry S VIDEO PRODUCTION SPECIALIST Ot 403.90 02/10/2015 BLANCOKHRIS S VIDEO PRODUCTION SPECIALIST Ot 414.00 02/10/2015 BLANCOKHRIS Berry S VIDEO PRODUCTION SPECIALIST Ot 585.4 02/10/2015 BLANCOKHRIS S VIDEO PRODUCTION SPECIALIST Ot 715.90 02/10/2015 BLANCOKHRIS S VIDEO PRODUCTION SPECIALIST Ot V10.05 02/10/2015 BLANCOKHRIS S VIDEO PRODUCTION SPECIALIST Ot V58.69 02/10/2015 BLANCOKHRIS S VIDEO PRODUCTION SPECIALIST Ot V85.42 02/10/2015 DAWSON BLISS, JANAK Roman Ot 782.3 02/10/2015 BLANCOKHRIS S VIDEO PRODUCTION SPECIALIST Ot 266.2 02/10/2015 BLANCOKHRIS S VIDEO PRODUCTION SPECIALIST Ot 270.4 02/10/2015 BLANCOKHRIS S VIDEO PRODUCTION SPECIALIST Ot 278.01 02/10/2015 BLANCOKHRIS S VIDEO PRODUCTION SPECIALIST Ot 285.21 02/10/2015 BLANCOKHRIS Berry S VIDEO PRODUCTION SPECIALIST Ot 403.90 02/10/2015 BLANCOKHRIS Berry S VIDEO PRODUCTION SPECIALIST Ot 414.00 02/10/2015 BLANCOKHRIS Berry S VIDEO PRODUCTION SPECIALIST Ot 585.4 02/10/2015 BLANCOKHRIS Berry S VIDEO PRODUCTION SPECIALIST Ot 715.90 02/10/2015 BLANCOKHRIS S VIDEO PRODUCTION SPECIALIST Ot V10.05 02/10/2015 BLANCOKHRIS S VIDEO PRODUCTION SPECIALIST Ot V58.69 02/10/2015 BLANCOKHRIS Berry S VIDEO PRODUCTION SPECIALIST Ot V85.42 02/10/2015 BLANCOKHRIS S VIDEO PRODUCTION SPECIALIST Ot 266.2 02/10/2015 BLANCOKHRIS S VIDEO PRODUCTION SPECIALIST Ot 285.21 02/10/2015 BLANCOKHRIS S VIDEO PRODUCTION SPECIALIST Ot 585.4 02/10/2015 BLANCOKHRIS S VIDEO PRODUCTION SPECIALIST Ot V58.69 02/10/2015 DAWSON BLISS, JANAK Roman Ot 250.00 02/10/2015 DAWSON BLISS, JANAK Roman Ot 272.4 02/10/2015 BLANCOKHRIS S VIDEO PRODUCTION SPECIALIST Ot 266.2 02/10/2015 BLANCO, KHRIS S VIDEO PRODUCTION SPECIALIST Ot 285.21 02/10/2015 BLANCOKHRIS S VIDEO PRODUCTION SPECIALIST Ot 585.4 02/10/2015 KHRIS BLANCO VIDEO PRODUCTION SPECIALIST Ot V58.69 02/10/2015 ZEINA BLISS, SHEILA J Ot 272.4 02/10/2015 ZEINA BLISS, SHEILA J Ot 285.9 02/10/2015 ZEINA BLISS, BASBARBARA J Ot 403.90 02/10/2015 ZEINA BLISS, SHEILA J Ot 414.00 02/10/2015 ZEINA BLISS, SHEILA Parish Ot 585.4 02/10/2015 ZEINA BLISS, SHEILA Parish Ot 272.4 02/10/2015 ZEINA BLISS, SHEILA J Ot 285.9 02/10/2015 ZEINA BLISS, SHEILA Parish Ot 403.90 02/10/2015 ZEINA BLISS, SHEILA Parish Ot 414.00 02/10/2015 ZEINA BLISS, SHEILA Parish Ot 585.9 02/10/2015 SANJU SALCEDO REGULATORY AFFAIRS DIRECTOR Ot 250.00 02/10/2015 SANJU SALCEDO REGULATORY AFFAIRS DIRECTOR Ot 272.4 02/10/2015 SANJU SALCEDO REGULATORY AFFAIRS DIRECTOR Ot 780.79 02/10/2015 BLANCO KHRIS Jamal VIDEO PRODUCTION SPECIALIST Ot 266.2 02/10/2015 BLANCO KHRIS Jamal VIDEO PRODUCTION SPECIALIST Ot 278.00 02/10/2015 FRANCIS KHRIS Jamal VIDEO PRODUCTION SPECIALIST Ot 285.21 02/10/2015 FRANCIS KHRIS Jamal VIDEO PRODUCTION SPECIALIST Ot 564.00 02/10/2015 FRANCIS KHRIS S VIDEO PRODUCTION SPECIALIST Ot 585.4 02/10/2015 FRANCIS KHRIS S VIDEO PRODUCTION SPECIALIST Ot V58.69 02/10/2015 CASIMIRO VALENZUELA DO Ot 327.23 02/10/2015 CASIMIRO VALENZUELA DO Ot 496 02/10/2015 CASIMIRO VALENZUELA DO Ot 786.09 02/10/2015 DAWSON BLISS, JANAK Roman Ot 250.00 02/10/2015 DAWSON BLISS, JANAK Roman Ot 272.0 02/10/2015 DAWSON BLISS, JANAK Roman Ot 403.90 02/10/2015 DAWSON BLISS, JANAK Roman Ot 585.9 02/10/2015 Ot 266.2 02/10/2015 Ot 278.00 02/10/2015 Ot 285.21 02/10/2015 Ot 585.4 02/10/2015 Ot V10.05 02/10/2015 Ot V58.69 02/10/2015 Ot 250.00 02/10/2015 Ot 272.0 02/10/2015 KHRIS BLANCO VIDEO PRODUCTION SPECIALIST Ot 266.2 02/10/2015 KHRIS BLANCO VIDEO PRODUCTION SPECIALIST Ot 285.21 02/10/2015 KHRIS BLANCO VIDEO PRODUCTION SPECIALIST Ot 528.9 02/10/2015 KHRIS BLANCO VIDEO PRODUCTION SPECIALIST Ot 585.4 02/10/2015 KHRIS BLANCO VIDEO PRODUCTION SPECIALIST Ot V10.05 02/10/2015 KHRIS BLANCO VIDEO PRODUCTION SPECIALIST Ot V58.69 02/10/2015 SANJU SALCEDO N REGULATORY AFFAIRS DIRECTOR Ot 789.00 02/10/2015 SANJU SALCEDO N REGULATORY AFFAIRS DIRECTOR Ot 789.09 02/10/2015 DAWSON BLISS, JANAK Roman Ot 586 02/10/2015 FABIENNE BLISS, HESHAM Berry Ot 585.6 02/10/2015 FABIENNE BLISS, HESHAM S Ot V72.85 02/10/2015 GEORGI LYON DOA K Ot E11.9 TYPE 2 DIABETES MELLITUS WITHOUT COMPLIC 02/10/2015 CAMRON DO AMY K Ot E66.01 MORBID (SEVERE) OBESITY DUE TO EXCESS CA 02/10/2015 GEORGI LYON DOA K Ot F17.211 NICOTINE DEPENDENCE, CIGARETTES, IN FANG 02/10/2015 GEORGI LYON DOA K Ot 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 CHR KID 02/10/2015 CAMRON DO AMY K Ot I51.7 CARDIOMEGALY 02/10/2015 CAMRON DO AMY K Ot J44.9 CHRONIC OBSTRUCTIVE PULMONARY DISEASE, U 02/10/2015 CAMRON DO AMY K Ot N18.6 END STAGE RENAL DISEASE 02/10/2015 CAMRON DO AMY K Ot Z79.4 RESEARCH AND DEVELOPMENT DIRECTOR (CURRENT) USE OF INSULIN 02/10/2015 CAMRON DO AMY K Ot 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 ON RENAL DIALYSIS 02/10/2015 CAMRON WEST AMY K Ot 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 ON WHEELCHAIR 02/17/2015 CAMRON DO AMY K Ot E11.9 02/17/2015 CAMRON DO AMY K Ot E66.01 02/17/2015 CAMRON DO, AMY K Ot F17.211 02/17/2015 CAMRON DO, AMY K Ot I12.0 02/17/2015 CAMRON DO, AMY K Ot I51.7 02/17/2015 CAMRON DO, AMY K Ot J44.9 02/17/2015 CAMRON DO, AMY K Ot N18.6 02/17/2015 CAMRON DO, AMY K Ot Z79.4 02/17/2015 CAMRON DO, AMY K Ot Z99.2 02/17/2015 CAMRON DO, AMY K Ot Z99.3 03/18/2015 MATIAS VARGHESEESSENCE Whitten REGULATORY AFFAIRS DIRECTOR Ot M16.12 03/18/2015 SANJU SALCEDO N REGULATORY AFFAIRS DIRECTOR Ot M25.852 03/26/2015 SANJU SALCEDO N REGULATORY AFFAIRS DIRECTOR Ot M16.12 03/26/2015 SANJU SALCEDO REGULATORY AFFAIRS DIRECTOR Ot M25.852 04/03/2015 VANITA BLISS, ELLIOTT M Ot Z08 ENCNTR FOR FOLLOW-UP EXAM AFTER TRTMT FO 04/03/2015 VANITA BLISS, ELLIOTT M Ot Z85.038 PERSONAL HISTORY OF MALIGNANT NEOPLASM O 04/04/2015 VANITA BLISS, ELLIOTT M Ot Z08 04/04/2015 VANITA BLISS, ELLIOTT M Ot Z85.038 04/23/2015 VANITA BLISS, ELLIOTT M Ot Z08 04/23/2015 VANITA BLISS, ELLIOTT M Ot Z85.038 04/25/2015 VANITA BLISS, ELLIOTT M Ot Z08 04/25/2015 VANITA BLISS, ELLIOTT M Ot Z85.038 09/10/2015 CAMRON DO, AMY K Ot E03.9 HYPOTHYROIDISM, UNSPECIFIED 09/10/2015 CAMRON DO, AMY K Ot E11.9 TYPE 2 DIABETES MELLITUS WITHOUT COMPLIC 09/10/2015 CAMRON DO, AMY K Ot E66.01 MORBID (SEVERE) OBESITY DUE TO EXCESS CA 09/10/2015 CAMRON DO, AMY K Ot 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 CHR KID 09/10/2015 CAMRON DO, AMY K Ot K42.9 UMBILICAL HERNIA WITHOUT OBSTRUCTION OR 09/10/2015 CAMRON DO, AMY K Ot K59.00 CONSTIPATION, UNSPECIFIED 09/10/2015 CAMRON DO, AMY K Ot K59.09 OTHER CONSTIPATION 09/10/2015 CAMRON DO, AMY K Ot N18.6 END STAGE RENAL DISEASE 09/10/2015 CAMRON DO, AMY K Ot Z79.4 RESEARCH AND DEVELOPMENT DIRECTOR (CURRENT) USE OF INSULIN 09/10/2015 CAMRON DO, AMY K Ot Z79.891 RESEARCH AND DEVELOPMENT DIRECTOR (CURRENT) USE OF OPIATE ANALGE 09/25/2015 KHRIS BLANCO VIDEO PRODUCTION SPECIALIST Ot D63.1 ANEMIA IN CHRONIC KIDNEY DISEASE 09/25/2015 KHRIS BLANCO VIDEO PRODUCTION SPECIALIST Ot E53.8 DEFICIENCY OF OTHER SPECIFIED B GROUP 09/25/2015 KHRIS BLANCO VIDEO PRODUCTION SPECIALIST Ot N18.4 CHRONIC KIDNEY DISEASE, STAGE 4 (SEVERE) 09/25/2015 KHRIS BLANCO VIDEO PRODUCTION SPECIALIST Ot Z08 ENCNTR FOR FOLLOW-UP EXAM AFTER TRTMT FO 09/25/2015 KHRIS BLANCO VIDEO PRODUCTION SPECIALIST Ot Z79.899 OTHER RESEARCH AND DEVELOPMENT DIRECTOR (CURRENT) DRUG THERAPY 09/25/2015 KHRIS BLANCO VIDEO PRODUCTION SPECIALIST Ot Z85.038 PERSONAL HISTORY OF MALIGNANT NEOPLASM O 09/27/2015 JC AKINS MD Ot E66.01 MORBID (SEVERE) OBESITY DUE TO EXCESS CA 09/27/2015 JC AKINS MD A Ot 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 09/27/2015 JC AKINS MD Ot I95.2 HYPOTENSION DUE TO DRUGS 09/27/2015 JC AKINS MD A Ot I95.9 HYPOTENSION, UNSPECIFIED 09/27/2015 JC AKINS MD Ot N18.6 END STAGE RENAL DISEASE 09/27/2015 JC AKINS MD A Ot Z79.891 RESEARCH AND DEVELOPMENT DIRECTOR (CURRENT) USE OF OPIATE ANALGE 09/27/2015 JENARO AKINS MDNT A Ot Z79.899 OTHER [facility] (CURRENT) DRUG THERAPY 09/27/2015 JC AKINS MD A Ot Z85.038 PERSONAL HISTORY OF MALIGNANT NEOPLASM O 09/27/2015 JC AKINS MD A Ot Z98.0 INTESTINAL BYPASS AND ANASTOMOSIS STATUS 09/27/2015 JC AKINS MD A Ot 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 ON RENAL DIALYSIS 09/30/2015 JC AKINS MD A Ot E66.01 MORBID (SEVERE) OBESITY DUE TO EXCESS CA 09/30/2015 JC AKINS MD A Ot 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 CHR KID 09/30/2015 JC AKINS MD A Ot I95.2 HYPOTENSION DUE TO DRUGS 09/30/2015 JC AKINS MD A Ot I95.9 HYPOTENSION, UNSPECIFIED 09/30/2015 JC AKINS MD A Ot N18.6 END STAGE RENAL DISEASE 09/30/2015 JC AKINS MD A Ot Z79.891 [facility] (CURRENT) USE OF OPIATE ANALGE 09/30/2015 JC AKINS MD A Ot Z79.899 OTHER [facility] (CURRENT) DRUG THERAPY 09/30/2015 JENARO AKINS MDNT A Ot Z85.038 PERSONAL HISTORY OF MALIGNANT NEOPLASM O 09/30/2015 JC AKINS MD A Ot Z98.0 INTESTINAL BYPASS AND ANASTOMOSIS STATUS 09/30/2015 JC AKINS MD A Ot E66.01 MORBID (SEVERE) OBESITY DUE TO EXCESS CA 09/30/2015 JC AKINS MD A Ot 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 CHR KID 09/30/2015 JC AKINS MD Ot I95.2 HYPOTENSION DUE TO DRUGS 09/30/2015 JC AKINS MD A Ot I95.9 HYPOTENSION, UNSPECIFIED 09/30/2015 JC AKINS MD A Ot N18.6 END STAGE RENAL DISEASE 09/30/2015 JC AKINS MD A Ot Z79.891 [facility] (CURRENT) USE OF OPIATE ANALGE 09/30/2015 JENARO AKINS MDNT A Ot Z79.899 OTHER RESEARCH AND DEVELOPMENT DIRECTOR (CURRENT) DRUG THERAPY 09/30/2015 JENARO AKINS MDNT A Ot Z85.038 PERSONAL HISTORY OF MALIGNANT NEOPLASM O 09/30/2015 JENARO AKINS MDNT A Ot Z98.0 INTESTINAL BYPASS AND ANASTOMOSIS STATUS 09/30/2015 JENARO AKINS MDNT A Ot 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 ON RENAL DIALYSIS 10/02/2015 ELLIOTT WALDRON MD M Ot K21.9 GASTRO-ESOPHAGEAL REFLUX DISEASE WITHOUT 10/02/2015 ELLIOTT WALDRON MD M Ot Z01.818 ENCOUNTER FOR OTHER PREPROCEDURAL EXAMIN 10/02/2015 ELLIOTT WALDRON MD M Ot K21.9 GASTRO-ESOPHAGEAL REFLUX DISEASE WITHOUT 10/02/2015 ELLIOTT WALDRON MD M Ot Z01.818 ENCOUNTER FOR OTHER PREPROCEDURAL EXAMIN 10/02/2015 ELLIOTT WALDRON MD M Ot K21.9 GASTRO-ESOPHAGEAL REFLUX DISEASE WITHOUT 10/02/2015 VANITA BLISS, ELLIOTT Felder Ot Z01.818 ENCOUNTER FOR OTHER PREPROCEDURAL EXAMIN 10/08/2015 Ot V76.12 OTH SCREEN MAMMO-MALIGN NEOPLASM OF YAIR 10/08/2015 Ot 250.00 DIAB JILLIAN WO COMPL, TYPE II OR UNSPEC TY 10/08/2015 Ot 272.0 PURE HYPERCHOLESTEROLEM 10/08/2015 Ot 414.00 CORON ATHEROSCLER NOS TYPE VESSEL, NATIV 10/08/2015 Ot 719.41 JOINT PAIN- SHLDER 10/08/2015 Ot 250.00 DIAB JILLIAN WO COMPL, TYPE II OR UNSPEC TY 10/08/2015 Ot 414.01 CORONARY ATHEROSCLEROSIS OF [place] CORON 10/08/2015 Ot 783.1 ABNORMAL WEIGHT GAIN 10/08/2015 Ot 244.9 HYPOTHYROIDISM NOS 10/08/2015 Ot 250.01 DIAB JILLIAN WO COMPL, TYPE I [JUVENILE TYP 10/08/2015 Ot 250.40 DIAB W RENAL MANIFEST, TYPE II OR UNSPEC 10/08/2015 Ot 272.4 HYPERLIPIDEMIA NEC/NOS 10/08/2015 Ot 585.4 CHRONIC KIDNEY DISEASE, STAGE IV (SEVERE 10/08/2015 Ot 789.00 ABDOMINAL PAIN, UNSPECIFIED SITE 10/08/2015 Ot 729.5 PAIN IN LIMB 10/08/2015 Ot 782.3 EDEMA 10/08/2015 Ot 250.40 DIAB W RENAL MANIFEST, TYPE II OR UNSPEC 10/08/2015 Ot 272.4 HYPERLIPIDEMIA NEC/NOS 10/08/2015 Ot 585.4 CHRONIC KIDNEY DISEASE, STAGE IV (SEVERE 10/08/2015 Ot 610.4 MAMMARY DUCT ECTASIA 10/08/2015 Ot 719.43 JOINT PAIN- FOREARM 10/08/2015 Ot 250.40 DIAB W RENAL MANIFEST, TYPE II OR UNSPEC 10/08/2015 Ot 585.4 CHRONIC KIDNEY DISEASE, STAGE IV (SEVERE 10/08/2015 DAWSON BLISS, JANAK Roman Ot 729.81 SWELLING OF LIMB 10/08/2015 DAWSON BLISS, JANAK Roman Ot 250.00 DIAB JILLIAN WO COMPL, TYPE II OR UNSPEC TY 10/08/2015 JANAK OSMAN MD Ot 272.4 HYPERLIPIDEMIA NEC/NOS 10/08/2015 DAWSON BLISS, JANAK Roman Ot 780.79 OTH MALAISE FATIGUE 10/08/2015 KHRIS BLANCO VIDEO PRODUCTION SPECIALIST Ot 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 10/08/2015 KHRIS BLANCO VIDEO PRODUCTION SPECIALIST Ot 278.01 MORBID OBESITY 10/08/2015 KHRIS BLANCO VIDEO PRODUCTION SPECIALIST Ot 285.21 ANEMIA IN CHRONIC KIDNEY DISEASE 10/08/2015 KHRIS BLANCO VIDEO PRODUCTION SPECIALIST Ot 403.90 HYPTNSV CHR KID DIS, UNSPEC, W CHR KD ST 10/08/2015 KHRIS BLANCO VIDEO PRODUCTION SPECIALIST Ot 414.00 CORON ATHEROSCLER NOS TYPE VESSEL, NATIV 10/08/2015 KHRIS BLANCO VIDEO PRODUCTION SPECIALIST Ot 585.4 CHRONIC KIDNEY DISEASE, STAGE IV (SEVERE 10/08/2015 KHRIS BLANCO VIDEO PRODUCTION SPECIALIST Ot 715.90 OSTEOARTHROS NOS-UNSPEC 10/08/2015 KHRIS BLANCOP Ot V10.05 HX OF COLONIC MALIGNANCY 10/08/2015 KHRIS BLANCO VIDEO PRODUCTION SPECIALIST Ot V45.72 ACQRD ABSENCE INTESTINE - LARGE/SMALL 10/08/2015 KHRIS BLANCO VIDEO PRODUCTION SPECIALIST Ot V45.82 PERCUTANEOUS TRANSLUM CORON ANGIOPLASTY 10/08/2015 KHRIS BLANCO VIDEO PRODUCTION SPECIALIST Ot V58.66 LONG-TERM (CURRENT) USE OF ASPIRIN 10/08/2015 KHRIS BLANCO VIDEO PRODUCTION SPECIALIST Ot V58.69 OTH MED,LT,CURRENT USE 10/08/2015 FABIENNE BLISS, HESHAM S Ot 250.40 DIAB W RENAL MANIFEST, TYPE II OR UNSPEC 10/08/2015 FABIENNE BLISS, HESHAM Berry Ot 278.02 OVERWEIGHT 10/08/2015 FABIENNE BLISS, HESHAM S Ot 585.3 CHRONIC KIDNEY DISEASE, STAGE III (MODER 10/08/2015 KHRIS BLANCO VIDEO PRODUCTION SPECIALIST Ot 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 10/08/2015 KHRIS BLANCO VIDEO PRODUCTION SPECIALIST Ot 278.01 MORBID OBESITY 10/08/2015 KHRIS BLANCO VIDEO PRODUCTION SPECIALIST Ot 281.1 B12 DEFIC ANEMIA NEC 10/08/2015 KHRIS BLANCO VIDEO PRODUCTION SPECIALIST Ot 285.21 ANEMIA IN CHRONIC KIDNEY DISEASE 10/08/2015 KHRIS BLANCO VIDEO PRODUCTION SPECIALIST Ot 403.90 HYPTNSV CHR KID DIS, UNSPEC, W CHR KD ST 10/08/2015 KHRIS BLANCO VIDEO PRODUCTION SPECIALIST Ot 414.00 CORON ATHEROSCLER NOS TYPE VESSEL, NATIV 10/08/2015 BLANCO, HILAH S VIDEO PRODUCTION SPECIALIST Ot 585.4 CHRONIC KIDNEY DISEASE, STAGE IV (SEVERE 10/08/2015 KHRIS BLANCO VIDEO PRODUCTION SPECIALIST Ot 715.90 OSTEOARTHROS NOS-UNSPEC 10/08/2015 KHRIS BLANCO VIDEO PRODUCTION SPECIALIST Ot V10.05 HX OF COLONIC MALIGNANCY 10/08/2015 KHRIS BLANCO VIDEO PRODUCTION SPECIALIST Ot V45.72 ACQRD ABSENCE INTESTINE - LARGE/SMALL 10/08/2015 KHRIS BLANCO VIDEO PRODUCTION SPECIALIST Ot V45.82 PERCUTANEOUS TRANSLUM CORON ANGIOPLASTY 10/08/2015 KHRIS BLANCO VIDEO PRODUCTION SPECIALIST Ot V58.66 LONG-TERM (CURRENT) USE OF ASPIRIN 10/08/2015 KHRIS BLANCOP Ot V58.69 OT MED,LT,CURRENT USE 10/08/2015 ZEINA BLISS, SHEILA Parish Ot 414.00 CORON ATHEROSCLER NOS TYPE VESSEL, NATIV 10/08/2015 SHEILA PASTRANA MD Ot 786.50 CHEST PAIN NOS 10/08/2015 SHEILA PASTRANA MD Ot 397.0 TRICUSPID VALVE DISEASE 10/08/2015 ZEINA BLISS, SHEILA Parish Ot 414.00 CORON ATHEROSCLER NOS TYPE VESSEL, NATIV 10/08/2015 SHEILA PASTRANA MD Ot 424.0 MITRAL VALVE DISORDER 10/08/2015 ZEINA BLISS, SHEILA Parish Ot 429.3 CARDIOMEGALY 10/08/2015 SHEILA PASTRANA MD Ot 786.50 CHEST PAIN NOS 10/08/2015 SHEILA PASTRANA MD Ot 272.4 HYPERLIPIDEMIA NEC/NOS 10/08/2015 ZEINA BLISS, SHEILA Parish Ot 414.01 CORONARY ATHEROSCLEROSIS OF [place] CORON 10/08/2015 KHRIS BLANCO VIDEO PRODUCTION SPECIALIST Ot 284.19 OTHER PANCYTOPENIA 10/08/2015 KHRIS BLANCO VIDEO PRODUCTION SPECIALIST Ot 285.9 ANEMIA NOS 10/08/2015 KHRIS BLANCO VIDEO PRODUCTION SPECIALIST Ot V10.05 HX OF COLONIC MALIGNANCY 10/08/2015 KHRIS BLANCO VIDEO PRODUCTION SPECIALIST Ot 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 10/08/2015 KHRIS BLANCO VIDEO PRODUCTION SPECIALIST Ot 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 10/08/2015 KHRIS BLANCO VIDEO PRODUCTION SPECIALIST Ot 278.01 MORBID OBESITY 10/08/2015 KHRIS BLANCO VIDEO PRODUCTION SPECIALIST Ot 285.21 ANEMIA IN CHRONIC KIDNEY DISEASE 10/08/2015 KHRIS BLANCO VIDEO PRODUCTION SPECIALIST Ot 403.90 HYPTNSV CHR KID DIS, UNSPEC, W CHR KD ST 10/08/2015 KHRIS BLANCO S VIDEO PRODUCTION SPECIALIST Ot 414.00 CORON ATHEROSCLER NOS TYPE VESSEL, NATIV 10/08/2015 KHRIS BLANCO VIDEO PRODUCTION SPECIALIST Ot 585.4 CHRONIC KIDNEY DISEASE, STAGE IV (SEVERE 10/08/2015 KHRIS BLANCO S VIDEO PRODUCTION SPECIALIST Ot 715.90 OSTEOARTHROS NOS-UNSPEC 10/08/2015 KHRIS BLANCO S VIDEO PRODUCTION SPECIALIST Ot V10.05 HX OF COLONIC MALIGNANCY 10/08/2015 KHRIS BLANCO VIDEO PRODUCTION SPECIALIST Ot V58.69 OTH MED,LT,CURRENT USE 10/08/2015 KHRIS BLANCO S VIDEO PRODUCTION SPECIALIST Ot V85.42 BODY MASS INDEX 45.0-49.9, ADULT 10/08/2015 KHRIS BLANCO S VIDEO PRODUCTION SPECIALIST Ot 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 10/08/2015 KHRIS BLANCO VIDEO PRODUCTION SPECIALIST Ot 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 10/08/2015 KHRIS BLANCO S VIDEO PRODUCTION SPECIALIST Ot 278.01 MORBID OBESITY 10/08/2015 KHRIS BLANCO S VIDEO PRODUCTION SPECIALIST Ot 285.21 ANEMIA IN CHRONIC KIDNEY DISEASE 10/08/2015 KHRIS BLANCO VIDEO PRODUCTION SPECIALIST Ot 403.90 HYPTNSV CHR KID DIS, UNSPEC, W CHR KD ST 10/08/2015 KHRIS BLANCO VIDEO PRODUCTION SPECIALIST Ot 414.00 CORON ATHEROSCLER NOS TYPE VESSEL, NATIV 10/08/2015 KHRIS BLANCO VIDEO PRODUCTION SPECIALIST Ot 585.4 CHRONIC KIDNEY DISEASE, STAGE IV (SEVERE 10/08/2015 KHRIS BLANCO VIDEO PRODUCTION SPECIALIST Ot 715.90 OSTEOARTHROS NOS-UNSPEC 10/08/2015 KHRIS BLANCO VIDEO PRODUCTION SPECIALIST Ot V10.05 HX OF COLONIC MALIGNANCY 10/08/2015 KHRIS BLANCO VIDEO PRODUCTION SPECIALIST Ot V58.69 OTH MED,LT,CURRENT USE 10/08/2015 KHRIS BLANCO VIDEO PRODUCTION SPECIALIST Ot V85.42 BODY MASS INDEX 45.0-49.9, ADULT 10/08/2015 KHRIS BLANCO VIDEO PRODUCTION SPECIALIST Ot V76.12 OTH SCREEN MAMMO-MALIGN NEOPLASM OF YAIR 10/08/2015 KHRIS BLANCO S VIDEO PRODUCTION SPECIALIST Ot 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 10/08/2015 KHRIS BLANCO S VIDEO PRODUCTION SPECIALIST Ot 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 10/08/2015 KHRIS BLANCO S VIDEO PRODUCTION SPECIALIST Ot 278.01 MORBID OBESITY 10/08/2015 KHRIS BLANCO S VIDEO PRODUCTION SPECIALIST Ot 285.21 ANEMIA IN CHRONIC KIDNEY DISEASE 10/08/2015 KHRIS BLANCO S VIDEO PRODUCTION SPECIALIST Ot 403.90 HYPTNSV CHR KID DIS, UNSPEC, W CHR KD ST 10/08/2015 KHRIS BLANCO S VIDEO PRODUCTION SPECIALIST Ot 414.00 CORON ATHEROSCLER NOS TYPE VESSEL, NATIV 10/08/2015 KHRIS BLANCO S VIDEO PRODUCTION SPECIALIST Ot 585.4 CHRONIC KIDNEY DISEASE, STAGE IV (SEVERE 10/08/2015 KHRIS BLANCO S VIDEO PRODUCTION SPECIALIST Ot 715.90 OSTEOARTHROS NOS-UNSPEC 10/08/2015 KHRIS BLANCO S VIDEO PRODUCTION SPECIALIST Ot V10.05 HX OF COLONIC MALIGNANCY 10/08/2015 KHRIS BLANCO S VIDEO PRODUCTION SPECIALIST Ot V58.69 OT MED,LT,CURRENT USE 10/08/2015 KHRIS BLANCO S VIDEO PRODUCTION SPECIALIST Ot V85.42 BODY MASS INDEX 45.0-49.9, ADULT 10/08/2015 DAWSON BLISS, JANAK Roman Ot 782.3 EDEMA 10/08/2015 KHRIS BLANCO VIDEO PRODUCTION SPECIALIST Ot 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 10/08/2015 KHRIS BLANCO S VIDEO PRODUCTION SPECIALIST Ot 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 10/08/2015 KHRIS BLANCO S VIDEO PRODUCTION SPECIALIST Ot 278.01 MORBID OBESITY 10/08/2015 KHRIS BLANCO S VIDEO PRODUCTION SPECIALIST Ot 285.21 ANEMIA IN CHRONIC KIDNEY DISEASE 10/08/2015 KHRIS BLANCO S VIDEO PRODUCTION SPECIALIST Ot 403.90 HYPTNSV CHR KID DIS, UNSPEC, W CHR KD ST 10/08/2015 KHRIS BLANCO S VIDEO PRODUCTION SPECIALIST Ot 414.00 CORON ATHEROSCLER NOS TYPE VESSEL, NATIV 10/08/2015 KHRIS BLANCO S VIDEO PRODUCTION SPECIALIST Ot 585.4 CHRONIC KIDNEY DISEASE, STAGE IV (SEVERE 10/08/2015 KHRIS BLANCO S VIDEO PRODUCTION SPECIALIST Ot 715.90 OSTEOARTHROS NOS-UNSPEC 10/08/2015 KHRIS BLANCO S VIDEO PRODUCTION SPECIALIST Ot V10.05 HX OF COLONIC MALIGNANCY 10/08/2015 KHRIS BLANCO S VIDEO PRODUCTION SPECIALIST Ot V58.69 OTH MED,LT,CURRENT USE 10/08/2015 KHRIS BLANCO VIDEO PRODUCTION SPECIALIST Ot V85.42 BODY MASS INDEX 45.0-49.9, ADULT 10/08/2015 KHRIS BLANCO VIDEO PRODUCTION SPECIALIST Ot 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 10/08/2015 KHRIS BLANCO VIDEO PRODUCTION SPECIALIST Ot 285.21 ANEMIA IN CHRONIC KIDNEY DISEASE 10/08/2015 BLANOCKHRIS Berry VIDEO PRODUCTION SPECIALIST Ot 585.4 CHRONIC KIDNEY DISEASE, STAGE IV (SEVERE 10/08/2015 KHRIS BLANCO VIDEO PRODUCTION SPECIALIST Ot V58.69 OTH MED,LT,CURRENT USE 10/08/2015 JANAK OSMAN MD Ot 250.00 DIAB JILLIAN WO COMPL, TYPE II OR UNSPEC TY 10/08/2015 JANAK OSMAN MD Ot 272.4 HYPERLIPIDEMIA NEC/NOS 10/08/2015 KHRIS BLANCO VIDEO PRODUCTION SPECIALIST Ot 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 10/08/2015 KHRIS BLANCO VIDEO PRODUCTION SPECIALIST Ot 285.21 ANEMIA IN CHRONIC KIDNEY DISEASE 10/08/2015 BLANCOKHRIS Berry VIDEO PRODUCTION SPECIALIST Ot 585.4 CHRONIC KIDNEY DISEASE, STAGE IV (SEVERE 10/08/2015 KHRIS BLANCO VIDEO PRODUCTION SPECIALIST Ot V58.69 OTH MED,LT,CURRENT USE 10/08/2015 SHEILA PASTRANA MD Ot 272.4 HYPERLIPIDEMIA NEC/NOS 10/08/2015 SHEILA PASTRANA MD Ot 285.9 ANEMIA NOS 10/08/2015 SHEILA PASTRANA MD Ot 403.90 HYPTNSV CHR KID DIS, UNSPEC, W CHR KD ST 10/08/2015 SHEILA PASTRANA MD Ot 414.00 CORON ATHEROSCLER NOS TYPE VESSEL, NATIV 10/08/2015 SHEILA PASTRANA MD Ot 585.4 CHRONIC KIDNEY DISEASE, STAGE IV (SEVERE 10/08/2015 SHEILA PASTRANA MD Ot 272.4 HYPERLIPIDEMIA NEC/NOS 10/08/2015 SHEILA PASTRANA MD Ot 285.9 ANEMIA NOS 10/08/2015 SHEILA PASTRANA MD Ot 403.90 HYPTNSV CHR KID DIS, UNSPEC, W CHR KD ST 10/08/2015 SHEILA PASTRANA MD Ot 414.00 CORON ATHEROSCLER NOS TYPE VESSEL, NATIV 10/08/2015 SHEILA PASTRANA MD Ot 585.9 CHRONIC KIDNEY DISEASE, UNSPECIFIED 10/08/2015 SANJU SALCEDO REGULATORY AFFAIRS DIRECTOR Ot 250.00 DIAB JILLIAN WO COMPL, TYPE II OR UNSPEC TY 10/08/2015 SANJU SALCEDO REGULATORY AFFAIRS DIRECTOR Ot 272.4 HYPERLIPIDEMIA NEC/NOS 10/08/2015 MATIAS VARGHESEESSENCE Whitten REGULATORY AFFAIRS DIRECTOR Ot 780.79 OTH MALAISE FATIGUE 10/08/2015 BLANCOKHRIS Berry S VIDEO PRODUCTION SPECIALIST Ot 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 10/08/2015 BLANCOKHRIS Berry S VIDEO PRODUCTION SPECIALIST Ot 278.00 OBESITY, NOS 10/08/2015 BLANCOKHRIS Berry S VIDEO PRODUCTION SPECIALIST Ot 285.21 ANEMIA IN CHRONIC KIDNEY DISEASE 10/08/2015 KHRIS BLANCO VIDEO PRODUCTION SPECIALIST Ot 564.00 UNSPEC CONSTIPATION 10/08/2015 KHRIS BLANCO S VIDEO PRODUCTION SPECIALIST Ot 585.4 CHRONIC KIDNEY DISEASE, STAGE IV (SEVERE 10/08/2015 KHRIS BLANCO VIDEO PRODUCTION SPECIALIST Ot V58.69 OTH MED,LT,CURRENT USE 10/08/2015 CASIMIRO VALENZUELA DO Ot 327.23 OBSTRUCTIVE SLEEP APNEA (ADULT) (PEDIATR 10/08/2015 CASIMIRO VALENZUELA DO Ot 496 CHR AIRWAY OBSTRUCT NEC 10/08/2015 CASIMIRO VALENZUELA DO Ot 786.09 RESPIRATORY ABNORM NEC 10/08/2015 DAWSON BLISS, JANAK Roman Ot 250.00 DIAB JILLIAN WO COMPL, TYPE II OR UNSPEC TY 10/08/2015 DAWSON BLISS, JANAK Roman Ot 272.0 PURE HYPERCHOLESTEROLEM 10/08/2015 JANAK OSMAN MD Ot 403.90 HYPTNSV CHR KID DIS, UNSPEC, W CHR KD ST 10/08/2015 JANAK OSMAN MD Ot 585.9 CHRONIC KIDNEY DISEASE, UNSPECIFIED 10/08/2015 Ot 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 10/08/2015 Ot 278.00 OBESITY, NOS 10/08/2015 Ot 285.21 ANEMIA IN CHRONIC KIDNEY DISEASE 10/08/2015 Ot 585.4 CHRONIC KIDNEY DISEASE, STAGE IV (SEVERE 10/08/2015 Ot V10.05 HX OF COLONIC MALIGNANCY 10/08/2015 Ot V58.69 OTH MED,LT, CURRENT USE 10/08/2015 Ot 250.00 DIAB JILLIAN WO COMPL, TYPE II OR UNSPEC TY 10/08/2015 Ot 272.0 PURE HYPERCHOLESTEROLEM 10/08/2015 KHRIS BLANCO VIDEO PRODUCTION SPECIALIST Ot 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 10/08/2015 KHRIS BLANCO VIDEO PRODUCTION SPECIALIST Ot 285.21 ANEMIA IN CHRONIC KIDNEY DISEASE 10/08/2015 KHRIS BLANCO VIDEO PRODUCTION SPECIALIST Ot 528.9 ORAL SOFT TISSUE DIS NEC 10/08/2015 KHRIS BLANCO VIDEO PRODUCTION SPECIALIST Ot 585.4 CHRONIC KIDNEY DISEASE, STAGE IV (SEVERE 10/08/2015 KHRIS BLANCO VIDEO PRODUCTION SPECIALIST Ot V10.05 HX OF COLONIC MALIGNANCY 10/08/2015 KHRIS BLANCO VIDEO PRODUCTION SPECIALIST Ot V58.69 OTH MED,LT,CURRENT USE 10/08/2015 SANJU SALCEDO REGULATORY AFFAIRS DIRECTOR Ot 789.00 ABDOMINAL PAIN, UNSPECIFIED SITE 10/08/2015 SANJU SALCEDO REGULATORY AFFAIRS DIRECTOR Ot 789.09 ABDOMINAL PAIN, OTHER SPECIFIED SITE 10/08/2015 DAWSON BLISS, JANAK Roman Ot 586 RENAL FAILURE NOS 10/08/2015 FABIENNE BLISS, HESHAM Brery Ot 585.6 END STAGE RENAL DISEASE 10/08/2015 FABIENNE BLISS, HESHAM S Ot V72.85 EXAM NEC 10/08/2015 VANITA BLISS, ELLIOTT Felder Ot Z08 ENCNTR FOR FOLLOW-UP EXAM AFTER TRTMT FO 10/08/2015 VANITA BLISS, ELLIOTT eFlder Ot Z85.038 PERSONAL HISTORY OF MALIGNANT NEOPLASM O 10/08/2015 VANITA BLISS, ELLIOTT Felder Ot Z01.818 ENCOUNTER FOR OTHER PREPROCEDURAL EXAMIN 10/08/2015 VANITA BLISS, ELLIOTT Felder Ot Z85.038 PERSONAL HISTORY OF MALIGNANT NEOPLASM O 10/08/2015 SANJU SALCEDO REGULATORY AFFAIRS DIRECTOR Ot M16.12 UNILATERAL PRIMARY OSTEOARTHRITIS, LEFT 10/08/2015 SANJU SALCEDO REGULATORY AFFAIRS DIRECTOR Ot M25.852 OTHER SPECIFIED JOINT DISORDERS, LEFT HI 10/08/2015 VANITA BLISS, ELLIOTT Felder Ot Z01.818 ENCOUNTER FOR OTHER PREPROCEDURAL EXAMIN 10/08/2015 VANITA BLISS, ELLIOTT Felder Ot Z85.038 PERSONAL HISTORY OF MALIGNANT NEOPLASM O 10/08/2015 KHRIS BLANCO VIDEO PRODUCTION SPECIALIST Ot D63.1 ANEMIA IN CHRONIC KIDNEY DISEASE 10/08/2015 KHRIS BLANCO VIDEO PRODUCTION SPECIALIST Ot E53.8 DEFICIENCY OF OTHER SPECIFIED B GROUP 10/08/2015 KHRIS BLANCO VIDEO PRODUCTION SPECIALIST Ot N18.4 CHRONIC KIDNEY DISEASE, STAGE 4 (SEVERE) 10/08/2015 KHRIS BLANCO VIDEO PRODUCTION SPECIALIST Ot Z08 ENCNTR FOR FOLLOW-UP EXAM AFTER TRTMT FO 10/08/2015 KHRIS BLANCO VIDEO PRODUCTION SPECIALIST Ot Z79.899 OTHER [facility] (CURRENT) DRUG THERAPY 10/08/2015 KHRIS BLANCO VIDEO PRODUCTION SPECIALIST Ot Z85.038 PERSONAL HISTORY OF MALIGNANT NEOPLASM O 10/08/2015 VANITA BLISS, ELLIOTT Felder Ot K21.9 GASTRO-ESOPHAGEAL REFLUX DISEASE WITHOUT 10/08/2015 VANITA BLISS, ELLIOTT Felder Ot Z01.818 ENCOUNTER FOR OTHER PREPROCEDURAL EXAMIN 10/08/2015 KHRIS BLANCO VIDEO PRODUCTION SPECIALIST Ot Z12.31 ENCNTR SCREEN MAMMOGRAM FOR MALIGNANT NE 10/09/2015 KHRIS BLANCO VIDEO PRODUCTION SPECIALIST Ot M25.552 PAIN IN LEFT HIP 10/09/2015 KHRIS BLANCO VIDEO PRODUCTION SPECIALIST Ot Z12.31 ENCNTR SCREEN MAMMOGRAM FOR MALIGNANT NE 10/09/2015 KHRIS BLANCO VIDEO PRODUCTION SPECIALIST Ot Z85.038 PERSONAL HISTORY OF MALIGNANT NEOPLASM O 10/14/2015 KHRIS BLANCO VIDEO PRODUCTION SPECIALIST Ot M25.552 PAIN IN LEFT HIP 10/14/2015 KHRIS BLANCO VIDEO PRODUCTION SPECIALIST Ot Z12.31 ENCNTR SCREEN MAMMOGRAM FOR MALIGNANT NE 10/14/2015 KHRIS BLANCO VIDEO PRODUCTION SPECIALIST Ot Z85.038 PERSONAL HISTORY OF MALIGNANT NEOPLASM O 10/18/2015 KHRIS BLANCO VIDEO PRODUCTION SPECIALIST Ot D63.1 ANEMIA IN CHRONIC KIDNEY DISEASE 10/18/2015 KHRIS BLANCO VIDEO PRODUCTION SPECIALIST Ot E53.8 DEFICIENCY OF OTHER SPECIFIED B GROUP 10/18/2015 KHRIS BLANCO VIDEO PRODUCTION SPECIALIST Ot N18.4 CHRONIC KIDNEY DISEASE, STAGE 4 (SEVERE) 10/18/2015 KHRIS BLANCO VIDEO PRODUCTION SPECIALIST Ot Z08 ENCNTR FOR FOLLOW-UP EXAM AFTER TRTMT FO 10/18/2015 KHRIS BLANCO VIDEO PRODUCTION SPECIALIST Ot Z79.899 OTHER RESEARCH AND DEVELOPMENT DIRECTOR (CURRENT) DRUG THERAPY 10/18/2015 KHRIS BLANCO VIDEO PRODUCTION SPECIALIST Ot Z85.038 PERSONAL HISTORY OF MALIGNANT NEOPLASM O 10/23/2015 KHRIS BLANCO VIDEO PRODUCTION SPECIALIST Ot D63.1 ANEMIA IN CHRONIC KIDNEY DISEASE 10/23/2015 KHRIS BLANCO VIDEO PRODUCTION SPECIALIST Ot E53.8 DEFICIENCY OF OTHER SPECIFIED B GROUP 10/23/2015 KHRIS BLANCO VIDEO PRODUCTION SPECIALIST Ot N18.4 CHRONIC KIDNEY DISEASE, STAGE 4 (SEVERE) 10/23/2015 KHRIS BLANCO VIDEO PRODUCTION SPECIALIST Ot Z08 ENCNTR FOR FOLLOW-UP EXAM AFTER TRTMT FO 10/23/2015 KHRIS BLANCOP Ot Z79.899 OTHER RESEARCH AND DEVELOPMENT DIRECTOR (CURRENT) DRUG THERAPY 10/23/2015 KHRIS BLANCO VIDEO PRODUCTION SPECIALIST Ot Z85.038 PERSONAL HISTORY OF MALIGNANT NEOPLASM O 10/24/2015 Ot V76.12 OTH SCREEN MAMMO-MALIGN NEOPLASM OF YAIR 10/24/2015 Ot 250.00 DIAB JILLIAN WO COMPL, TYPE II OR UNSPEC TY 10/24/2015 Ot 272.0 PURE HYPERCHOLESTEROLEM 10/24/2015 Ot 414.00 CORON ATHEROSCLER NOS TYPE VESSEL, NATIV 10/24/2015 Ot 719.41 JOINT PAIN- SHLDER 10/24/2015 Ot 250.00 DIAB JILLIAN WO COMPL, TYPE II OR UNSPEC TY 10/24/2015 Ot 414.01 CORONARY ATHEROSCLEROSIS OF [place] CORON 10/24/2015 Ot 783.1 ABNORMAL WEIGHT GAIN 10/24/2015 Ot 244.9 HYPOTHYROIDISM NOS 10/24/2015 Ot 250.01 DIAB JILLIAN WO COMPL, TYPE I [JUVENILE TYP 10/24/2015 Ot 250.40 DIAB W RENAL MANIFEST, TYPE II OR UNSPEC 10/24/2015 Ot 272.4 HYPERLIPIDEMIA NEC/NOS 10/24/2015 Ot 585.4 CHRONIC KIDNEY DISEASE, STAGE IV (SEVERE 10/24/2015 Ot 789.00 ABDOMINAL PAIN, UNSPECIFIED SITE 10/24/2015 Ot 729.5 PAIN IN LIMB 10/24/2015 Ot 782.3 EDEMA 10/24/2015 Ot 250.40 DIAB W RENAL MANIFEST, TYPE II OR UNSPEC 10/24/2015 Ot 272.4 HYPERLIPIDEMIA NEC/NOS 10/24/2015 Ot 585.4 CHRONIC KIDNEY DISEASE, STAGE IV (SEVERE 10/24/2015 Ot 610.4 MAMMARY DUCT ECTASIA 10/24/2015 Ot 719.43 JOINT PAIN- FOREARM 10/24/2015 Ot 250.40 DIAB W RENAL MANIFEST, TYPE II OR UNSPEC 10/24/2015 Ot 585.4 CHRONIC KIDNEY DISEASE, STAGE IV (SEVERE 10/24/2015 DAWSON BLISS, JANAK Roman Ot 729.81 SWELLING OF LIMB 10/24/2015 DAWSON BLISS, JANAK Roman Ot 250.00 DIAB JILLIAN WO COMPL, TYPE II OR UNSPEC TY 10/24/2015 DAWSON BLISS, JANAK Roman Ot 272.4 HYPERLIPIDEMIA NEC/NOS 10/24/2015 DAWSON BLISS, JANAK Roman Ot 780.79 OTH MALAISE FATIGUE 10/24/2015 KHRIS BLANCO VIDEO PRODUCTION SPECIALIST Ot 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 10/24/2015 KHRIS BLANCO VIDEO PRODUCTION SPECIALIST Ot 278.01 MORBID OBESITY 10/24/2015 KHRIS BLANCO VIDEO PRODUCTION SPECIALIST Ot 285.21 ANEMIA IN CHRONIC KIDNEY DISEASE 10/24/2015 KHRIS BLANCOP Ot 403.90 HYPTNSV CHR KID DIS, UNSPEC, W CHR KD ST 10/24/2015 KHRIS BLANCOP Ot 414.00 CORON ATHEROSCLER NOS TYPE VESSEL, NATIV 10/24/2015 KHRIS BLANCOP Ot 585.4 CHRONIC KIDNEY DISEASE, STAGE IV (SEVERE 10/24/2015 KHRIS BLANCO VIDEO PRODUCTION SPECIALIST Ot 715.90 OSTEOARTHROS NOS-UNSPEC 10/24/2015 KHRIS BLANCO VIDEO PRODUCTION SPECIALIST Ot V10.05 HX OF COLONIC MALIGNANCY 10/24/2015 KHRIS BLANCO VIDEO PRODUCTION SPECIALIST Ot V45.72 ACQRD ABSENCE INTESTINE - LARGE/SMALL 10/24/2015 KHRIS BLANCO VIDEO PRODUCTION SPECIALIST Ot V45.82 PERCUTANEOUS TRANSLUM CORON ANGIOPLASTY 10/24/2015 KHRIS BLANCOP Ot V58.66 LONG-TERM (CURRENT) USE OF ASPIRIN 10/24/2015 KHRIS BLANCO VIDEO PRODUCTION SPECIALIST Ot V58.69 OTH MED,LT,CURRENT USE 10/24/2015 FABIENNE BLISS, HESHAM Berry Ot 250.40 DIAB W RENAL MANIFEST, TYPE II OR UNSPEC 10/24/2015 FABIENNE BLISS, HESHAM Berry Ot 278.02 OVERWEIGHT 10/24/2015 FABIENNE BLISS, HESHAM Berry Ot 585.3 CHRONIC KIDNEY DISEASE, STAGE III (MODER 10/24/2015 KHRIS BLANCO VIDEO PRODUCTION SPECIALIST Ot 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 10/24/2015 KHRIS BLANCO VIDEO PRODUCTION SPECIALIST Ot 278.01 MORBID OBESITY 10/24/2015 KHRIS BLANCO VIDEO PRODUCTION SPECIALIST Ot 281.1 B12 DEFIC ANEMIA NEC 10/24/2015 KHRIS BLANCO VIDEO PRODUCTION SPECIALIST Ot 285.21 ANEMIA IN CHRONIC KIDNEY DISEASE 10/24/2015 KHRIS BLANCO VIDEO PRODUCTION SPECIALIST Ot 403.90 HYPTNSV CHR KID DIS, UNSPEC, W CHR KD ST 10/24/2015 KHRIS BLANCO VIDEO PRODUCTION SPECIALIST Ot 414.00 CORON ATHEROSCLER NOS TYPE VESSEL, NATIV 10/24/2015 KHRIS BLANCO VIDEO PRODUCTION SPECIALIST Ot 585.4 CHRONIC KIDNEY DISEASE, STAGE IV (SEVERE 10/24/2015 KHRIS BLANCO VIDEO PRODUCTION SPECIALIST Ot 715.90 OSTEOARTHROS NOS-UNSPEC 10/24/2015 KHRIS BLANCOP Ot V10.05 HX OF COLONIC MALIGNANCY 10/24/2015 KHRIS BLANCO VIDEO PRODUCTION SPECIALIST Ot V45.72 ACQRD ABSENCE INTESTINE - LARGE/SMALL 10/24/2015 KHRIS BLANCO VIDEO PRODUCTION SPECIALIST Ot V45.82 PERCUTANEOUS TRANSLUM CORON ANGIOPLASTY 10/24/2015 KHRIS BLANCO VIDEO PRODUCTION SPECIALIST Ot V58.66 LONG-TERM (CURRENT) USE OF ASPIRIN 10/24/2015 KHRIS BLANCOP Ot V58.69 OT MED,LT,CURRENT USE 10/24/2015 SHEILA PASTRANA MD Ot 414.00 CORON ATHEROSCLER NOS TYPE VESSEL, NATIV 10/24/2015 SHEILA PASTRANA MD Ot 786.50 CHEST PAIN NOS 10/24/2015 SHEILA PASTRANA MD Ot 397.0 TRICUSPID VALVE DISEASE 10/24/2015 SHEILA PASTRANA MD Ot 414.00 CORON ATHEROSCLER NOS TYPE VESSEL, NATIV 10/24/2015 SHEILA PASTRANA MD Ot 424.0 MITRAL VALVE DISORDER 10/24/2015 SHEILA PASTRANA MD Ot 429.3 CARDIOMEGALY 10/24/2015 SHEILA PASTRANA MD Ot 786.50 CHEST PAIN NOS 10/24/2015 SHEILA PASTRANA MD Ot 272.4 HYPERLIPIDEMIA NEC/NOS 10/24/2015 SHEILA PASTRANA MD Ot 414.01 CORONARY ATHEROSCLEROSIS OF [place] CORON 10/24/2015 KHRIS BLANCO VIDEO PRODUCTION SPECIALIST Ot 284.19 OTHER PANCYTOPENIA 10/24/2015 KHRIS BLANCO VIDEO PRODUCTION SPECIALIST Ot 285.9 ANEMIA NOS 10/24/2015 KHRIS BLANCO VIDEO PRODUCTION SPECIALIST Ot V10.05 HX OF COLONIC MALIGNANCY 10/24/2015 KHRIS BLANCO VIDEO PRODUCTION SPECIALIST Ot 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 10/24/2015 KHRIS BLANCO S VIDEO PRODUCTION SPECIALIST Ot 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 10/24/2015 KHRIS BLANCO VIDEO PRODUCTION SPECIALIST Ot 278.01 MORBID OBESITY 10/24/2015 KHRIS BLANCO VIDEO PRODUCTION SPECIALIST Ot 285.21 ANEMIA IN CHRONIC KIDNEY DISEASE 10/24/2015 KHRIS BLANCO S VIDEO PRODUCTION SPECIALIST Ot 403.90 HYPTNSV CHR KID DIS, UNSPEC, W CHR KD ST 10/24/2015 KHRIS BLANCO S VIDEO PRODUCTION SPECIALIST Ot 414.00 CORON ATHEROSCLER NOS TYPE VESSEL, NATIV 10/24/2015 KHRIS BLANCO VIDEO PRODUCTION SPECIALIST Ot 585.4 CHRONIC KIDNEY DISEASE, STAGE IV (SEVERE 10/24/2015 KHRIS BLANCO VIDEO PRODUCTION SPECIALIST Ot 715.90 OSTEOARTHROS NOS-UNSPEC 10/24/2015 KHRIS BLANCO VIDEO PRODUCTION SPECIALIST Ot V10.05 HX OF COLONIC MALIGNANCY 10/24/2015 KHRIS BLANCO VIDEO PRODUCTION SPECIALIST Ot V58.69 OT MED,LT,CURRENT USE 10/24/2015 KHRIS BLANCO VIDEO PRODUCTION SPECIALIST Ot V85.42 BODY MASS INDEX 45.0-49.9, ADULT 10/24/2015 KHRIS BLANCO VIDEO PRODUCTION SPECIALIST Ot 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 10/24/2015 KHRIS BLANCO VIDEO PRODUCTION SPECIALIST Ot 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 10/24/2015 KHRIS BLANCO VIDEO PRODUCTION SPECIALIST Ot 278.01 MORBID OBESITY 10/24/2015 KHRIS BLANCO VIDEO PRODUCTION SPECIALIST Ot 285.21 ANEMIA IN CHRONIC KIDNEY DISEASE 10/24/2015 KHRIS BLANCO VIDEO PRODUCTION SPECIALIST Ot 403.90 HYPTNSV CHR KID DIS, UNSPEC, W CHR KD ST 10/24/2015 KHRIS BLANCO S VIDEO PRODUCTION SPECIALIST Ot 414.00 CORON ATHEROSCLER NOS TYPE VESSEL, NATIV 10/24/2015 KHRIS BLANCO S VIDEO PRODUCTION SPECIALIST Ot 585.4 CHRONIC KIDNEY DISEASE, STAGE IV (SEVERE 10/24/2015 KHRIS BLANCO S VIDEO PRODUCTION SPECIALIST Ot 715.90 OSTEOARTHROS NOS-UNSPEC 10/24/2015 KHRIS BLANCO S VIDEO PRODUCTION SPECIALIST Ot V10.05 HX OF COLONIC MALIGNANCY 10/24/2015 KHRIS BLANCO VIDEO PRODUCTION SPECIALIST Ot V58.69 OTH MED,LT,CURRENT USE 10/24/2015 PEDRO LUIS BLANCOVERONICA S VIDEO PRODUCTION SPECIALIST Ot V85.42 BODY MASS INDEX 45.0-49.9, ADULT 10/24/2015 KHRIS BLANCO Jamal VIDEO PRODUCTION SPECIALIST Ot V76.12 OTH SCREEN MAMMO-MALIGN NEOPLASM OF YAIR 10/24/2015 KHRIS BLANCO S VIDEO PRODUCTION SPECIALIST Ot 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 10/24/2015 KHRIS BLANCO S VIDEO PRODUCTION SPECIALIST Ot 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 10/24/2015 KHRIS BLANCO S VIDEO PRODUCTION SPECIALIST Ot 278.01 MORBID OBESITY 10/24/2015 KHRIS BLANCO S VIDEO PRODUCTION SPECIALIST Ot 285.21 ANEMIA IN CHRONIC KIDNEY DISEASE 10/24/2015 KHRIS BLANCO S VIDEO PRODUCTION SPECIALIST Ot 403.90 HYPTNSV CHR KID DIS, UNSPEC, W CHR KD ST 10/24/2015 KHRIS BLANCO VIDEO PRODUCTION SPECIALIST Ot 414.00 CORON ATHEROSCLER NOS TYPE VESSEL, NATIV 10/24/2015 KHRIS BLANCO S VIDEO PRODUCTION SPECIALIST Ot 585.4 CHRONIC KIDNEY DISEASE, STAGE IV (SEVERE 10/24/2015 PEDRO LUIS BLANCOVERONICA S VIDEO PRODUCTION SPECIALIST Ot 715.90 OSTEOARTHROS NOS-UNSPEC 10/24/2015 KHRIS BLANCO S VIDEO PRODUCTION SPECIALIST Ot V10.05 HX OF COLONIC MALIGNANCY 10/24/2015 KHRIS BLANCO VIDEO PRODUCTION SPECIALIST Ot V58.69 OTH MED,LT,CURRENT USE 10/24/2015 KHRIS BLANCO VIDEO PRODUCTION SPECIALIST Ot V85.42 BODY MASS INDEX 45.0-49.9, ADULT 10/24/2015 DAWSON BLISS, JANAK D Ot 782.3 EDEMA 10/24/2015 KHRIS BLANCO VIDEO PRODUCTION SPECIALIST Ot 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 10/24/2015 KHRIS BLANCO S VIDEO PRODUCTION SPECIALIST Ot 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 10/24/2015 KHRIS BLANCO S VIDEO PRODUCTION SPECIALIST Ot 278.01 MORBID OBESITY 10/24/2015 KHRIS BLANCO S VIDEO PRODUCTION SPECIALIST Ot 285.21 ANEMIA IN CHRONIC KIDNEY DISEASE 10/24/2015 KHRIS BLANCO S VIDEO PRODUCTION SPECIALIST Ot 403.90 HYPTNSV CHR KID DIS, UNSPEC, W CHR KD ST 10/24/2015 KHRIS BLANCO VIDEO PRODUCTION SPECIALIST Ot 414.00 CORON ATHEROSCLER NOS TYPE VESSEL, NATIV 10/24/2015 BLANCOKHRIS Berry VIDEO PRODUCTION SPECIALIST Ot 585.4 CHRONIC KIDNEY DISEASE, STAGE IV (SEVERE 10/24/2015 KHRIS BLANCO VIDEO PRODUCTION SPECIALIST Ot 715.90 OSTEOARTHROS NOS-UNSPEC 10/24/2015 KHRIS BLANCO VIDEO PRODUCTION SPECIALIST Ot V10.05 HX OF COLONIC MALIGNANCY 10/24/2015 KHRIS BLANCO VIDEO PRODUCTION SPECIALIST Ot V58.69 OTH MED,LT,CURRENT USE 10/24/2015 KHRIS BLANCO VIDEO PRODUCTION SPECIALIST Ot V85.42 BODY MASS INDEX 45.0-49.9, ADULT 10/24/2015 KHRIS BLANCO VIDEO PRODUCTION SPECIALIST Ot 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 10/24/2015 KHRIS BLANCO VIDEO PRODUCTION SPECIALIST Ot 285.21 ANEMIA IN CHRONIC KIDNEY DISEASE 10/24/2015 KHRIS BLANCO VIDEO PRODUCTION SPECIALIST Ot 585.4 CHRONIC KIDNEY DISEASE, STAGE IV (SEVERE 10/24/2015 KHRIS BLANCO VIDEO PRODUCTION SPECIALIST Ot V58.69 OTH MED,LT,CURRENT USE 10/24/2015 DAWSON BLISS, JANAK Roman Ot 250.00 DIAB JILLIAN WO COMPL, TYPE II OR UNSPEC TY 10/24/2015 JANAK OSMAN MD Ot 272.4 HYPERLIPIDEMIA NEC/NOS 10/24/2015 BLANCO KHRIS Berry VIDEO PRODUCTION SPECIALIST Ot 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 10/24/2015 LBANCOKHRIS Berry VIDEO PRODUCTION SPECIALIST Ot 285.21 ANEMIA IN CHRONIC KIDNEY DISEASE 10/24/2015 FRANCIS KHRIS Berry VIDEO PRODUCTION SPECIALIST Ot 585.4 CHRONIC KIDNEY DISEASE, STAGE IV (SEVERE 10/24/2015 BLANCOKHRIS Berry VIDEO PRODUCTION SPECIALIST Ot V58.69 OTH MED,LT,CURRENT USE 10/24/2015 SHEILA PASTRANA MD Ot 272.4 HYPERLIPIDEMIA NEC/NOS 10/24/2015 SHEILA PASTRANA MD Ot 285.9 ANEMIA NOS 10/24/2015 SHEILA PASTRANA MD Ot 403.90 HYPTNSV CHR KID DIS, UNSPEC, W CHR KD ST 10/24/2015 SHEILA PASTRANA MD Ot 414.00 CORON ATHEROSCLER NOS TYPE VESSEL, NATIV 10/24/2015 SHEILA PASTRANA MD Ot 585.4 CHRONIC KIDNEY DISEASE, STAGE IV (SEVERE 10/24/2015 SHEILA PASTRANA MD Ot 272.4 HYPERLIPIDEMIA NEC/NOS 10/24/2015 SHEILA PASTRANA MD Ot 285.9 ANEMIA NOS 10/24/2015 SHEILA PASTRANA MD Ot 403.90 HYPTNSV CHR KID DIS, UNSPEC, W CHR KD ST 10/24/2015 SHEILA PASTRANA MD Ot 414.00 CORON ATHEROSCLER NOS TYPE VESSEL, NATIV 10/24/2015 SHEILA PASTRANA MD Ot 585.9 CHRONIC KIDNEY DISEASE, UNSPECIFIED 10/24/2015 SANJU SALCEDO REGULATORY AFFAIRS DIRECTOR Ot 250.00 DIAB JILLIAN WO COMPL, TYPE II OR UNSPEC TY 10/24/2015 SANJU SALCEDO REGULATORY AFFAIRS DIRECTOR Ot 272.4 HYPERLIPIDEMIA NEC/NOS 10/24/2015 SANJU SALCEDO REGULATORY AFFAIRS DIRECTOR Ot 780.79 OTH MALAISE FATIGUE 10/24/2015 KHRIS BLANCO VIDEO PRODUCTION SPECIALIST Ot 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 10/24/2015 KHRIS BLANCO VIDEO PRODUCTION SPECIALIST Ot 278.00 OBESITY, NOS 10/24/2015 KHRIS BLANCO VIDEO PRODUCTION SPECIALIST Ot 285.21 ANEMIA IN CHRONIC KIDNEY DISEASE 10/24/2015 KHRIS BLANCO VIDEO PRODUCTION SPECIALIST Ot 564.00 UNSPEC CONSTIPATION 10/24/2015 KHRIS BLANCO VIDEO PRODUCTION SPECIALIST Ot 585.4 CHRONIC KIDNEY DISEASE, STAGE IV (SEVERE 10/24/2015 KHRIS BLANCO VIDEO PRODUCTION SPECIALIST Ot V58.69 OTH MED,LT,CURRENT USE 10/24/2015 CASIMIRO VALENZUELA DO Ot 327.23 OBSTRUCTIVE SLEEP APNEA (ADULT) (PEDIATR 10/24/2015 CASIMIRO VALENZUELA DO Ot 496 CHR AIRWAY OBSTRUCT NEC 10/24/2015 CASIMIRO VALENZUELA DO Ot 786.09 RESPIRATORY ABNORM NEC 10/24/2015 DAWSON BLISS, JANAK Roman Ot 250.00 DIAB JILLIAN WO COMPL, TYPE II OR UNSPEC TY 10/24/2015 DAWSON BLISS, JANAK Roman Ot 272.0 PURE HYPERCHOLESTEROLEM 10/24/2015 DAWSON BLISS, JANAK Roman Ot 403.90 HYPTNSV CHR KID DIS, UNSPEC, W CHR KD ST 10/24/2015 JANAK OSMAN MD Ot 585.9 CHRONIC KIDNEY DISEASE, UNSPECIFIED 10/24/2015 Ot 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 10/24/2015 Ot 278.00 OBESITY, NOS 10/24/2015 Ot 285.21 ANEMIA IN CHRONIC KIDNEY DISEASE 10/24/2015 Ot 585.4 CHRONIC KIDNEY DISEASE, STAGE IV (SEVERE 10/24/2015 Ot V10.05 HX OF COLONIC MALIGNANCY 10/24/2015 Ot V58.69 OTH MED,LT, CURRENT USE 10/24/2015 Ot 250.00 DIAB JILLIAN WO COMPL, TYPE II OR UNSPEC TY 10/24/2015 Ot 272.0 PURE HYPERCHOLESTEROLEM 10/24/2015 BLANCOKHRIS Berry VIDEO PRODUCTION SPECIALIST Ot 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 10/24/2015 BLANCOKHRIS Berry VIDEO PRODUCTION SPECIALIST Ot 285.21 ANEMIA IN CHRONIC KIDNEY DISEASE 10/24/2015 BLANCOKHRIS Berry VIDEO PRODUCTION SPECIALIST Ot 528.9 ORAL SOFT TISSUE DIS NEC 10/24/2015 BLANCOKHRIS Berry S VIDEO PRODUCTION SPECIALIST Ot 585.4 CHRONIC KIDNEY DISEASE, STAGE IV (SEVERE 10/24/2015 BLANCOKHRIS Berry VIDEO PRODUCTION SPECIALIST Ot V10.05 HX OF COLONIC MALIGNANCY 10/24/2015 BLANCOKHRIS Berry VIDEO PRODUCTION SPECIALIST Ot V58.69 OTH MED,LT,CURRENT USE 10/24/2015 SANJU SALCEDO REGULATORY AFFAIRS DIRECTOR Ot 789.00 ABDOMINAL PAIN, UNSPECIFIED SITE 10/24/2015 SANJU SALCEDO REGULATORY AFFAIRS DIRECTOR Ot 789.09 ABDOMINAL PAIN, OTHER SPECIFIED SITE 10/24/2015 DAWSON BLISS, JANAK Roman Ot 586 RENAL FAILURE NOS 10/24/2015 FABIENNE BLISS, HESHAM Berry Ot 585.6 END STAGE RENAL DISEASE 10/24/2015 FABIENNE BLISS, HESHAM Berry Ot V72.85 EXAM NEC 10/24/2015 VANITA BLISS, ELLIOTT Felder Ot Z08 ENCNTR FOR FOLLOW-UP EXAM AFTER TRTMT FO 10/24/2015 VANITA BLISS, ELLIOTT Felder Ot Z85.038 PERSONAL HISTORY OF MALIGNANT NEOPLASM O 10/24/2015 VANITA BLISS, ELLIOTT Felder Ot Z01.818 ENCOUNTER FOR OTHER PREPROCEDURAL EXAMIN 10/24/2015 VANITA BLISS, ELLIOTT Felder Ot Z85.038 PERSONAL HISTORY OF MALIGNANT NEOPLASM O 10/24/2015 SANJU SALCEDO REGULATORY AFFAIRS DIRECTOR Ot M16.12 UNILATERAL PRIMARY OSTEOARTHRITIS, LEFT 10/24/2015 SANJU SALCEDO REGULATORY AFFAIRS DIRECTOR Ot M25.852 OTHER SPECIFIED JOINT DISORDERS, LEFT HI 10/24/2015 VANITA BLISS, ELLIOTT Felder Ot Z01.818 ENCOUNTER FOR OTHER PREPROCEDURAL EXAMIN 10/24/2015 VANITA BLISS, ELLIOTT Felder Ot Z85.038 PERSONAL HISTORY OF MALIGNANT NEOPLASM O 10/24/2015 KHRIS BLANCO VIDEO PRODUCTION SPECIALIST Ot D63.1 ANEMIA IN CHRONIC KIDNEY DISEASE 10/24/2015 BLANCOKHRIS Berry VIDEO PRODUCTION SPECIALIST Ot E53.8 DEFICIENCY OF OTHER SPECIFIED B GROUP 10/24/2015 KHRIS BLANCO VIDEO PRODUCTION SPECIALIST Ot N18.4 CHRONIC KIDNEY DISEASE, STAGE 4 (SEVERE) 10/24/2015 BLANCOKHRIS Berry VIDEO PRODUCTION SPECIALIST Ot Z08 ENCNTR FOR FOLLOW-UP EXAM AFTER TRTMT FO 10/24/2015 BLANCOKHRIS Berry VIDEO PRODUCTION SPECIALIST Ot Z79.899 OTHER RESEARCH AND DEVELOPMENT DIRECTOR (CURRENT) DRUG THERAPY 10/24/2015 BLANCOKHRIS Berry VIDEO PRODUCTION SPECIALIST Ot Z85.038 PERSONAL HISTORY OF MALIGNANT NEOPLASM O 10/24/2015 FRANCIS KHRIS Berry VIDEO PRODUCTION SPECIALIST Ot M25.552 PAIN IN LEFT HIP 10/24/2015 FRANCIS KHRIS Berry VIDEO PRODUCTION SPECIALIST Ot Z12.31 ENCNTR SCREEN MAMMOGRAM FOR MALIGNANT NE 10/24/2015 BLANCOKHRIS Berry S VIDEO PRODUCTION SPECIALIST Ot Z85.038 PERSONAL HISTORY OF MALIGNANT NEOPLASM O 10/24/2015 VANITA BLISS, ELLIOTT Felder Ot K21.9 GASTRO-ESOPHAGEAL REFLUX DISEASE WITHOUT 10/24/2015 ELLIOTT WALDRON MD Ot Z01.818 ENCOUNTER FOR OTHER PREPROCEDURAL EXAMIN 10/24/2015 ELLIOTT WALDRON MD Ot K21.9 GASTRO-ESOPHAGEAL REFLUX DISEASE WITHOUT 10/24/2015 VANITA BLISS, ELLIOTT Felder Ot Z01.818 ENCOUNTER FOR OTHER PREPROCEDURAL EXAMIN 10/24/2015 LILIBETH PUGH Ot D63.1 ANEMIA IN CHRONIC KIDNEY DISEASE 10/24/2015 LILIBETH PUGH Ot E53.8 DEFICIENCY OF OTHER SPECIFIED B GROUP 10/24/2015 LILIBETH PUGH N Ot N18.4 CHRONIC KIDNEY DISEASE, STAGE 4 (SEVERE) 10/24/2015 LILIBETH PUGH N Ot Z08 ENCNTR FOR FOLLOW-UP EXAM AFTER TRTMT FO 10/24/2015 LILIBETH PUGH N Ot Z79.899 OTHER [facility] (CURRENT) DRUG THERAPY 10/24/2015 LILIBETH PUGH Ot Z85.038 PERSONAL HISTORY OF MALIGNANT NEOPLASM O 10/24/2015 VANITA BLISS, ELLIOTT Felder Ot K21.9 GASTRO-ESOPHAGEAL REFLUX DISEASE WITHOUT 10/24/2015 VANITA BLISS, ELLIOTT Felder Ot K26.7 CHRONIC DUODENAL ULCER WITHOUT HEMORRHAG 10/24/2015 ELLIOTT WALDRON MD Ot K31.819 ANGIODYSPLASIA OF STOMACH AND DUODENUM W 10/24/2015 ELLIOTT WALDRON MD Ot K44.9 DIAPHRAGMATIC HERNIA WITHOUT OBSTRUCTION 10/25/2015 VANITA BLISS, ELLIOTT Felder Ot K21.9 GASTRO-ESOPHAGEAL REFLUX DISEASE WITHOUT 10/25/2015 ELLIOTT WALDRON MD Ot K26.7 CHRONIC DUODENAL ULCER WITHOUT HEMORRHAG 10/25/2015 ELLIOTT WALDRON MD Ot K31.819 ANGIODYSPLASIA OF STOMACH AND DUODENUM W 10/25/2015 ELLIOTT WALDRON MD Ot K44.9 DIAPHRAGMATIC HERNIA WITHOUT OBSTRUCTION 10/30/2015 KHRIS BLANCO VIDEO PRODUCTION SPECIALIST Ot M25.552 PAIN IN LEFT HIP 10/30/2015 KHRIS BLANCO VIDEO PRODUCTION SPECIALIST Ot Z12.31 ENCNTR SCREEN MAMMOGRAM FOR MALIGNANT NE 10/30/2015 KHRIS BLANCO VIDEO PRODUCTION SPECIALIST Ot Z85.038 PERSONAL HISTORY OF MALIGNANT NEOPLASM O 10/31/2015 VANITA BLISS, ELLIOTT Felder Ot K21.9 GASTRO-ESOPHAGEAL REFLUX DISEASE WITHOUT 10/31/2015 ELLIOTT WALDRON MD Ot K26.7 CHRONIC DUODENAL ULCER WITHOUT HEMORRHAG 10/31/2015 ELLIOTT WALDRON MD Ot K31.819 ANGIODYSPLASIA OF STOMACH AND DUODENUM W 10/31/2015 ELLIOTT WALDRON MD Ot K44.9 DIAPHRAGMATIC HERNIA WITHOUT OBSTRUCTION 11/01/2015 Ot V76.12 OT SCREEN MAMMO-MALIGN NEOPLASM OF YAIR 11/01/2015 Ot 250.00 DIAB JILLIAN WO COMPL, TYPE II OR UNSPEC TY 11/01/2015 Ot 272.0 PURE HYPERCHOLESTEROLEM 11/01/2015 Ot 414.00 CORON ATHEROSCLER NOS TYPE VESSEL, NATIV 11/01/2015 Ot 719.41 JOINT PAIN- SHLDER 11/01/2015 Ot 250.00 DIAB JILLIAN WO COMPL, TYPE II OR UNSPEC TY 11/01/2015 Ot 414.01 CORONARY ATHEROSCLEROSIS OF [place] CORON 11/01/2015 Ot 783.1 ABNORMAL WEIGHT GAIN 11/01/2015 Ot 244.9 HYPOTHYROIDISM NOS 11/01/2015 Ot 250.01 DIAB JILLIAN WO COMPL, TYPE I [JUVENILE TYP 11/01/2015 Ot 250.40 DIAB W RENAL MANIFEST, TYPE II OR UNSPEC 11/01/2015 Ot 272.4 HYPERLIPIDEMIA NEC/NOS 11/01/2015 Ot 585.4 CHRONIC KIDNEY DISEASE, STAGE IV (SEVERE 11/01/2015 Ot 789.00 ABDOMINAL PAIN, UNSPECIFIED SITE 11/01/2015 Ot 729.5 PAIN IN LIMB 11/01/2015 Ot 782.3 EDEMA 11/01/2015 Ot 250.40 DIAB W RENAL MANIFEST, TYPE II OR UNSPEC 11/01/2015 Ot 272.4 HYPERLIPIDEMIA NEC/NOS 11/01/2015 Ot 585.4 CHRONIC KIDNEY DISEASE, STAGE IV (SEVERE 11/01/2015 Ot 610.4 MAMMARY DUCT ECTASIA 11/01/2015 Ot 719.43 JOINT PAIN- FOREARM 11/01/2015 Ot 250.40 DIAB W RENAL MANIFEST, TYPE II OR UNSPEC 11/01/2015 Ot 585.4 CHRONIC KIDNEY DISEASE, STAGE IV (SEVERE 11/01/2015 DAWSON BLISS, JANAK Roman Ot 729.81 SWELLING OF LIMB 11/01/2015 DAWSON BLISS, JANAK Roman Ot 250.00 DIAB JILLIAN WO COMPL, TYPE II OR UNSPEC TY 11/01/2015 DAWSON BLISS, JANAK Roman Ot 272.4 HYPERLIPIDEMIA NEC/NOS 11/01/2015 DAWSON BLISS, JANAK Roman Ot 780.79 OTH MALAISE FATIGUE 11/01/2015 KHRIS BLANCO VIDEO PRODUCTION SPECIALIST Ot 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 11/01/2015 KHRIS BLANCO VIDEO PRODUCTION SPECIALIST Ot 278.01 MORBID OBESITY 11/01/2015 KHRIS BLANCO VIDEO PRODUCTION SPECIALIST Ot 285.21 ANEMIA IN CHRONIC KIDNEY DISEASE 11/01/2015 KHRIS BLANCOP Ot 403.90 HYPTNSV CHR KID DIS, UNSPEC, W CHR KD ST 11/01/2015 KHRIS BLANCO VIDEO PRODUCTION SPECIALIST Ot 414.00 CORON ATHEROSCLER NOS TYPE VESSEL, NATIV 11/01/2015 KHRIS BLANCO VIDEO PRODUCTION SPECIALIST Ot 585.4 CHRONIC KIDNEY DISEASE, STAGE IV (SEVERE 11/01/2015 KHRIS BLANCO VIDEO PRODUCTION SPECIALIST Ot 715.90 OSTEOARTHROS NOS-UNSPEC 11/01/2015 KHRIS BLANCOP Ot V10.05 HX OF COLONIC MALIGNANCY 11/01/2015 KHRIS BLANCOP Ot V45.72 ACQRD ABSENCE INTESTINE - LARGE/SMALL 11/01/2015 KHRIS BLANCO VIDEO PRODUCTION SPECIALIST Ot V45.82 PERCUTANEOUS TRANSLUM CORON ANGIOPLASTY 11/01/2015 KHRIS BLANCO VIDEO PRODUCTION SPECIALIST Ot V58.66 LONG-TERM (CURRENT) USE OF ASPIRIN 11/01/2015 KHRIS BLANCOP Ot V58.69 OTH MED,LT,CURRENT USE 11/01/2015 FABIENNE BLISS, HESHAM S Ot 250.40 DIAB W RENAL MANIFEST, TYPE II OR UNSPEC 11/01/2015 FABIENNE BLISS, HESHAM S Ot 278.02 OVERWEIGHT 11/01/2015 FABIENNE BLISS, HESHAM S Ot 585.3 CHRONIC KIDNEY DISEASE, STAGE III (MODER 11/01/2015 KHRIS BLANCOP Ot 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 11/01/2015 KHRIS BLANCO VIDEO PRODUCTION SPECIALIST Ot 278.01 MORBID OBESITY 11/01/2015 KHRIS BLANCO VIDEO PRODUCTION SPECIALIST Ot 281.1 B12 DEFIC ANEMIA NEC 11/01/2015 KHRIS BLANCO VIDEO PRODUCTION SPECIALIST Ot 285.21 ANEMIA IN CHRONIC KIDNEY DISEASE 11/01/2015 KHRIS BLANCOP Ot 403.90 HYPTNSV CHR KID DIS, UNSPEC, W CHR KD ST 11/01/2015 KHRIS BLANCO VIDEO PRODUCTION SPECIALIST Ot 414.00 CORON ATHEROSCLER NOS TYPE VESSEL, NATIV 11/01/2015 KHRIS BLANCO VIDEO PRODUCTION SPECIALIST Ot 585.4 CHRONIC KIDNEY DISEASE, STAGE IV (SEVERE 11/01/2015 KHRIS BLANCOP Ot 715.90 OSTEOARTHROS NOS-UNSPEC 11/01/2015 KHRIS BLANCOP Ot V10.05 HX OF COLONIC MALIGNANCY 11/01/2015 KHRIS BLANCOP Ot V45.72 ACQRD ABSENCE INTESTINE - LARGE/SMALL 11/01/2015 KHRIS BLANCOP Ot V45.82 PERCUTANEOUS TRANSLUM CORON ANGIOPLASTY 11/01/2015 KHRIS BLANCO VIDEO PRODUCTION SPECIALIST Ot V58.66 LONG-TERM (CURRENT) USE OF ASPIRIN 11/01/2015 KHRIS BLANCOP Ot V58.69 OTH MED,LT,CURRENT USE 11/01/2015 SHEILA PASTRANA MD Ot 414.00 CORON ATHEROSCLER NOS TYPE VESSEL, NATIV 11/01/2015 SHEILA PASTRANA MD Ot 786.50 CHEST PAIN NOS 11/01/2015 SHEILA PASTRANA MD Ot 397.0 TRICUSPID VALVE DISEASE 11/01/2015 SHEILA PASTRANA MD Ot 414.00 CORON ATHEROSCLER NOS TYPE VESSEL, NATIV 11/01/2015 SHEILA PASTRANA MD Ot 424.0 MITRAL VALVE DISORDER 11/01/2015 SHEILA PASTRANA MD Ot 429.3 CARDIOMEGALY 11/01/2015 SHEILA PASTRANA MD Ot 786.50 CHEST PAIN NOS 11/01/2015 SHEILA PASTRANA MD Ot 272.4 HYPERLIPIDEMIA NEC/NOS 11/01/2015 SHEILA PASTRANA MD Ot 414.01 CORONARY ATHEROSCLEROSIS OF [place] CORON 11/01/2015 KHRIS BLANCOP Ot 284.19 OTHER PANCYTOPENIA 11/01/2015 KHRIS BLANCO VIDEO PRODUCTION SPECIALIST Ot 285.9 ANEMIA NOS 11/01/2015 KHRIS BLANCO VIDEO PRODUCTION SPECIALIST Ot V10.05 HX OF COLONIC MALIGNANCY 11/01/2015 KHRIS BLANCO VIDEO PRODUCTION SPECIALIST Ot 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 11/01/2015 KHRIS BLANCO VIDEO PRODUCTION SPECIALIST Ot 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 11/01/2015 KHRIS BLANCO VIDEO PRODUCTION SPECIALIST Ot 278.01 MORBID OBESITY 11/01/2015 KHRIS BLANCO VIDEO PRODUCTION SPECIALIST Ot 285.21 ANEMIA IN CHRONIC KIDNEY DISEASE 11/01/2015 KHRIS BLANCO VIDEO PRODUCTION SPECIALIST Ot 403.90 HYPTNSV CHR KID DIS, UNSPEC, W CHR KD ST 11/01/2015 KHRIS BLANCO VIDEO PRODUCTION SPECIALIST Ot 414.00 CORON ATHEROSCLER NOS TYPE VESSEL, NATIV 11/01/2015 KHRIS BLANCO VIDEO PRODUCTION SPECIALIST Ot 585.4 CHRONIC KIDNEY DISEASE, STAGE IV (SEVERE 11/01/2015 KHRIS BLANCO VIDEO PRODUCTION SPECIALIST Ot 715.90 OSTEOARTHROS NOS-UNSPEC 11/01/2015 KHRIS BLANCO VIDEO PRODUCTION SPECIALIST Ot V10.05 HX OF COLONIC MALIGNANCY 11/01/2015 KHRIS BLANCOP Ot V58.69 OTH MED,LT,CURRENT USE 11/01/2015 PEDRO LUIS BLANCOVERONICA S VIDEO PRODUCTION SPECIALIST Ot V85.42 BODY MASS INDEX 45.0-49.9, ADULT 11/01/2015 KHRIS BLANCO S VIDEO PRODUCTION SPECIALIST Ot 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 11/01/2015 KHRIS BLANCO S VIDEO PRODUCTION SPECIALIST Ot 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 11/01/2015 KHRIS BLANCO S VIDEO PRODUCTION SPECIALIST Ot 278.01 MORBID OBESITY 11/01/2015 KHRIS BLANCO S VIDEO PRODUCTION SPECIALIST Ot 285.21 ANEMIA IN CHRONIC KIDNEY DISEASE 11/01/2015 KHRIS BLANCO S VIDEO PRODUCTION SPECIALIST Ot 403.90 HYPTNSV CHR KID DIS, UNSPEC, W CHR KD ST 11/01/2015 KHRIS BLANCO S VIDEO PRODUCTION SPECIALIST Ot 414.00 CORON ATHEROSCLER NOS TYPE VESSEL, NATIV 11/01/2015 KHRIS BLANCO S VIDEO PRODUCTION SPECIALIST Ot 585.4 CHRONIC KIDNEY DISEASE, STAGE IV (SEVERE 11/01/2015 KHRIS BLANCO VIDEO PRODUCTION SPECIALIST Ot 715.90 OSTEOARTHROS NOS-UNSPEC 11/01/2015 KHRIS BLANCO VIDEO PRODUCTION SPECIALIST Ot V10.05 HX OF COLONIC MALIGNANCY 11/01/2015 KHRIS BLANCO VIDEO PRODUCTION SPECIALIST Ot V58.69 OTH MED,LT,CURRENT USE 11/01/2015 KHRIS BLANCO VIDEO PRODUCTION SPECIALIST Ot V85.42 BODY MASS INDEX 45.0-49.9, ADULT 11/01/2015 KHRIS BLANCO VIDEO PRODUCTION SPECIALIST Ot V76.12 OTH SCREEN MAMMO-MALIGN NEOPLASM OF YAIR 11/01/2015 KHRIS BLANCO VIDEO PRODUCTION SPECIALIST Ot 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 11/01/2015 KHRIS BLANCO S VIDEO PRODUCTION SPECIALIST Ot 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 11/01/2015 KHRIS BLANCO VIDEO PRODUCTION SPECIALIST Ot 278.01 MORBID OBESITY 11/01/2015 KHRIS BLANCO VIDEO PRODUCTION SPECIALIST Ot 285.21 ANEMIA IN CHRONIC KIDNEY DISEASE 11/01/2015 KHRIS BLANCO S VIDEO PRODUCTION SPECIALIST Ot 403.90 HYPTNSV CHR KID DIS, UNSPEC, W CHR KD ST 11/01/2015 KHRIS BLANCO S VIDEO PRODUCTION SPECIALIST Ot 414.00 CORON ATHEROSCLER NOS TYPE VESSEL, NATIV 11/01/2015 KHRIS BLANCO S VIDEO PRODUCTION SPECIALIST Ot 585.4 CHRONIC KIDNEY DISEASE, STAGE IV (SEVERE 11/01/2015 FRANCIS KHRIS S VIDEO PRODUCTION SPECIALIST Ot 715.90 OSTEOARTHROS NOS-UNSPEC 11/01/2015 PEDRO LUIS BLANCOAH S VIDEO PRODUCTION SPECIALIST Ot V10.05 HX OF COLONIC MALIGNANCY 11/01/2015 KHRIS BLANCO S VIDEO PRODUCTION SPECIALIST Ot V58.69 OTH MED,LT,CURRENT USE 11/01/2015 FRANCIS KHRIS S VIDEO PRODUCTION SPECIALIST Ot V85.42 BODY MASS INDEX 45.0-49.9, ADULT 11/01/2015 DAWSON BLISS, JANAK Roman Ot 782.3 EDEMA 11/01/2015 KRHIS BLANCO S VIDEO PRODUCTION SPECIALIST Ot 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 11/01/2015 KHRIS BLANCO S VIDEO PRODUCTION SPECIALIST Ot 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 11/01/2015 KHRIS BLANCO S VIDEO PRODUCTION SPECIALIST Ot 278.01 MORBID OBESITY 11/01/2015 FRANCIS PEDRO LUISAH S VIDEO PRODUCTION SPECIALIST Ot 285.21 ANEMIA IN CHRONIC KIDNEY DISEASE 11/01/2015 KHRIS BLANCO S VIDEO PRODUCTION SPECIALIST Ot 403.90 HYPTNSV CHR KID DIS, UNSPEC, W CHR KD ST 11/01/2015 FRANCIS KHRIS S VIDEO PRODUCTION SPECIALIST Ot 414.00 CORON ATHEROSCLER NOS TYPE VESSEL, NATIV 11/01/2015 KHRIS BLANCO S VIDEO PRODUCTION SPECIALIST Ot 585.4 CHRONIC KIDNEY DISEASE, STAGE IV (SEVERE 11/01/2015 KHRIS BLANCO S VIDEO PRODUCTION SPECIALIST Ot 715.90 OSTEOARTHROS NOS-UNSPEC 11/01/2015 KHRIS BLANCO S VIDEO PRODUCTION SPECIALIST Ot V10.05 HX OF COLONIC MALIGNANCY 11/01/2015 KHRIS BLANCO S VIDEO PRODUCTION SPECIALIST Ot V58.69 OTH MED,LT,CURRENT USE 11/01/2015 PEDRO LUIS BLANCOVERONICA S VIDEO PRODUCTION SPECIALIST Ot V85.42 BODY MASS INDEX 45.0-49.9, ADULT 11/01/2015 KHRIS BLANCO S VIDEO PRODUCTION SPECIALIST Ot 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 11/01/2015 PEDRO LUIS BLANCOAH S VIDEO PRODUCTION SPECIALIST Ot 285.21 ANEMIA IN CHRONIC KIDNEY DISEASE 11/01/2015 PEDRO LUIS BLANCOAH S VIDEO PRODUCTION SPECIALIST Ot 585.4 CHRONIC KIDNEY DISEASE, STAGE IV (SEVERE 11/01/2015 KHRIS BLANCO S VIDEO PRODUCTION SPECIALIST Ot V58.69 OTH MED,LT,CURRENT USE 11/01/2015 DAWSON BLISS, JANAK Roman Ot 250.00 DIAB JILLIAN WO COMPL, TYPE II OR UNSPEC TY 11/01/2015 JANAK OSMAN MD Ot 272.4 HYPERLIPIDEMIA NEC/NOS 11/01/2015 KHRIS BLANCO VIDEO PRODUCTION SPECIALIST Ot 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 11/01/2015 KHRIS BLANCO VIDEO PRODUCTION SPECIALIST Ot 285.21 ANEMIA IN CHRONIC KIDNEY DISEASE 11/01/2015 KHRIS BLANCO VIDEO PRODUCTION SPECIALIST Ot 585.4 CHRONIC KIDNEY DISEASE, STAGE IV (SEVERE 11/01/2015 KHRIS BLANCOP Ot V58.69 OTH MED,LT,CURRENT USE 11/01/2015 SHEILA PASTRANA MD Ot 272.4 HYPERLIPIDEMIA NEC/NOS 11/01/2015 SHEILA PASTRANA MD Ot 285.9 ANEMIA NOS 11/01/2015 SHEILA PASTRANA MD Ot 403.90 HYPTNSV CHR KID DIS, UNSPEC, W CHR KD ST 11/01/2015 SHEILA PASTRANA MD Ot 414.00 CORON ATHEROSCLER NOS TYPE VESSEL, NATIV 11/01/2015 SHEILA PASTRANA MD Ot 585.4 CHRONIC KIDNEY DISEASE, STAGE IV (SEVERE 11/01/2015 SHEILA PASTRANA MD Ot 272.4 HYPERLIPIDEMIA NEC/NOS 11/01/2015 SHEILA PASTRANA MD Ot 285.9 ANEMIA NOS 11/01/2015 SHEILA PASTRANA MD Ot 403.90 HYPTNSV CHR KID DIS, UNSPEC, W CHR KD ST 11/01/2015 SHEILA PASTRANA MD Ot 414.00 CORON ATHEROSCLER NOS TYPE VESSEL, NATIV 11/01/2015 SHEILA PASTRANA MD Ot 585.9 CHRONIC KIDNEY DISEASE, UNSPECIFIED 11/01/2015 SANJU SALCEDO REGULATORY AFFAIRS DIRECTOR Ot 250.00 DIAB JILLIAN WO COMPL, TYPE II OR UNSPEC TY 11/01/2015 SANJU SALCEDO N REGULATORY AFFAIRS DIRECTOR Ot 272.4 HYPERLIPIDEMIA NEC/NOS 11/01/2015 SANJU SALCEDO REGULATORY AFFAIRS DIRECTOR Ot 780.79 OTH MALAISE FATIGUE 11/01/2015 KHRIS BLANCO VIDEO PRODUCTION SPECIALIST Ot 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 11/01/2015 KHRIS BLANCO VIDEO PRODUCTION SPECIALIST Ot 278.00 OBESITY, NOS 11/01/2015 KHRIS BLANCO VIDEO PRODUCTION SPECIALIST Ot 285.21 ANEMIA IN CHRONIC KIDNEY DISEASE 11/01/2015 KHRIS BLANCO VIDEO PRODUCTION SPECIALIST Ot 564.00 UNSPEC CONSTIPATION 11/01/2015 KHRIS BLANCO VIDEO PRODUCTION SPECIALIST Ot 585.4 CHRONIC KIDNEY DISEASE, STAGE IV (SEVERE 11/01/2015 KHRIS BLANCOP Ot V58.69 OTH MED,LT,CURRENT USE 11/01/2015 CASIMIRO VALENZUELA DO Ot 327.23 OBSTRUCTIVE SLEEP APNEA (ADULT) (PEDIATR 11/01/2015 CASIMIRO VALENZUELA DO Ot 496 CHR AIRWAY OBSTRUCT NEC 11/01/2015 CASIMIRO VALENZUELA DO Ot 786.09 RESPIRATORY ABNORM NEC 11/01/2015 DAWSON BLISS, JANAK Roman Ot 250.00 DIAB JILLIAN WO COMPL, TYPE II OR UNSPEC TY 11/01/2015 DAWSON BLISS, JANAK Roman Ot 272.0 PURE HYPERCHOLESTEROLEM 11/01/2015 DAWSON BLISS, JANAK Roman Ot 403.90 HYPTNSV CHR KID DIS, UNSPEC, W CHR KD ST 11/01/2015 DAWSON BLISS, JANAK Roman Ot 585.9 CHRONIC KIDNEY DISEASE, UNSPECIFIED 11/01/2015 Ot 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 11/01/2015 Ot 278.00 OBESITY, NOS 11/01/2015 Ot 285.21 ANEMIA IN CHRONIC KIDNEY DISEASE 11/01/2015 Ot 585.4 CHRONIC KIDNEY DISEASE, STAGE IV (SEVERE 11/01/2015 Ot V10.05 HX OF COLONIC MALIGNANCY 11/01/2015 Ot V58.69 OTH MED,LT, CURRENT USE 11/01/2015 Ot 250.00 DIAB JILLIAN WO COMPL, TYPE II OR UNSPEC TY 11/01/2015 Ot 272.0 PURE HYPERCHOLESTEROLEM 11/01/2015 KHRIS BLANCO VIDEO PRODUCTION SPECIALIST Ot 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 11/01/2015 KHRIS BLANCO VIDEO PRODUCTION SPECIALIST Ot 285.21 ANEMIA IN CHRONIC KIDNEY DISEASE 11/01/2015 KHRIS BLANCO VIDEO PRODUCTION SPECIALIST Ot 528.9 ORAL SOFT TISSUE DIS NEC 11/01/2015 KHRIS BLANCO VIDEO PRODUCTION SPECIALIST Ot 585.4 CHRONIC KIDNEY DISEASE, STAGE IV (SEVERE 11/01/2015 KHRIS BLANCO VIDEO PRODUCTION SPECIALIST Ot V10.05 HX OF COLONIC MALIGNANCY 11/01/2015 KHRIS BLANCOP Ot V58.69 OTH MED,LT,CURRENT USE 11/01/2015 SANJU SALCEDO REGULATORY AFFAIRS DIRECTOR Ot 789.00 ABDOMINAL PAIN, UNSPECIFIED SITE 11/01/2015 SANJU SALCEDO Maria Dolores REGULATORY AFFAIRS DIRECTOR Ot 789.09 ABDOMINAL PAIN, OTHER SPECIFIED SITE 11/01/2015 DAWSON BLISS, JANAK Roman Ot 586 RENAL FAILURE NOS 11/01/2015 FABIENNE BLISS, HESHAM Berry Ot 585.6 END STAGE RENAL DISEASE 11/01/2015 FABIENNE BLISS, HESHAM S Ot V72.85 EXAM NEC 11/01/2015 VANITA BLISS, ELLIOTT M Ot Z08 ENCNTR FOR FOLLOW-UP EXAM AFTER TRTMT FO 11/01/2015 VANITA BLISS, ELLIOTT Felder Ot Z85.038 PERSONAL HISTORY OF MALIGNANT NEOPLASM O 11/01/2015 VANITA BLISS, ELLIOTT Felder Ot Z01.818 ENCOUNTER FOR OTHER PREPROCEDURAL EXAMIN 11/01/2015 VANITA BLISS, ELLIOTT M Ot Z85.038 PERSONAL HISTORY OF MALIGNANT NEOPLASM O 11/01/2015 SANJU SALCEDO REGULATORY AFFAIRS DIRECTOR Ot M16.12 UNILATERAL PRIMARY OSTEOARTHRITIS, LEFT 11/01/2015 SANJU SALCEDO REGULATORY AFFAIRS DIRECTOR Ot M25.852 OTHER SPECIFIED JOINT DISORDERS, LEFT HI 11/01/2015 VANITA BLISS, ELLIOTT M Ot Z01.818 ENCOUNTER FOR OTHER PREPROCEDURAL EXAMIN 11/01/2015 VANITA BLISS, ELLIOTT M Ot Z85.038 PERSONAL HISTORY OF MALIGNANT NEOPLASM O 11/01/2015 KHRIS BLANCO VIDEO PRODUCTION SPECIALIST Ot D63.1 ANEMIA IN CHRONIC KIDNEY DISEASE 11/01/2015 KHRIS BLANCO VIDEO PRODUCTION SPECIALIST Ot E53.8 DEFICIENCY OF OTHER SPECIFIED B GROUP 11/01/2015 KHRIS BLANCO VIDEO PRODUCTION SPECIALIST Ot N18.4 CHRONIC KIDNEY DISEASE, STAGE 4 (SEVERE) 11/01/2015 KHRIS BLANCO VIDEO PRODUCTION SPECIALIST Ot Z08 ENCNTR FOR FOLLOW-UP EXAM AFTER TRTMT FO 11/01/2015 KHRIS BLANCO VIDEO PRODUCTION SPECIALIST Ot Z79.899 OTHER [facility] (CURRENT) DRUG THERAPY 11/01/2015 KHRIS BLANCO VIDEO PRODUCTION SPECIALIST Ot Z85.038 PERSONAL HISTORY OF MALIGNANT NEOPLASM O 11/01/2015 KHRIS BLANCO VIDEO PRODUCTION SPECIALIST Ot M25.552 PAIN IN LEFT HIP 11/01/2015 KHRIS BLANCO VIDEO PRODUCTION SPECIALIST Ot Z12.31 ENCNTR SCREEN MAMMOGRAM FOR MALIGNANT NE 11/01/2015 KHRIS BLANCO VIDEO PRODUCTION SPECIALIST Ot Z85.038 PERSONAL HISTORY OF MALIGNANT NEOPLASM O 11/01/2015 VANITA BLISS, ELLIOTT Felder Ot K21.9 GASTRO-ESOPHAGEAL REFLUX DISEASE WITHOUT 11/01/2015 VANITA BLISS, ELLIOTT Felder Ot Z01.818 ENCOUNTER FOR OTHER PREPROCEDURAL EXAMIN 11/01/2015 VANITA BLISS, ELLIOTT Felder Ot K21.9 GASTRO-ESOPHAGEAL REFLUX DISEASE WITHOUT 11/01/2015 VANITA BLISS, ELLIOTT Felder Ot Z01.818 ENCOUNTER FOR OTHER PREPROCEDURAL EXAMIN 11/01/2015 LILIBETH PUGH Ot D63.1 ANEMIA IN CHRONIC KIDNEY DISEASE 11/01/2015 LILIBETH PUGH Ot E53.8 DEFICIENCY OF OTHER SPECIFIED B GROUP 11/01/2015 LILIBETH PUGH Ot N18.4 CHRONIC KIDNEY DISEASE, STAGE 4 (SEVERE) 11/01/2015 LILIBETH PUGH Ot Z08 ENCNTR FOR FOLLOW-UP EXAM AFTER TRTMT FO 11/01/2015 LILIBETH PUGH Ot Z79.899 OTHER [facility] (CURRENT) DRUG THERAPY 11/01/2015 LILIBETH PUGH Ot Z85.038 PERSONAL HISTORY OF MALIGNANT NEOPLASM O 11/01/2015 MIHAI MEZA MD Ot M16.12 UNILATERAL PRIMARY OSTEOARTHRITIS, LEFT 11/01/2015 MIHAI MEZA MD Ot Z79.899 OTHER RESEARCH AND DEVELOPMENT DIRECTOR (CURRENT) DRUG THERAPY 11/04/2015 KALLIE HERRERA MD Ot E03.9 HYPOTHYROIDISM, UNSPECIFIED 11/04/2015 KALLIE HERRERA MD Ot E11.9 TYPE 2 DIABETES MELLITUS WITHOUT COMPLIC 11/04/2015 KALLIE HERRERA MD Ot E66.01 MORBID (SEVERE) OBESITY DUE TO EXCESS CA 11/04/2015 KALLIE HERRERA MD Ot 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 CHR KID 11/04/2015 KALLIE HERRERA MD Ot I44.4 LEFT ANTERIOR FASCICULAR BLOCK 11/04/2015 KALLIE HERRERA MD Ot I45.10 UNSPECIFIED RIGHT BUNDLE-BRANCH BLOCK 11/04/2015 KALLIE HERRERA MD Ot J44.9 CHRONIC OBSTRUCTIVE PULMONARY DISEASE, U 11/04/2015 JAVIER MD, KALLIE D Ot N18.6 END STAGE RENAL DISEASE 11/04/2015 KALLIE HERRERA MD Ot R10.13 EPIGASTRIC PAIN 11/04/2015 KALLIE HERRERA MD Ot Z79.82 RESEARCH AND DEVELOPMENT DIRECTOR (CURRENT) USE OF ASPIRIN 11/04/2015 KALLIE HERRERA MD Ot Z79.899 OTHER [facility] (CURRENT) DRUG THERAPY 11/04/2015 KALLIE HERRERA MD Ot 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 ON RENAL DIALYSIS 11/06/2015 KHRIS BLANCO Ot M25.552 PAIN IN LEFT HIP 11/06/2015 KHRIS BLANCO Ot Z12.31 ENCNTR SCREEN MAMMOGRAM FOR MALIGNANT NE 11/06/2015 KHRIS BLANCO Ot Z85.038 PERSONAL HISTORY OF MALIGNANT NEOPLASM O 11/07/2015 Ot V76.12 OTH SCREEN MAMMO-MALIGN NEOPLASM OF YAIR 11/07/2015 Ot 250.00 DIAB JILLIAN WO COMPL, TYPE II OR UNSPEC TY 11/07/2015 Ot 272.0 PURE HYPERCHOLESTEROLEM 11/07/2015 Ot 414.00 CORON ATHEROSCLER NOS TYPE VESSEL, NATIV 11/07/2015 Ot 719.41 JOINT PAIN- SHLDER 11/07/2015 Ot 250.00 DIAB JILLIAN WO COMPL, TYPE II OR UNSPEC TY 11/07/2015 Ot 414.01 CORONARY ATHEROSCLEROSIS OF [place] CORON 11/07/2015 Ot 783.1 ABNORMAL WEIGHT GAIN 11/07/2015 Ot 244.9 HYPOTHYROIDISM NOS 11/07/2015 Ot 250.01 DIAB JILLIAN WO COMPL, TYPE I [JUVENILE TYP 11/07/2015 Ot 250.40 DIAB W RENAL MANIFEST, TYPE II OR UNSPEC 11/07/2015 Ot 272.4 HYPERLIPIDEMIA NEC/NOS 11/07/2015 Ot 585.4 CHRONIC KIDNEY DISEASE, STAGE IV (SEVERE 11/07/2015 Ot 789.00 ABDOMINAL PAIN, UNSPECIFIED SITE 11/07/2015 Ot 729.5 PAIN IN LIMB 11/07/2015 Ot 782.3 EDEMA 11/07/2015 Ot 250.40 DIAB W RENAL MANIFEST, TYPE II OR UNSPEC 11/07/2015 Ot 272.4 HYPERLIPIDEMIA NEC/NOS 11/07/2015 Ot 585.4 CHRONIC KIDNEY DISEASE, STAGE IV (SEVERE 11/07/2015 Ot 610.4 MAMMARY DUCT ECTASIA 11/07/2015 Ot 719.43 JOINT PAIN- FOREARM 11/07/2015 Ot 250.40 DIAB W RENAL MANIFEST, TYPE II OR UNSPEC 11/07/2015 Ot 585.4 CHRONIC KIDNEY DISEASE, STAGE IV (SEVERE 11/07/2015 DAWSON BLISS, JANAK Roman Ot 729.81 SWELLING OF LIMB 11/07/2015 DAWSON BLISS, JANAK Roman Ot 250.00 DIAB JILLIAN WO COMPL, TYPE II OR UNSPEC TY 11/07/2015 DAWSON BLISS, JANAK Roman Ot 272.4 HYPERLIPIDEMIA NEC/NOS 11/07/2015 DAWSON BLISS, JANAK Roman Ot 780.79 OTH MALAISE FATIGUE 11/07/2015 KHRIS BLANCO VIDEO PRODUCTION SPECIALIST Ot 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 11/07/2015 KHRIS BLANCO VIDEO PRODUCTION SPECIALIST Ot 278.01 MORBID OBESITY 11/07/2015 KHRIS BLANCO VIDEO PRODUCTION SPECIALIST Ot 285.21 ANEMIA IN CHRONIC KIDNEY DISEASE 11/07/2015 KHRIS BLANCO VIDEO PRODUCTION SPECIALIST Ot 403.90 HYPTNSV CHR KID DIS, UNSPEC, W CHR KD ST 11/07/2015 KHRIS BLANCO VIDEO PRODUCTION SPECIALIST Ot 414.00 CORON ATHEROSCLER NOS TYPE VESSEL, NATIV 11/07/2015 KHRIS BLANCO VIDEO PRODUCTION SPECIALIST Ot 585.4 CHRONIC KIDNEY DISEASE, STAGE IV (SEVERE 11/07/2015 KHRIS BLANCO VIDEO PRODUCTION SPECIALIST Ot 715.90 OSTEOARTHROS NOS-UNSPEC 11/07/2015 KHRIS BLANCO VIDEO PRODUCTION SPECIALIST Ot V10.05 HX OF COLONIC MALIGNANCY 11/07/2015 KHRIS BLANCO VIDEO PRODUCTION SPECIALIST Ot V45.72 ACQRD ABSENCE INTESTINE - LARGE/SMALL 11/07/2015 KHRIS BLANCO VIDEO PRODUCTION SPECIALIST Ot V45.82 PERCUTANEOUS TRANSLUM CORON ANGIOPLASTY 11/07/2015 KHRIS BLANCO VIDEO PRODUCTION SPECIALIST Ot V58.66 LONG-TERM (CURRENT) USE OF ASPIRIN 11/07/2015 KHRIS BLANCO VIDEO PRODUCTION SPECIALIST Ot V58.69 OTH MED,LT,CURRENT USE 11/07/2015 FABIENNE BLISS, HESHAM Berry Ot 250.40 DIAB W RENAL MANIFEST, TYPE II OR UNSPEC 11/07/2015 FABIENNE BLISS, HESHAM Berry Ot 278.02 OVERWEIGHT 11/07/2015 FABIENNE BLISS, HESHAM Berry Ot 585.3 CHRONIC KIDNEY DISEASE, STAGE III (MODER 11/07/2015 KHRIS BLANCO VIDEO PRODUCTION SPECIALIST Ot 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 11/07/2015 KHRIS BLANCO VIDEO PRODUCTION SPECIALIST Ot 278.01 MORBID OBESITY 11/07/2015 KHRIS BLANCO VIDEO PRODUCTION SPECIALIST Ot 281.1 B12 DEFIC ANEMIA NEC 11/07/2015 KHRIS BLANCO VIDEO PRODUCTION SPECIALIST Ot 285.21 ANEMIA IN CHRONIC KIDNEY DISEASE 11/07/2015 KHRIS BLANCO VIDEO PRODUCTION SPECIALIST Ot 403.90 HYPTNSV CHR KID DIS, UNSPEC, W CHR KD ST 11/07/2015 KHRIS BLANCO VIDEO PRODUCTION SPECIALIST Ot 414.00 CORON ATHEROSCLER NOS TYPE VESSEL, NATIV 11/07/2015 KHRIS BLANCOP Ot 585.4 CHRONIC KIDNEY DISEASE, STAGE IV (SEVERE 11/07/2015 KHRIS BLANCO VIDEO PRODUCTION SPECIALIST Ot 715.90 OSTEOARTHROS NOS-UNSPEC 11/07/2015 KHRIS BLANCO VIDEO PRODUCTION SPECIALIST Ot V10.05 HX OF COLONIC MALIGNANCY 11/07/2015 KHRIS BLANCO VIDEO PRODUCTION SPECIALIST Ot V45.72 ACQRD ABSENCE INTESTINE - LARGE/SMALL 11/07/2015 KHRIS BLANCO VIDEO PRODUCTION SPECIALIST Ot V45.82 PERCUTANEOUS TRANSLUM CORON ANGIOPLASTY 11/07/2015 KHRIS BLANCO VIDEO PRODUCTION SPECIALIST Ot V58.66 LONG-TERM (CURRENT) USE OF ASPIRIN 11/07/2015 KHRIS BLANCO VIDEO PRODUCTION SPECIALIST Ot V58.69 OT MED,LT,CURRENT USE 11/07/2015 SHEILA PASTRANA MD Ot 414.00 CORON ATHEROSCLER NOS TYPE VESSEL, NATIV 11/07/2015 SHEILA PASTRANA MD Ot 786.50 CHEST PAIN NOS 11/07/2015 SHEILA PASTRANA MD Ot 397.0 TRICUSPID VALVE DISEASE 11/07/2015 SHEILA PASTRANA MD Ot 414.00 CORON ATHEROSCLER NOS TYPE VESSEL, NATIV 11/07/2015 SHEILA PASTRANA MD Ot 424.0 MITRAL VALVE DISORDER 11/07/2015 SHEILA PASTRANA MD Ot 429.3 CARDIOMEGALY 11/07/2015 SHEILA PASTRANA MD Ot 786.50 CHEST PAIN NOS 11/07/2015 SHEILA PASTRANA MD Ot 272.4 HYPERLIPIDEMIA NEC/NOS 11/07/2015 SHEILA PASTRANA MD Ot 414.01 CORONARY ATHEROSCLEROSIS OF [place] CORON 11/07/2015 KHRIS BLANCO VIDEO PRODUCTION SPECIALIST Ot 284.19 OTHER PANCYTOPENIA 11/07/2015 KHRIS BLANCO VIDEO PRODUCTION SPECIALIST Ot 285.9 ANEMIA NOS 11/07/2015 KHRIS BLANCO VIDEO PRODUCTION SPECIALIST Ot V10.05 HX OF COLONIC MALIGNANCY 11/07/2015 KHRIS BLANCO VIDEO PRODUCTION SPECIALIST Ot 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 11/07/2015 KHRIS BLANCO VIDEO PRODUCTION SPECIALIST Ot 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 11/07/2015 KHRIS BLANCO VIDEO PRODUCTION SPECIALIST Ot 278.01 MORBID OBESITY 11/07/2015 KHRIS BLANCO VIDEO PRODUCTION SPECIALIST Ot 285.21 ANEMIA IN CHRONIC KIDNEY DISEASE 11/07/2015 KHRIS BLANCO VIDEO PRODUCTION SPECIALIST Ot 403.90 HYPTNSV CHR KID DIS, UNSPEC, W CHR KD ST 11/07/2015 KHRIS BLANCO VIDEO PRODUCTION SPECIALIST Ot 414.00 CORON ATHEROSCLER NOS TYPE VESSEL, NATIV 11/07/2015 KHRIS BLANCO VIDEO PRODUCTION SPECIALIST Ot 585.4 CHRONIC KIDNEY DISEASE, STAGE IV (SEVERE 11/07/2015 KHRIS BLANCO VIDEO PRODUCTION SPECIALIST Ot 715.90 OSTEOARTHROS NOS-UNSPEC 11/07/2015 KHRIS BLANCO VIDEO PRODUCTION SPECIALIST Ot V10.05 HX OF COLONIC MALIGNANCY 11/07/2015 KHRIS BLANCO VIDEO PRODUCTION SPECIALIST Ot V58.69 OTH MED,LT,CURRENT USE 11/07/2015 KHRIS BLANCO VIDEO PRODUCTION SPECIALIST Ot V85.42 BODY MASS INDEX 45.0-49.9, ADULT 11/07/2015 KHRIS BLANCO VIDEO PRODUCTION SPECIALIST Ot 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 11/07/2015 KHRIS BLANCO VIDEO PRODUCTION SPECIALIST Ot 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 11/07/2015 KHRIS BLANCO VIDEO PRODUCTION SPECIALIST Ot 278.01 MORBID OBESITY 11/07/2015 KHRIS BLANCO VIDEO PRODUCTION SPECIALIST Ot 285.21 ANEMIA IN CHRONIC KIDNEY DISEASE 11/07/2015 KHRIS BLANCO VIDEO PRODUCTION SPECIALIST Ot 403.90 HYPTNSV CHR KID DIS, UNSPEC, W CHR KD ST 11/07/2015 KHRIS BLANCO VIDEO PRODUCTION SPECIALIST Ot 414.00 CORON ATHEROSCLER NOS TYPE VESSEL, NATIV 11/07/2015 KHRIS BLANCO VIDEO PRODUCTION SPECIALIST Ot 585.4 CHRONIC KIDNEY DISEASE, STAGE IV (SEVERE 11/07/2015 KHRIS BLANCO S VIDEO PRODUCTION SPECIALIST Ot 715.90 OSTEOARTHROS NOS-UNSPEC 11/07/2015 KHRIS BLANCO S VIDEO PRODUCTION SPECIALIST Ot V10.05 HX OF COLONIC MALIGNANCY 11/07/2015 KHRIS BLANCO VIDEO PRODUCTION SPECIALIST Ot V58.69 OTH MED,LT,CURRENT USE 11/07/2015 KHRIS BLANCO S VIDEO PRODUCTION SPECIALIST Ot V85.42 BODY MASS INDEX 45.0-49.9, ADULT 11/07/2015 KHRIS BLANCO VIDEO PRODUCTION SPECIALIST Ot V76.12 OTH SCREEN MAMMO-MALIGN NEOPLASM OF YAIR 11/07/2015 KHRIS BLANCO S VIDEO PRODUCTION SPECIALIST Ot 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 11/07/2015 KHRIS BLANCO S VIDEO PRODUCTION SPECIALIST Ot 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 11/07/2015 KHRIS BLANCO S VIDEO PRODUCTION SPECIALIST Ot 278.01 MORBID OBESITY 11/07/2015 KHRIS BLANCO S VIDEO PRODUCTION SPECIALIST Ot 285.21 ANEMIA IN CHRONIC KIDNEY DISEASE 11/07/2015 KHRIS BLANCO VIDEO PRODUCTION SPECIALIST Ot 403.90 HYPTNSV CHR KID DIS, UNSPEC, W CHR KD ST 11/07/2015 PEDRO LUIS BLANCOVERONICA S VIDEO PRODUCTION SPECIALIST Ot 414.00 CORON ATHEROSCLER NOS TYPE VESSEL, NATIV 11/07/2015 KHRIS BLANCO S VIDEO PRODUCTION SPECIALIST Ot 585.4 CHRONIC KIDNEY DISEASE, STAGE IV (SEVERE 11/07/2015 KHRIS BLANCO VIDEO PRODUCTION SPECIALIST Ot 715.90 OSTEOARTHROS NOS-UNSPEC 11/07/2015 KHRIS BLANCO VIDEO PRODUCTION SPECIALIST Ot V10.05 HX OF COLONIC MALIGNANCY 11/07/2015 KHRIS BLANCO VIDEO PRODUCTION SPECIALIST Ot V58.69 OTH MED,LT,CURRENT USE 11/07/2015 KHRIS BLANCO VIDEO PRODUCTION SPECIALIST Ot V85.42 BODY MASS INDEX 45.0-49.9, ADULT 11/07/2015 DAWSON BLISS, JANAK Roman Ot 782.3 EDEMA 11/07/2015 KHRIS BLANCO S VIDEO PRODUCTION SPECIALIST Ot 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 11/07/2015 KHRIS BLANCO S VIDEO PRODUCTION SPECIALIST Ot 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 11/07/2015 KHRIS BLANCO S VIDEO PRODUCTION SPECIALIST Ot 278.01 MORBID OBESITY 11/07/2015 KHRIS BLANCO S VIDEO PRODUCTION SPECIALIST Ot 285.21 ANEMIA IN CHRONIC KIDNEY DISEASE 11/07/2015 BLANCO KHRIS Berry VIDEO PRODUCTION SPECIALIST Ot 403.90 HYPTNSV CHR KID DIS, UNSPEC, W CHR KD ST 11/07/2015 BLANCOPEDRO LUISVERONICA Berry VIDEO PRODUCTION SPECIALIST Ot 414.00 CORON ATHEROSCLER NOS TYPE VESSEL, NATIV 11/07/2015 FRANCIS KHRIS S VIDEO PRODUCTION SPECIALIST Ot 585.4 CHRONIC KIDNEY DISEASE, STAGE IV (SEVERE 11/07/2015 FRANCIS KHRIS S VIDEO PRODUCTION SPECIALIST Ot 715.90 OSTEOARTHROS NOS-UNSPEC 11/07/2015 FRANCIS KHRIS S VIDEO PRODUCTION SPECIALIST Ot V10.05 HX OF COLONIC MALIGNANCY 11/07/2015 FRANCIS KHRIS Berry VIDEO PRODUCTION SPECIALIST Ot V58.69 OTH MED,LT,CURRENT USE 11/07/2015 FRANCIS KHRIS Berry VIDEO PRODUCTION SPECIALIST Ot V85.42 BODY MASS INDEX 45.0-49.9, ADULT 11/07/2015 FRANCIS KHRIS S VIDEO PRODUCTION SPECIALIST Ot 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 11/07/2015 PEDRO LUIS BLANCOVERONICA S VIDEO PRODUCTION SPECIALIST Ot 285.21 ANEMIA IN CHRONIC KIDNEY DISEASE 11/07/2015 FRANCIS KHRIS S VIDEO PRODUCTION SPECIALIST Ot 585.4 CHRONIC KIDNEY DISEASE, STAGE IV (SEVERE 11/07/2015 PEDRO LUIS BLANCOVERONICA Berry VIDEO PRODUCTION SPECIALIST Ot V58.69 OTH MED,LT,CURRENT USE 11/07/2015 DAWSON BLISS, JANAK Roman Ot 250.00 DIAB JILLIAN WO COMPL, TYPE II OR UNSPEC TY 11/07/2015 DAWSON BLISS, JANAK Roman Ot 272.4 HYPERLIPIDEMIA NEC/NOS 11/07/2015 KHRIS BLANCO VIDEO PRODUCTION SPECIALIST Ot 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 11/07/2015 FRANCIS KHRIS S VIDEO PRODUCTION SPECIALIST Ot 285.21 ANEMIA IN CHRONIC KIDNEY DISEASE 11/07/2015 FRANCIS KHRIS S VIDEO PRODUCTION SPECIALIST Ot 585.4 CHRONIC KIDNEY DISEASE, STAGE IV (SEVERE 11/07/2015 FRANCIS KHRIS S VIDEO PRODUCTION SPECIALIST Ot V58.69 OTH MED,LT,CURRENT USE 11/07/2015 SHEILA PASTRANA MD Ot 272.4 HYPERLIPIDEMIA NEC/NOS 11/07/2015 SHEILA PASTRANA MD Ot 285.9 ANEMIA NOS 11/07/2015 SHEILA PASTRANA MD Ot 403.90 HYPTNSV CHR KID DIS, UNSPEC, W CHR KD ST 11/07/2015 SHEILA PASTRANA MD Ot 414.00 CORON ATHEROSCLER NOS TYPE VESSEL, NATIV 11/07/2015 SHEILA PASTRANA MD Ot 585.4 CHRONIC KIDNEY DISEASE, STAGE IV (SEVERE 11/07/2015 SHEILA PASTRANA MD Ot 272.4 HYPERLIPIDEMIA NEC/NOS 11/07/2015 SHEILA PASTRANA MD Ot 285.9 ANEMIA NOS 11/07/2015 SHEILA PASTRANA MD Ot 403.90 HYPTNSV CHR KID DIS, UNSPEC, W CHR KD ST 11/07/2015 SHEILA PASTRANA MD Ot 414.00 CORON ATHEROSCLER NOS TYPE VESSEL, NATIV 11/07/2015 SHEILA PASTRANA MD Ot 585.9 CHRONIC KIDNEY DISEASE, UNSPECIFIED 11/07/2015 SANJU SALCEDO N REGULATORY AFFAIRS DIRECTOR Ot 250.00 DIAB JILLIAN WO COMPL, TYPE II OR UNSPEC TY 11/07/2015 SANJU SALCEDO REGULATORY AFFAIRS DIRECTOR Ot 272.4 HYPERLIPIDEMIA NEC/NOS 11/07/2015 SANJU SALCEDO N REGULATORY AFFAIRS DIRECTOR Ot 780.79 OTH MALAISE FATIGUE 11/07/2015 KHRIS BLANCO VIDEO PRODUCTION SPECIALIST Ot 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 11/07/2015 KHRIS BLANCO VIDEO PRODUCTION SPECIALIST Ot 278.00 OBESITY, NOS 11/07/2015 KHRIS BLANCO VIDEO PRODUCTION SPECIALIST Ot 285.21 ANEMIA IN CHRONIC KIDNEY DISEASE 11/07/2015 KHRIS BLANCO VIDEO PRODUCTION SPECIALIST Ot 564.00 UNSPEC CONSTIPATION 11/07/2015 KHRIS BLANCO VIDEO PRODUCTION SPECIALIST Ot 585.4 CHRONIC KIDNEY DISEASE, STAGE IV (SEVERE 11/07/2015 KHRIS BLANCO VIDEO PRODUCTION SPECIALIST Ot V58.69 OTH MED,LT,CURRENT USE 11/07/2015 CASIMIRO VALENZUELA DO Ot 327.23 OBSTRUCTIVE SLEEP APNEA (ADULT) (PEDIATR 11/07/2015 CASIMIRO VALENZUELA DO Ot 496 CHR AIRWAY OBSTRUCT NEC 11/07/2015 CASIMIRO VALENZUELA DO Ot 786.09 RESPIRATORY ABNORM NEC 11/07/2015 DAWSON BLISS, JANAK Roman Ot 250.00 DIAB JILLIAN WO COMPL, TYPE II OR UNSPEC TY 11/07/2015 JANAK OSMAN MD Ot 272.0 PURE HYPERCHOLESTEROLEM 11/07/2015 JANAK OSMAN MD Ot 403.90 HYPTNSV CHR KID DIS, UNSPEC, W CHR KD ST 11/07/2015 DAWSON BLISS, JANAK Roman Ot 585.9 CHRONIC KIDNEY DISEASE, UNSPECIFIED 11/07/2015 Ot 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 11/07/2015 Ot 278.00 OBESITY, NOS 11/07/2015 Ot 285.21 ANEMIA IN CHRONIC KIDNEY DISEASE 11/07/2015 Ot 585.4 CHRONIC KIDNEY DISEASE, STAGE IV (SEVERE 11/07/2015 Ot V10.05 HX OF COLONIC MALIGNANCY 11/07/2015 Ot V58.69 OTH MED,LT, CURRENT USE 11/07/2015 Ot 250.00 DIAB JILLIAN WO COMPL, TYPE II OR UNSPEC TY 11/07/2015 Ot 272.0 PURE HYPERCHOLESTEROLEM 11/07/2015 BLANCOKHRIS Berry S VIDEO PRODUCTION SPECIALIST Ot 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 11/07/2015 BLANCOKHRIS Berry S VIDEO PRODUCTION SPECIALIST Ot 285.21 ANEMIA IN CHRONIC KIDNEY DISEASE 11/07/2015 BLANCOKHRIS Berry S VIDEO PRODUCTION SPECIALIST Ot 528.9 ORAL SOFT TISSUE DIS NEC 11/07/2015 BLANCOKHRIS Berry S VIDEO PRODUCTION SPECIALIST Ot 585.4 CHRONIC KIDNEY DISEASE, STAGE IV (SEVERE 11/07/2015 BLANCOKHRIS Berry S VIDEO PRODUCTION SPECIALIST Ot V10.05 HX OF COLONIC MALIGNANCY 11/07/2015 BLANCOKHRIS Berry VIDEO PRODUCTION SPECIALIST Ot V58.69 OTH MED,LT,CURRENT USE 11/07/2015 SANJU SALCEDO REGULATORY AFFAIRS DIRECTOR Ot 789.00 ABDOMINAL PAIN, UNSPECIFIED SITE 11/07/2015 SANJU SALCEDO REGULATORY AFFAIRS DIRECTOR Ot 789.09 ABDOMINAL PAIN, OTHER SPECIFIED SITE 11/07/2015 DAWSON BLISS, JANAK Roman Ot 586 RENAL FAILURE NOS 11/07/2015 FABIENNE BLISS, HESHAM Berry Ot 585.6 END STAGE RENAL DISEASE 11/07/2015 FABIENNE BLISS, HESHAM S Ot V72.85 EXAM NEC 11/07/2015 VANITA BLISS, ELLIOTT Felder Ot Z08 ENCNTR FOR FOLLOW-UP EXAM AFTER TRTMT FO 11/07/2015 VANITA BLISS, ELLIOTT Felder Ot Z85.038 PERSONAL HISTORY OF MALIGNANT NEOPLASM O 11/07/2015 VANITA BLISS, ELLIOTT Felder Ot Z01.818 ENCOUNTER FOR OTHER PREPROCEDURAL EXAMIN 11/07/2015 VANITA BLISS, ELLIOTT Felder Ot Z85.038 PERSONAL HISTORY OF MALIGNANT NEOPLASM O 11/07/2015 SANJU SALCEDO REGULATORY AFFAIRS DIRECTOR Ot M16.12 UNILATERAL PRIMARY OSTEOARTHRITIS, LEFT 11/07/2015 SANJU SALCEDO REGULATORY AFFAIRS DIRECTOR Ot M25.852 OTHER SPECIFIED JOINT DISORDERS, LEFT HI 11/07/2015 VANITA BLISS, ELLIOTT Felder Ot Z01.818 ENCOUNTER FOR OTHER PREPROCEDURAL EXAMIN 11/07/2015 VANITA BLISS, ELLIOTT Felder Ot Z85.038 PERSONAL HISTORY OF MALIGNANT NEOPLASM O 11/07/2015 KHRIS BLANCO VIDEO PRODUCTION SPECIALIST Ot D63.1 ANEMIA IN CHRONIC KIDNEY DISEASE 11/07/2015 KHRIS BLANCO VIDEO PRODUCTION SPECIALIST Ot E53.8 DEFICIENCY OF OTHER SPECIFIED B GROUP 11/07/2015 KHRIS BLANCO VIDEO PRODUCTION SPECIALIST Ot N18.4 CHRONIC KIDNEY DISEASE, STAGE 4 (SEVERE) 11/07/2015 KHRIS BLANCO VIDEO PRODUCTION SPECIALIST Ot Z08 ENCNTR FOR FOLLOW-UP EXAM AFTER TRTMT FO 11/07/2015 KHRIS BLANCO VIDEO PRODUCTION SPECIALIST Ot Z79.899 OTHER [facility] (CURRENT) DRUG THERAPY 11/07/2015 KHRIS BLANCO VIDEO PRODUCTION SPECIALIST Ot Z85.038 PERSONAL HISTORY OF MALIGNANT NEOPLASM O 11/07/2015 KHRIS BLANCO VIDEO PRODUCTION SPECIALIST Ot M25.552 PAIN IN LEFT HIP 11/07/2015 PEDRO LUIS BLANCOVERONICA Berry VIDEO PRODUCTION SPECIALIST Ot Z12.31 ENCNTR SCREEN MAMMOGRAM FOR MALIGNANT NE 11/07/2015 KHRIS BLANCO Jamal VIDEO PRODUCTION SPECIALIST Ot Z85.038 PERSONAL HISTORY OF MALIGNANT NEOPLASM O 11/07/2015 VANITA BLISS, ELLIOTT Felder Ot K21.9 GASTRO-ESOPHAGEAL REFLUX DISEASE WITHOUT 11/07/2015 VANITA BLISS, ELLIOTT Felder Ot Z01.818 ENCOUNTER FOR OTHER PREPROCEDURAL EXAMIN 11/07/2015 ELLIOTT WALDRON MD Ot K21.9 GASTRO-ESOPHAGEAL REFLUX DISEASE WITHOUT 11/07/2015 ELLIOTT WALDRON MD Ot Z01.818 ENCOUNTER FOR OTHER PREPROCEDURAL EXAMIN 11/07/2015 LILIBETH PUGH Ot D63.1 ANEMIA IN CHRONIC KIDNEY DISEASE 11/07/2015 LILIBETH PUGH Ot E53.8 DEFICIENCY OF OTHER SPECIFIED B GROUP 11/07/2015 LILIBETH PUGH Ot N18.4 CHRONIC KIDNEY DISEASE, STAGE 4 (SEVERE) 11/07/2015 LILIBETH PUGH Ot Z08 ENCNTR FOR FOLLOW-UP EXAM AFTER TRTMT FO 11/07/2015 LILIBETH PUGH Ot Z79.899 OTHER RESEARCH AND DEVELOPMENT DIRECTOR (CURRENT) DRUG THERAPY 11/07/2015 LILIBETH PUGH Ot Z85.038 PERSONAL HISTORY OF MALIGNANT NEOPLASM O 11/09/2015 Ot 785.6 ENLARGEMENT LYMPH NODES 11/09/2015 KALLIE HERRERA MD Ot E03.9 HYPOTHYROIDISM, UNSPECIFIED 11/09/2015 KALLIE HERRERA MD Ot E11.9 TYPE 2 DIABETES MELLITUS WITHOUT COMPLIC 11/09/2015 KALLIE HERRERA MD Ot E66.01 MORBID (SEVERE) OBESITY DUE TO EXCESS CA 11/09/2015 KALLIE HERRERA MD, Ot 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 CHR KID 11/09/2015 KALLIE HERRERA MD Ot I44.4 LEFT ANTERIOR FASCICULAR BLOCK 11/09/2015 KALLIE HERRERA MD Ot I45.10 UNSPECIFIED RIGHT BUNDLE-BRANCH BLOCK 11/09/2015 KALLIE HERRERA MD Ot J44.9 CHRONIC OBSTRUCTIVE PULMONARY DISEASE, U 11/09/2015 KALLIE HERRERA MD Ot N18.6 END STAGE RENAL DISEASE 11/09/2015 KALLIE HERRERA MD Ot R10.13 EPIGASTRIC PAIN 11/09/2015 KALLIE HERRERA MD Ot Z79.82 [facility] (CURRENT) USE OF ASPIRIN 11/09/2015 KALLIE HERRERA MD Ot Z79.899 OTHER [facility] (CURRENT) DRUG THERAPY 11/09/2015 KALLIE HERRERA MD Ot 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 ON RENAL DIALYSIS 11/18/2015 LILIBETH PUGH Ot D63.1 ANEMIA IN CHRONIC KIDNEY DISEASE 11/18/2015 LILIBETH PUGH Ot E53.8 DEFICIENCY OF OTHER SPECIFIED B GROUP 11/18/2015 LILIBETH PUGH Ot N18.4 CHRONIC KIDNEY DISEASE, STAGE 4 (SEVERE) 11/18/2015 LILIBETH PUGH Ot Z08 ENCNTR FOR FOLLOW-UP EXAM AFTER TRTMT FO 11/18/2015 LILIBETH PUGH Ot Z79.899 OTHER [facility] (CURRENT) DRUG THERAPY 11/18/2015 LILIBETH PUGH Maria Dolores Ot Z85.038 PERSONAL HISTORY OF MALIGNANT NEOPLASM O 11/19/2015 MIHAI MEZA MD Ot M16.12 UNILATERAL PRIMARY OSTEOARTHRITIS, LEFT 11/19/2015 MIHAI MEZA MD Ot Z79.899 OTHER RESEARCH AND DEVELOPMENT DIRECTOR (CURRENT) DRUG THERAPY 11/21/2015 MIHAI MEZA MD Ot M16.12 UNILATERAL PRIMARY OSTEOARTHRITIS, LEFT 11/21/2015 MIHAI MEZA MD Ot Z79.899 OTHER RESEARCH AND DEVELOPMENT DIRECTOR (CURRENT) DRUG THERAPY 01/09/2016 Ot 785.6 ENLARGEMENT LYMPH NODES 01/15/2016 BLANCOKHRIS Berry S VIDEO PRODUCTION SPECIALIST Ot M89.9 DISORDER OF BONE, UNSPECIFIED 01/15/2016 BLANCOKHRIS S VIDEO PRODUCTION SPECIALIST Ot R94.8 ABNORMAL RESULTS OF FUNCTION STUDIES OF 01/15/2016 BLANCOKHRIS S VIDEO PRODUCTION SPECIALIST Ot Z85.038 PERSONAL HISTORY OF MALIGNANT NEOPLASM O 01/16/2016 BLANCOKHRIS S VIDEO PRODUCTION SPECIALIST Ot M89.9 DISORDER OF BONE, UNSPECIFIED 01/16/2016 BLANCOKHRIS S VIDEO PRODUCTION SPECIALIST Ot R94.8 ABNORMAL RESULTS OF FUNCTION STUDIES OF 01/16/2016 BLANCOPEDRO LUISAH S VIDEO PRODUCTION SPECIALIST Ot Z85.038 PERSONAL HISTORY OF MALIGNANT NEOPLASM O 01/16/2016 BLANCOPEDRO LUISAH S VIDEO PRODUCTION SPECIALIST Ot M89.9 DISORDER OF BONE, UNSPECIFIED 01/16/2016 BLANCOPEDRO LUISAH S VIDEO PRODUCTION SPECIALIST Ot R94.8 ABNORMAL RESULTS OF FUNCTION STUDIES OF 01/16/2016 BLANCOPEDRO LUISAH S VIDEO PRODUCTION SPECIALIST Ot Z85.038 PERSONAL HISTORY OF MALIGNANT NEOPLASM O 01/16/2016 BLANCOKHRIS S VIDEO PRODUCTION SPECIALIST Ot M89.9 DISORDER OF BONE, UNSPECIFIED 01/16/2016 BLANCOPEDRO LUISAH S VIDEO PRODUCTION SPECIALIST Ot R94.8 ABNORMAL RESULTS OF FUNCTION STUDIES OF 01/16/2016 BLANCO HILAH S VIDEO PRODUCTION SPECIALIST Ot Z85.038 PERSONAL HISTORY OF MALIGNANT NEOPLASM O 01/16/2016 BLANCOPEDRO LUISAH S VIDEO PRODUCTION SPECIALIST Ot M89.9 DISORDER OF BONE, UNSPECIFIED 01/16/2016 BLANCOPEDRO LUISAH S VIDEO PRODUCTION SPECIALIST Ot R94.8 ABNORMAL RESULTS OF FUNCTION STUDIES OF 01/16/2016 BLANCOPEDRO LUISAH S VIDEO PRODUCTION SPECIALIST Ot Z85.038 PERSONAL HISTORY OF MALIGNANT NEOPLASM O 01/17/2016 MIHAI MEZA MD Ot M16.12 UNILATERAL PRIMARY OSTEOARTHRITIS, LEFT 02/06/2016 KHRIS BLANCO VIDEO PRODUCTION SPECIALIST Ot M89.9 DISORDER OF BONE, UNSPECIFIED 02/06/2016 KHRIS BLANCO VIDEO PRODUCTION SPECIALIST Ot R94.8 ABNORMAL RESULTS OF FUNCTION STUDIES OF 02/06/2016 KHRIS BLANCO VIDEO PRODUCTION SPECIALIST Ot Z85.038 PERSONAL HISTORY OF MALIGNANT NEOPLASM O 02/11/2016 KHRIS BLANCO VIDEO PRODUCTION SPECIALIST Ot M89.9 DISORDER OF BONE, UNSPECIFIED 02/11/2016 KHRIS BLANCO VIDEO PRODUCTION SPECIALIST Ot R94.8 ABNORMAL RESULTS OF FUNCTION STUDIES OF 02/11/2016 KHRIS BLANCO VIDEO PRODUCTION SPECIALIST Ot Z85.038 PERSONAL HISTORY OF MALIGNANT NEOPLASM O 02/12/2016 MIHAI MEZA MD Ot M16.12 UNILATERAL PRIMARY OSTEOARTHRITIS, LEFT 02/14/2016 MIHAI MEZA MD Ot M16.12 UNILATERAL PRIMARY OSTEOARTHRITIS, LEFT 02/21/2016 MIHAI MEZA MD Ot M16.12 UNILATERAL PRIMARY OSTEOARTHRITIS, LEFT 02/21/2016 MIHAI MEZA MD Ot Z79.899 OTHER [facility] (CURRENT) DRUG THERAPY 02/21/2016 SANJU SALCEDO REGULATORY AFFAIRS DIRECTOR Ot R10.827 GENERALIZED REBOUND ABDOMINAL TENDERNESS 03/04/2016 SANJU SALCEDO REGULATORY AFFAIRS DIRECTOR Ot 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 03/13/2016 SANJU SALCEDO REGULATORY AFFAIRS DIRECTOR Ot R10.827 GENERALIZED REBOUND ABDOMINAL TENDERNESS 03/16/2016 MIHAI MEZA MD Ot M16.12 UNILATERAL PRIMARY OSTEOARTHRITIS, LEFT 03/16/2016 MIHAI MEZA MD Ot Z79.899 OTHER [facility] (CURRENT) DRUG THERAPY 03/19/2016 SANJU SALCEDO REGULATORY AFFAIRS DIRECTOR Ot R10.827 GENERALIZED REBOUND ABDOMINAL TENDERNESS 03/24/2016 SANJU SALCEDO REGULATORY AFFAIRS DIRECTOR Ot 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 03/31/2016 SANJU SALCEDO REGULATORY AFFAIRS DIRECTOR Ot 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 03/31/2016 LILIBETH PUGH Ot D63.1 ANEMIA IN CHRONIC KIDNEY DISEASE 03/31/2016 LILIBETH PUGH Ot E53.8 DEFICIENCY OF OTHER SPECIFIED B GROUP 03/31/2016 LILIBETH PUGH Ot N18.4 CHRONIC KIDNEY DISEASE, STAGE 4 (SEVERE) 03/31/2016 LILIBETH PUGH Ot Z08 ENCNTR FOR FOLLOW-UP EXAM AFTER TRTMT FO 03/31/2016 LILIBETH PUGH N Ot Z79.899 OTHER RESEARCH AND DEVELOPMENT DIRECTOR (CURRENT) DRUG THERAPY 03/31/2016 LILIBETH PUGH N Ot Z85.038 PERSONAL HISTORY OF MALIGNANT NEOPLASM O 04/03/2016 LILIBETH PUGH N Ot D63.1 ANEMIA IN CHRONIC KIDNEY DISEASE 04/03/2016 LILIBETH PUGH N Ot E53.8 DEFICIENCY OF OTHER SPECIFIED B GROUP 04/03/2016 LILIBETH PUGH N Ot N18.4 CHRONIC KIDNEY DISEASE, STAGE 4 (SEVERE) 04/03/2016 LILIBETH PUGH N Ot Z08 ENCNTR FOR FOLLOW-UP EXAM AFTER TRTMT FO 04/03/2016 LILIBETH PUGH N Ot Z79.899 OTHER [facility] (CURRENT) DRUG THERAPY 04/03/2016 LILIBETH PUGH N Ot Z85.038 PERSONAL HISTORY OF MALIGNANT NEOPLASM O 04/12/2016 SANJU SALCEDO APRN Ot R10.827 GENERALIZED REBOUND ABDOMINAL TENDERNESS 04/13/2016 LILIBETH PUGH N Ot D63.1 ANEMIA IN CHRONIC KIDNEY DISEASE 04/13/2016 LILIBETH PUGH N Ot E53.8 DEFICIENCY OF OTHER SPECIFIED B GROUP 04/13/2016 LILIBETH PUGH N Ot N18.4 CHRONIC KIDNEY DISEASE, STAGE 4 (SEVERE) 04/13/2016 LILIBETH PUGH N Ot Z08 ENCNTR FOR FOLLOW-UP EXAM AFTER TRTMT FO 04/13/2016 ILLIBETH PUGH N Ot Z79.899 OTHER [facility] (CURRENT) DRUG THERAPY 04/13/2016 LILIBETH PUGH N Ot Z85.038 PERSONAL HISTORY OF MALIGNANT NEOPLASM O 04/14/2016 Ot 244.9 HYPOTHYROIDISM NOS 04/14/2016 Ot 250.01 DIAB JILLIAN WO COMPL, TYPE I [JUVENILE TYP 04/14/2016 Ot 250.40 DIAB W RENAL MANIFEST, TYPE II OR UNSPEC 04/14/2016 Ot 272.4 HYPERLIPIDEMIA NEC/NOS 04/14/2016 Ot 585.4 CHRONIC KIDNEY DISEASE, STAGE IV (SEVERE 04/14/2016 Ot 789.00 ABDOMINAL PAIN, UNSPECIFIED SITE 04/14/2016 Ot 729.5 PAIN IN LIMB 04/14/2016 Ot 782.3 EDEMA 04/14/2016 Ot 250.40 DIAB W RENAL MANIFEST, TYPE II OR UNSPEC 04/14/2016 Ot 272.4 HYPERLIPIDEMIA NEC/NOS 04/14/2016 Ot 585.4 CHRONIC KIDNEY DISEASE, STAGE IV (SEVERE 04/14/2016 Ot 610.4 MAMMARY DUCT ECTASIA 04/14/2016 Ot 719.43 JOINT PAIN- FOREARM 04/14/2016 Ot 250.40 DIAB W RENAL MANIFEST, TYPE II OR UNSPEC 04/14/2016 Ot 585.4 CHRONIC KIDNEY DISEASE, STAGE IV (SEVERE 04/14/2016 DAWSON BLISS, JANAK Roman Ot 729.81 SWELLING OF LIMB 04/14/2016 DAWSON BLISS, JANAK Roman Ot 250.00 DIAB JILLIAN WO COMPL, TYPE II OR UNSPEC TY 04/14/2016 DAWSON BLISS, JANAK Roman Ot 272.4 HYPERLIPIDEMIA NEC/NOS 04/14/2016 DAWSON BLISS, JANAK Roman Ot 780.79 OTH MALAISE FATIGUE 04/14/2016 KHRIS BLANCO VIDEO PRODUCTION SPECIALIST Ot 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 04/14/2016 KHRIS BLANCO VIDEO PRODUCTION SPECIALIST Ot 278.01 MORBID OBESITY 04/14/2016 KHRIS BLANCO VIDEO PRODUCTION SPECIALIST Ot 285.21 ANEMIA IN CHRONIC KIDNEY DISEASE 04/14/2016 KHRIS BLANCO VIDEO PRODUCTION SPECIALIST Ot 403.90 HYPTNSV CHR KID DIS, UNSPEC, W CHR KD ST 04/14/2016 KHRIS BLANCO VIDEO PRODUCTION SPECIALIST Ot 414.00 CORON ATHEROSCLER NOS TYPE VESSEL, NATIV 04/14/2016 KHRIS BLANCO VIDEO PRODUCTION SPECIALIST Ot 585.4 CHRONIC KIDNEY DISEASE, STAGE IV (SEVERE 04/14/2016 KHRIS BLANCO VIDEO PRODUCTION SPECIALIST Ot 715.90 OSTEOARTHROS NOS-UNSPEC 04/14/2016 KHRIS BLANCO VIDEO PRODUCTION SPECIALIST Ot V10.05 HX OF COLONIC MALIGNANCY 04/14/2016 KHRIS BLANCO VIDEO PRODUCTION SPECIALIST Ot V45.72 ACQRD ABSENCE INTESTINE - LARGE/SMALL 04/14/2016 KHRIS BLANCO VIDEO PRODUCTION SPECIALIST Ot V45.82 PERCUTANEOUS TRANSLUM CORON ANGIOPLASTY 04/14/2016 KHRIS BLANCO VIDEO PRODUCTION SPECIALIST Ot V58.66 LONG-TERM (CURRENT) USE OF ASPIRIN 04/14/2016 KHRIS BLANCO VIDEO PRODUCTION SPECIALIST Ot V58.69 OTH MED,LT,CURRENT USE 04/14/2016 FABIENNE BLISS, HESHAM S Ot 250.40 DIAB W RENAL MANIFEST, TYPE II OR UNSPEC 04/14/2016 FABIENNE BLISS, HESHAM Berry Ot 278.02 OVERWEIGHT 04/14/2016 FABIENNE BLISS, HESHAM Berry Ot 585.3 CHRONIC KIDNEY DISEASE, STAGE III (MODER 04/14/2016 KHRIS BLANCO VIDEO PRODUCTION SPECIALIST Ot 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 04/14/2016 KHRIS BLANCO VIDEO PRODUCTION SPECIALIST Ot 278.01 MORBID OBESITY 04/14/2016 KHRIS BLANCO VIDEO PRODUCTION SPECIALIST Ot 281.1 B12 DEFIC ANEMIA NEC 04/14/2016 KHRIS BLANCO VIDEO PRODUCTION SPECIALIST Ot 285.21 ANEMIA IN CHRONIC KIDNEY DISEASE 04/14/2016 KHRIS BLANCO VIDEO PRODUCTION SPECIALIST Ot 403.90 HYPTNSV CHR KID DIS, UNSPEC, W CHR KD ST 04/14/2016 KHRIS BLANCO VIDEO PRODUCTION SPECIALIST Ot 414.00 CORON ATHEROSCLER NOS TYPE VESSEL, NATIV 04/14/2016 KHRIS BLANCO VIDEO PRODUCTION SPECIALIST Ot 585.4 CHRONIC KIDNEY DISEASE, STAGE IV (SEVERE 04/14/2016 KHRIS BLANCO VIDEO PRODUCTION SPECIALIST Ot 715.90 OSTEOARTHROS NOS-UNSPEC 04/14/2016 KHRIS BLANCO VIDEO PRODUCTION SPECIALIST Ot V10.05 HX OF COLONIC MALIGNANCY 04/14/2016 KHRIS BLANCO VIDEO PRODUCTION SPECIALIST Ot V45.72 ACQRD ABSENCE INTESTINE - LARGE/SMALL 04/14/2016 KHRIS BLANCO VIDEO PRODUCTION SPECIALIST Ot V45.82 PERCUTANEOUS TRANSLUM CORON ANGIOPLASTY 04/14/2016 KHRIS BLANCO VIDEO PRODUCTION SPECIALIST Ot V58.66 LONG-TERM (CURRENT) USE OF ASPIRIN 04/14/2016 KHRIS BLANCO VIDEO PRODUCTION SPECIALIST Ot V58.69 OT MED,LT,CURRENT USE 04/14/2016 SHEILA PASTRANA MD Ot 414.00 CORON ATHEROSCLER NOS TYPE VESSEL, NATIV 04/14/2016 SHEILA PASTRANA MD Ot 786.50 CHEST PAIN NOS 04/14/2016 SHEILA PASTRANA MD Ot 397.0 TRICUSPID VALVE DISEASE 04/14/2016 SHEILA PASTRANA MD Ot 414.00 CORON ATHEROSCLER NOS TYPE VESSEL, NATIV 04/14/2016 SHEILA PASTRANA MD Ot 424.0 MITRAL VALVE DISORDER 04/14/2016 SHEILA PASTRANA MD Ot 429.3 CARDIOMEGALY 04/14/2016 SHEILA PASTRANA MD Ot 786.50 CHEST PAIN NOS 04/14/2016 ZEINA BLISS, SHEILA Parish Ot 272.4 HYPERLIPIDEMIA NEC/NOS 04/14/2016 SHEILA PASTRANA MD Ot 414.01 CORONARY ATHEROSCLEROSIS OF [place] CORON 04/14/2016 KHRIS BLANCO VIDEO PRODUCTION SPECIALIST Ot 284.19 OTHER PANCYTOPENIA 04/14/2016 KHRIS BLANCO VIDEO PRODUCTION SPECIALIST Ot 285.9 ANEMIA NOS 04/14/2016 KHRIS BLANCO VIDEO PRODUCTION SPECIALIST Ot V10.05 HX OF COLONIC MALIGNANCY 04/14/2016 KHRIS BLANCO S VIDEO PRODUCTION SPECIALIST Ot 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 04/14/2016 KHRIS BLANOC S VIDEO PRODUCTION SPECIALIST Ot 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 04/14/2016 KHRIS BLANCO VIDEO PRODUCTION SPECIALIST Ot 278.01 MORBID OBESITY 04/14/2016 KHRIS BLANCO S VIDEO PRODUCTION SPECIALIST Ot 285.21 ANEMIA IN CHRONIC KIDNEY DISEASE 04/14/2016 KHRIS BLANCO S VIDEO PRODUCTION SPECIALIST Ot 403.90 HYPTNSV CHR KID DIS, UNSPEC, W CHR KD ST 04/14/2016 KHRIS BLANCO VIDEO PRODUCTION SPECIALIST Ot 414.00 CORON ATHEROSCLER NOS TYPE VESSEL, NATIV 04/14/2016 KHRIS BLANCO VIDEO PRODUCTION SPECIALIST Ot 585.4 CHRONIC KIDNEY DISEASE, STAGE IV (SEVERE 04/14/2016 KHRIS BLANCO VIDEO PRODUCTION SPECIALIST Ot 715.90 OSTEOARTHROS NOS-UNSPEC 04/14/2016 KHRIS BLANCO VIDEO PRODUCTION SPECIALIST Ot V10.05 HX OF COLONIC MALIGNANCY 04/14/2016 KHRIS BLANCO VIDEO PRODUCTION SPECIALIST Ot V58.69 OT MED,LT,CURRENT USE 04/14/2016 KHRIS BLANCO VIDEO PRODUCTION SPECIALIST Ot V85.42 BODY MASS INDEX 45.0-49.9, ADULT 04/14/2016 KHRIS BLANCO S VIDEO PRODUCTION SPECIALIST Ot 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 04/14/2016 KHRIS BLANCO VIDEO PRODUCTION SPECIALIST Ot 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 04/14/2016 KHRIS BLANCO S VIDEO PRODUCTION SPECIALIST Ot 278.01 MORBID OBESITY 04/14/2016 KHRIS BLANCO S VIDEO PRODUCTION SPECIALIST Ot 285.21 ANEMIA IN CHRONIC KIDNEY DISEASE 04/14/2016 KHRIS BLANCO S VIDEO PRODUCTION SPECIALIST Ot 403.90 HYPTNSV CHR KID DIS, UNSPEC, W CHR KD ST 04/14/2016 FRANCIS KHRIS S VIDEO PRODUCTION SPECIALIST Ot 414.00 CORON ATHEROSCLER NOS TYPE VESSEL, NATIV 04/14/2016 KHRIS BLANCO S VIDEO PRODUCTION SPECIALIST Ot 585.4 CHRONIC KIDNEY DISEASE, STAGE IV (SEVERE 04/14/2016 FRANCIS HILAH S VIDEO PRODUCTION SPECIALIST Ot 715.90 OSTEOARTHROS NOS-UNSPEC 04/14/2016 FRANCIS KHRIS S VIDEO PRODUCTION SPECIALIST Ot V10.05 HX OF COLONIC MALIGNANCY 04/14/2016 KHRIS BLANCO S VIDEO PRODUCTION SPECIALIST Ot V58.69 OTH MED,LT,CURRENT USE 04/14/2016 FRANCIS HILAH S VIDEO PRODUCTION SPECIALIST Ot V85.42 BODY MASS INDEX 45.0-49.9, ADULT 04/14/2016 KHRIS BLANCO S VIDEO PRODUCTION SPECIALIST Ot V76.12 OTH SCREEN MAMMO-MALIGN NEOPLASM OF [place] 04/14/2016 KHRIS BLANCO S VIDEO PRODUCTION SPECIALIST Ot 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 04/14/2016 KHRIS BLANCO S VIDEO PRODUCTION SPECIALIST Ot 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 04/14/2016 KHRIS BLANCO S VIDEO PRODUCTION SPECIALIST Ot 278.01 MORBID OBESITY 04/14/2016 PEDRO LUIS BLANCOVERONICA S VIDEO PRODUCTION SPECIALIST Ot 285.21 ANEMIA IN CHRONIC KIDNEY DISEASE 04/14/2016 KHRIS BLANCO S VIDEO PRODUCTION SPECIALIST Ot 403.90 HYPTNSV CHR KID DIS, UNSPEC, W CHR KD ST 04/14/2016 FRANCIS KHRIS S VIDEO PRODUCTION SPECIALIST Ot 414.00 CORON ATHEROSCLER NOS TYPE VESSEL, NATIV 04/14/2016 FRANCIS PEDRO LUISVERONICA S VIDEO PRODUCTION SPECIALIST Ot 585.4 CHRONIC KIDNEY DISEASE, STAGE IV (SEVERE 04/14/2016 KHRIS BLANCO S VIDEO PRODUCTION SPECIALIST Ot 715.90 OSTEOARTHROS NOS-UNSPEC 04/14/2016 KHRIS BLANCO S VIDEO PRODUCTION SPECIALIST Ot V10.05 HX OF COLONIC MALIGNANCY 04/14/2016 KHRIS BLANCO S VIDEO PRODUCTION SPECIALIST Ot V58.69 OTH MED,LT,CURRENT USE 04/14/2016 KHRIS BLANCO S VIDEO PRODUCTION SPECIALIST Ot V85.42 BODY MASS INDEX 45.0-49.9, ADULT 04/14/2016 DAWSON BLISS, JANAK Roman Ot 782.3 EDEMA 04/14/2016 KHRIS BLANCO S VIDEO PRODUCTION SPECIALIST Ot 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 04/14/2016 KHRIS BLANCO S VIDEO PRODUCTION SPECIALIST Ot 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 04/14/2016 FRANCIS KHRIS S VIDEO PRODUCTION SPECIALIST Ot 278.01 MORBID OBESITY 04/14/2016 FRANCIS KHRIS S VIDEO PRODUCTION SPECIALIST Ot 285.21 ANEMIA IN CHRONIC KIDNEY DISEASE 04/14/2016 FRANCIS KHRIS S VIDEO PRODUCTION SPECIALIST Ot 403.90 HYPTNSV CHR KID DIS, UNSPEC, W CHR KD ST 04/14/2016 FRANCIS KHRIS Berry VIDEO PRODUCTION SPECIALIST Ot 414.00 CORON ATHEROSCLER NOS TYPE VESSEL, NATIV 04/14/2016 FRANCIS KHRIS S VIDEO PRODUCTION SPECIALIST Ot 585.4 CHRONIC KIDNEY DISEASE, STAGE IV (SEVERE 04/14/2016 FRANCIS KHRIS Berry VIDEO PRODUCTION SPECIALIST Ot 715.90 OSTEOARTHROS NOS-UNSPEC 04/14/2016 FRANCIS KHRIS Berry VIDEO PRODUCTION SPECIALIST Ot V10.05 HX OF COLONIC MALIGNANCY 04/14/2016 FRANCIS KHRIS Berry VIDEO PRODUCTION SPECIALIST Ot V58.69 OTH MED,LT,CURRENT USE 04/14/2016 FRANCIS KHRIS Berry VIDEO PRODUCTION SPECIALIST Ot V85.42 BODY MASS INDEX 45.0-49.9, ADULT 04/14/2016 FRANCIS KHRIS S VIDEO PRODUCTION SPECIALIST Ot 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 04/14/2016 FRANCIS KHRIS S VIDEO PRODUCTION SPECIALIST Ot 285.21 ANEMIA IN CHRONIC KIDNEY DISEASE 04/14/2016 FRANCIS KHRIS S VIDEO PRODUCTION SPECIALIST Ot 585.4 CHRONIC KIDNEY DISEASE, STAGE IV (SEVERE 04/14/2016 FRANCIS KHRIS Berry VIDEO PRODUCTION SPECIALIST Ot V58.69 OTH MED,LT,CURRENT USE 04/14/2016 DAWSON BLISS, JANAK Roman Ot 250.00 DIAB JILLIAN WO COMPL, TYPE II OR UNSPEC TY 04/14/2016 DAWSON BLISS, JANAK Roman Ot 272.4 HYPERLIPIDEMIA NEC/NOS 04/14/2016 FRANCIS KHRIS S VIDEO PRODUCTION SPECIALIST Ot 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 04/14/2016 FRANCIS KHRIS S VIDEO PRODUCTION SPECIALIST Ot 285.21 ANEMIA IN CHRONIC KIDNEY DISEASE 04/14/2016 FRANCIS PEDRO LUISVERONICA S VIDEO PRODUCTION SPECIALIST Ot 585.4 CHRONIC KIDNEY DISEASE, STAGE IV (SEVERE 04/14/2016 FRANCIS KHRIS S VIDEO PRODUCTION SPECIALIST Ot V58.69 OTH MED,LT,CURRENT USE 04/14/2016 SHEILA PASTRANA MD Ot 272.4 HYPERLIPIDEMIA NEC/NOS 04/14/2016 SHEILA PASTRANA MD Ot 285.9 ANEMIA NOS 04/14/2016 SHEILA PASTRANA MD Ot 403.90 HYPTNSV CHR KID DIS, UNSPEC, W CHR KD ST 04/14/2016 SHEILA PASTRANA MD Ot 414.00 CORON ATHEROSCLER NOS TYPE VESSEL, NATIV 04/14/2016 SHEILA PASTRANA MD Ot 585.4 CHRONIC KIDNEY DISEASE, STAGE IV (SEVERE 04/14/2016 SHEILA PASTRANA MD Ot 272.4 HYPERLIPIDEMIA NEC/NOS 04/14/2016 SHEILA PASTRANA MD Ot 285.9 ANEMIA NOS 04/14/2016 SHEILA PASTRANA MD Ot 403.90 HYPTNSV CHR KID DIS, UNSPEC, W CHR KD ST 04/14/2016 SHEILA PASTRANA MD Ot 414.00 CORON ATHEROSCLER NOS TYPE VESSEL, NATIV 04/14/2016 SHEILA PASTRANA MD Ot 585.9 CHRONIC KIDNEY DISEASE, UNSPECIFIED 04/14/2016 SANJU SALCEDO N REGULATORY AFFAIRS DIRECTOR Ot 250.00 DIAB JILLIAN WO COMPL, TYPE II OR UNSPEC TY 04/14/2016 SANJU SALCEDO REGULATORY AFFAIRS DIRECTOR Ot 272.4 HYPERLIPIDEMIA NEC/NOS 04/14/2016 SANJU SALCEDO REGULATORY AFFAIRS DIRECTOR Ot 780.79 OTH MALAISE FATIGUE 04/14/2016 KHRIS BLANCO VIDEO PRODUCTION SPECIALIST Ot 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 04/14/2016 KHRIS BLANCO VIDEO PRODUCTION SPECIALIST Ot 278.00 OBESITY, NOS 04/14/2016 KHRIS BLANCO VIDEO PRODUCTION SPECIALIST Ot 285.21 ANEMIA IN CHRONIC KIDNEY DISEASE 04/14/2016 KHRIS BLANCO VIDEO PRODUCTION SPECIALIST Ot 564.00 UNSPEC CONSTIPATION 04/14/2016 KHRIS BLANCO VIDEO PRODUCTION SPECIALIST Ot 585.4 CHRONIC KIDNEY DISEASE, STAGE IV (SEVERE 04/14/2016 KHRIS BLANCO VIDEO PRODUCTION SPECIALIST Ot V58.69 OTH MED,LT,CURRENT USE 04/14/2016 CASIMIRO VALENZUELA DO Ot 327.23 OBSTRUCTIVE SLEEP APNEA (ADULT) (PEDIATR 04/14/2016 CASIMIRO VALENZUELA DO Ot 496 CHR AIRWAY OBSTRUCT NEC 04/14/2016 CASIMIRO VALENZUELA DO Ot 786.09 RESPIRATORY ABNORM NEC 04/14/2016 DAWSON BLISS, JANAK Roman Ot 250.00 DIAB JILLIAN WO COMPL, TYPE II OR UNSPEC TY 04/14/2016 DAWSON BLISS, JANAK Roman Ot 272.0 PURE HYPERCHOLESTEROLEM 04/14/2016 DAWSON BLISS, JANAK Roman Ot 403.90 HYPTNSV CHR KID DIS, UNSPEC, W CHR KD ST 04/14/2016 DAWSON BLISS, JANAK Roman Ot 585.9 CHRONIC KIDNEY DISEASE, UNSPECIFIED 04/14/2016 Ot 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 04/14/2016 Ot 278.00 OBESITY, NOS 04/14/2016 Ot 285.21 ANEMIA IN CHRONIC KIDNEY DISEASE 04/14/2016 Ot 585.4 CHRONIC KIDNEY DISEASE, STAGE IV (SEVERE 04/14/2016 Ot V10.05 HX OF COLONIC MALIGNANCY 04/14/2016 Ot V58.69 OTH MED,LT, CURRENT USE 04/14/2016 Ot 250.00 DIAB JILLIAN WO COMPL, TYPE II OR UNSPEC TY 04/14/2016 Ot 272.0 PURE HYPERCHOLESTEROLEM 04/14/2016 BLANCOKHRIS Berry S VIDEO PRODUCTION SPECIALIST Ot 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 04/14/2016 BLANCOKHRIS Berry S VIDEO PRODUCTION SPECIALIST Ot 285.21 ANEMIA IN CHRONIC KIDNEY DISEASE 04/14/2016 KHRIS BLANCO S VIDEO PRODUCTION SPECIALIST Ot 528.9 ORAL SOFT TISSUE DIS NEC 04/14/2016 BLANCOKHRIS Berry S VIDEO PRODUCTION SPECIALIST Ot 585.4 CHRONIC KIDNEY DISEASE, STAGE IV (SEVERE 04/14/2016 BLANCOKHRIS Berry S VIDEO PRODUCTION SPECIALIST Ot V10.05 HX OF COLONIC MALIGNANCY 04/14/2016 BLANCOKHRIS Berry VIDEO PRODUCTION SPECIALIST Ot V58.69 OTH MED,LT,CURRENT USE 04/14/2016 SANJU SALCEDO REGULATORY AFFAIRS DIRECTOR Ot 789.00 ABDOMINAL PAIN, UNSPECIFIED SITE 04/14/2016 SANJU SALCEDO REGULATORY AFFAIRS DIRECTOR Ot 789.09 ABDOMINAL PAIN, OTHER SPECIFIED SITE 04/14/2016 DAWSON BLISS, JANAK Roman Ot 586 RENAL FAILURE NOS 04/14/2016 FABIENNE BLISS, HESHAM S Ot 585.6 END STAGE RENAL DISEASE 04/14/2016 FABIENNE BLISS, HESHAM S Ot V72.85 EXAM NEC 04/14/2016 VANITA BLISS, ELLIOTT Felder Ot Z08 ENCNTR FOR FOLLOW-UP EXAM AFTER TRTMT FO 04/14/2016 VANITA BLISS, ELLIOTT Felder Ot Z85.038 PERSONAL HISTORY OF MALIGNANT NEOPLASM O 04/14/2016 VANITA BLISS, ELLIOTT Felder Ot Z01.818 ENCOUNTER FOR OTHER PREPROCEDURAL EXAMIN 04/14/2016 VANITA BLISS, ELLIOTT Felder Ot Z85.038 PERSONAL HISTORY OF MALIGNANT NEOPLASM O 04/14/2016 SANJU SALCEDO N REGULATORY AFFAIRS DIRECTOR Ot M16.12 UNILATERAL PRIMARY OSTEOARTHRITIS, LEFT 04/14/2016 SANJU SALCEDO REGULATORY AFFAIRS DIRECTOR Ot M25.852 OTHER SPECIFIED JOINT DISORDERS, LEFT HI 04/14/2016 VANITA BLISS, ELLIOTT Felder Ot Z01.818 ENCOUNTER FOR OTHER PREPROCEDURAL EXAMIN 04/14/2016 VANITA BILSS, ELLIOTT Felder Ot Z85.038 PERSONAL HISTORY OF MALIGNANT NEOPLASM O 04/14/2016 KHRIS BLANCO VIDEO PRODUCTION SPECIALIST Ot D63.1 ANEMIA IN CHRONIC KIDNEY DISEASE 04/14/2016 KHRIS BLANCO VIDEO PRODUCTION SPECIALIST Ot E53.8 DEFICIENCY OF OTHER SPECIFIED B GROUP 04/14/2016 KHRIS BLANCO VIDEO PRODUCTION SPECIALIST Ot N18.4 CHRONIC KIDNEY DISEASE, STAGE 4 (SEVERE) 04/14/2016 KHRIS BLANCO VIDEO PRODUCTION SPECIALIST Ot Z08 ENCNTR FOR FOLLOW-UP EXAM AFTER TRTMT FO 04/14/2016 KHRIS BLANCO VIDEO PRODUCTION SPECIALIST Ot Z79.899 OTHER RESEARCH AND DEVELOPMENT DIRECTOR (CURRENT) DRUG THERAPY 04/14/2016 KHRIS BLANCO VIDEO PRODUCTION SPECIALIST Ot Z85.038 PERSONAL HISTORY OF MALIGNANT NEOPLASM O 04/14/2016 KHRIS BLANCO VIDEO PRODUCTION SPECIALIST Ot M25.552 PAIN IN LEFT HIP 04/14/2016 KHRIS BLANCO VIDEO PRODUCTION SPECIALIST Ot Z12.31 ENCNTR SCREEN MAMMOGRAM FOR MALIGNANT NE 04/14/2016 KHRIS BLANCO VIDEO PRODUCTION SPECIALIST Ot Z85.038 PERSONAL HISTORY OF MALIGNANT NEOPLASM O 04/14/2016 VANITA BLISS, ELLIOTT Felder Ot K21.9 GASTRO-ESOPHAGEAL REFLUX DISEASE WITHOUT 04/14/2016 ELLIOTT WALDRON MD Ot Z01.818 ENCOUNTER FOR OTHER PREPROCEDURAL EXAMIN 04/14/2016 ELLIOTT WALDRON MD Ot K21.9 GASTRO-ESOPHAGEAL REFLUX DISEASE WITHOUT 04/14/2016 VANITA BLISS, ELLIOTT Felder Ot Z01.818 ENCOUNTER FOR OTHER PREPROCEDURAL EXAMIN 04/14/2016 KHRIS BLANCO VIDEO PRODUCTION SPECIALIST Ot M89.9 DISORDER OF BONE, UNSPECIFIED 04/14/2016 KHRIS BLANCOP Ot R94.8 ABNORMAL RESULTS OF FUNCTION STUDIES OF 04/14/2016 KHRIS BLANCO VIDEO PRODUCTION SPECIALIST Ot Z85.038 PERSONAL HISTORY OF MALIGNANT NEOPLASM O 04/14/2016 SANJU SALCEDO APRN Ot R10.827 GENERALIZED REBOUND ABDOMINAL TENDERNESS 04/14/2016 SANJU SALCEDO APRN Ot 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 04/14/2016 LILIBETH PUGH Ot D63.1 ANEMIA IN CHRONIC KIDNEY DISEASE 04/14/2016 LILIBETH PUGH Maria Dolores Ot E53.8 DEFICIENCY OF OTHER SPECIFIED B GROUP 04/14/2016 LILIBETH PUGH Maria Dolores Ot N18.4 CHRONIC KIDNEY DISEASE, STAGE 4 (SEVERE) 04/14/2016 LILIBETH PUGH Maria Dolores Ot Z08 ENCNTR FOR FOLLOW-UP EXAM AFTER TRTMT FO 04/14/2016 LILIBETH PUGH Maria Dolores Ot Z79.899 OTHER RESEARCH AND DEVELOPMENT DIRECTOR (CURRENT) DRUG THERAPY 04/14/2016 LILIBETH PUGH Maria Dolores Ot Z85.038 PERSONAL HISTORY OF MALIGNANT NEOPLASM O 04/15/2016 DAWSON BLISS, JANAK Jessie Ot M26.622 ARTHRALGIA OF LEFT TEMPOROMANDIBULAR NOHEMI 04/16/2016 DAWSON BLISS, JANAK Roman Ot R41.3 OTHER AMNESIA 05/07/2016 DAWSON BLISS, JANAK Roman Ot R41.3 OTHER AMNESIA 05/07/2016 JANAK OSMAN MD Ot M26.622 ARTHRALGIA OF LEFT TEMPOROMANDIBULAR NOHEMI 05/11/2016 DAWSON BLISS JANAK Jessie Ot M26.622 ARTHRALGIA OF LEFT TEMPOROMANDIBULAR NOHEMI 05/15/2016 DAWSON BLISS, JAANK Roman Ot R41.3 OTHER AMNESIA 06/19/2016 LILIANA ISAACS MD Ot E11.9 TYPE 2 DIABETES MELLITUS WITHOUT COMPLIC 06/19/2016 LILIANA ISAACS MD Ot E66.01 MORBID (SEVERE) OBESITY DUE TO EXCESS CA 06/19/2016 LILIANA ISAACS MD Ot 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 CHR KID 06/19/2016 LILIANA ISAACS MD Ot I25.10 ATHSCL HEART DISEASE OF [place] CORONARY 06/19/2016 LILIANA ISAACS MD Ot I25.2 OLD MYOCARDIAL INFARCTION 06/19/2016 FERNY BLISS, LILIANA Berry Ot I70.91 GENERALIZED ATHEROSCLEROSIS 06/19/2016 LILIANA ISAACS MD Ot J44.9 CHRONIC OBSTRUCTIVE PULMONARY DISEASE, U 06/19/2016 FERNY BLISS LILIANA Berry Ot M54.6 PAIN IN THORACIC SPINE 06/19/2016 FERNY BLISS LILIANA Berry Ot Z79.4 RESEARCH AND DEVELOPMENT DIRECTOR (CURRENT) USE OF INSULIN 06/19/2016 LILIANA ISAACS MD Ot Z79.82 RESEARCH AND DEVELOPMENT DIRECTOR (CURRENT) USE OF ASPIRIN 06/19/2016 FERNY BLISS LILIANA Berry Ot Z79.899 OTHER RESEARCH AND DEVELOPMENT DIRECTOR (CURRENT) DRUG THERAPY 06/19/2016 LILIANA ISAACS MD Ot 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 ON RENAL DIALYSIS 11/08/2016 Ot 785.6 ENLARGEMENT LYMPH NODES 12/31/2016 DAWSON BLISS JANAK D Ot D64.9 ANEMIA, UNSPECIFIED 12/31/2016 DAWSON BLISS JANAK D Ot M79.643 PAIN IN UNSPECIFIED HAND 12/31/2016 DAWSON BLISS JANAK D Ot M79.89 OTHER SPECIFIED SOFT TISSUE DISORDERS 12/31/2016 DAWSON BLISS JANAK D Ot N18.9 CHRONIC KIDNEY DISEASE, UNSPECIFIED 12/31/2016 DAWSON BLISS JANAK D Ot R53.83 OTHER FATIGUE 01/19/2017 DAWSON BLISS JANAK D Ot D64.9 ANEMIA, UNSPECIFIED 01/19/2017 DAWSON BLISS JANAK D Ot M79.643 PAIN IN UNSPECIFIED HAND 01/19/2017 DAWSON BLISS JANAK D Ot M79.89 OTHER SPECIFIED SOFT TISSUE DISORDERS 01/19/2017 DAWSON BLISS JANAK D Ot N18.9 CHRONIC KIDNEY DISEASE, UNSPECIFIED 01/19/2017 DAWSON BLISS JANAK D Ot R53.83 OTHER FATIGUE 01/27/2017 DAWSON BLISS JANAK D Ot D64.9 ANEMIA, UNSPECIFIED 01/27/2017 DAWSON BLISS JANAK D Ot M79.643 PAIN IN UNSPECIFIED HAND 01/27/2017 DAWSON BLISS JANAK D Ot M79.89 OTHER SPECIFIED SOFT TISSUE DISORDERS 01/27/2017 DAWSON BLISS JANAK D Ot N18.9 CHRONIC KIDNEY DISEASE, UNSPECIFIED 01/27/2017 DAWSON BLISS JANAK D Ot R53.83 OTHER FATIGUE 02/25/2017 SANJU SALCEDO REGULATORY AFFAIRS DIRECTOR Ot M17.12 UNILATERAL PRIMARY OSTEOARTHRITIS, LEFT 02/25/2017 SANJU SAL[facility]EDO N [facility] DIRECTOR Ot M19.042 PRIMARY OSTEOARTHRITIS, LEFT HAND 03/08/2017 SANJU SALCEDO N [facility] DIRECTOR Ot M17.12 UNILATERAL PRIMARY OSTEOARTHRITIS, LEFT 03/08/2017 SANJU [facility] DIRECTOR Ot M19.042 PRIMARY OSTEOARTHRITIS, LEFT HAND Procedures Code Description Performed By Performed On 05.08 SPINAL TAP 05/30/2011 00.66 PERCUTANEOUS TRANSLUMINAL CORONARY ANGIO 10/21/2012 36.07 INSRT OF DRUG-ELUTING CORON ARTERY STENT 10/21/2012 88.56 CORONAR ARTERIOGR-2 CATH 10/21/2012 Results Test Result Range Complete blood count (CBC) with automated white blood cell (WBC) differential - 09/27/15 14:02 Blood leukocytes automated count (number/volume) 8.5 10*3/uL 4.3-11.0 Blood erythrocytes automated count (number/volume) 4.04 10*6/uL 4.35-5.85 Venous blood hemoglobin measurement (mass/volume) 13.0 g/dL 11.5-16.0 Blood hematocrit (volume fraction) 39 % 35-52 Automated erythrocyte mean corpuscular volume 96 [foz_us] 80-99 Automated erythrocyte mean corpuscular hemoglobin (mass per erythrocyte) 32 pg 25-34 Automated erythrocyte mean corpuscular hemoglobin concentration measurement ( mass/volume) 33 g/dL 32-36 Automated erythrocyte distribution width ratio 16.5 % 10.0-14.5 Automated blood platelet count (count/volume) 153 10*3/uL 130-400 Automated blood platelet mean volume measurement 10.6 [foz_us] 7.4-10.4 Automated blood neutrophils/100 leukocytes 71 % 42-75 Automated blood lymphocytes/100 leukocytes 21 % 12-44 Blood monocytes/100 leukocytes 4 % 0-12 Automated blood eosinophils/100 leukocytes 3 % 0-10 Automated blood basophils/100 leukocytes 0 % 0-10 Blood neutrophils automated count (number/volume) 6.0 10*3 1.8-7.8 Blood lymphocytes automated count (number/volume) 1.8 10*3 1.0-4.0 Blood monocytes automated count (number/volume) 0.3 10*3 0.0-1.0 Automated eosinophil count 0.3 10*3/uL 0.0-0.3 Automated blood basophil count (count/volume) 0.0 10*3/uL 0.0-0.1 Comprehensive metabolic panel - 09/27/15 14:02 Serum or plasma sodium measurement (moles/volume) 131 mmol/L 135-145 Serum or plasma potassium measurement (moles/volume) 4.9 mmol/L 3.6-5.0 Serum or plasma chloride measurement (moles/volume) 89 mmol/L 98-107 Carbon dioxide 32 mmol/L 21-32 Serum or plasma anion gap determination (moles/volume) 10 mmol/L 5-14 Serum or plasma urea nitrogen measurement (mass/volume) 41 mg/dL 7-18 Serum or plasma creatinine measurement (mass/volume) 3.56 mg/dL 0.60-1.30 Serum or plasma urea nitrogen/creatinine mass ratio 12 NRG Serum or plasma creatinine measurement with calculation of estimated glomerular filtration rate 13 NRG Serum or plasma glucose measurement (mass/volume) 195 mg/dL 70-105 Serum or plasma calcium measurement (mass/volume) 9.1 mg/dL 8.5-10.1 Serum or plasma total bilirubin measurement (mass/volume) 0.5 mg/dL 0.1-1.0 Serum or plasma alkaline phosphatase measurement (enzymatic activity/volume) 131 U/L 40-136 Serum or plasma aspartate aminotransferase measurement (enzymatic activity/ volume) 10 U/L 5-34 Serum or plasma alanine aminotransferase measurement (enzymatic activity/volume ) 12 U/L 0-55 Serum or plasma protein measurement (mass/volume) 6.8 g/dL 6.4-8.2 Serum or plasma albumin measurement (mass/volume) 3.6 g/dL 3.2-4.5 Magnesium - 09/27/15 14:02 Magnesium 1.9 mg/dL 1.8-2.4 Serum or plasma troponin i.cardiac measurement (mass/volume) - 09/27/15 14:02 Serum or plasma troponin i.cardiac measurement (mass/volume) < ng/ mL <0.30 Serum or plasma lithium measurement (moles/volume) - 09/27/15 14:02 BNP level 64.9 pg/mL <100.0 Capillary blood glucose measurement by glucometer (mass/volume) - 09/27/15 14: 20 Capillary blood glucose measurement by glucometer (mass/volume) 179 mg/dL 70-110 Capillary blood glucose measurement by glucometer (mass/volume) - 10/24/15 09: 58 Capillary blood glucose measurement by glucometer (mass/volume) 148 mg/dL 70-110 Capillary blood glucose measurement by glucometer (mass/volume) - 11/01/15 07: 52 Capillary blood glucose measurement by glucometer (mass/volume) 112 mg/dL 70-110 Complete blood count (CBC) with automated white blood cell (WBC) differential - 11/04/15 15:30 Blood leukocytes automated count (number/volume) 10.1 10*3/uL 4.3-11.0 Blood erythrocytes automated count (number/volume) 3.69 10*6/uL 4.35-5.85 Venous blood hemoglobin measurement (mass/volume) 11.9 g/dL 11.5-16.0 Blood hematocrit (volume fraction) 35 % 35-52 Automated erythrocyte mean corpuscular volume 95 [foz_us] 80-99 Automated erythrocyte mean corpuscular hemoglobin (mass per erythrocyte) 32 pg 25-34 Automated erythrocyte mean corpuscular hemoglobin concentration measurement ( mass/volume) 34 g/dL 32-36 Automated erythrocyte distribution width ratio 16.6 % 10.0-14.5 Automated blood platelet count (count/volume) 184 10*3/uL 130-400 Automated blood platelet mean volume measurement 9.8 [foz_us] 7.4-10.4 Automated blood neutrophils/100 leukocytes 74 % 42-75 Automated blood lymphocytes/100 leukocytes 19 % 12-44 Blood monocytes/100 leukocytes 7 % 0-12 Automated blood eosinophils/100 leukocytes 0 % 0-10 Automated blood basophils/100 leukocytes 0 % 0-10 Blood neutrophils automated count (number/volume) 7.5 10*3 1.8-7.8 Blood lymphocytes automated count (number/volume) 1.9 10*3 1.0-4.0 Blood monocytes automated count (number/volume) 0.7 10*3 0.0-1.0 Automated eosinophil count 0.0 10*3/uL 0.0-0.3 Automated blood basophil count (count/volume) 0.0 10*3/uL 0.0-0.1 PT panel in platelet poor plasma by coagulation assay - 11/04/15 15:30 Prothrombin time (PT) in platelet poor plasma by coagulation assay 12.7 s 12.2-14.7 INR in platelet poor plasma or blood by coagulation assay 1.0 0.8-1.4 Activated partial thromboplastin time (aPTT) in platelet poor plasma bycoagulation assay - 11/04/15 15:30 Activated partial thromboplastin time (aPTT) in platelet poor plasma bycoagulation assay 31 s 24-35 Comprehensive metabolic panel - 11/04/15 15:30 Serum or plasma sodium measurement (moles/volume) 139 mmol/L 135-145 Serum or plasma potassium measurement (moles/volume) 3.1 mmol/L 3.6-5.0 Serum or plasma chloride measurement (moles/volume) 97 mmol/L 98-107 Carbon dioxide 29 mmol/L 21-32 Serum or plasma anion gap determination (moles/volume) 13 mmol/L 5-14 Serum or plasma urea nitrogen measurement (mass/volume) 14 mg/dL 7-18 Serum or plasma creatinine measurement (mass/volume) 1.36 mg/dL 0.60-1.30 Serum or plasma urea nitrogen/creatinine mass ratio 10 NRG Serum or plasma creatinine measurement with calculation of estimated glomerular filtration rate 39 NRG Serum or plasma glucose measurement (mass/volume) 199 mg/dL 70-105 Serum or plasma calcium measurement (mass/volume) 9.0 mg/dL 8.5-10.1 Serum or plasma total bilirubin measurement (mass/volume) 0.9 mg/dL 0.1-1.0 Serum or plasma alkaline phosphatase measurement (enzymatic activity/volume) 256 U/L 40-136 Serum or plasma aspartate aminotransferase measurement (enzymatic activity/ volume) 75 U/L 5-34 Serum or plasma alanine aminotransferase measurement (enzymatic activity/volume ) 51 U/L 0-55 Serum or plasma protein measurement (mass/volume) 6.9 g/dL 6.4-8.2 Serum or plasma albumin measurement (mass/volume) 3.8 g/dL 3.2-4.5 Magnesium - 11/04/15 15:30 Magnesium 1.9 mg/dL 1.8-2.4 Serum or plasma troponin i.cardiac measurement (mass/volume) - 11/04/15 15:30 Serum or plasma troponin i.cardiac measurement (mass/volume) < ng/ mL <0.30 Myoglobin, serum - 11/04/15 15:30 Myoglobin, serum 60.0 ng/mL 10.0-92.0 Complete blood count (CBC) with automated white blood cell (WBC) differential - 06/19/16 15:45 Blood leukocytes automated count (number/volume) 9.6 10*3/uL 4.3-11.0 Blood erythrocytes automated count (number/volume) 3.15 10*6/uL 4.35-5.85 Venous blood hemoglobin measurement (mass/volume) 10.0 g/dL 11.5-16.0 Blood hematocrit (volume fraction) 30 % 35-52 Automated erythrocyte mean corpuscular volume 96 [foz_us] 80-99 Automated erythrocyte mean corpuscular hemoglobin (mass per erythrocyte) 32 pg 25-34 Automated erythrocyte mean corpuscular hemoglobin concentration measurement ( mass/volume) 33 g/dL 32-36 Automated erythrocyte distribution width ratio 15.0 % 10.0-14.5 Automated blood platelet count (count/volume) 188 10*3/uL 130-400 Automated blood platelet mean volume measurement 10.3 [foz_us] 7.4-10.4 Automated blood neutrophils/100 leukocytes 84 % 42-75 Automated blood lymphocytes/100 leukocytes 8 % 12-44 Blood monocytes/100 leukocytes 5 % 0-12 Automated blood eosinophils/100 leukocytes 4 % 0-10 Automated blood basophils/100 leukocytes 0 % 0-10 Blood neutrophils automated count (number/volume) 8.0 10*3 1.8-7.8 Blood lymphocytes automated count (number/volume) 0.7 10*3 1.0-4.0 Blood monocytes automated count (number/volume) 0.5 10*3 0.0-1.0 Automated eosinophil count 0.3 10*3/uL 0.0-0.3 Automated blood basophil count (count/volume) 0.0 10*3/uL 0.0-0.1 Blood manual differential performed detection - 06/19/16 15:45 Blood monocytes/100 leukocytes 2 % NRG Manual blood segmented neutrophils/100 leukocytes 79 % NRG Blood band neutrophils/100 leukocytes 9 % NRG Manual blood lymphocytes/100 leukocytes 9 % NRG Manual eosinophils/100 leukocytes in nose 1 % NRG Manual blood basophils/100 leukocytes 0 % NRG Blood erythrocyte morphology finding identification NORMAL [facility] Comprehensive metabolic panel - 06/19/16 15:45 Serum or plasma sodium measurement (moles/volume) 136 mmol/L 135-145 Serum or plasma potassium measurement (moles/volume) 3.5 mmol/L 3.6-5.0 Serum or plasma chloride measurement (moles/volume) 91 mmol/L 98-107 Carbon dioxide 30 mmol/L 21-32 Serum or plasma anion gap determination (moles/volume) 15 mmol/L 5-14 Serum or plasma urea nitrogen measurement (mass/volume) 18 mg/dL 7-18 Serum or plasma creatinine measurement (mass/volume) 2.39 mg/dL 0.60-1.30 Serum or plasma urea nitrogen/creatinine mass ratio 8 NRG Serum or plasma creatinine measurement with calculation of estimated glomerular filtration rate 20 NRG Serum or plasma glucose measurement (mass/volume) 180 mg/dL 70-105 Serum or plasma calcium measurement (mass/volume) 9.3 mg/dL 8.5-10.1 Serum or plasma total bilirubin measurement (mass/volume) 0.6 mg/dL 0.1-1.0 Serum or plasma alkaline phosphatase measurement (enzymatic activity/volume) 126 U/L 40-136 Serum or plasma aspartate aminotransferase measurement (enzymatic activity/ volume) 12 U/L 5-34 Serum or plasma alanine aminotransferase measurement (enzymatic activity/volume ) 7 U/L 0-55 Serum or plasma protein measurement (mass/volume) 8.3 g/dL 6.4-8.2 Serum or plasma albumin measurement (mass/volume) 4.0 g/dL 3.2-4.5 Serum or plasma troponin i.cardiac measurement (mass/volume) - 06/19/16 15:45 Serum or plasma troponin i.cardiac measurement (mass/volume) < ng/ mL <0.30 Complete blood count (CBC) with automated white blood cell (WBC) differential - 12/25/16 09:18 Blood leukocytes automated count (number/volume) 11.9 10*3/uL 4.3-11.0 Blood erythrocytes automated count (number/volume) 2.73 10*6/uL 4.35-5.85 Venous blood hemoglobin measurement (mass/volume) 9.1 g/dL 11.5-16.0 Blood hematocrit (volume fraction) 28 % 35-52 Automated erythrocyte mean corpuscular volume 102 [foz_us] 80-99 Automated erythrocyte mean corpuscular hemoglobin (mass per erythrocyte) 33 pg 25-34 Automated erythrocyte mean corpuscular hemoglobin concentration measurement ( mass/volume) 33 g/dL 32-36 Automated erythrocyte distribution width ratio 13.8 % 10.0-14.5 Automated blood platelet count (count/volume) 244 10*3/uL 130-400 Automated blood platelet mean volume measurement 9.6 [foz_us] 7.4-10.4 Automated blood neutrophils/100 leukocytes 75 % 42-75 Automated blood lymphocytes/100 leukocytes 18 % 12-44 Blood monocytes/100 leukocytes 6 % 0-12 Automated blood eosinophils/100 leukocytes 1 % 0-10 Automated blood basophils/100 leukocytes 0 % 0-10 Blood neutrophils automated count (number/volume) 9.0 10*3 1.8-7.8 Blood lymphocytes automated count (number/volume) 2.1 10*3 1.0-4.0 Blood monocytes automated count (number/volume) 0.7 10*3 0.0-1.0 Automated eosinophil count 0.1 10*3/uL 0.0-0.3 Automated blood basophil count (count/volume) 0.1 10*3/uL 0.0-0.1 Comprehensive metabolic panel - 12/25/16 09:18 Serum or plasma sodium measurement (moles/volume) 137 mmol/L 135-145 Serum or plasma potassium measurement (moles/volume) 3.5 mmol/L 3.6-5.0 Serum or plasma chloride measurement (moles/volume) 95 mmol/L 98-107 Carbon dioxide 29 mmol/L 21-32 Serum or plasma anion gap determination (moles/volume) 13 mmol/L 5-14 Serum or plasma urea nitrogen measurement (mass/volume) 48 mg/dL 7-18 Serum or plasma creatinine measurement (mass/volume) 4.31 mg/dL 0.60-1.30 Serum or plasma urea nitrogen/creatinine mass ratio 11 NRG Serum or plasma creatinine measurement with calculation of estimated glomerular filtration rate 10 NRG Serum or plasma glucose measurement (mass/volume) 161 mg/dL 70-105 Serum or plasma calcium measurement (mass/volume) 9.7 mg/dL 8.5-10.1 Serum or plasma total bilirubin measurement (mass/volume) 0.4 mg/dL 0.1-1.0 Serum or plasma alkaline phosphatase measurement (enzymatic activity/volume) 80 U/L 40-136 Serum or plasma aspartate aminotransferase measurement (enzymatic activity/ volume) 9 U/L 5-34 Serum or plasma alanine aminotransferase measurement (enzymatic activity/volume ) 9 U/L 0-55 Serum or plasma protein measurement (mass/volume) 6.8 g/dL 6.4-8.2 Serum or plasma albumin measurement (mass/volume) 3.2 g/dL 3.2-4.5 Serum or plasma uric acid measurement (mass/volume) - 12/25/16 09:18 Serum or plasma uric acid measurement (mass/volume) 6.1 mg/dL 2.6-7.2 Capillary blood glucose measurement by glucometer (mass/volume) - 03/16/17 18: 31 Capillary blood glucose measurement by glucometer (mass/volume) 66 mg/dL 70-110 Blood lactic acid measurement (moles/volume) - 03/16/17 18:45 Blood lactic acid measurement (moles/volume) 1.44 mmol/L 0.50-2.00 Capillary blood glucose measurement by glucometer (mass/volume) - 03/16/17 19: 04 Capillary blood glucose measurement by glucometer (mass/volume) 100 mg/dL 70-110 Complete blood count (CBC) with automated white blood cell (WBC) differential - 03/16/17 19:06 Blood leukocytes automated count (number/volume) 10.0 10*3/uL 4.3-11.0 Blood erythrocytes automated count (number/volume) 2.01 10*6/uL 4.35-5.85 Venous blood hemoglobin measurement (mass/volume) 6.0 g/dL 11.5-16.0 Blood hematocrit (volume fraction) 19 % 35-52 Automated erythrocyte mean corpuscular volume 96 [foz_us] 80-99 Automated erythrocyte mean corpuscular hemoglobin (mass per erythrocyte) 30 pg 25-34 Automated erythrocyte mean corpuscular hemoglobin concentration measurement ( mass/volume) 31 g/dL 32-36 Automated erythrocyte distribution width ratio 15.0 % 10.0-14.5 Automated blood platelet count (count/volume) 311 10*3/uL 130-400 Automated blood platelet mean volume measurement 10.2 [foz_us] 7.4-10.4 Automated blood neutrophils/100 leukocytes 92 % 42-75 Automated blood lymphocytes/100 leukocytes 5 % 12-44 Blood monocytes/100 leukocytes 3 % 0-12 Automated blood eosinophils/100 leukocytes 0 % 0-10 Automated blood basophils/100 leukocytes 0 % 0-10 Blood neutrophils automated count (number/volume) 9.2 10*3 1.8-7.8 Blood lymphocytes automated count (number/volume) 0.5 10*3 1.0-4.0 Blood monocytes automated count (number/volume) 0.3 10*3 0.0-1.0 Automated eosinophil count 0.0 10*3/uL 0.0-0.3 Automated blood basophil count (count/volume) 0.0 10*3/uL 0.0-0.1 PT panel in platelet poor plasma by coagulation assay - 03/16/17 19:06 Prothrombin time (PT) in platelet poor plasma by coagulation assay 15.0 s 12.2-14.7 INR in platelet poor plasma or blood by coagulation assay 1.2 0.8-1.4 Activated partial thromboplastin time (aPTT) in platelet poor plasma bycoagulation assay - 03/16/17 19:06 Activated partial thromboplastin time (aPTT) in platelet poor plasma bycoagulation assay 44 s 24-35 Comprehensive metabolic panel - 03/16/17 19:06 Serum or plasma sodium measurement (moles/volume) 132 mmol/L 135-145 Serum or plasma potassium measurement (moles/volume) 4.6 mmol/L 3.6-5.0 Serum or plasma chloride measurement (moles/volume) 103 mmol/L 98-107 Carbon dioxide 19 mmol/L 21-32 Serum or plasma anion gap determination (moles/volume) 10 mmol/L 5-14 Serum or plasma urea nitrogen measurement (mass/volume) 40 mg/dL 7-18 Serum or plasma creatinine measurement (mass/volume) 3.60 mg/dL 0.60-1.30 Serum or plasma urea nitrogen/creatinine mass ratio 11 NRG Serum or plasma creatinine measurement with calculation of estimated glomerular filtration rate 13 NRG Serum or plasma glucose measurement (mass/volume) 280 mg/dL 70-105 Serum or plasma calcium measurement (mass/volume) 9.0 mg/dL 8.5-10.1 Serum or plasma total bilirubin measurement (mass/volume) 0.5 mg/dL 0.1-1.0 Serum or plasma alkaline phosphatase measurement (enzymatic activity/volume) 94 U/L 40-136 Serum or plasma aspartate aminotransferase measurement (enzymatic activity/ volume) 17 U/L 5-34 Serum or plasma alanine aminotransferase measurement (enzymatic activity/volume ) 8 U/L 0-55 Serum or plasma protein measurement (mass/volume) 6.5 g/dL 6.4-8.2 Serum or plasma albumin measurement (mass/volume) 2.8 g/dL 3.2-4.5 Magnesium - 03/16/17 19:06 Magnesium 1.4 mg/dL 1.8-2.4 Serum or plasma troponin i.cardiac measurement (mass/volume) - 03/16/17 19:06 Serum or plasma troponin i.cardiac measurement (mass/volume) < ng/ mL <0.30 Serum or plasma thyrotropin measurement by detection limit <=0.05 miu/l (units/ volume) - 03/16/17 19:06 Serum or plasma thyrotropin measurement by detection limit <=0.05 miu/l (units/ volume) 1.00 u[iU]/mL 0.35-4.94 Serum or plasma ethanol measurement (mass/volume) - 03/16/17 19:06 Serum or plasma ethanol measurement (mass/volume) < mg/dL <10 Blood manual differential performed detection - 03/16/17 19:06 Blood monocytes/100 leukocytes 3 % NRG Manual blood segmented neutrophils/100 leukocytes 93 % NRG Blood band neutrophils/100 leukocytes 0 % NRG Manual blood lymphocytes/100 leukocytes 4 % NRG Manual eosinophils/100 leukocytes in nose 0 % NRG Manual blood basophils/100 leukocytes 0 % NRG Blood anisocytosis detection by light microscopy MODERATE NRG Blood spherocytes detection by light microscopy MODERATE NRG Serum or plasma salicylates measurement (mass/volume) - 03/16/17 19:06 Serum or plasma salicylates measurement (mass/volume) < mg/dL 5.0-20.0 Serum or plasma acetaminophen measurement (mass/volume) - 03/16/17 19:06 Serum or plasma acetaminophen measurement (mass/volume) < ug/mL 10-30 Complete urinalysis with reflex to culture - 03/16/17 19:17 Urine color determination YELLOW NRG Urine clarity determination CLEAR NRG Urine pH measurement by test strip 8 5-9 Specific gravity of urine by test strip 1.010 1.016- 1.022 Urine protein assay by test strip, semi-quantitative 3+ NEGATIVE Urine glucose detection by automated test strip NEGATIVE NEGATIVE Erythrocytes detection in urine sediment by light microscopy NEGATIVE NEGATIVE Urine ketones detection by automated test strip NEGATIVE NEGATIVE Urine nitrite detection by test strip NEGATIVE NEGATIVE Urine total bilirubin detection by test strip NEGATIVE NEGATIVE Urine urobilinogen measurement by automated test strip (mass/volume) NORMAL NORMAL Urine leukocyte esterase detection by dipstick NEGATIVE NEGATIVE Automated urine sediment erythrocyte count by microscopy (number/high power field) NONE NRG Automated urine sediment leukocyte count by microscopy (number/high power field ) NONE NRG Bacteria detection in urine sediment by light microscopy NONE NRG Squamous epithelial cells detection in urine sediment by light microscopy 0-2 NRG Crystals detection in urine sediment by light microscopy NONE NRG Casts detection in urine sediment by light microscopy NONE NRG Mucus detection in urine sediment by light microscopy NEGATIVE NRG Complete urinalysis with reflex to culture NO NRG Urine drug screening test - 03/16/17 19:17 Urine phencyclidine detection by screening method NEGATIVE NEGATIVE Urine benzodiazepines detection by screening method NEGATIVE NEGATIVE Urine cocaine detection NEGATIVE NEGATIVE Urine amphetamines detection by screening method NEGATIVE NEGATIVE Urine methamphetamine detection by screening method NEGATIVE NEGATIVE Urine cannabinoids detection by screening method NEGATIVE NEGATIVE Urine opiates detection by screening method NEGATIVE NEGATIVE Urine barbiturates detection NEGATIVE NEGATIVE Screening urine tricyclic antidepressants detection NEGATIVE NEGATIVE Urine methadone detection by screening method NEGATIVE NEGATIVE Urine oxycodone detection POSITIVE NEGATIVE Urine propoxyphene detection NEGATIVE NEGATIVE Influenza virus A and B antigen detection - 03/16/17 19:50 FLU RESULT NEGATIVE FOR INFLUENZA A AND B ANTIGENS BY IA NRG RED CELLS LEUKO REDUCED AS1 - 03/16/17 20:01 RED CELLS LEUKO REDUCED AS1 TRANSFUSED 03/16/179 [facility] Blood type T Indirect antibody screen panel - 03/16/17 20:01 ABO+Rh group ON NRG Transfusion band number [id number] NRG Blood group antibody screen NEGATIVE NRG Arterial blood gas measurement - 03/16/17 21:00 Blood pCO2 33 mm[Hg] 35-45 Blood pO2 397 mm[Hg] 79-93 Arterial blood bicarbonate measurement (moles/volume) 22 mmol/L 23-27 Arterial blood base excess by calculation -1.9 mmol/L - 2.5-2.5 Arterial blood oxygen saturation measurement 100 % 94- 100 * Inhaled oxygen flow rate UNKNOWN NRG Arterial blood pH measurement with patient temperature correction 7.43 7.37-7.43 Arterial blood carbon dioxide, total measurement (moles/volume) 22.9 mmol/L 21.0-31.0 Body site LEFT BRACHIAL NRG Assessment of wrist artery patency prior to arterial puncture NA NRG Setting of ventilation mode YES NRG Measurement of body temperature 97.6 NRG Encounters ACCT No. Visit Date/Time Discharge Status Pt. Type Provider Facility Loc./Unit Complaint [id number] 03/16/2017 18:24:00 03/16/2017 22:38:00 DIS Emergency KALLIE HERRERA MD [facility] ER SOA [id number] 03/02/2017 07:32:00 03/02/2017 23:59:59 CLS Preadmit SANJU SALCEDO REGULATORY AFFAIRS DIRECTOR [facility] RAD PAIN IN LEFT ARM [id number] 02/04/2017 16:39:00 02/04/2017 23:59:59 CLS Outpatient SANJU SALCEDO APRN [facility] RAD M79.642 M25.562 [id number] 12/25/2016 09:10:00 12/25/2016 23:59:59 CLS Outpatient JANAK OSMAN MD [facility] LAB [id number] 06/19/2016 15:04:00 06/19/2016 17:11:00 DIS Emergency LILIANA ISAACS MD [facility] ER BACK/ABD PAIN [id number] 04/16/2016 15:03:00 04/16/2016 23:59:59 CLS Outpatient JANAK OSMAN MD [facility] RAD AMNESIA [id number] 04/14/2016 14:29:00 04/14/2016 23:59:59 CLS Outpatient JANAK OSMAN MD [facility] RAD TEMPOROMANIDIBULAR JOINT PAIN DYSFUNCTION SYNDROME [id number] 04/14/2016 00:10:00 04/14/2016 23:59:59 CLS Preadmit LILIBETH PUGH [facility] ONC [id number] 04/08/2016 11:00:00 04/13/2016 00:01:00 DIS Outpatient LILIBETH PUGH [facility] ONC [id number] 02/28/2016 08:38:00 02/28/2016 23:59:59 CLS Outpatient SANJU SALCEDO REGULATORY AFFAIRS DIRECTOR [facility] RAD INTERMITTENT CONFUSION [id number] 02/21/2016 08:03:00 02/21/2016 23:59:59 CLS Outpatient SANJU SALCEDO REGULATORY AFFAIRS DIRECTOR [facility] RAD RUQ PAIN [id number] 02/21/2016 06:54:00 02/21/2016 07:50:00 DIS Outpatient MIHAI MEZA MD [facility] CARD HIP OSTEOARTHRITIS [id number] 01/17/2016 10:49:00 01/17/2016 11:35:00 DIS Outpatient MIHAI MEZA MD [facility] CARD HIP OSTEOARTHRITIS [id number] 01/14/2016 14:03:00 01/14/2016 23:59:59 CLS Outpatient KHRIS BLANCO VIDEO PRODUCTION SPECIALIST [facility] RAD [id number] 10/22/2015 14:42:00 11/18/2015 13:26:00 DIS Outpatient LILIBETH PUGH [facility] ONC [id number] 11/04/2015 15:22:00 11/04/2015 16:35:00 DIS Emergency KALLIE HRERERA MD [facility] ER ABD PAIN [id number] 11/01/2015 07:31:00 11/01/2015 08:16:00 DIS Outpatient MIHAI MEZA MD [facility] CARD HIP OSTEOARTHRITIS [id number] 10/24/2015 09:38:00 10/24/2015 12:15:00 DIS Outpatient ELLIOTT WALDRON MD [facility] SDC DYSPAHGIA;GERD [id number] 10/22/2015 05:42:00 10/22/2015 23:59:59 CLS Outpatient ELLIOTT WALDRON MD [facility] PREOP DYSPHAGIA;GERD [id number] 10/08/2015 10:05:00 10/08/2015 23:59:59 CLS Outpatient KHRIS BLANCO VIDEO PRODUCTION SPECIALIST [facility] RAD SCREENING,PAIN IN LT HIP,HX OF COLON CA [id number] 10/01/2015 05:51:00 10/01/2015 23:59:59 CLS Outpatient ELLIOTT WALDRON MD [facility] PREOP GERD [id number] 09/27/2015 13:24:00 09/27/2015 16:11:00 DIS Emergency JC AKINS MD [facility] ER LOW BP [id number] 09/24/2015 13:56:00 09/24/2015 23:59:59 CLS Outpatient KHRIS BLANCO VIDEO PRODUCTION SPECIALIST [facility] ONC [id number] 09/09/2015 23:15:00 09/10/2015 03:14:00 DIS Emergency AMY LYON DO [facility] ER CONSTIPATION FOR 2 WKS [id number] 04/03/2015 07:04:00 04/03/2015 09:06:00 DIS Outpatient ELLIOTT WALDRON MD [facility] INCOMPLETE SCOPE [id number] 04/02/2015 05:42:00 04/02/2015 23:59:59 CLS Outpatient ELLIOTT WALDRON MD [facility] PREOP INCOMPLETE SCOPE [id number] 04/01/2015 07:03:00 04/01/2015 23:59:59 CLS Outpatient ELLIOTT WALDRON MD [facility] HISTORY OF COLON CANCER [id number] 03/28/2015 05:56:00 03/28/2015 23:59:59 CLS Outpatient ELLIOTT WALDRON MD [facility] PREOP HISTORY COLON CANCER [id number] 02/23/2015 14:45:00 02/23/2015 23:59:59 CLS Outpatient SANJU SALCEDO APRN [facility] RAD L HIP PAIN LOW BACK PAIN [id number] 02/10/2015 21:33:00 02/10/2015 23:59:00 DIS Emergency AMY LYON DO [facility] ER SOA [id number] 08/30/2014 13:05:00 11/07/2014 00:01:00 DIS Outpatient LILIBETH PUGH [facility] ONC [id number] 09/07/2014 13:27:00 09/07/2014 16:54:00 DIS Emergency RENALDO BLISS, SHELBI Mack [facility] ER DIALYSIS PORT/FEVER/UPPER BCK PAIN [id number] 09/06/2014 09:47:00 09/06/2014 23:59:59 CLS Preadmit KHRIS BLANCOP [facility] ONC [id number] 09/04/2014 12:23:00 09/04/2014 23:59:59 CLS Outpatient HESHAM LOVING MD [facility] LAB END STAGE RENAL DIS [id number] 08/30/2014 13:16:00 08/30/2014 23:59:59 CLS Outpatient JANAK OSMAN MD [facility] LAB [id number] 08/16/2014 14:19:00 08/22/2014 00:01:00 DIS Outpatient KEATON LILIBETH Whitten [facility] ONC [id number] 07/31/2014 08:58:00 07/31/2014 23:59:59 CLS Outpatient MATIAS VARGHESEESSENCE Whitten REGULATORY AFFAIRS DIRECTOR [facility] RAD ABDOMINAL PAIN [id number] 07/30/2014 10:01:00 07/30/2014 23:59:59 CLS Outpatient SANJU SALCEDO REGULATORY AFFAIRS DIRECTOR [facility] RAD ABD PAIN [id number] 06/21/2014 12:56:00 06/21/2014 23:59:59 CLS Outpatient KHRIS BLANCO VIDEO PRODUCTION SPECIALIST [facility] ONC [id number] 05/17/2014 11:42:00 05/23/2014 00:01:00 DIS Outpatient LILIBETH PUGH N [facility] [facility] ONC [id number] 03/08/2014 11:18:00 03/08/2014 23:59:59 CLS Outpatient JANKA OSMAN MD [facility] LAB [id number] 02/26/2014 15:12:00 02/26/2014 23:59:59 CLS Outpatient CASIMIRO VALENZUELA DO [facility] RT COPD,DYSPNEA [id number] 02/22/2014 10:23:00 02/22/2014 23:59:59 CLS Outpatient KHRIS BLANCOP [facility] ONC [id number] 01/31/2014 10:31:00 02/21/2014 00:01:00 DIS Outpatient LILIBETH PUGH [facility] ONC [id number] 12/21/2013 10:23:00 12/21/2013 23:59:59 CLS Outpatient SANJU SALCEDO APRN [facility] LAB [id number] 11/22/2013 07:25:00 11/22/2013 23:59:59 CLS Outpatient SHEILA PASTRANA MD [facility] CARD CAD HTN HLE [id number] 11/16/2013 10:14:00 11/22/2013 00:01:00 DIS Outpatient LILIBETH PUGH [facility] ONC [id number] 11/15/2013 13:26:00 11/15/2013 23:59:59 CLS Outpatient SHEILA PASTRANA MD [facility] CARD CAD HTN HLE [id number] 11/02/2013 13:48:00 11/02/2013 23:59:59 CLS Outpatient KHRIS BLANCO [employer]IST [facility] ONC [id number] 09/14/2013 11:04:00 09/14/2013 23:59:59 CLS Outpatient JANAK OSMAN MD [facility] LAB [id number] 09/07/2013 13:37:00 09/07/2013 23:59:59 CLS Outpatient KHRIS BLANCO [employer]IST [facility] ONC [id number] 08/03/2013 13:07:00 08/23/2013 00:01:00 DIS Outpatient LILIBETH PUGH [facility] ONC [id number] 07/13/2013 19:45:00 07/14/2013 06:50:00 DIS Outpatient JANAK OSMAN MD [facility] SLEEP SNORING,DIFFICULTY SLEEPING [id number] 05/25/2013 14:01:00 05/25/2013 23:59:59 CLS Outpatient KHRIS BLANCO S [employer]IST [facility] ONC [id number] 03/03/2013 12:46:00 05/18/2013 00:01:00 DIS Outpatient LLIIBETH PUGH Maria Dolores [facility] ONC [id number] 04/27/2013 13:37:00 04/27/2013 23:59:59 CLS Outpatient JANAK OSMAN MD [facility] LAB [id number] 04/20/2013 14:17:00 04/20/2013 23:59:59 CLS Outpatient BLANCOPEDRO LUISAH S [employer]IST [facility] ONC [id number] 02/28/2013 13:59:00 02/28/2013 23:59:59 CLS Outpatient BLANCO HILAH S [employer]IST [facility] RAD SCREENING [id number] 02/24/2013 13:17:00 02/24/2013 23:59:59 CLS Outpatient BLANCO, HILAH S [employer] SPECIALIST [facility] ONC [id number] 02/10/2013 12:57:00 02/15/2013 00:01:00 DIS Outpatient LILIBEHT PUGH Maria Dolores [facility] ONC [id number] 01/12/2013 14:10:00 01/12/2013 16:41:00 DIS Emergency RENALDO BLISS, SHELBI Mack [facility] ER ELEVATED BP [id number] 12/27/2012 04:45:00 12/29/2012 11:10:00 DIS Inpatient JANAK OSMAN MD [facility] CSD UTI;CHEST PAIN;HTN [id number] 12/22/2012 13:12:00 12/22/2012 23:59:59 CLS Outpatient BLANCOPEDRO LUISAH S [employer]IST [facility] ONC [id number] 11/03/2012 12:54:00 11/16/2012 00:01:00 DIS Outpatient LILIBETH PUGH Maria Dolores [facility] ONC [id number] 11/03/2012 12:58:00 11/03/2012 23:59:59 CLS Outpatient PEDRO LUIS BLANCOAH S [employer] SPECIALIST [facility] ONC [id number] 10/28/2012 13:39:00 10/28/2012 23:59:59 CLS Outpatient SHEILA PASTRANA MD [facility] LAB [id number] 10/21/2012 10:15:00 10/22/2012 13:00:00 DIS Inpatient SHEILA PASTRANA MD [facility] ICU CHEST PAIN,ABN STRESS,CAD ,HTN,HYPERLIPIDEMIA,DM,OB [id number] 10/12/2012 08:02:00 10/12/2012 23:59:59 CLS Outpatient SHEILA PASTRANA MD [facility] RAD CP,CAD [id number] 10/05/2012 10:06:00 10/05/2012 23:59:59 CLS Outpatient SHEILA PASTRANA MD [facility] CARD CP,CAD [id number] 09/08/2012 12:56:00 09/08/2012 23:59:59 CLS Outpatient KHRIS BLANCOP [facility] ONC [id number] 2012 13:25:00 2012 00:01:00 DIS Outpatient LILIBETH PUGH [facility] ONC [id number] 07/22/2012 14:15:00 07/22/2012 23:59:59 CLS Outpatient FABIENNE BLISS, HESHAM S [facility] LAB [id number] 07/14/2012 12:34:00 07/14/2012 23:59:59 CLS Outpatient KHRIS BLANCO [employer]IST [facility] ONC [id number] 07/07/2012 14:23:00 07/07/2012 23:59:59 CLS Outpatient JANAK OSMAN MD [facility] LAB [id number] 06/28/2012 13:43:00 06/28/2012 23:59:59 CLS Outpatient JANAK OSMAN MD [facility] RAD SWELLING OF R FOOT ANKLE [id number] 05/10/2014 16:36:00 Document Registration [id number] 04/19/2014 12:57:00 Document Registration [id number] 02/23/2014 11:56:00 Document Registration [id number] 02/23/2014 11:55:00 Document Registration [id number] 02/23/2014 11:55:00 Document Registration [id number] 05/05/2012 12:49:00 Document Registration [id number] 03/17/2012 14:00:00 Document Registration [id number] 03/01/2012 01:40:00 Document Registration [id number] 02/25/2012 14:49:00 Document Registration [id number] 02/04/2012 14:32:00 Document Registration [id number] 01/28/2012 13:14:00 Document Registration [id number] 01/15/2012 14:37:00 Document Registration [id number] 10/29/2011 14:12:00 Document Registration [id number] 10/29/2011 14:08:00 Document Registration [id number] 09/25/2011 14:27:00 Document Registration [id number] 08/13/2011 09:47:00 Document Registration [id number] 07/30/2011 13:53:00 Document Registration [id number] 06/25/2011 14:13:00 Document Registration [id number] 05/27/2011 09:15:00 Document Registration [id number] 05/07/2011 13:33:00 Document Registration [id number] 04/30/2011 14:15:00 Document Registration [id number] 04/26/2011 18:28:00 Document Registration [id number] 04/21/2011 16:37:00 Document Registration [id number] 04/02/2011 09:00:00 Document Registration [id number] 01/29/2011 13:38:00 Document Registration [id number] 11/11/2010 13:29:00 Document Registration [id number] 10/30/2010 13:15:00 Document Registration [id number] 10/09/2010 13:42:00 Document Registration [id number] 10/06/2010 12:03:00 Document Registration [id number] 08/25/2010 15:02:00 Document Registration [id number] 07/31/2010 12:59:00 Document Registration [id number] 07/10/2010 13:53:00 Document Registration [id number] 07/03/2010 12:05:00 Document Registration [id number] 06/18/2010 10:16:00 Document Registration [id number] 05/01/2010 13:23:00 Document Registration [id number] 03/19/2010 06:02:00 Document Registration [id number] 03/07/2010 10:36:00 Document Registration [id number] 01/30/2010 13:24:00 Document Registration [id number] 01/27/2010 11:40:00 Document Registration [id number] 01/21/2010 10:29:00 Document Registration [id number] 10/24/2009 13:26:00 Document Registration [id number] 10/15/2009 14:02:00 Document Registration [id number] 10/03/2009 15:55:00 Document Registration [id number] 09/28/2009 19:45:00 Document Registration [id number] 08/23/2009 18:15:00 Document Registration [id number] 08/01/2009 13:43:00 Document Registration [id number] 07/04/2009 13:39:00 Document Registration [id number] 05/02/2009 14:31:00 Document Registration [id number] 05/02/2009 11:28:00 Document Registration [id number] 04/19/2009 07:00:00 Document Registration [id number] 03/25/2009 12:00:00 Document Registration [id number] 02/25/2009 08:24:00 Document Registration [id number] 01/30/2009 12:47:00 Document Registration [id number] 12/17/2008 11:50:00 Document Registration [id number] 11/01/2008 06:30:00 Document Registration
== END 2017-03-16 22:38 | disposition short-term general hospital (02) ==
LOC: EDUNIT# 18:22 → ER 18:24
DX: J96.90 Respiratory failure, unspecified, unspecified whether with hypoxia or hypercapnia (principal); E11.22 Type 2 diabetes mellitus with diabetic chronic kidney disease; I13.2 Hypertensive heart and chronic kidney disease with heart failure and with stage 5 chronic kidney disease, or end stage renal disease; N18.6 End stage renal disease; I50.9 Heart failure, unspecified; G47.30 Sleep apnea, unspecified; J44.9 Chronic obstructive pulmonary disease, unspecified; E78.00 Pure hypercholesterolemia, unspecified; G43.909 Migraine, unspecified, not intractable, without status migrainosus; E66.01 Morbid (severe) obesity due to excess calories; F41.9 Anxiety disorder, unspecified; F32.9 Major depressive disorder, single episode, unspecified; E03.9 Hypothyroidism, unspecified; Z99.2 Dependence on renal dialysis; Z88.5 Allergy status to narcotic agent; Z82.49 Family history of ischemic heart disease and other diseases of the circulatory system; Z85.038 Personal history of other malignant neoplasm of large intestine; Z86.14 Personal history of Methicillin resistant Staphylococcus aureus infection; Z88.8 Allergy status to other drugs, medicaments and biological substances; Z79.82 Long term (current) use of aspirin; Z79.4 Long term (current) use of insulin; Z90.49 Acquired absence of other specified parts of digestive tract; Z87.19 Personal history of other diseases of the digestive system; Z90.710 Acquired absence of both cervix and uterus
CPT/HCPCS: 31500; 36415; 36430; 51702; 70450; 71045; 80053; 80306; 80320; 80329; 81000; 82805; 82962; 83605; 83735; 84443; 84484; 85007; 85027; 85610; 85730; 86850; 86900; 86901; 86920; 87040; 87070; 87077; 87186; 87205; 87804; 93005; 93041; 94002; 96365; 96366; 96367; 96375; 99291